=== PATIENT | female | born 1925 | race Caucasian/White ===

== ENCOUNTER 2016-07-12 15:55 | Inpatient (IN) | payer OTHER, BC ==
[2016-07-12 16:45] LABS: MCH 29.9 pg (25.7-33.7); MCHC 32.9 g/dl (32.0-36.0); MEAN CELL VOLUME 90.9 fl (80-96); PLATELET COUNT 134 K/MM3 (134-434); RDW 13.8 % (11.6-15.6); WHITE BLOOD COUNT 11.8 K/mm3 (4.0-10.0)
--- NOTE | 2016-07-12 16:52 | PN ---
Progress Note (short form) - Note Progress Note: Cardiology Patient was seen in consultation yesterday for first time. 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 Alex), chronic palpitations with ILR implanted (Dr. Parvez Garrett). Family reported several weeks of CRISOSTOMO and exertional fatigue. 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 She was referred for outpatient diagnostic testing today including LE venous dopplers (negative), bloodwork and CXR which showed large right pleural effusion with near opacification of right hemithorax. After discussing with her PMD Dr. Beltran and reviewing CXR with Dr. Villa, she was advised to come to ER for admission and further work up effusion with possible IR drainage. REC: 1. Continue Atenolol for her chronic palpitations 2. Supplimental O2. 3. Pulmonary consult 4. CT chest to evaluate parenchyma and if associated mass or infiltrate. 5. Would consult IR for CT or US guided drainage.
[2016-07-12] MEDS ORDERED: FUROSEMIDE 40 MG/4 ML INJECTABLE VIAL IVPB ONE (16:55)
[2016-07-12 16:56] LABS: INR 1.12 (0.82-1.09); PROTHROMBIN TIME (PATIENT) 12.3 SEC (9.98-11.88)
[2016-07-12 16:58] LABS: ACTIVATED PTT 28.2 SECONDS (26.9-34.4)
[2016-07-12 17:07] LABS: ALBUMIN 3.2 g/dl (3.4-5.0); ANION GAP 11 (8-16); CALCIUM 8.6 mg/dL (8.5-10.1); CO2 26 mmol/L (21-32); CREATININE 0.7 mg/dL (0.55-1.02); GLUCOSE,RANDOM 104 mg/dL (74-106); MAGNESIUM 2.2 mg/dL (1.8-2.4); SGOT/AST 30 U/L (15-37); SGPT/ALT 34 U/L (12-78)
[2016-07-12 17:12] LABS: ALK PHOS 95 U/L (45-117); BILIRUBIN,TOTAL 0.7 mg/dL (0.2-1.0); TROPONIN I < 0.02 ng/ml (0.00-0.05)
--- NOTE | 2016-07-12 17:30 | PDOC ---
History of Present Illness - General History Source: Patient, Family Exam Limitations: No Limitations <Hi Gonzalez - Last Filed: 07/12/16 18:05> - General History Source: Patient, Family, Old Records, Primary Care Provider (Dr. Price) Exam Limitations: No Limitations - History of Present Illness Initial Comments: 07/12/16 19:05 The patient is an 89 year old female, with a significant past medical history of CLL (last chemotherapy was 3 weeks ago), GERD and arrhythmia s/p implanted loop recorder, who presents to the emergency department sent in by Dr. Price with intermittent shortness of breath for the past week. The patient notes that her shortness of breath is not necessarily associated with any exertion or any pain. The patient additionally reports some bilateral lower extremity edema. The patient was seen by Dr. Price in office today. While there, she had bilateral lower extremity ultrasounds, which were negative for any DVT. However, she also had a chest x-ray, which showed a right sided pleural effusion. Dr. Price sent her to the ED for evaluation and likely admission. The patient denies any chest pain. The patient denies fever, chills, recent illnesses, nausea or vomiting. The patients family is at the bedside. Allergies: Azithromycin, Alendronate Sodium, Amoxicillin, Amoxicillin Trihydrate , Penicillins, Potassium Clavulanate Past Surgical History: Cholecystectomy, Bilateral Knee Arthroscopy. Social History: Former smoker. Denies alcohol or drug use. PCP: Dr. Beltran Video Game Repair Technician: Dr. Price Oncologist: Dr. Alex <Jackie Figueroa - Last Filed: 07/12/16 19:21> - General Chief Complaint: Shortness of Breath Stated Complaint: SOB, WHEEZING (PCP SENT) Time Seen by Provider: 07/12/16 16:14 Past History - Past Medical History Anemia: (CHRONIC LYMPHATIC LEUKEMIA) Asthma: No Cancer: Yes (RIGHT BREAST) Cardiac Disorders: Yes (ARRHYTHMIA with implanted loop recorder) CVA: No COPD: No CHF: No Dementia: No Diabetes: No GI Disorders: Yes (GERD) Disorders: No HTN: No Hypercholesterolemia: No Liver Disease: No Seizures: No Thyroid Disease: No - Surgical History Abdominal Surgery: No Appendectomy: No Cardiac Surgery: No Cholecystectomy: Yes Lung Surgery: No Neurologic Surgery: No Orthopedic Surgery: Yes (ARTHROSCOPY RIGHT AND LEFT KNEE) - Psycho/Social/Smoking Cessation Hx Anxiety: No Suicidal Ideation: No Smoking Status: No Smoking History: Never smoked Have you smoked in the past 12 months: No Number of Cigarettes Smoked Daily: 0 Information on smoking cessation initiated: No Hx Alcohol Use: No Drug/Substance Use Hx: No Substance Use Type: None Hx Substance Use Treatment: No <Hi Gonzalez - Last Filed: 07/12/16 18:05> <Jackie Figueroa - Last Filed: 07/12/16 19:21> - Past Medical History Allergies/Adverse Reactions: Allergies Allergy/AdvReac Type Severity Reaction Status Date / Time azithromycin Allergy Severe Rash Verified 04/14/13 10:23 alendronate sodium Allergy Intermediate ABDOMINAL Verified 04/14/13 10:23 [From Fosamax] PAIN amoxicillin [Amoxicillin] Allergy Intermediate Rash Verified 04/14/13 10:23 amoxicillin trihydrate Allergy Verified 01/17/14 10:56 [From Augmentin] Penicillins Allergy Rash Verified 04/14/13 10:23 potassium clavulanate Allergy Verified 01/17/14 10:56 [From Augmentin] Home Medications: Ambulatory Orders Aspirin [ASA -] 81 mg PO DAILY 12/28/11 Atenolol [Tenormin -] 50 mg PO DAILY 12/28/11 Atenolol [Tenormin -] 25 mg PO ASDIR 07/12/16 Atenolol [Tenormin] 25 mg PO DAILY PRN 07/12/16 Magnesium 400 mg PO DAILY 07/12/16 Review of Systems - Review of Systems Able to Perform ROS?: Yes Comments:: 07/12/16 18:50 GENERAL/CONSTITUTIONAL: No fever or chills. No weakness. HEAD, EYES, EARS, NOSE AND THROAT: No change in vision. No ear pain or discharge. No sore throat. CARDIOVASCULAR: +Shortness of breath. No chest pain. RESPIRATORY: No cough, wheezing, or hemoptysis. GASTROINTESTINAL: No nausea, vomiting, diarrhea or constipation. GENITOURINARY: No dysuria, frequency, or change in urination. MUSCULOSKELETAL: No joint or muscle swelling or pain. No neck or back pain. EXTREMITY: +Bilateral lower extremity edema. SKIN: No rash. NEUROLOGIC: No headache, vertigo, loss of consciousness, or change in strength/ sensation. ENDOCRINE: No increased thirst. No abnormal weight change. HEMATOLOGIC/LYMPHATIC: No anemia, easy bleeding, or history of blood clots. ALLERGIC/IMMUNOLOGIC: No hives or skin allergy. <Jackie Figueroa - Last Filed: 07/12/16 19:21> *Physical Exam - Vital Signs Last Vital Signs Temp Pulse Resp BP Pulse Ox 97.7 F 89 20 154/84 100 07/12/16 15:59 07/12/16 15:59 07/12/16 15:59 07/12/16 15:59 07/12/16 16:05 <Hi Gonzalez - Last Filed: 07/12/16 18:05> - Vital Signs Last Vital Signs Temp Pulse Resp BP Pulse Ox 97.7 F 89 20 154/84 100 07/12/16 15:59 07/12/16 15:59 07/12/16 15:59 07/12/16 15:59 07/12/16 16:05 - Physical Exam Comments: 07/12/16 18:46 GENERAL: Awake, alert, and fully oriented, in no acute distress. HEAD: No signs of trauma. EYES: PERRLA, EOMI, sclera anicteric, conjunctiva clear. ENT: Auricles normal inspection, hearing grossly normal, nares patent, oropharynx clear without exudates. Moist mucosa. NECK: Normal ROM, supple, no lymphadenopathy, JVD, or masses. LUNGS: Decreased breath sounds on the right side. No wheezes, and no crackles. HEART: Regular rate and rhythm, normal S1 and S2, no murmurs, rubs or gallops. ABDOMEN: Soft, nontender, normoactive bowel sounds. No guarding, no rebound. No masses. EXTREMITIES: 1+ pedal edema, bilaterally. Normal range of motion. No clubbing or cyanosis. No cords, erythema, or tenderness. NEUROLOGICAL: Cranial nerves II through XII grossly intact. Normal speech, gait is deferred. SKIN: Warm, dry, normal turgor, no rashes or lesions noted. <Jackie Figueroa - Last Filed: 07/12/16 19:21> Heart Score/ECG Review #1 ECG reviewed & interpreted by me at: 16:20 07/12/16 17:50 NSR 87, T wave flat III, no std/kathie, normal axis, normal intervals, QTC 421 msec <Hi Gonzalez - Last Filed: 07/12/16 18:05> ED Treatment Course - LABORATORY CBC & Chemistry Diagram: 07/12/16 16:35 07/12/16 16:35 - ADDITIONAL ORDERS Additional order review: Laboratory Results 07/12/16 16:35 INR 1.12 PTT (Actin FS) 28.2 07/12/16 16:35 RBC 4.11 MCV 90.9 MCHC 32.9 RDW 13.8 MPV 9.0 Neutrophils % Y Lymphocytes % Y - Medications Given in the ED: ED Medications Discontinued Medications Generic Name Dose Route Start Last Admin Trade Name Freq PRN Reason Stop Dose Admin Furosemide 20 mg 07/12/16 16:55 07/12/16 16:57 Lasix Injection - IVPB 07/12/16 16:56 20 mg ONCE ONE Administration <Hi Gonzalez - Last Filed: 07/12/16 18:05> - LABORATORY CBC & Chemistry Diagram: 07/12/16 16:35 07/12/16 16:35 - ADDITIONAL ORDERS Additional order review: Laboratory Results 07/12/16 07/12/16 16:35 16:35 INR 1.12 PTT (Actin FS) 28.2 Sodium 139 Potassium 3.7 Chloride 102 Carbon Dioxide 26 Anion Gap 11 BUN 28 H Creatinine 0.7 Creat Clearance w eGFR > 60 Random Glucose 104 Calcium 8.6 Magnesium 2.2 Total Bilirubin 0.7 D AST 30 D ALT 34 Alkaline Phosphatase 95 Creatine Kinase 39 Troponin I < 0.02 B-Natriuretic Peptide 1227.36 H Total Protein 6.0 L Albumin 3.2 L 07/12/16 16:35 RBC 4.11 MCV 90.9 MCHC 32.9 RDW 13.8 MPV 9.0 Neutrophils % Y Lymphocytes % Y - Medications Given in the ED: ED Medications Discontinued Medications Generic Name Dose Route Start Last Admin Trade Name Freq PRN Reason Stop Dose Admin Furosemide 20 mg 07/12/16 16:55 07/12/16 16:57 Lasix Injection - IVPB 07/12/16 16:56 20 mg ONCE ONE Administration <Jackie Figueroa - Last Filed: 07/12/16 19:21> Medical Decision Making - Medical Decision Making 07/12/16 17:29 A portion of this note was documented by scribe services under my direction. I have reviewed the details of the note, within reason, and agree with the documentation with the following case summary and management plan written by me. Patient treated in the ED. Nursing notes are reviewed and incorporated into the medical decision-making. Vital signs reviewed. Peripheral IV access obtained by the nurse, laboratory studies are drawn and sent, reviewed and interpreted by myself. Vital Signs Temp Pulse Resp BP Pulse Ox 97.7 F 89 20 154/84 100 07/12/16 15:59 07/12/16 15:59 07/12/16 15:59 07/12/16 15:59 07/12/16 16:05 89-year-old female with past medical history of CLL, last chemotherapy 3 weeks ago, presents with large right-sided pleural effusion. Patient was complaining of 1 week of dyspneic on exertion and occasionally shortness of breath at rest. Denies fevers, chills. She also complaining about some lotion edema bilaterally. She underwent lower extremity ultrasounds which demonstrated no DVTs and had a chest x-ray which demonstrate large right-sided pleural fusion. The patient was sent to the ER for admission and for further evaluation. Dr. Al aware of the case and had seen the patient. 07/12/16 18:05 CBC, BMP 07/12/16 16:35 07/12/16 16:35 CMP Sodium 139 mmol/L (136-145) 07/12/16 16:35 Potassium 3.7 mmol/L (3.5-5.1) 07/12/16 16:35 Chloride 102 mmol/L (98-107) 07/12/16 16:35 Carbon Dioxide 26 mmol/L (21-32) 07/12/16 16:35 Anion Gap 11 (8-16) 07/12/16 16:35 BUN 28 mg/dL (7-18) H 07/12/16 16:35 Creatinine 0.7 mg/dL (0.55-1.02) 07/12/16 16:35 Creat Clearance w eGFR > 60 (>60) 07/12/16 16:35 Random Glucose 104 mg/dL (74-106) 07/12/16 16:35 Calcium 8.6 mg/dL (8.5-10.1) 07/12/16 16:35 Magnesium 2.2 mg/dL (1.8-2.4) 07/12/16 16:35 Total Bilirubin 0.7 mg/dL (0.2-1.0) D 07/12/16 16:35 AST 30 U/L (15-37) D 07/12/16 16:35 ALT 34 U/L (12-78) 07/12/16 16:35 Alkaline Phosphatase 95 U/L (45-117) 07/12/16 16:35 Creatine Kinase 39 IU/L (26-192) 07/12/16 16:35 Troponin I < 0.02 ng/ml (0.00-0.05) 07/12/16 16:35 B-Natriuretic Peptide 1227.36 pg/ml (5-450) H 07/12/16 16:35 Total Protein 6.0 g/dl (6.4-8.2) L 07/12/16 16:35 Albumin 3.2 g/dl (3.4-5.0) L 07/12/16 16:[address] Price in detail. Case discussed with Dr. Al as well. Case discussed with [facility]. Admit under Dr. Carrillo. Case discussed in detail with admitting physician including history, physical exam and ancillary studies. Admitting physician has assumed care for the patient, will follow all pending diagnostics and will complete the evaluation and treatment. <Hi Gonzalez - Last Filed: 07/12/16 18:05> - Medical Decision Making 07/12/16 18:[address] Price at at 16:51, 17:23. Referred to answering service, awaiting callback. Dr. Price returned call at 17:30, case discussed. <Jackie iFgueroa - Last Filed: 07/12/16 19:21> *DC/Admit/Observation/Transfer - Discharge Dispostion Admit: Yes <Hi Gonzalez - Last Filed: 07/12/16 18:05> - Attestations Scribe Attestion: 07/12/16 18:08 Documentation prepared by Jackie Figueroa, acting as medical social consultant for Hi Gonzalez MD. <Jackie Figueroa - Last Filed: 07/12/16 19:21> Diagnosis at time of Disposition: Pleural effusion - Referrals Referrals: Geovany Beltran MD [Primary Care Provider] -
[2016-07-12 19:02] LABS: PLATELET ESTIMATE ADEQUATE (NORMAL)
--- NOTE | 2016-07-12 19:38 | PN ---
<Samuel Lozano - Last Filed: 07/12/16 19:38> Teaching Attending Note Name of Resident: Josue Garcia ATTENDING PHYSICIAN STATEMENT I saw and evaluated the patient. I reviewed the resident's note and discussed the case with the resident. I agree with the resident's findings and plan as documented. SUBJECTIVE: OBJECTIVE: ASSESSMENT AND PLAN: <Nupur Changyna - Last Filed: 07/13/16 03:32> Teaching Attending Note ATTENDING PHYSICIAN STATEMENT I saw and evaluated the patient. Imaging data and chart reviewed I reviewed the resident's note and discussed the case with the resident. I agree with the resident's findings and plan as documented. SUBJECTIVE: Patient is a 89 year old female with significant past medical history of CLL ( dx 5 years ago last chemotherapy was 3 weeks ago), GERD and arrhythmia with ILR implanted who was sent from the clinic by her cheese processor to the ED for right sided pleural effusion. 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 Patient has had SOB for several months. OBJECTIVE: VS: Last Vital Signs Temp Pulse Resp BP Pulse Ox 98.5 F 92 H 16 134/70 95 07/12/16 19:41 07/12/16 19:41 07/12/16 19:41 07/12/16 19:41 07/12/16 19:41 GENERAL: Awake, alert, and fully oriented, in no acute distress. HEENT: Atraumatic. Moist mucosa. Normocephalic. No sinus tenderness. No LAD. NECK: No JVD. No thyroid masses. Supple. LUNGS: +decreased breath sound on the right. Decreased percussion on the right side HEART: Regular rate and rhythm, normal S1 and S2, no murmurs, rubs or gallops, peripheral pulses normal and equal bilaterally. ABDOMEN: Soft, nontender, normoactive bowel sounds. No guarding, no rebound. No Masses. MUSCULOSKELETAL: No joint tenderness or erythema. No muscle tenderness. Normal muscle bulk and tone. EXTREMITIES: 1+ pitting edema bilaterally LE. Normal inspection. No clubbing or cyanosis. Moves all extremities. NEUROLOGICAL: Normal speech. no focal sensorimotor deficits. SKIN: Warm, dry, normal turgor, no rashes or lesions noted. LABS: CBCD WBC 11.8 K/mm3 (4.0-10.0) H D 07/12/16 16:35 RBC 4.11 M/mm3 (3.60-5.2) 07/12/16 16:35 Hgb 12.3 GM/dL (10.7-15.3) 07/12/16 16:35 Hct 37.4 % (32.4-45.2) 07/12/16 16:35 MCV 90.9 fl (80-96) 07/12/16 16:35 MCHC 32.9 g/dl (32.0-36.0) 07/12/16 16:35 RDW 13.8 % (11.6-15.6) 07/12/16 16:35 Plt Count 134 K/MM3 (134-434) 07/12/16 16:35 MPV 9.0 fl (7.5-11.1) 07/12/16 16:35 CMP Sodium 139 mmol/L (136-145) 07/12/16 16:35 Potassium 3.7 mmol/L (3.5-5.1) 07/12/16 16:35 Chloride 102 mmol/L (98-107) 07/12/16 16:35 Carbon Dioxide 26 mmol/L (21-32) 07/12/16 16:35 Anion Gap 11 (8-16) 07/12/16 16:35 BUN 28 mg/dL (7-18) H 07/12/16 16:35 Creatinine 0.7 mg/dL (0.55-1.02) 07/12/16 16:35 Creat Clearance w eGFR > 60 (>60) 07/12/16 16:35 Calcium 8.6 mg/dL (8.5-10.1) 07/12/16 16:35 Total Bilirubin 0.7 mg/dL (0.2-1.0) D 07/12/16 16:35 AST 30 U/L (15-37) D 07/12/16 16:35 ALT 34 U/L (12-78) 07/12/16 16:35 Alkaline Phosphatase 95 U/L (45-117) 07/12/16 16:35 Total Protein 6.0 g/dl (6.4-8.2) L 07/12/16 16:35 Albumin 3.2 g/dl (3.4-5.0) L 07/12/16 16:35 IMAGING: IMPRESSION: 1. Very large right pleural effusion with deviation of the mediastinum towards the left side and only a small amount of aeration within the right lung apex. 2. Extensive mediastinal and upper abdominal lymphadenopathy and splenomegaly consistent with the clinical history of CLL. EKG: sinus rhythm at 87 bpm ASSESSMENT AND PLAN: 89 year old female with significant past medical history of CLL (last chemotherapy was 3 weeks ago), GERD and Atrial fibrillation with ILR implanted who is admitted for right pleural effusion. 1. Right sided pleural effusion - Clinically stable - IR guided drainage in the AM - Pulmo consult - O2 2L NC - Lasix 40 mg daily - NPO past midnight for IR guided drainage 2. Paroxysmal Afib - Not on anti coagulation - Aspirin 81 mg daily - Cardio consult appreciate - Atenolol 50 mg bid 3. DVT ppx - Low risk - Heparin 5000 subQ Admit to Observation. Documentation prepared by RAISA Perez, acting as medical doctor md for Sameul Lozano MD.
--- NOTE | 2016-07-12 20:24 | HP ---
CHIEF COMPLAINT: PCP: Dr. Beltran HISTORY OF PRESENT ILLNESS: The patient is an 89 year old female, with a significant past medical history of CLL (last chemotherapy was 3 weeks ago), GERD and arrhythmia s/p implanted loop recorder, who presents to the emergency department sent in by Dr. Price with intermittent shortness of breath for last 4-5 months. Patient states that SOB is intermittent, can occur during rest and during walking. Patient also states that Befor 5 months she was able to walk couple of blocks but now she doesnt go out that much but she get sob in going from 1st floor to second floor. SOB is mostly associated with palpitations. She also reports that sometime she wakes up in middle of night with SOB and palpitations which get better after taking 1/2 tab of atenolol. Patient dosent use oxygen in home. The patient additionally reports some bilateral lower extremity edema from last 3 months. The patient was seen by Dr. Price in office today. While there, she had bilateral lower extremity ultrasounds, which were negative for any DVT. However, she also had a chest x- ray, which showed a right sided pleural effusion. patient states she never had pleural effusion before. Dr. Price sent her to the ED for evaluation and likely admission. The patient denies any chest pain. The patient denies fever, chills, recent illnesses, nausea or vomiting. diziness, lightheadidness, burning micturation. Patient stattes that she had lost 6 pounds in last [address] Road Machine Operator: Dr. Price Oncologist: Dr. Alex ER course was notable for: (1) lasix , atenolol (2) ct chest , cardiology consult (3) cbc, cmp Recent Travel: NO PAST MEDICAL HISTORY: GERD, arrthymia, CLL, Ca breast PAST SURGICAL HISTORY: Cholecystectomy, Bilateral Knee Arthroscopy. lumpectomy on right breast 10 years ago. Social History: Smoking: No Alcohol: one glass of wine 5 days a week Drugs: No Family History: Allergies azithromycin Allergy (Severe, Verified 04/14/13 10:23) Rash alendronate sodium [From Fosamax] Allergy (Intermediate, Verified 04/14/13 10:23 ) ABDOMINAL PAIN amoxicillin [Amoxicillin] Allergy (Intermediate, Verified 04/14/13 10:23) Rash amoxicillin trihydrate [From Augmentin] Allergy (Verified 01/17/14 10:56) Penicillins Allergy (Verified 04/14/13 10:23) Rash potassium clavulanate [From Augmentin] Allergy (Verified 01/17/14 10:56) HOME MEDICATIONS: Home Medications Medication Instructions Recorded Aspirin [ASA -] 81 mg PO DAILY 12/28/11 Atenolol [Tenormin -] 50 mg PO DAILY 12/28/11 Atenolol [Tenormin -] 25 mg PO ASDIR 07/12/16 Atenolol [Tenormin] 25 mg PO DAILY PRN 07/12/16 Magnesium 400 mg PO DAILY 07/12/16 REVIEW OF SYSTEMS CONSTITUTIONAL: Absent: fever, chills, diaphoresis, generalized weakness, malaise, loss of appetite, HEENT: Absent: rhinorrhea, nasal congestion, throat pain, throat swelling, difficulty swallowing, mouth swelling, ear pain, eye pain, visual changes CARDIOVASCULAR: Absent: chest pain, syncope, palpitations, irregular heart rate, lightheadedness , peripheral edema RESPIRATORY: Absent: cough, shortness of breath, dyspnea with exertion, orthopnea, wheezing, stridor, hemoptysis GASTROINTESTINAL: Absent: abdominal pain, abdominal distension, nausea, vomiting, diarrhea, constipation, melena, hematochezia GENITOURINARY: Absent: dysuria, frequency, urgency, hesitancy, hematuria, flank pain, genital pain MUSCULOSKELETAL: Absent: myalgia, arthralgia, joint swelling, back pain, neck pain SKIN: Absent: rash, itching, pallor HEMATOLOGIC/IMMUNOLOGIC: Absent: easy bleeding, easy bruising, lymphadenopathy, frequent infections ENDOCRINE: Absent: unexplained weight gain, unexplained weight loss, heat intolerance, cold intolerance NEUROLOGIC: Absent: headache, focal weakness or paresthesias, dizziness, unsteady gait, seizure, mental status changes, bladder or bowel incontinence PSYCHIATRIC: Absent: anxiety, depression, suicidal or homicidal ideation, hallucinations. PHYSICAL EXAMINATION Vital Signs - 24 hr 07/12/16 19:41 Temperature 98.5 F Pulse Rate [ 92 H Left] Respiratory 16 Rate Blood Pressure 134/70 [Left Arm] O2 Sat by Pulse 95 Oximetry (%) GENERAL: Awake, alert, and fully oriented, in no acute distress. HEAD: Normal with no signs of trauma. EYES: Pupils equal, round and reactive to light, extraocular movements intact, sclera anicteric, conjunctiva clear. No lid lag. EARS, NOSE, THROAT: Ears normal, nares patent, oropharynx clear without exudates. Moist mucous membranes. NECK: Normal range of motion, supple without lymphadenopathy, LUNGS: dull to percuss on right side, decrease breath sound on right side, wheezing present in right basal area. Left side air entry present, no wheez. HEART: s1s2 normal, regular ABDOMEN: Soft, nontender, not distended, normoactive bowel sounds, no guarding, no rebound, no masses. MUSCULOSKELETAL: Normal range of motion at all joints. No bony deformities or tenderness. UPPER EXTREMITIES: 2+ pulses, warm, well-perfused. No cyanosis. No clubbing. Cap refill <2 seconds. No peripheral edema. LOWER EXTREMITIES: 2+ pulses, warm, well-perfused. No calf tenderness. peripheral edema present NEUROLOGICAL: Cranial nerves II-XII intact. Normal speech. PSYCHIATRIC: Cooperative. Good eye contact. Appropriate mood and affect. SKIN: Warm, dry, normal turgor, no rashes or lesions noted. ASSESSMENT/PLAN: The patient is an 89 year old female, with a significant past medical history of CLL (last chemotherapy was 3 weeks ago), GERD and arrhythmia s/p implanted loop recorder, who presents to the emergency department sent in by Dr. Price with intermittent shortness of breath and right side plural effusion. Right side plural effusion with sob most likely exudative. could be malignent effusion, posted for IR guided thoracocentesis pulmonary consult Cardiology consult appreciated On oxygen 2L maintaining 97-99% Lasix 20mg IV push BID Afib on atenolol 50mg bid ekg: sinus rhythm anaya loop recorder cardiac monitoring H/o CLL received chemo 3 week ago oncology consult Dr Alex fluid: orally allowed electrolyte : follow in am nurtrition: NPO after mid night DVt pro: ambulatory GI pro: not required Dispo : place in obs Visit type - Emergency Visit Emergency Visit: Yes ED Registration Date: 07/12/16 Care time: The patient presented to the Emergency Department on the above date and was hospitalized for further evaluation of their emergent condition. - New Patient This patient is new to me today: Yes Date on this admission: 07/13/16 - Critical Care Critical Care patient: No
[2016-07-12] MEDS: ATENOLOL 50 MG TABLET (FP) PO SCH (21:44)
[2016-07-13 00:42] VITALS: BMI 20.4
[2016-07-13] MEDS: FUROSEMIDE 40 MG/4 ML INJECTABLE VIAL IVPUSH SCH ×2 (06:24→13:49)
[2016-07-13 08:17] LABS: MCH 30.5 pg (25.7-33.7); MCHC 33.7 g/dl (32.0-36.0); MEAN CELL VOLUME 90.5 fl (80-96); MEAN PLT VOLUME 8.8 fl (7.5-11.1); PLATELET COUNT 124 K/MM3 (134-434); RDW 13.7 % (11.6-15.6); WHITE BLOOD COUNT 9.6 K/mm3 (4.0-10.0)
[2016-07-13 08:30] LABS: INR 1.12 (0.82-1.09); PROTHROMBIN TIME (PATIENT) 12.3 SEC (9.98-11.88)
[2016-07-13 08:32] LABS: ACTIVATED PTT 26.6 SECONDS (26.9-34.4)
[2016-07-13 08:39] LABS: CALCIUM 8.4 mg/dL (8.5-10.1); MAGNESIUM 2.2 mg/dL (1.8-2.4)
[2016-07-13 08:42] LABS: CREATININE 0.6 mg/dL (0.55-1.02)
[2016-07-13 09:38] LABS: ANISOCYTOSIS 1+; HYPOCHROMIA 1+; PLATELET COMMENT2 NO CLOTTING DETECTED; PLATELET ESTIMATE SLT DECREASED (NORMAL); SMUDGE CELLS FEW
[2016-07-13] MEDS: ATENOLOL 50 MG TABLET (FP) PO SCH ×2 (09:39→22:09)
--- NOTE | 2016-07-13 09:57 | PN ---
Progress Note, Physician History of Present Illness: seen and examined today in [facility]. no overnight events. states she is feeling well. denies having any sob at rest, only dyspnea with exertion. denies chest pain. - Current Medication List Current Medications: Active Medications Atenolol (Tenormin -) 50 mg PO BID [facility]END[facility] TO [facility] Last Admin: 07/13/16 09:39 Dose: 50 mg Furosemide (Lasix Injection -) 20 mg IVPUSH BID@0600,1400 [facility] Last Admin: 07/13/16 06:24 Dose: 20 mg - Objective Vital Signs: Vital Signs Temperature 97.9 F 07/13/16 08:31 Pulse Rate 84 07/13/16 08:31 Respiratory Rate 20 07/13/16 08:34 Blood Pressure 134/72 07/13/16 08:31 O2 Sat by Pulse Oximetry (%) 95 07/13/16 08:34 Constitutional: Yes: Well Nourished, No Distress, Calm Eyes: Yes: WNL, Conjunctiva Clear, EOM Intact, PERRL HENT: Yes: WNL, Atraumatic, Normocephalic Neck: Yes: WNL, Supple, Trachea Midline Cardiovascular: Yes: WNL, Regular Rate and Rhythm, S1, S2. No: Bradycardia, Tachycardia, Pulse Irregular, Bruit, JVD, Gallop, Murmur, Rub, S3, S4, Varicosities, Other Respiratory: Yes: Regular, Diminished (absent breath sounds right lung, left lung clear), On Nasal O2. No: Rales, Rhonchi, SOB, Wheezes Gastrointestinal: Yes: WNL, Normal Bowel Sounds, Soft. No: Distention, Tenderness Musculoskeletal: Yes: WNL Extremities: Yes: WNL Edema: No Peripheral Pulses WNL: Yes Peripheral Pulses: Left Doralis Pedis: 2+, Right Dorsalis Pedis: 2+ Integumentary: Yes: WNL Neurological: Yes: WNL, Alert, Oriented, Cran Nerves II-XII Intact ...Motor Strength: WNL Psychiatric: Yes: WNL, Alert, Oriented Labs: CBC, BMP 07/13/16 05:45 07/13/16 05:45 INR, PTT INR 1.12 (0.82-1.09) 07/13/16 05:45 - ....Imaging Chest X-ray: Report Reviewed, Image Reviewed EKG: Report Reviewed, Image Reviewed Other: Report Reviewed, Image Reviewed (tele-nsr, no arrhythmias recorded) Problem List - Problems (1) Pleural effusion Code(s): J90 - PLEURAL EFFUSION, NOT ELSEWHERE CLASSIFIED (2) Palpitation Code(s): R00.2 - PALPITATIONS Assessment/Plan 89 year 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 Pleural effusion-very large right sided effusion -CT chest confirmed very large R sided pleural effusion with deviation of mediastinum to left and extensive lymphadenopathy -pulmonary to evaluate and to coordinate IR drainage for diagnostic and therapeutic purposes -Hold ASA 81mg for likely planned thoracentesis, pt states she took last dose yesterday 07/12 -pt currently receiving Lasix 20mg IV BID, can cont for now to assist with improvement in pleural effusion -monitor strict I/Os, daily weights, bun/creat, electrolytes -replete K and Mg -can dc tele Palpitations-chronic -cont home atenolol -ok to dc tele, no arrhythmia overnight -outpatient follow up
--- NOTE | 2016-07-13 12:14 | CON.PULM ---
Consult Consult Specialty:: PULMONARY Referred by:: SAIMA Reason for Consultation:: SOB - History of Present Illness Chief Complaint: SOB History of Present Illness: The patient is an 89 year old female, with a significant past medical history of CLL (last chemotherapy was 3 weeks ago), GERD and arrhythmia s/p implanted loop recorder, who presented to the emergency department sent in by Dr. Price with intermittent shortness of breath for the past week. The patient notes that her shortness of breath is not necessarily associated with any exertion or any pain. The patient additionally reports some bilateral lower extremity edema. The patient was seen by Dr. Price in office today. While there, she had bilateral lower extremity ultrasounds, which were negative for any DVT. However, she also had a chest x-ray, which showed a right sided pleural effusion. Dr. Price sent her to the ED for evaluation and likely admission. The patient denies any chest pain. The patient denies fever, chills, recent illnesses, nausea or vomiting. 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 No: Ascites Hepatobiliary: No: Cirrhosis Renal/: No: Renal Failure Reproductive: Yes: Postmenopausal ...: No Heme/Onc: Yes: Other (CLL) Infectious Disease: No: AIDS Psych: No: Addictions Endocrine: No: Diabetes Mellitus - Alcohol/Substance Use Hx Alcohol Use: No - Smoking History Smoking history: Never smoked Have you smoked in the past 12 months: No Aproximately how many cigarettes per day: 0 Home Medications - Allergies Allergies/Adverse Reactions: Allergies Allergy/AdvReac Type Severity Reaction Status Date / Time azithromycin Allergy Severe Rash Verified 04/14/13 10:23 alendronate sodium Allergy Intermediate ABDOMINAL Verified 04/14/13 10:23 [From Fosamax] PAIN amoxicillin [Amoxicillin] Allergy Intermediate Rash Verified 04/14/13 10:23 amoxicillin trihydrate Allergy Verified 01/17/14 10:56 [From Augmentin] Penicillins Allergy Rash Verified 04/14/13 10:23 potassium clavulanate Allergy Verified 01/17/14 10:56 [From Augmentin] - Home Medications Home Medications: Ambulatory Orders Aspirin [ASA -] 81 mg PO DAILY 12/28/11 Atenolol [Tenormin -] 50 mg PO DAILY 12/28/11 Atenolol [Tenormin -] 25 mg PO ASDIR 07/12/16 Atenolol [Tenormin] 25 mg PO DAILY PRN 07/12/16 Magnesium 400 mg PO DAILY 07/12/16 Review of Systems - Review of Systems Constitutional: denies: Fever Eyes: denies: Blurred Vision HENT: denies: Difficult Swallowing Neck: denies: Decreased ROM Cardiovascular: denies: Chest Pain Respiratory: reports: Exercise Intolerance, SOB on Exertion. denies: Cough, Hemoptysis, Wheezing Gastrointestinal: denies: Abdominal Pain Genitourinary: denies: Burning Breasts: reports: No Symptoms Reported Musculoskeletal: reports: No Symptoms Integumentary: reports: No Symptoms Physical Exam Vital Sings: Vital Signs Temperature 97.9 F 07/13/16 08:31 Pulse Rate 84 07/13/16 08:31 Respiratory Rate 20 07/13/16 08:34 Blood Pressure 134/72 07/13/16 08:31 O2 Sat by Pulse Oximetry (%) 95 07/13/16 08:34 Constitutional: Yes: Calm Eyes: Yes: EOM Intact HENT: Yes: Normocephalic Neck: Yes: Trachea Midline Cardiovascular: Yes: Regular Rate and Rhythm, S1, S2 Respiratory: Yes: Diminished, Dullness (RIGHT BASE EXTENDING UP 3/4) Gastrointestinal: Yes: Normal Bowel Sounds, Soft Renal/: Yes: WNL Breast(s): Yes: WNL Musculoskeletal: Yes: WNL Extremities: Yes: WNL Edema: No Integumentary: Yes: WNL Neurological: Yes: Alert Labs: CBC, BMP 07/13/16 05:45 07/13/16 05:45 REST REVIEWED Imaging - Results Chest X-ray: Image Reviewed Cat Scan: Image Reviewed EKG: Report Reviewed Problem List - Problems (1) Pleural effusion Code(s): J90 - PLEURAL EFFUSION, NOT ELSEWHERE CLASSIFIED (2) CLL (chronic lymphocytic leukemia) Code(s): C91.10 - CHRONIC LYMPHOCYTIC LEUK OF B-CELL TYPE NOT ACHIEVE REMIS (3) GERD (gastroesophageal reflux disease) Code(s): K21.9 - GASTRO-ESOPHAGEAL REFLUX DISEASE WITHOUT ESOPHAGITIS (4) Arrhythmia Code(s): I49.9 - CARDIAC ARRHYTHMIA, UNSPECIFIED Assessment/Plan HAVE SCHEDULED THORACENTESIS VIA IR LARGE VOLUME PLEURAL EFFUSION ETIOLOGY TO BE DETERMINED Teddy MISTRY MD
--- NOTE | 2016-07-13 13:40 | EKG ---
Test Reason : Blood Pressure : / mmHG Vent. Rate : 087 BPM Atrial Rate : 087 BPM P-R Int : 142 ms QRS Dur : 070 ms QT Int : 350 ms P-R-T Axes : 044 023 034 degrees QTc Int : 421 ms NORMAL SINUS RHYTHM NORMAL ECG NO PREVIOUS ECGS AVAILABLE Confirmed by BERTA SANTOS MD ([id number]) on 07/13/2016 1:39:47 PM Referred By: Confirmed By:BERTA SANTOS MD
--- NOTE | 2016-07-13 16:50 | PN ---
Physical Exam: SUBJECTIVE: Patient seen and examined Patient is lying in bed, comfortable, and sister in law at bedside. No acute distress on 2 liter oxygen. OBJECTIVE: Vital Signs Temperature 98 F 07/13/16 14:20 Pulse Rate 82 07/13/16 14:20 Respiratory Rate 20 07/13/16 14:20 Blood Pressure 128/60 07/13/16 14:20 O2 Sat by Pulse Oximetry (%) 95 07/13/16 08:34 GENERAL: The patient is awake, alert, and fully oriented, in no acute distress. HEAD: Normal with no signs of trauma. EYES: PERRL, extraocular movements intact, sclera anicteric, conjunctiva clear. ENT: Ears normal, oropharynx clear without exudates, moist mucous membranes, on NC. NECK: Trachea midline, full range of motion, supple. LUNGS: Decreased air entry R>L , otherwise CTA BL, no wheezes, no crackles, no accessory muscle use. HEART: Regular rate and rhythm, S1, S2 positive, no rub or gallop. ABDOMEN: Soft, Nt, ND, normoactive bowel sounds, no guarding, no rebound, positive for splenomegaly. EXTREMITIES: 2+ pulses, warm, well-perfused, no edema. NEUROLOGICAL: Cranial nerves II through XII grossly intact. Normal speech, gait not observed. PSYCH: Normal mood, normal affect. SKIN: Warm, dry, normal turgor, no rashes or lesions noted Laboratory Results - last 24 hr 07/13/16 07/13/16 07/13/16 05:45 05:45 05:45 WBC 9.6 RBC 3.76 Hgb 11.5 Hct 34.1 MCV 90.5 MCHC 33.7 RDW 13.7 Plt Count 124 L MPV 8.8 Neutrophils % 24.0 L D Lymphocytes % 65.0 H D Monocytes % 6.0 Reactive Lymphocytes 5 D Smudge Cells Few Platelet Estimate Slt decreased Platelet Comment No clotting detected Hypochromic-Microcytic 1+ Anisocytosis 1+ INR 1.12 PTT (Actin FS) 26.6 L Sodium Cancelled Potassium Cancelled Chloride Cancelled Carbon Dioxide Cancelled Anion Gap Cancelled BUN Cancelled Creatinine Cancelled Random Glucose Cancelled Calcium Cancelled Phosphorus Magnesium LD Total 07/13/16 05:45 WBC RBC Hgb Hct MCV MCHC RDW Plt Count MPV Neutrophils % Lymphocytes % Monocytes % Reactive Lymphocytes Smudge Cells Platelet Estimate Platelet Comment Hypochromic-Microcytic Anisocytosis INR PTT (Actin FS) Sodium 141 Potassium 3.3 L Chloride 105 Carbon Dioxide 26 Anion Gap 10 BUN 26 H Creatinine 0.6 Random Glucose 83 D Calcium 8.4 L Phosphorus 3.0 Magnesium 2.2 LD Total 176 Active Medications Generic Name Dose Route Start Last Admin Trade Name Freq PRN Reason Stop Dose Admin Atenolol 50 mg 07/12/16 22:00 07/13/16 09:39 Tenormin - PO 50 mg BID STEPHANIE Administration Furosemide 20 mg 07/13/16 06:00 07/13/16 13:49 Lasix Injection - IVPUSH 20 mg BID@0600,1400 STEPHANIE Administration CXR: Impression: Very large right pleural effusion. CT of The chest : IMPRESSION: 1. Very large right pleural effusion with deviation of the mediastinum towards the left side and only a small amount of aeration within the right lung apex. 2. Extensive mediastinal and upper abdominal lymphadenopathy and splenomegaly consistent with the clinical history of CLL. Please see above discussion. Reported By: Jean Aragon MD 07/12/162031 US of lower extremities :Impression: There is no evidence of deep venous thromboses in both lower extremities. Right groin slightly enlarged lymph nodes and borderline lymph node on the left. Correlate clinically for further evaluation. Reported By: Jo Johnson MD 07/12/16 1506 ASSESSMENT/PLAN: Patient is an 89 year old female, with a significant past medical history of CLL (last chemotherapy was 3 weeks ago), GERD and arrhythmia s/p implanted loop recorder, who was send to ED.by Dr. Price with intermittent shortness of breath and right side plural effusion. # Acute Large Right side plural effusion presented with sob most likely exudative, due to CLL ( malignant effusion) for IR guided thoracocentesis pulmonary consult . cardio consult appreciated , continue on oxygen 2L maintaining 97-99% Lasix 20mg IV push BID ordered. # Hx of Afib with rate controlled on atenolol 50mg bid continue #H/o CLL s/p chemo 3 weeks ago, oncologist Dr. Dr Alex for consult DVt px: ambulatory Visit type - Emergency Visit Emergency Visit: Yes ED Registration Date: 07/12/16 Care time: The patient presented to the Emergency Department on the above date and was hospitalized for further evaluation of their emergent condition. - New Patient This patient is new to me today: Yes Date on this admission: 07/13/16 - Critical Care Critical Care patient: No - Discharge Referral Physician Referral: Geovany Beltran MD ([facility])
[2016-07-14] MEDS: FUROSEMIDE 40 MG/4 ML INJECTABLE VIAL IVPUSH SCH (06:59)
[2016-07-14] MEDS: ATENOLOL 50 MG TABLET (FP) PO SCH ×2 (09:33→21:43)
--- NOTE | 2016-07-14 09:44 | PN ---
Physical Exam: SUBJECTIVE: Patient seen and examined. feels tired. had difficulty sleeping last night due to noisy neighbhor. Denies chest pain, palpitations, cough, sob, fever, chills. ambulating/eating/toileting without difficulty. OBJECTIVE: Vital Signs Period Temp Pulse Resp BP Sys/Ross Pulse Ox Last 24 Hr 97.0 F-99 F 82-88 18-20 120-130/57-65 96-98 GENERAL: thin elderly woman, is awake, alert, and fully oriented, in no acute distress. HEAD: Normal with no signs of trauma. EYES: EOMI, sclera anicteric, conjunctiva clear. No ptosis. ENT: Ears normal, nares patent, oropharynx clear without exudates, moist mucous membranes. NECK: Trachea midline, supple. no LAD, no thyromegaly LUNGS: Breath sounds diminished on right from apex to base, clear on left without wheezing/crackles. HEART: Regular rate and rhythm, S1, S2 without murmur, rub or gallop. ABDOMEN: Soft, nontender, nondistended, normoactive bowel sounds, no guarding, no rebound. EXTREMITIES: 2+ pulses, warm, well-perfused, 1+ edema in b/l ankles. calves b/l nontender/ no edema. NEUROLOGICAL: Normal speech, gait normal PSYCH: Normal mood, normal affect. SKIN: Warm, dry, normal turgor, no rashes or lesions noted Active Medications Generic Name Dose Route Start Last Admin Trade Name Freq PRN Reason Stop Dose Admin Atenolol 50 mg 07/12/16 22:00 07/14/16 09:33 Tenormin - PO 50 mg BID STEPHANIE Administration Furosemide 20 mg 07/13/16 06:00 07/14/16 06:59 Lasix Injection - IVPUSH 20 mg BID@0600,1400 STEPHANIE Administration ASSESSMENT/PLAN: 89 year old woman with history of CLL (last chemotherapy was 3 weeks ago), GERD and arrhythmia s/p implanted loop recorder, who was send to ED by Dr. Price with intermittent shortness of breath for past 4-5 mo and right side plural effusion seen on chest xray. #Right side large pleural effusion, etiology to be determined, - concern for malignancy vs cardiac as BNP is elevated vs infectious (given immunocompromised pt, however low suspicion for infectious since afebrile, without leucocytosis, no sx of URI or pna) - Echo pending - breathing comfortably on RA, 2lpm nasal cannula prn - IR for diagnostic and therapeutic tap on Friday (given holiday weekend) -- will make NPO Friday night - Lasix 20mg po --sodium 141 today, will monitor for overdiuresis - Dr. Al consulted #hypokalemia - replete 20meq po - repeat labs in the AM #PAF - no events on monitor, pt stable, can be monitored on med-surg floor - ASA 81 held in anticipation for IR - atenolol 50mg BID po for rate control - Dr. Garcia consulted #DVT: ambulating around halls, hep 5000 tid #Diet: low sodium Visit type - Emergency Visit Emergency Visit: No - New Patient This patient is new to me today: Yes Date on this admission: 07/14/16 - Critical Care Critical Care patient: No
--- NOTE | 2016-07-14 09:55 | PN ---
Progress Note, Physician History of Present Illness: seen and examined today in [facility]. did not sleep well overnight due to patient in other room yelling all night. feeling very tired. no new complaints. - Current Medication List Current Medications: Active Medications Atenolol (Tenormin -) 50 mg PO BID [facility] Last Admin: 07/14/16 09:33 Dose: 50 mg Furosemide (Lasix Injection -) 20 mg IVPUSH BID@0600,1400 [facility] Last Admin: 07/14/16 06:59 Dose: 20 mg - Objective Vital Signs: Vital Signs Temperature 97.0 F L 07/14/16 07:56 Pulse Rate 87 07/14/16 07:56 Respiratory Rate 20 07/14/16 08:00 Blood Pressure 124/62 07/14/16 07:56 O2 Sat by Pulse Oximetry (%) 98 07/14/16 08:00 Constitutional: Yes: Well Nourished, No Distress, Calm Eyes: Yes: WNL, Conjunctiva Clear, EOM Intact, PERRL HENT: Yes: WNL, Atraumatic, Normocephalic Neck: Yes: WNL, Supple, Trachea Midline Cardiovascular: Yes: Regular Rate and Rhythm, S1, S2. No: Bradycardia, Tachycardia, Pulse Irregular, Bruit, JVD, Gallop, Murmur, Rub, S3, S4, Varicosities Respiratory: Yes: Regular, Diminished (right lung absent bs, L lung clear). No : Rales, Rhonchi, Wheezes Gastrointestinal: Yes: WNL, Normal Bowel Sounds, Soft. No: Distention, Tenderness Musculoskeletal: Yes: WNL Extremities: Yes: WNL Edema: No Peripheral Pulses WNL: Yes Peripheral Pulses: Left Doralis Pedis: 2+, Right Dorsalis Pedis: 2+ Integumentary: Yes: WNL Neurological: Yes: WNL, Alert, Oriented, Cran Nerves II-XII Intact ...Motor Strength: WNL Psychiatric: Yes: WNL, Alert, Oriented Labs: CBC, BMP 07/13/16 05:45 07/13/16 05:45 INR, PTT INR 1.12 (0.82-1.09) 07/13/16 05:45 - ....Imaging Chest X-ray: Report Reviewed, Image Reviewed EKG: Report Reviewed, Image Reviewed Other: Report Reviewed, Image Reviewed (tele-nsr, no events recorded) Problem List - Problems (1) Pleural effusion Code(s): J90 - PLEURAL EFFUSION, NOT ELSEWHERE CLASSIFIED (2) Palpitation Code(s): R00.2 - PALPITATIONS Assessment/Plan 89 year 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 Pleural effusion-very large right sided effusion -CT chest confirmed very large R sided pleural effusion with deviation of mediastinum to left and extensive lymphadenopathy -planned for thoracentesis for diagnostic and therapeutic purposes -Holding ASA 81mg for planned thoracentesis, pt states she took last dose at home 07/12 -pt currently receiving Lasix 20mg IV BID, effusion less likely from CHF, will change to Lasix 20mg po daily to avoid intravascular depletion -monitor strict I/Os, daily weights, bun/creat, electrolytes -replete K and Mg -can dc tele Palpitations-chronic -cont home atenolol -ok to dc tele, no arrhythmia since admission -outpatient follow up
[2016-07-14] MEDS ORDERED: POTASSIUM CHLORIDE 40 MEQ/30 ML UNIT DOSE CUP PO ONE (11:30)
--- NOTE | 2016-07-14 12:21 | PN ---
Progress Note (short form) - Note Progress Note: PULMONARY APPEARS COMFORTABLE NO OVERALL CHANGE IN EXAM (1) Pleural effusion Code(s): J90 - PLEURAL EFFUSION, NOT ELSEWHERE CLASSIFIED (2) CLL (chronic lymphocytic leukemia) Code(s): C91.10 - CHRONIC LYMPHOCYTIC LEUK OF B-CELL TYPE NOT ACHIEVE REMIS (3) GERD (gastroesophageal reflux disease) Code(s): K21.9 - GASTRO-ESOPHAGEAL REFLUX DISEASE WITHOUT ESOPHAGITIS (4) Arrhythmia Code(s): I49.9 - CARDIAC ARRHYTHMIA, UNSPECIFIED Assessment/Plan HAVE SCHEDULED THORACENTESIS VIA IR LARGE VOLUME PLEURAL EFFUSION ETIOLOGY TO BE DETERMINED R FEDE GARCIA Problem List - Problems (1) Pleural effusion Code(s): J90 - PLEURAL EFFUSION, NOT ELSEWHERE CLASSIFIED (2) CLL (chronic lymphocytic leukemia) Code(s): C91.10 - CHRONIC LYMPHOCYTIC LEUK OF B-CELL TYPE NOT ACHIEVE REMIS (3) GERD (gastroesophageal reflux disease) Code(s): K21.9 - GASTRO-ESOPHAGEAL REFLUX DISEASE WITHOUT ESOPHAGITIS (4) Arrhythmia Code(s): I49.9 - CARDIAC ARRHYTHMIA, UNSPECIFIED
[2016-07-14] MEDS: HEPARIN NA (PORCINE) 5,000 UNITS/ML 1ML VIAL SQ SCH ×2 (13:54→21:43)
--- NOTE | 2016-07-14 17:46 | PN ---
Teaching Attending Note Name of Resident: Serena Ford ATTENDING PHYSICIAN STATEMENT I saw and evaluated the patient. I reviewed the resident's note and discussed the case with the resident. I agree with the resident's findings and plan as documented. SUBJECTIVE: Patient is comfortable with no acute distress, no shortness of breath. OBJECTIVE: Vital Signs Temperature 97.4 F L 07/14/16 14:05 Pulse Rate 82 07/14/16 14:05 Respiratory Rate 20 07/14/16 14:05 Blood Pressure 128/58 07/14/16 14:05 O2 Sat by Pulse Oximetry (%) 98 07/14/16 08:00 GENERAL: The patient is awake, alert, and fully oriented, in no acute distress. HEAD: Normal with no signs of trauma. EYES: PERRL, extraocular movements intact, sclera anicteric, conjunctiva clear. ENT: Ears normal, oropharynx clear without exudates, moist mucous membranes, on NC, NECK: Trachea midline, full range of motion, supple. positive for cervical lymphadenopathy b/l L>R LUNGS: Decreased air entry R>L , otherwise CTA BL, no wheezes, no crackles, no accessory muscle use. HEART: Regular rate and rhythm, S1, S2 positive, no rub or gallop. ABDOMEN: Soft, Nt, ND, normoactive bowel sounds, no guarding, no rebound, positive for splenomegaly. EXTREMITIES: 2+ pulses, warm, well-perfused, no edema. NEUROLOGICAL: Cranial nerves II through XII grossly intact. Normal speech, gait is stable. PSYCH: Normal mood, normal affect. SKIN: Warm, dry, normal turgor, no rashes or lesions noted CBCD WBC 9.6 K/mm3 (4.0-10.0) 07/13/16 05:45 RBC 3.76 M/mm3 (3.60-5.2) 07/13/16 05:45 Hgb 11.5 GM/dL (10.7-15.3) 07/13/16 05:45 Hct 34.1 % (32.4-45.2) 07/13/16 05:45 MCV 90.5 fl (80-96) 07/13/16 05:45 MCHC 33.7 g/dl (32.0-36.0) 07/13/16 05:45 RDW 13.7 % (11.6-15.6) 07/13/16 05:45 Plt Count 124 K/MM3 (134-434) L 07/13/16 05:45 MPV 8.8 fl (7.5-11.1) 07/13/16 05:45 CMP Sodium 141 mmol/L (136-145) 07/13/16 05:45 Potassium 3.3 mmol/L (3.5-5.1) L 07/13/16 05:45 Chloride 105 mmol/L (98-107) 07/13/16 05:45 Carbon Dioxide 26 mmol/L (21-32) 07/13/16 05:45 Anion Gap 10 (8-16) 07/13/16 05:45 BUN 26 mg/dL (7-18) H 07/13/16 05:45 Creatinine 0.6 mg/dL (0.55-1.02) 07/13/16 05:45 Creat Clearance w eGFR > 60 (>60) 07/12/16 16:35 Random Glucose 83 mg/dL (74-106) D 07/13/16 05:45 Calcium 8.4 mg/dL (8.5-10.1) L 07/13/16 05:45 Total Bilirubin 0.7 mg/dL (0.2-1.0) D 07/12/16 16:35 AST 30 U/L (15-37) D 07/12/16 16:35 ALT 34 U/L (12-78) 07/12/16 16:35 Alkaline Phosphatase 95 U/L (45-117) 07/12/16 16:35 Total Protein 6.0 g/dl (6.4-8.2) L 07/12/16 16:35 Albumin 3.2 g/dl (3.4-5.0) L 07/12/16 16:35 CARDIAC ENZYMES Creatine Kinase 39 IU/L (26-192) 07/12/16 16:35 Troponin I < 0.02 ng/ml (0.00-0.05) 07/12/16 16:35 Current Medications Generic Name Dose Route Start Last Admin Trade Name Freq PRN Reason Stop Dose Admin Atenolol 50 mg 07/12/16 22:00 07/14/16 09:33 Tenormin - PO 50 mg BID STEPHANIE Administration Furosemide 20 mg 07/15/16 10:00 Lasix - PO DAILY [facility] Heparin Sodium (Porcine) 5,000 unit 07/14/16 14:00 07/14/16 13:54 Heparin - SQ 5,000 unit TID [facility] Administration Home Medications Medication Instructions Recorded Aspirin [ASA -] 81 mg PO DAILY 12/28/11 Atenolol [Tenormin -] 50 mg PO DAILY 12/28/11 Atenolol [Tenormin -] 25 mg PO ASDIR 07/12/16 Atenolol [Tenormin] 25 mg PO DAILY PRN 07/12/16 Magnesium 400 mg PO DAILY 07/12/16 CXR: Impression: Very large right pleural effusion. CT of The chest : IMPRESSION: 1. Very large right pleural effusion with deviation of the mediastinum towards the left side and only a small amount of aeration within the right lung apex. 2. Extensive mediastinal and upper abdominal lymphadenopathy and splenomegaly consistent with the clinical history of CLL. Please see above discussion. Reported By: Jean Aragon MD 07/12/162031 US of lower extremities :Impression: There is no evidence of deep venous thromboses in both lower extremities. Right groin slightly enlarged lymph nodes and borderline lymph node on the left. Correlate clinically for further evaluation. Reported By: Jo Johnosn MD 07/12/16 7926 ASSESSMENT/PLAN: Patient is an 89 year old female, with a significant past medical history of CLL (last chemotherapy was 3 weeks ago), GERD and arrhythmia s/p implanted loop recorder, who was send to ED.by Dr. Price with intermittent shortness of breath and right side plural effusion. # Acute Large Right side plural effusion most likely exudative, due to CLL ( malignant effusion) for IR guided thoracocentesis continue on oxygen 2L maintaining 97-99%, Lasix 20mg IV push BID ordered. # Hx of Afib with rate controlled on atenolol 50mg bid continue #H/o CLL s/p chemo 3 weeks ago, oncologist Dr. Dr Alex for consult DVt px: ambulatory , heparin sq
[2016-07-14] MEDS ORDERED: ACETAMINOPHEN 325 MG TABLET (FP) ONE (21:36)
[2016-07-14] MEDS ORDERED: ACETAMINOPHEN 325 MG TABLET (FP) PO PRN (21:38)
[2016-07-15] MEDS: HEPARIN NA (PORCINE) 5,000 UNITS/ML 1ML VIAL SQ SCH (06:01)
[2016-07-15 08:35] LABS: BASOPHIL 0.3 % (0-2.0); EOSINOPHIL 1.3 % (0-4.5); MCH 30.3 pg (25.7-33.7); MCHC 33.5 g/dl (32.0-36.0); MEAN CELL VOLUME 90.3 fl (80-96); MEAN PLT VOLUME 8.7 fl (7.5-11.1); NEUTROPHILS 25.6 % (42.8-82.8); PLATELET COUNT 147 K/MM3 (134-434); RDW 13.5 % (11.6-15.6)
[2016-07-15] MEDS: FUROSEMIDE 20 MG TABLET (FP) PO SCH (09:54)
[2016-07-15] MEDS: ATENOLOL 50 MG TABLET (FP) PO SCH ×2 (09:54→21:19)
[2016-07-15 10:08] LABS: CALCIUM 8.3 mg/dL (8.5-10.1); CREATININE 0.7 mg/dL (0.55-1.02)
--- NOTE | 2016-07-15 11:37 | PN ---
Progress Note, Physician History of Present Illness: seen and examined today in [facility]. no overnight events. no new complaints. - Current Medication List Current Medications: Active Medications Acetaminophen (Tylenol -) 650 mg PO Q6H PRN PRN Reason: FEVER OR PAIN Atenolol (Tenormin -) 50 mg PO BID [facility] Last Admin: 07/15/16 09:54 Dose: 50 mg Furosemide (Lasix -) 20 mg PO DAILY [facility] Last Admin: 07/15/16 09:54 Dose: 20 mg - Objective Vital Signs: Vital Signs Temperature 98.2 F 07/15/16 06:00 Pulse Rate 88 07/15/16 09:55 Respiratory Rate 20 07/15/16 09:55 Blood Pressure 110/57 07/15/16 09:55 O2 Sat by Pulse Oximetry (%) 97 07/15/16 09:50 Constitutional: Yes: Well Nourished, No Distress, Calm Eyes: Yes: WNL, Conjunctiva Clear, EOM Intact, PERRL HENT: Yes: WNL, Atraumatic, Normocephalic Neck: Yes: WNL, Supple, Trachea Midline Cardiovascular: Yes: Regular Rate and Rhythm, S1, S2. No: Bradycardia, Tachycardia, Pulse Irregular, Bruit, JVD, Gallop, Murmur, Rub, S3, S4, Varicosities Respiratory: Yes: Regular, Diminished (absent breath sounds right lung, left lung cta). No: Rales, Rhonchi, SOB, Wheezes Gastrointestinal: Yes: WNL, Normal Bowel Sounds, Soft. No: Distention, Tenderness Musculoskeletal: Yes: WNL Extremities: Yes: WNL Edema: No Peripheral Pulses WNL: Yes Peripheral Pulses: Left Doralis Pedis: 2+, Right Dorsalis Pedis: 2+ Integumentary: Yes: WNL Neurological: Yes: WNL, Alert, Oriented, Cran Nerves II-XII Intact ...Motor Strength: WNL Psychiatric: Yes: WNL, Alert, Oriented Labs: CBC, BMP 07/15/16 06:05 07/15/16 06:05 INR, PTT INR 1.12 (0.82-1.09) 07/13/16 05:45 - ....Imaging Chest X-ray: Report Reviewed, Image Reviewed EKG: Report Reviewed, Image Reviewed Other: Report Reviewed, Image Reviewed (tele-no longer on tele) Problem List - Problems (1) Pleural effusion Code(s): J90 - PLEURAL EFFUSION, NOT ELSEWHERE CLASSIFIED (2) Palpitation Code(s): R00.2 - PALPITATIONS Assessment/Plan 89 year 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 Pleural effusion-very large right sided effusion -CT chest confirmed very large R sided pleural effusion with deviation of mediastinum to left and extensive lymphadenopathy -planned for thoracentesis for diagnostic and therapeutic purposes -Holding ASA 81mg for planned thoracentesis, pt took last dose at home 07/12 -cont Lasix 20mg po daily -monitor strict I/Os, daily weights, bun/creat, electrolytes -replete K and Mg Palpitations-chronic -no arrhythmias on tele during admission, now off tele -cont home atenolol -outpatient follow up to review ILR
--- NOTE | 2016-07-15 11:58 | PN ---
Progress Note, Physician History of Present Illness: PULMONARY ALERT,NAD,-CP-COUGH - Current Medication List Current Medications: Active Medications Acetaminophen (Tylenol -) 650 mg PO Q6H PRN PRN Reason: FEVER OR PAIN Atenolol (Tenormin -) 50 mg PO BID [facility] Last Admin: 07/15/16 09:54 Dose: 50 mg Furosemide (Lasix -) 20 mg PO DAILY [facility] Last Admin: 07/15/16 09:54 Dose: 20 mg - Objective Vital Signs: Vital Signs Temperature 98.2 F 07/15/16 06:00 Pulse Rate 88 07/15/16 09:55 Respiratory Rate 20 07/15/16 09:55 Blood Pressure 110/57 07/15/16 09:55 O2 Sat by Pulse Oximetry (%) 97 07/15/16 09:50 Constitutional: Yes: Well Nourished, Calm Eyes: Yes: WNL, Occular Prosthesis Neck: Yes: Rigid Cardiovascular: Yes: Regular Rate and Rhythm, S1, S2 Respiratory: Yes: Diminished (DIMINISHED BS ON R) Gastrointestinal: Yes: Normal Bowel Sounds, Soft Extremities: Yes: WNL Edema: No Labs: CBC, BMP 07/15/16 06:05 07/15/16 06:05 INR, PTT INR 1.12 (0.82-1.09) 07/13/16 05:45 Assessment/Plan Problem List - Problems (1) Pleural effusion Code(s): J90 - PLEURAL EFFUSION, NOT ELSEWHERE CLASSIFIED (2) CLL (chronic lymphocytic leukemia) Code(s): C91.10 - CHRONIC LYMPHOCYTIC LEUK OF B-CELL TYPE NOT ACHIEVE REMIS (3) GERD (gastroesophageal reflux disease) Code(s): K21.9 - GASTRO-ESOPHAGEAL REFLUX DISEASE WITHOUT ESOPHAGITIS (4) Arrhythmia Code(s): I49.9 - CARDIAC ARRHYTHMIA, UNSPECIFIED Assessment/Plan THORACENTESIS O2 TELEMETRY MONITORING DR MCGILL
--- NOTE | 2016-07-15 19:51 | PN ---
Progress Note (short form) - Note Progress Note: Comfortable with no acute distress, no new findings. Vital Signs Temperature 98.6 F 07/15/16 15:00 Pulse Rate 88 07/15/16 15:00 Respiratory Rate 18 07/15/16 15:00 Blood Pressure 129/58 07/15/16 15:00 O2 Sat by Pulse Oximetry (%) 97 07/15/16 09:50 GENERAL: The patient is awake, alert, and fully oriented, in no acute distress. HEAD: Normal with no signs of trauma. EYES: PERRL, extraocular movements intact, sclera anicteric, conjunctiva clear. ENT: Ears normal, oropharynx clear without exudates, moist mucous membranes, on NC. NECK: Trachea midline, full range of motion, supple. Positive for Lymphadenopathy Cervical L>R LUNGS: Decreased air entry R>L , otherwise CTA BL, no wheezes, no crackles, no accessory muscle use. HEART: Regular rate and rhythm, S1, S2 positive, no rub or gallop. ABDOMEN: Soft, Nt, ND, normoactive bowel sounds, no guarding, no rebound, positive for splenomegaly. EXTREMITIES: 2+ pulses, warm, well-perfused, no edema. NEUROLOGICAL: Cranial nerves II through XII grossly intact. Normal speech, gait not observed. PSYCH: Normal mood, normal affect. SKIN: Warm, dry, normal turgor, no rashes or lesions noted CBCD WBC 8.0 K/mm3 (4.0-10.0) 07/15/16 06:05 RBC 3.76 M/mm3 (3.60-5.2) 07/15/16 06:05 Hgb 11.4 GM/dL (10.7-15.3) 07/15/16 06:05 Hct 34.0 % (32.4-45.2) 07/15/16 06:05 MCV 90.3 fl (80-96) 07/15/16 06:05 MCHC 33.5 g/dl (32.0-36.0) 07/15/16 06:05 RDW 13.5 % (11.6-15.6) 07/15/16 06:05 Plt Count 147 K/MM3 (134-434) 07/15/16 06:05 MPV 8.7 fl (7.5-11.1) 07/15/16 06:05 CMP Sodium 142 mmol/L (136-145) 07/15/16 06:05 Potassium 3.6 mmol/L (3.5-5.1) 07/15/16 06:05 Chloride 104 mmol/L (98-107) 07/15/16 06:05 Carbon Dioxide 28 mmol/L (21-32) 07/15/16 06:05 Anion Gap 10 (8-16) 07/15/16 06:05 BUN 21 mg/dL (7-18) H 07/15/16 06:05 Creatinine 0.7 mg/dL (0.55-1.02) 07/15/16 06:05 Creat Clearance w eGFR > 60 (>60) 07/12/16 16:35 Random Glucose 91 mg/dL (74-106) 07/15/16 06:05 Calcium 8.3 mg/dL (8.5-10.1) L 07/15/16 06:05 Total Bilirubin 0.7 mg/dL (0.2-1.0) D 07/12/16 16:35 AST 30 U/L (15-37) D 07/12/16 16:35 ALT 34 U/L (12-78) 07/12/16 16:35 Alkaline Phosphatase 95 U/L (45-117) 07/12/16 16:35 Total Protein 6.0 g/dl (6.4-8.2) L 07/12/16 16:35 Albumin 3.2 g/dl (3.4-5.0) L 07/12/16 16:35 CARDIAC ENZYMES Creatine Kinase 39 IU/L (26-192) 07/12/16 16:35 Troponin I < 0.02 ng/ml (0.00-0.05) 07/12/16 16:35 Current Medications Generic Name Dose Route Start Last Admin Trade Name Freq PRN Reason Stop Dose Admin Acetaminophen 650 mg 07/14/16 21:38 Tylenol - PO Q6H PRN FEVER OR PAIN Atenolol 50 mg 07/12/16 22:00 07/15/16 09:54 Tenormin - PO 50 mg BID STEPHANIE Administration Furosemide 20 mg 07/15/16 10:00 07/15/16 09:54 Lasix - PO 20 mg DAILY STEPHANIE Administration CXR: Impression: Very large right pleural effusion. CT of The chest : IMPRESSION: 1. Very large right pleural effusion with deviation of the mediastinum towards the left side and only a small amount of aeration within the right lung apex. 2. Extensive mediastinal and upper abdominal lymphadenopathy and splenomegaly consistent with the clinical history of CLL. Please see above discussion. Reported By: Jean Aragon MD 07/12/162031 US of lower extremities :Impression: There is no evidence of deep venous thromboses in both lower extremities. Right groin slightly enlarged lymph nodes and borderline lymph node on the left. Correlate clinically for further evaluation. Reported By: Jo Johnson MD 07/12/16 1136 ASSESSMENT/PLAN: Patient is an 89 year old female, with a significant past medical history of CLL (last chemotherapy was 3 weeks ago), GERD and arrhythmia s/p implanted loop recorder, who was send to ED.by Dr. Price with intermittent shortness of breath and right side plural effusion. # Acute Large Right side plural effusion ,going to thoracocentesis by IR presented with sob , most likely exudative, due to CLL ( malignant effusion) pulmonary consult . cardio consult appreciated , continue oxygen ,Lasix 20mg IV push BID ordered. # Hx of Afib with rate controlled on atenolol 50mg bid continue #H/o CLL s/p chemo 3 weeks ago, oncologist Dr. Dr Alex for consult DVt px: ambulatory , hold heparin for IR Visit type - Emergency Visit Emergency Visit: Yes ED Registration Date: 07/12/16 Care time: The patient presented to the Emergency Department on the above date and was hospitalized for further evaluation of their emergent condition. - New Patient This patient is new to me today: No - Critical Care Critical Care patient: No
--- NOTE | 2016-07-16 09:19 | PN ---
Physical Exam: SUBJECTIVE: Patient seen and examined. no complaints. OBJECTIVE: Vital Signs Period Temp Pulse Resp BP Sys/Ross Pulse Ox Last 24 Hr 98.4 F-99.0 F 83-93 16-20 110-132/57-67 95-97 GENERAL: thin elderly woman, is awake, alert, and fully oriented, in no acute distress. HEAD: Normal with no signs of trauma. EYES: EOMI, sclera anicteric, conjunctiva clear. No ptosis. ENT: Ears normal, nares patent, oropharynx clear without exudates, moist mucous membranes. NECK: Trachea midline, supple. LAD R>L, large mobile firm (chronic) nontender. LUNGS: Breath sounds diminished on right from 3/4 to base, apex with breath sounds, clear on left without wheezing/crackles. HEART: Regular rate and rhythm, S1, S2 without murmur, rub or gallop. ABDOMEN: Soft, nontender, nondistended, normoactive bowel sounds, no guarding, no rebound. EXTREMITIES: 2+ pulses, warm, well-perfused, no edema. NEUROLOGICAL: Normal speech, gait normal PSYCH: Normal mood, normal affect. SKIN: Warm, dry, normal turgor, no rashes or lesions noted Laboratory Results - last 24 hr 07/15/16 06:05 Sodium 142 Potassium 3.6 Chloride 104 Carbon Dioxide 28 Anion Gap 10 BUN 21 H Creatinine 0.7 Random Glucose 91 Calcium 8.3 L Active Medications Generic Name Dose Route Start Last Admin Trade Name Freq PRN Reason Stop Dose Admin Acetaminophen 650 mg 07/14/16 21:38 Tylenol - PO Q6H PRN FEVER OR PAIN Atenolol 50 mg 07/12/16 22:00 07/15/16 21:19 Tenormin - PO 50 mg BID STEPHANIE Administration Furosemide 20 mg 07/15/16 10:00 07/15/16 09:54 Lasix - PO 20 mg DAILY STEPHANIE Administration ASSESSMENT/PLAN: 89 year old woman with history of CLL (last chemotherapy was 3 weeks ago), GERD and arrhythmia s/p implanted loop recorder, who was send to ED by Dr. Price with intermittent shortness of breath for past 4-5 mo and right side plural effusion seen on chest xray. #Right side large pleural effusion, etiology to be determined, - concern for malignancy vs cardiac as BNP is elevated vs infectious (given immunocompromised pt, however low suspicion for infectious since afebrile, without leucocytosis, no sx of URI or pna) - breathing comfortably on RA, 2lpm nasal cannula prn - IR for diagnostic and therapeutic tap today - Lasix 20mg po - Dr. Al consulted #hypokalemia - improved #PAF - stable - ASA 81 held in anticipation for IR - atenolol 50mg BID po for rate control - Dr. Garcia consulted #DVT: ambulating around halls, hep 5000 tid #Diet: low sodium Visit type - Emergency Visit Emergency Visit: No - New Patient This patient is new to me today: No - Critical Care Critical Care patient: No - Discharge Referral Referred to [facility] No
--- NOTE | 2016-07-16 10:01 | PN ---
Progress Note (short form) - Note Progress Note: PULMONARY Denies shortness of breath or chest pain. No fevers or chills. Last Vital Signs Temp Pulse Resp BP Pulse Ox 98.6 F 83 20 132/64 95 07/16/16 06:35 07/16/16 06:35 07/16/16 06:35 07/16/16 06:35 07/15/16 21:00 Gen: NAD at rest Heart: RRR Lung: decreased breath sounds 3/4 up right Abd: soft, nontender Ext: no edema CBC, BMP 07/15/16 06:05 07/15/16 06:05 INR, PTT INR 1.12 (0.82-1.09) 07/13/16 05:45 Active Medications Acetaminophen (Tylenol -) 650 mg PO Q6H PRN PRN Reason: FEVER OR PAIN Atenolol (Tenormin -) 50 mg PO BID [facility] Last Admin: 07/15/16 21:19 Dose: 50 mg Furosemide (Lasix -) 20 mg PO DAILY [facility] Last Admin: 07/15/16 09:54 Dose: 20 mg A/P Large Right Pleural Effusion Pulmonary HTN CLL GERD - for thoracentesis today - send fluid for total protein, LDH, cholesterol, glucose, cultures and cytology - continue lasix for now - further recommendations pending fluid analysis - DVT prophylaxis
[2016-07-16] MEDS: ATENOLOL 50 MG TABLET (FP) PO SCH ×2 (15:16→21:26)
[2016-07-16] MEDS: FUROSEMIDE 20 MG TABLET (FP) PO SCH (15:16)
[2016-07-16 15:56] LABS: GLUCOSE,PLEURAL FLUID 89.415; TOTAL PROTEIN,PLEURAL FLUID 3.946
[2016-07-16 16:56] LABS: PLEURAL FLUID APPEARANCE HAZY; PLEURAL FLUID COLOR YELLOW; PLEURAL FLUID SOURCE PLEURAL
[2016-07-16 19:01] LABS: PLEURAL FLUID LYMPHOCYTES 93 %; PLEURAL FLUID NEUTROPHIL 4 %
[2016-07-16 19:02] LABS: PLEURAL FLUID BASOPHIL 0 %
--- NOTE | 2016-07-16 20:57 | PN ---
Teaching Attending Note Name of Resident: Serena Ford ATTENDING PHYSICIAN STATEMENT I saw and evaluated the patient. I reviewed the resident's note and discussed the case with the resident. I agree with the resident's findings and plan as documented. SUBJECTIVE: Patient is going for thoracocentesis for am OBJECTIVE: Vital Signs Temperature 99 F 07/16/16 16:30 Pulse Rate 83 07/16/16 16:30 Respiratory Rate 20 07/16/16 16:30 Blood Pressure 125/64 07/16/16 16:30 O2 Sat by Pulse Oximetry (%) 95 07/15/16 21:00 GENERAL: The patient is awake, alert, and fully oriented, in no acute distress. HEAD: Normal with no signs of trauma. EYES: PERRL, extraocular movements intact, sclera anicteric, conjunctiva clear. ENT: Ears normal, oropharynx clear without exudates, moist mucous membranes, on NC. NECK: Trachea midline, full range of motion, supple. positive for Lymphadenopathy cervical L>R LUNGS: Decreased air entry R>L , otherwise CTA BL, no wheezes, no crackles, no accessory muscle use. HEART: Regular rate and rhythm, S1, S2 positive, no rub or gallop. ABDOMEN: Soft, Nt, ND, normoactive bowel sounds, no guarding, no rebound, positive for splenomegaly. EXTREMITIES: 2+ pulses, warm, well-perfused, no edema. NEUROLOGICAL: Cranial nerves II through XII grossly intact. Normal speech, gait not observed. PSYCH: Normal mood, normal affect. SKIN: Warm, dry, normal turgor, no rashes or lesions noted CBCD WBC 8.0 K/mm3 (4.0-10.0) 07/15/16 06:05 RBC 3.76 M/mm3 (3.60-5.2) 07/15/16 06:05 Hgb 11.4 GM/dL (10.7-15.3) 07/15/16 06:05 Hct 34.0 % (32.4-45.2) 07/15/16 06:05 MCV 90.3 fl (80-96) 07/15/16 06:05 MCHC 33.5 g/dl (32.0-36.0) 07/15/16 06:05 RDW 13.5 % (11.6-15.6) 07/15/16 06:05 Plt Count 147 K/MM3 (134-434) 07/15/16 06:05 MPV 8.7 fl (7.5-11.1) 07/15/16 06:05 CMP Sodium 142 mmol/L (136-145) 07/15/16 06:05 Potassium 3.6 mmol/L (3.5-5.1) 07/15/16 06:05 Chloride 104 mmol/L (98-107) 07/15/16 06:05 Carbon Dioxide 28 mmol/L (21-32) 07/15/16 06:05 Anion Gap 10 (8-16) 07/15/16 06:05 BUN 21 mg/dL (7-18) H 07/15/16 06:05 Creatinine 0.7 mg/dL (0.55-1.02) 07/15/16 06:05 Creat Clearance w eGFR > 60 (>60) 07/12/16 16:35 Random Glucose 91 mg/dL (74-106) 07/15/16 06:05 Calcium 8.3 mg/dL (8.5-10.1) L 07/15/16 06:05 Total Bilirubin 0.7 mg/dL (0.2-1.0) D 07/12/16 16:35 AST 30 U/L (15-37) D 07/12/16 16:35 ALT 34 U/L (12-78) 07/12/16 16:35 Alkaline Phosphatase 95 U/L (45-117) 07/12/16 16:35 Total Protein 6.0 g/dl (6.4-8.2) L 07/12/16 16:35 Albumin 3.2 g/dl (3.4-5.0) L 07/12/16 16:35 CARDIAC ENZYMES Creatine Kinase 39 IU/L (26-192) 07/12/16 16:35 Troponin I < 0.02 ng/ml (0.00-0.05) 07/12/16 16:35 Current Medications Generic Name Dose Route Start Last Admin Trade Name Freq PRN Reason Stop Dose Admin Acetaminophen 650 mg 07/14/16 21:38 Tylenol - PO Q6H PRN FEVER OR PAIN Atenolol 50 mg 07/12/16 22:00 07/16/16 15:16 Tenormin - PO 50 mg BID STEPHANIE Administration Furosemide 20 mg 07/15/16 10:00 07/16/16 15:16 Lasix - PO 20 mg DAILY STEPHANIE Administration ASSESSMENT AND PLAN: CXR: Impression: Very large right pleural effusion. CT of The chest : IMPRESSION: 1. Very large right pleural effusion with deviation of the mediastinum towards the left side and only a small amount of aeration within the right lung apex. 2. Extensive mediastinal and upper abdominal lymphadenopathy and splenomegaly consistent with the clinical history of CLL. Please see above discussion. Reported By: Jean Aragon MD 07/12/162031 US of lower extremities :Impression: There is no evidence of deep venous thromboses in both lower extremities. Right groin slightly enlarged lymph nodes and borderline lymph node on the left. Correlate clinically for further evaluation. Reported By: Jo Johnson MD 07/12/16 1963 ASSESSMENT/PLAN: Patient is an 89 year old female, with a significant past medical history of CLL (last chemotherapy was 3 weeks ago), GERD and arrhythmia s/p implanted loop recorder, who was send to ED.by Dr. Price with intermittent shortness of breath and right side plural effusion. # Acute Large Right side plural effusion presented with sob most likely exudative, due to CLL ( malignant effusion), going for IR guided thoracocentesis today, discussed with . pulmonary consult appreciated. cardio consult, Dr. Garcia appreciated , continue on oxygen 2L maintaining 97-99%, continue Lasix 20mg IV push BID . # Hx of Afib with rate controlled on atenolol 50mg bid continue #H/o CLL s/p chemo 3 weeks ago, oncologist Dr. Dr Alex for consult DVt px: ambulatory , Heparin is on hold for now, restart post procedure.
[2016-07-17 08:40] LABS: CALCIUM 8.1 mg/dL (8.5-10.1); CREATININE 0.6 mg/dL (0.55-1.02)
[2016-07-17] MEDS: ATENOLOL 50 MG TABLET (FP) PO SCH (10:10)
[2016-07-17] MEDS: FUROSEMIDE 20 MG TABLET (FP) PO SCH (10:10)
--- NOTE | 2016-07-17 11:33 | PN ---
Progress Note (short form) - Note Progress Note: PULMONARY APPEARS COMFORTABLE WANTS TO GO HOME VSS/AFEBRILE ANICTERIC DIMINISHED BREATH SOUNDS RIGHT BASE IMPROVED S1S2 BS+ LESS EDEMA LOWER EXT LYMPHOCYTIC PREDOMINANT EXUDATE CYTOL/SPECIAL STAINS PENDING LABS/MEDS/NOTES/IMAGING REVIEWED (1) Pleural effusion Code(s): J90 - PLEURAL EFFUSION, NOT ELSEWHERE CLASSIFIED (2) CLL (chronic lymphocytic leukemia) Code(s): C91.10 - CHRONIC LYMPHOCYTIC LEUK OF B-CELL TYPE NOT ACHIEVE REMIS (3) GERD (gastroesophageal reflux disease) Code(s): K21.9 - GASTRO-ESOPHAGEAL REFLUX DISEASE WITHOUT ESOPHAGITIS (4) Arrhythmia Code(s): I49.9 - CARDIAC ARRHYTHMIA, UNSPECIFIED DISCHARGE PLANNING FOLLOW UP RESULTS OF FLUID AN OUTPATIENT FOLLOW UP ONCOLOGY AN OUTPATIENT Teddy MISTRY MD Problem List - Problems (1) Pleural effusion Code(s): J90 - PLEURAL EFFUSION, NOT ELSEWHERE CLASSIFIED (2) CLL (chronic lymphocytic leukemia) Code(s): C91.10 - CHRONIC LYMPHOCYTIC LEUK OF B-CELL TYPE NOT ACHIEVE REMIS (3) GERD (gastroesophageal reflux disease) Code(s): K21.9 - GASTRO-ESOPHAGEAL REFLUX DISEASE WITHOUT ESOPHAGITIS (4) Arrhythmia Code(s): I49.9 - CARDIAC ARRHYTHMIA, UNSPECIFIED
--- NOTE | 2016-07-17 11:49 | DS ---
Physical Exam: SUBJECTIVE: Patient seen and examined OBJECTIVE: Vital Signs Period Temp Pulse Resp BP Sys/Ross Pulse Ox Last 24 Hr 98 F-99 F 77-83 18-22 118-143/59-64 95 PHYSICAL EXAM GENERAL: The patient is awake, alert, and fully oriented, in no acute distress. HEAD: Normal with no signs of trauma. EYES: PERRL, extraocular movements intact, sclera anicteric, conjunctiva clear. ENT: Ears normal, nares patent, oropharynx clear without exudates, moist mucous membranes. NECK: Trachea midline, full range of motion, supple. LUNGS: Breath sounds equal, clear to auscultation bilaterally, no wheezes, no crackles, no accessory muscle use. HEART: Regular rate and rhythm, S1, S2 without murmur, rub or gallop. ABDOMEN: Soft, nontender, nondistended, normoactive bowel sounds, no guarding, no rebound, no hepatosplenomegaly, no masses. EXTREMITIES: 2+ pulses, warm, well-perfused, no edema. NEUROLOGICAL: Cranial nerves II through XII grossly intact. Normal speech, gait not observed. PSYCH: Normal mood, normal affect. SKIN: Warm, dry, normal turgor, no rashes or lesions noted. LABS Laboratory Results - last 24 hr 07/16/16 07/16/16 07/17/16 14:30 14:30 06:20 Sodium 142 Potassium 3.8 Chloride 105 Carbon Dioxide 27 Anion Gap 10 BUN 17 Creatinine 0.6 Random Glucose 82 Calcium 8.1 L Alkaline Phosphatase Cancelled 77 Pleural Fluid Source Pleural Pleural Color Yellow Pleural Appearance Hazy Pleural WBC 2134 Pleural RBC 6951 Pleural Neutrophils 4 Pleural Lymphocytes 93 Pleural Monocytes 3 Pleural Eosinophils 0 Pleural Basophils 0 Pleural Total Protein 3.946 Pleural Albumin 3 Pleural LDH 162.56 Pleural Glucose 89.415 HOSPITAL COURSE: Date of Admission:07/12/16 Date of Discharge: 07/17/16 <Cori Leal - Last Filed: 07/17/16 16:00> Physical Exam: SUBJECTIVE: Patient seen and examined. feels well. no complaints, ready for discharge. OBJECTIVE: Vital Signs Period Temp Pulse Resp BP Sys/Ross Pulse Ox Last 24 Hr 98 F-99 F 77-83 18-20 118-125/59-64 95 PHYSICAL EXAM GENERAL: thin elderly woman, is awake, alert, and fully oriented, in no acute distress. HEAD: Normal with no signs of trauma. EYES: EOMI, sclera anicteric, conjunctiva clear. No ptosis. ENT: Ears normal, nares patent, oropharynx clear without exudates, moist mucous membranes. NECK: Trachea midline, supple. LAD R>L, large mobile firm (chronic) nontender. LUNGS: Breath sounds diminished on right from mid to base, apex with breath sounds, clear on left without wheezing/crackles. BACK: cdi incision site on right mid-back HEART: Regular rate and rhythm, S1, S2 without murmur, rub or gallop. ABDOMEN: Soft, nontender, nondistended, normoactive bowel sounds, no guarding, no rebound. EXTREMITIES: 2+ pulses, warm, well-perfused, no edema. NEUROLOGICAL: Normal speech, gait normal PSYCH: Normal mood, normal affect. SKIN: Warm, dry, normal turgor, no rashes or lesions noted LABS Laboratory Results - last 24 hr 07/16/16 07/17/16 14:30 06:20 Sodium 142 Potassium 3.8 Chloride 105 Carbon Dioxide 27 Anion Gap 10 BUN 17 Creatinine 0.6 Random Glucose 82 Calcium 8.1 L Alkaline Phosphatase 77 Pleural Fluid Source Pleural Pleural Color Yellow Pleural Appearance Hazy Pleural WBC 2134 Pleural RBC 6951 Pleural Neutrophils 4 Pleural Lymphocytes 93 Pleural Monocytes 3 Pleural Eosinophils 0 Pleural Basophils 0 Pleural Total Protein 3.946 Pleural Albumin 3 Pleural LDH 162.56 Pleural Glucose 89.415 Microbiology 07/16/16 14:30 Pleural Fluid AFB Smear Concentration - Preliminary 07/16/16 14:30 Pleural Fluid Mycobacterial Culture - Preliminary 07/16/16 14:30 Pleural Fluid Gram Stain - Final 07/16/16 14:30 Pleural Fluid Body Fluid Culture - Preliminary NO AEROBIC GROWTH, 24 HRS 07/16/16 14:30 Pleural Fluid CRISTOBAL Preparation - Preliminary 07/16/16 14:30 Pleural Fluid Fungal Culture - Preliminary Chest CT: 1. Very large right pleural effusion with deviation of the mediastinum towards the left side and only a small amount of aeration within the right lung apex. 2. Extensive mediastinal and upper abdominal lymphadenopathy and splenomegaly consistent with the clinical history of CLL. HOSPITAL COURSE: Date of Admission:07/12/16 - Date of Discharge: 07/17/16 89 year old woman with history of CLL (last chemotherapy was 3 weeks ago), GERD and arrhythmia s/p implanted loop recorder, with right side plural effusion seen on chest xray to be drained by IR. She was afebrile without leucocytosis, vitals stable during her stay. 1300cc of serosanguineous fluid was removed from the right pleural space under ultrasound guidance. Available fluid studies listed above, mainly lymphocytic predominant exudative in nature, likely as a component of CLL. Recommendations: - f/u with astronaut mission specialist for further evaluation and possible reoccurance of effusion - f/u with oncologist, Dr. Alex for further evaluation Minutes to complete discharge: 35 <Serena Ford - Last Filed: 07/18/16 22:32> Discharge Summary - Home Medications Comprehensive Discharge Medication List: Ambulatory Orders Aspirin [ASA -] 81 mg PO DAILY 12/28/11 Atenolol [Tenormin -] 50 mg PO DAILY 12/28/11 Magnesium 400 mg PO DAILY 07/12/16 Furosemide [Lasix -] 20 mg PO DAILY tablet 07/17/16 <Cori Leal - Last Filed: 07/17/16 16:00> Reason For Visit: PLEURAL EFFUSION Current Active Problems Arrhythmia (Acute) CLL (chronic lymphocytic leukemia) (Acute) GERD (gastroesophageal reflux disease) (Acute) Pleural effusion (Acute) - Home Medications Comprehensive Discharge Medication List: Ambulatory Orders Aspirin [ASA -] 81 mg PO DAILY 12/28/11 Atenolol [Tenormin -] 50 mg PO DAILY 12/28/11 Atenolol [Tenormin -] 25 mg PO ASDIR 07/12/16 Atenolol [Tenormin] 25 mg PO DAILY PRN 07/12/16 Magnesium 400 mg PO DAILY 07/12/16 <Serena Ford - Last Filed: 07/18/16 22:32> Condition: Stable - Instructions Diet, Activity, Other Instructions: Follow-up with your oncologist, Dr. Alex, and your primary care physician Dr. Beltran within the week to review your hospitalization. Follow-up with Dr. Correia in 2 weeks to review your hospitalization. Continue your home medications and you can resume your normals activities as you can tolerate them. Referrals: Knigs Correia MD [Staff Physician] - Antony Alex MD [Staff Physician] - Geovany Beltran MD [Primary Care Provider] - Disposition: VNS/HOME HEALTH CARE This patient is new to me today: No Emergency Visit: No Critical Care patient: No - Discharge Referral Referred to [facility] No Physician Referral: Geovany Beltran MD ([facility]) <Serena Ford - Last Filed: 07/18/16 22:32>
[2016-07-17 12:08] VITALS: BP 143/63; PULSE 79; TEMP 98.1
--- NOTE | 2016-07-17 16:03 | PN ---
Teaching Attending Note Name of Resident: Serena Ford ATTENDING PHYSICIAN STATEMENT I saw and evaluated the patient. I reviewed the resident's note and discussed the case with the resident. I agree with the resident's findings and plan as documented. SUBJECTIVE:no SOB, no chest pain OBJECTIVE: Vital Signs - 24 hr 07/16/16 07/16/16 07/16/16 16:30 21:00 22:00 Temperature 99 F Pulse Rate 83 81 Respiratory 20 18 18 Rate Blood Pressure 125/64 118/59 O2 Sat by Pulse 95 Oximetry (%) 07/17/16 07/17/16 07:53 08:20 Temperature 98 F 98.1 F Pulse Rate 77 79 Respiratory 20 22 Rate Blood Pressure 125/62 143/63 O2 Sat by Pulse Oximetry (%) Lungs : decreased air entry RLL CVS : S1S2 WNL No MRG EXT : no edema ASSESSMENT AND PLAN: Patient is an 89 year old female, with a significant past medical history of CLL (last chemotherapy was 3 weeks ago), GERD and arrhythmia s/p implanted loop recorder, who was send to ED.by Dr. Price with intermittent shortness of breath and large right side plural effusion. S/P IR guided thoracocentesis 07/16/16 removing 1300cc of exudate. Oxygenation is appropriate and no SOB. D/C home to follow up with pulmonary/hemonc for final culture results. Discussed in presence of patients daughter. D/C home
--- NOTE | 2016-07-18 14:29 | PATH ---
Cytology Non-Gynecological Report Patient Name: ADAN LUNA Med. Rec. #: [id number] /Age/Gender: 1925 (Age: 89) / F Account: [id number] Location: [facility] MED/SURG Taken: 07/16/2016 Received: 07/17/2016 Reported: 07/18/2016 Physicians: Lakshmi Mercado M.D. Specimen(s) Received A: RIGHT PLEURAL FLUID IN 50% ALCOHOL B: RIGHT PLEURAL FLUID FRESH Clinical History Pleural effusion Final Diagnosis A,B. PLEURAL FLUID, THORACENTESIS: SATISFACTORY FOR EVALUATION. REACTIVE MESOTHELIAL CELLS, HISTIOCYTES AND MIXED INFLAMMATORY CELLS INCLUDING NUMEROUS LYMPHOCYTES (SEE COMMENT). Comment: History of CLL is noted. Numerous small lymphocytes are present in the pleural fluid. Flow cytometry studies on a fresh specimen (in RPMI) are suggested if the fluid re-accumulates. Electronically Signed Maikel Bradford M.D. Gross Description A. Received is a 50 cc of peach color fluid in 50% alcohol. One cytofunnel slide and one cell block are made. B. Received is 2000 cc of peach color fluid fresh. One cytofunnel slide and one cell block are made.
== END 2016-07-17 14:01 | disposition home health service (06) | DRG 187 ==
LOC: JER 15:55 → JERBED 18:57 → J4W 20:26 → J4S 07-15 00:55 → JERBED 07-15 00:58 → J4W 07-15 00:59 → J4S 07-15 01:53 → J8W 07-15 21:51
PROVIDERS: ADMIT Internal Medicine; ATTEND Internal Medicine
PROC: 0W993ZX Drainage of Right Pleural Cavity, Percutaneous Approach, Diagnostic (ICD-10-PCS; principal; 2016-07-16)
DX: J90 Pleural effusion, not elsewhere classified (principal); C91.10 Chronic lymphocytic leukemia of B-cell type not having achieved remission; I27.2 Other secondary pulmonary hypertension; I07.1 Rheumatic tricuspid insufficiency; R00.2 Palpitations; K21.9 Gastro-esophageal reflux disease without esophagitis; Z85.3 Personal history of malignant neoplasm of breast; I48.0 Paroxysmal atrial fibrillation; R60.0 Localized edema; E87.6 Hypokalemia
CPT/HCPCS: 36415; 71010-TC; 71020-TC; 71250-TC; 76942; 80048; 80053; 80076; 82042; 82550; 82945; 83615; 83735; 83880; 84075; 84100; 84157; 84484; 85025; 85027; 85610; 85730; 87070; 87075; 87102; 87116; 87205; 87206; 87210; 88108; 88305-TC; 89051; 93005; 93010; 93306-TC; 93970-TC; 99284-25; J1644

== ENCOUNTER 2016-08-05 11:25 | Inpatient (IN) | payer OTHER, BC ==
[2016-08-05] MEDS ORDERED: SODIUM CHLORIDE 250 ML IV STA ×2 (12:01→20:43)
--- NOTE | 2016-08-05 12:01 | PDOC ---
[id number]: SOB & WEAKNESS Time Seen by Provider: 08/05/16 12:00 - History of Present Illness Initial Comments: 08/13/16 12:57 Chief complaint: Shortness of breath History of present illness: Shortness of breath increasing the last 2 weeks with mild pleuritic right chest pain. No fever/chills. No productive cough. The patient had similar symptoms approximately one month ago, was found to have a pleural effusion, which was drained, and symptoms resolved. At that time, the effusion was thought to be due to heart failure Review of systems: As noted above. In addition, there is been no substernal chest pain, no abdominal pain, no nausea vomiting diaphoresis diarrhea or constipation. No urinary tract symptoms. No vaginal bleeding or discharge. 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 Family/social history reviewed and noncontributory Physical exam: Dementia but awake and cooperative, no acute distress Afebrile, vital signs stable including adequate O2 saturation HEENT clear Neck supple without bruit mass or nodes There are decreased breath sounds and dullness to percussion at the right base posteriorly. No murmurs rubs or gallops Abdomen benign Neurological intact except for mild generalized weakness and mild confusion secondary to long-standing dementia Impression: Shortness of breath and pleuritic chest pain probably due to recurrent right pleural effusion. White blood count is elevated but this may be due to her underlying lymphoma. Plan: Admit for further evaluation of the pleural effusion, oxygen therapy, and to rule out infection. Past History - Past Medical History Allergies/Adverse Reactions: Allergies Allergy/AdvReac Type Severity Reaction Status Date / Time azithromycin Allergy Severe Rash Verified 08/05/16 13:15 alendronate sodium Allergy Intermediate ABDOMINAL Verified 08/05/16 13:15 [From Fosamax] PAIN amoxicillin [Amoxicillin] Allergy Intermediate Rash Verified 08/05/16 13:15 amoxicillin trihydrate Allergy Verified 08/05/16 13:15 [From Augmentin] Penicillins Allergy Rash Verified 08/05/16 13:15 potassium clavulanate Allergy Verified 08/05/16 13:15 [From Augmentin] Home Medications: Ambulatory Orders Aspirin [ASA -] 81 mg PO DAILY 12/28/11 Atenolol [Tenormin -] 50 mg PO DAILY 12/28/11 Magnesium 400 mg PO DAILY 07/12/16 Furosemide [Lasix -] 20 mg PO DAILY tablet 07/17/16 Potassium Chloride [K-Dur -] 20 meq PO DAILY 08/05/16 Prednisone [Deltasone] 40 mg PO DAILY 08/05/16 Anemia: (CHRONIC LYMPHATIC LEUKEMIA) Asthma: No Cancer: Yes (RIGHT BREAST) Cardiac Disorders: Yes (ARRHYTHMIA with implanted loop recorder) CVA: No COPD: No CHF: No Dementia: No Diabetes: No GI Disorders: Yes (GERD) Disorders: No HTN: No Hypercholesterolemia: No Liver Disease: No Seizures: No Thyroid Disease: No - Surgical History Abdominal Surgery: No Appendectomy: No Cardiac Surgery: No Cholecystectomy: Yes Lung Surgery: No Neurologic Surgery: No Orthopedic Surgery: Yes (ARTHROSCOPY RIGHT AND LEFT KNEE) - Psycho/Social/Smoking Cessation Hx Anxiety: No Suicidal Ideation: No Smoking Status: No Smoking History: Never smoked Have you smoked in the past 12 months: No Number of Cigarettes Smoked Daily: 0 Hx Alcohol Use: No Drug/Substance Use Hx: No Substance Use Type: None Hx Substance Use Treatment: No ED Treatment Course - LABORATORY CBC & Chemistry Diagram: 08/13/16 05:05 08/13/16 05:05 *DC/Admit/Observation/Transfer Diagnosis at time of Disposition: Pleural effusion, right - Discharge Dispostion Condition at time of disposition: Fair Admit: Yes
[2016-08-05 12:26] LABS: MCH 29.7 pg (25.7-33.7); MEAN CELL VOLUME 87.5 fl (80-96); MEAN PLT VOLUME 8.7 fl (7.5-11.1); PLATELET COUNT 276 K/MM3 (134-434); RDW 13.5 % (11.6-15.6); WHITE BLOOD COUNT 28.8 K/mm3 (4.0-10.0)
[2016-08-05 12:42] LABS: INR 1.21 (0.82-1.09); PROTHROMBIN TIME (PATIENT) 13.5 SEC (10.2-13.0)
[2016-08-05 12:47] VITALS: BMI 18.6
[2016-08-05 12:47] LABS: ALBUMIN 3.2 g/dl (3.5-5.0); BILIRUBIN,TOTAL 0.8 mg/dl (0.2-1.0); CALCIUM 8.3 mg/dl (8.4-10.2); TOT PROT 5.6 g/dl (6.4-8.3)
[2016-08-05 12:48] LABS: CPK(DFH) 12 IU/L (26-140)
[2016-08-05 13:12] LABS: TROPONIN I (DFP) < 0.03 ng/ml (0.03-0.50)
--- NOTE | 2016-08-05 18:12 | CONSULT ---
Consultation: REQUESTING PROVIDER: CONSULT REQUEST: We have been asked to medically evaluate this patient for ( specify). HISTORY OF PRESENT ILLNESS: The patient is an 89 year old female, with a significant past medical history of CLL (last chemotherapy was 3 weeks ago), GERD and arrhythmia s/p implanted loop recorder, who was sent in [facility] for shortness of breath, right side pleural effusion and pain in right side of chest which increases on breathing. Patient was previosly admitted in jun with same complaint and thoracocentesis was done. Patient was discharged on 07/17/16. Patient states that pain is present in right side of chest 8/10 in severity, non radiating, gets better in sitting and propup position and increases in supine position and on breathing. Patient also states she has couple of episodes of chills and diaphoresis since the day of discharge. Patient also reports lightheadidness in morning. Patient also reports burning micturation. The patient denies fever, chills, recent illnesses, vomiting. Broom Stitcher: Dr. Price Oncologist: Dr. Alex Recent Travel: NO PAST MEDICAL HISTORY: GERD, arrthymia, CLL, Ca breast PAST SURGICAL HISTORY: Cholecystectomy, Bilateral Knee Arthroscopy. lumpectomy on right breast 10 years ago. Social History: Smoking: No Alcohol: one glass of wine 5 days a week Drugs: No REVIEW OF SYSTEMS: CONSTITUTIONAL: Absent: fever, chills, diaphoresis, generalized weakness, malaise, loss of appetite, weight change HEENT: Absent: rhinorrhea, nasal congestion, throat pain, throat swelling, difficulty swallowing, mouth swelling, ear pain, eye pain, visual changes CARDIOVASCULAR: Present chest pain on right side Absent: , syncope, palpitations, irregular heart rate, lightheadedness, peripheral edema RESPIRATORY: present dry cough Absent: cough, dyspnea with exertion, orthopnea, wheezing, stridor, hemoptysis GASTROINTESTINAL: Absent: abdominal pain, abdominal distension, , vomiting, diarrhea, constipation , melena, hematochezia GENITOURINARY: present burning micturation. Absent: dysuria, frequency, urgency, hesitancy, hematuria, flank pain, genital pain MUSCULOSKELETAL: Absent: myalgia, arthralgia, SKIN: Absent: rash, itching, pallor HEMATOLOGIC/IMMUNOLOGIC: Absent: easy bleeding, easy bruising, ENDOCRINE: Absent: unexplained weight gain, unexplained weight loss lost 5 pounds on lasix. NEUROLOGIC: Absent: headache, focal weakness or paresthesias, dizziness, unsteady gait, seizure, mental status changes, PSYCHIATRIC: Absent: anxiety, depression, PHYSICAL EXAMINATION GENERAL: Awake, alert, and fully oriented, in no acute distress. HEAD: Normal with no signs of trauma. EYES: Pupils equal, round and reactive to light, extraocular movements intact, sclera anicteric, conjunctiva clear. No lid lag. EARS, NOSE, THROAT: Ears normal, nares patent, oropharynx clear without exudates. dry mucous membranes. NECK: Normal range of motion, supple without lymphadenopathy, LUNGS: dull to percuss on right side, decrease breath sound on right side, crepts present in right basal area. Left side air entry present, no wheez. HEART: s1s2 normal, regular ABDOMEN: Soft, nontender, not distended, normoactive bowel sounds, no guarding, no rebound, no masses. MUSCULOSKELETAL: Normal range of motion at all joints. No bony deformities or tenderness. UPPER EXTREMITIES: 2+ pulses, warm, well-perfused. No cyanosis. No clubbing. Cap refill <2 seconds. No peripheral edema. LOWER EXTREMITIES: 2+ pulses, warm, well-perfused. No calf tenderness. peripheral edema present NEUROLOGICAL: Cranial nerves II-XII intact. Normal speech. PSYCHIATRIC: Cooperative. Good eye contact. Appropriate mood and affect. SKIN: Warm, dry, normal turgor, no rashes or lesions noted. Active Medications Generic Name Dose Route Start Last Admin Trade Name Freq PRN Reason Stop Dose Admin Chlorhexidine Gluconate 1 applic 08/05/16 22:00 Hibiclens For Decolonization - TP HS STEPHANIE Sodium Chloride 1,000 mls @ 75 mls/hr 08/05/16 18:15 Normal Saline - IV ASDIR STEPHANIE Mupirocin 1 applic 08/05/16 22:00 Bactroban Ointment (For Decolonization) - NS 08/10/16 21:59 BID STEPHANIE CBCD WBC 28.8 K/mm3 (4.0-10.0) H D 08/05/16 12:00 RBC 4.24 M/mm3 (3.60-5.2) 08/05/16 12:00 Hgb 12.6 GM/dl (10.7-15.3) 08/05/16 12:00 Hct 37.1 % (32.4-45.2) 08/05/16 12:00 MCV 87.5 fl (80-96) 08/05/16 12:00 MCHC 34.0 g/dl (32.0-36.0) 08/05/16 12:00 RDW 13.5 % (11.6-15.6) 08/05/16 12:00 Plt Count 276 K/MM3 (134-434) D 08/05/16 12:00 MPV 8.7 fl (7.5-11.1) 08/05/16 12:00 CMP Sodium 134 mmol/L (136-145) L 08/05/16 12:00 Potassium 3.7 mmol/L (3.5-5.1) 08/05/16 12:00 Chloride 99 mmol/L (98-107) 08/05/16 12:00 Carbon Dioxide 27 mmol/L (22-28) 08/05/16 12:00 Anion Gap 8 (8-16) 08/05/16 12:00 BUN 40 mg/dl (7-18) H D 08/05/16 12:00 Creatinine 1.0 mg/dl (0.6-1.3) D 08/05/16 12:00 Creat Clearance w eGFR 52.20 (>60) 08/05/16 12:00 Random Glucose 149 mg/dl (74-106) H 08/05/16 12:00 Calcium 8.3 mg/dl (8.4-10.2) L 08/05/16 12:00 Total Bilirubin 0.8 mg/dl (0.2-1.0) D 08/05/16 12:00 AST 31 U/L (10-42) 08/05/16 12:00 ALT 36 U/L (10-40) D 08/05/16 12:00 Alkaline Phosphatase 83 U/L (32-92) 08/05/16 12:00 Total Protein 5.6 g/dl (6.4-8.3) L 08/05/16 12:00 Albumin 3.2 g/dl (3.5-5.0) L 08/05/16 12:00 CARDIAC ENZYMES Creatine Kinase 12 IU/L (26-140) L 08/05/16 12:00 Troponin I < 0.03 ng/ml (0.03-0.50) L 08/05/16 12:00 Laboratory Tests 07/16/16 14:30 Pleural Fluid Source Pleural Pleural Color Yellow Pleural Appearance Hazy Pleural WBC 2134 Pleural RBC 6951 Pleural Neutrophils 4 Pleural Lymphocytes 93 Pleural Monocytes 3 Pleural Eosinophils 0 Pleural Basophils 0 Pleural Total Protein 3.946 Pleural Albumin 3 Pleural LDH 162.[address] of The chest 07/12/16 : IMPRESSION: 1. Very large right pleural effusion with deviation of the mediastinum towards the left side and only a small amount of aeration within the right lung apex. 2. Extensive mediastinal and upper abdominal lymphadenopathy and splenomegaly consistent with the clinical history of CLL. ASSESSMENT/PLAN:The patient is an 89 year old female, with a significant past medical history of CLL (last chemotherapy was 3 weeks ago), GERD and arrhythmia s/p implanted loop recorder, who was sent in [facility] ED for right side plural effusion, chest pain and difficulty in breathing. Severer Sepsis from Right side plural effusion with sob with chest pain or uti ( lab pending ) wbc 28.8 ( on prednisone), BP 90/42, spo2 96 on nasal canula most likely exudative. could be from infection vs malignancy consider pulmonary and ID consult antibiotics as per ID IV fluid 75 ml/hr follow lactic acid follow blood, urine culture follow urine for legionella, strep pneumo monitor vitals monitor intake and output Afib rate control home med atenolol 50mg in morning and 25mg in night ekg: sinus rhythm cardiac monitoring cardiac monitoring H/o CLL received chemo 6 week ago oncology consult Dr Alex fluid: NS 75ml/hr electrolyte : repeat in am nurtrition: regular diet DVt pro: ambulatory GI pro: not required Dispo : place in obs Patient daughter states that she got flu shot in May. Dispo: We will continue to follow the patient. Thank you for this consultative opportunity. Visit type - Emergency Visit Emergency Visit: Yes ED Registration Date: 08/05/16 Care time: The patient presented to the Emergency Department on the above date and was hospitalized for further evaluation of their emergent condition. - New Patient This patient is new to me today: Yes Date on this admission: 08/06/16 - Critical Care Critical Care patient: Yes Total Critical Care Time (in minutes): 45 Critical Care Statement: The care of this patient involved high complexity decision making to prevent further life threatening deterioration of the patient 's condition and/or to evalute & treat vital organ system(s) failure or risk of failure.
[2016-08-05] MEDS ORDERED: LEVOFLOXACIN 500 MG IVPB 100 ML IVPB ONE (20:19)
[2016-08-05] MEDS ORDERED: VANCOMYCIN 1 GRAM (PRE-DOCKED) 250 ML IVPB STA (20:28)
--- NOTE | 2016-08-05 20:35 | CONSULT ---
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 She presented to [place] ER with CC of night sweats, subjective fever and SOB. Chest xray shows worsening rt pleural effusion (since 07/16). Malignancy? Pt transferred to the ICU for further management. Upon assessment pt is awake, alert, orientated to self and place only. 93/59. HR 80s (sinus on tele), sat 97% on NC, afebrile. Pt denies headache, endorses intermittent chest pain (worse w/ movement), intermittent SOB, nausea and dysuria. - History Source History Provided By: Patient, Medical Record Limitations to Obtaining History: Poor Historian - Past Medical History Cardio/Vascular: Yes: Other (ARRYTHMIA) Gastrointestinal: Yes: GERD. No: Ascites - Alcohol/Substance Use Hx Alcohol Use: No - Smoking History Smoking history: Never smoked Have you smoked in the past 12 months: No Aproximately how many cigarettes per day: 0 Home Medications - Allergies Allergies/Adverse Reactions: Allergies Allergy/AdvReac Type Severity Reaction Status Date / Time azithromycin Allergy Severe Rash Verified 08/05/16 13:15 alendronate sodium Allergy Intermediate ABDOMINAL Verified 08/05/16 13:15 [From Fosamax] PAIN amoxicillin [Amoxicillin] Allergy Intermediate Rash Verified 08/05/16 13:15 amoxicillin trihydrate Allergy Verified 08/05/16 13:15 [From Augmentin] Penicillins Allergy Rash Verified 08/05/16 13:15 potassium clavulanate Allergy Verified 08/05/16 13:15 [From Augmentin] - Home Medications Home Medications: Ambulatory Orders Aspirin [ASA -] 81 mg PO DAILY 12/28/11 Atenolol [Tenormin -] 50 mg PO DAILY 12/28/11 Magnesium 400 mg PO DAILY 07/12/16 Furosemide [Lasix -] 20 mg PO DAILY tablet 07/17/16 Potassium Chloride [K-Dur -] 20 meq PO DAILY 08/05/16 Prednisone [Deltasone] 40 mg PO DAILY 08/05/16 Review of Systems - Review of Systems Constitutional: reports: Chills, Fever, Night Sweats Cardiovascular: reports: Chest Pain, Shortness of Breath Respiratory: reports: Exercise Intolerance Gastrointestinal: reports: Abdominal Pain, Indigestion, Nausea. denies: Diarrhea, Vomiting Genitourinary: reports: Burning, Dysuria Neurological: denies: Headache Physical Exam Vital Signs: Vital Signs Period Temp Pulse Resp BP Sys/Ross Pulse Ox Last 24 Hr 97.5 F-98.4 F 81-88 21-29 76-92/36-59 93-99 Intake & Output 08/02/16 08/03/16 08/04/16 08/05/16 22:59 22:59 23:59 23:59 Intake Total 500 Balance 500 Weight 101 lb 9.6 oz Constitutional: Yes: No Distress, Calm, Thin Eyes: Yes: WNL, PERRL HENT: Yes: WNL Neck: Yes: WNL Cardiovascular: Yes: S1, S2, Other (sinus on tele, 80s) Respiratory: Yes: Diminished, On Nasal O2. No: Rhonchi, SOB, Stridor, Wheezes Gastrointestinal: Yes: Normal Bowel Sounds, Distention (suprapubic), Tenderness (hepatic) ...Rectal Exam: Yes: Deferred Renal/: Yes: Other (using bedpan, suprapubic distention) Breast(s): Yes: Other (left mastectomy) Musculoskeletal: Yes: WNL Extremities: Yes: WNL Edema: No Peripheral Pulses WNL: Yes (+2 bilateral pedal pulses) Integumentary: Yes: Other (appears dry) Neurological: Yes: Alert, Other (orientated to self and place only. no deficit appreciated). No: Aphasia, Facial Droop, Lethargy, Weakness ...Motor Strength: WNL Labs: Abnormal Lab Results 08/05/16 08/05/16 08/05/16 12:00 12:00 12:00 WBC 28.8 H D Sodium 134 L BUN 40 H D Random Glucose 149 H Lactic Acid Calcium 8.3 L Creatine Kinase 12 L Troponin I < 0.03 L Total Protein 5.6 L Albumin 3.2 L 08/05/16 12:05 WBC Sodium BUN Random Glucose Lactic Acid 2.736 H* Calcium Creatine Kinase Troponin I Total Protein Albumin Imaging - Results Chest X-ray: Report Reviewed, Image Reviewed Assessment/Plan Pt is an 89yr old woman with PMHx of breast CA (s/p rt lumpectomy) and CLL ( last chemo about two weeks ago), a-fib and hx of rt pleural effusion, pt discharged on 07/17 s/p thoracentesis after rt pleural effusion. Now in the ICU for management of rt pleural effusion (concern for malignancy) and urosepsis +/ - HCAP. Pulm: Rt pleural effusion -O2 support prn for sat <94% -Thoracic surgery consult for possible thoracentesis -Incentive spirometer q2 as able -Nebulizers prn ID: Urosepsis +/- HCAP (WBC up from 8 three weeks ago --> 28) -f/u cultures -Consult -Pt started on Vanc/Levaquin -f/u repeat lactic acid -f/u Vanc level Heme -Consult following Oncologist, Dr. Alex pt receiving chemo in his office -Effusion malignancy? Elevated LFTs as well with upper quadrant pain with palpation Renal: MADELINE -IVF as tolerated -Replete electrolytes prn -Strict I/Os Cardiac -Rate control with caution as pt borderline hypotensive -f/u enzymes (trop negative x1) -Repeat EKG in a.m Neuro: -Pain management -Consider head CT as pt slightly confused, baseline unknown GI: -PPI -Mylanta prn -f/u repeat LFTs Prophylactic -DVT
--- NOTE | 2016-08-05 20:39 | HP ---
CHIEF COMPLAINT: SOB PCP: Devin, Cardio Albert, Oncology Isai HISTORY OF PRESENT ILLNESS: This is an 89 year old female with a past medical history of CLL, R Br CA, GERD , arrhythmia, macular degeneration presented to [place] ED earlier today with shortness of breath. She reports that she slept poorly last night and was unable to get comfortable. Pt reports LBP and dysuria off and on for several days. She was transferred to the ICU here at [facility] from the ER for sepsis and pleural effusion. She reports no further back pain or SOB at present. Reports pain to chest with deep breathing. Denies palpitations, abdominal pain, N/V/D. ER course was notable for: (1) lactic acid 2.736, WBC 28.8 (2) SBP 77 on arrival, now up to 90s Recent Travel: pt denies PAST MEDICAL HISTORY: CLL s/p chemo 3 weeks ago R Br CA s/p lumpectomy 10 years ago GERD arrhythmia s/p loop recorder implantation macular degeneration s/p injections PAST SURGICAL HISTORY: cholecystectomy in her 40s bilat knee arthroscopies Social History: Smoking: pt denies Alcohol: one glass of wine Drugs: pt denies Family History: mother age 90s old age father age 80s, was bedridden, unable to remember history 5 brothers, 1 in his 90s, ?[place], 1 alive but s/p cardiac arrest Allergies azithromycin Allergy (Severe, Verified 08/05/16 13:15) Rash alendronate sodium [From Fosamax] Allergy (Intermediate, Verified 08/05/16 13:15 ) ABDOMINAL PAIN amoxicillin [Amoxicillin] Allergy (Intermediate, Verified 08/05/16 13:15) Rash amoxicillin trihydrate [From Augmentin] Allergy (Verified 08/05/16 13:15) Penicillins Allergy (Verified 08/05/16 13:15) Rash potassium clavulanate [From Augmentin] Allergy (Verified 08/05/16 13:15) HOME MEDICATIONS: 3 Medication Instructions Recorded Aspirin [ASA -] 81 mg PO DAILY 12/28/11 Atenolol [Tenormin -] 50 mg PO DAILY 12/28/11 Magnesium 400 mg PO DAILY 07/12/16 Furosemide [Lasix -] 20 mg PO DAILY tablet 07/17/16 Potassium Chloride [K-Dur -] 20 meq PO DAILY 08/05/16 Prednisone [Deltasone] 40 mg PO DAILY 08/05/16 REVIEW OF SYSTEMS CONSTITUTIONAL: Absent: fever, chills, diaphoresis, generalized weakness, malaise, loss of appetite, weight change HEENT: Absent: rhinorrhea, nasal congestion, throat pain, throat swelling, difficulty swallowing, mouth swelling, ear pain, eye pain, visual changes CARDIOVASCULAR: Absent: chest pain, syncope, palpitations, irregular heart rate, lightheadedness , peripheral edema RESPIRATORY: Present: shortness of breath Absent: cough, dyspnea with exertion, orthopnea, wheezing, stridor, hemoptysis GASTROINTESTINAL: Absent: abdominal pain, abdominal distension, nausea, vomiting, diarrhea, constipation, melena, hematochezia GENITOURINARY: Present: dysuria Absent: frequency, urgency, hesitancy, hematuria, flank pain, genital pain MUSCULOSKELETAL: Absent: myalgia, arthralgia, joint swelling, back pain, neck pain SKIN: Absent: rash, itching, pallor HEMATOLOGIC/IMMUNOLOGIC: Absent: easy bleeding, easy bruising, lymphadenopathy, frequent infections ENDOCRINE: Absent: unexplained weight gain, unexplained weight loss, heat intolerance, cold intolerance NEUROLOGIC: Absent: headache, focal weakness or paresthesias, dizziness, unsteady gait, seizure, mental status changes, bladder or bowel incontinence PSYCHIATRIC: Absent: anxiety, depression, suicidal or homicidal ideation, hallucinations. PHYSICAL EXAMINATION Vital Signs - 24 hr 3 08/05/16 08/05/16 08/05/16 11:25 11:35 11:43 Temperature 98.2 F Pulse Rate 88 Pulse Rate [ 88 86 Apical] Respiratory 26 H 28 H 27 H Rate Blood Pressure 77/46 Blood Pressure 82/44 76/40 [Left Arm] O2 Sat by Pulse 96 96 96 Oximetry (%) 3 08/05/16 08/05/16 08/05/16 12:00 13:02 13:15 Temperature Pulse Rate Pulse Rate [ 87 84 82 Apical] Respiratory 28 H 21 22 Rate Blood Pressure Blood Pressure 82/36 84/45 79/38 [Left Arm] O2 Sat by Pulse 97 97 99 Oximetry (%) 3 08/05/16 08/05/16 08/05/16 14:00 15:00 15:23 Temperature 98.4 F 98.4 F Pulse Rate 83 Pulse Rate [ 84 83 Apical] Respiratory 26 H 28 H 26 H Rate Blood Pressure 80/40 Blood Pressure 80/39 80/40 [Left Arm] O2 Sat by Pulse 96 98 Oximetry (%) 3 08/05/16 08/05/16 08/05/16 16:58 17:25 18:12 Temperature 98.4 F 97.5 F L Pulse Rate 83 86 81 Pulse Rate [ Apical] Respiratory 26 H 29 H 22 Rate Blood Pressure 80/40 87/50 90/42 Blood Pressure [Left Arm] O2 Sat by Pulse 98 Oximetry (%) GENERAL: Awake, alert, and fully oriented, in no acute distress. HEAD: Normal with no signs of trauma. EYES: Pupils equal, round and reactive to light, extraocular movements intact, sclera anicteric, conjunctiva clear. No lid lag. EARS, NOSE, THROAT: Ears normal, nares patent, oropharynx clear without exudates. Moist mucous membranes. NECK: Normal range of motion, supple without lymphadenopathy, JVD, or masses. LUNGS: Left lung field clear to auscultation bilaterally. No wheezes, and no crackles. No accessory muscle use. Right base absent breath sounds 1/2 way up, decreased upper lung field HEART: Regular rate and rhythm, normal S1 and S2 without murmur, rub or gallop. ABDOMEN: Soft, nontender, not distended, normoactive bowel sounds, no guarding, no rebound, no masses. No hepatomegaly or splenomegaly. MUSCULOSKELETAL: Normal range of motion at all joints. No bony deformities or tenderness. No CVA tenderness. UPPER EXTREMITIES: 2+ pulses, warm, well-perfused. No cyanosis. No clubbing. Cap refill <2 seconds. No peripheral edema. LOWER EXTREMITIES: 2+ pulses, warm, well-perfused. No calf tenderness. No peripheral edema. NEUROLOGICAL: Cranial nerves II-XII intact. Normal speech. Normal gait. PSYCHIATRIC: Cooperative. Good eye contact. Appropriate mood and affect. SKIN: Warm, dry, normal turgor, no rashes or lesions noted. Laboratory Results - last 24 hr 3 08/05/16 08/05/16 08/05/16 08/05/16 08/05/16 08/05/16 12:00 12:00 12:00 12:01 12:05 19:15 WBC 28.8 H D RBC 4.24 Hgb 12.6 Hct 37.1 MCV 87.5 MCHC 34.0 RDW 13.5 Plt Count 276 D MPV 8.7 Neutrophils % 70.0 D Lymphocytes % 17.0 D Monocytes % 5.0 Band Neutrophils 8.0 INR 1.21 Sodium 134 L Potassium 3.7 Chloride 99 Carbon Dioxide 27 Anion Gap 8 BUN 40 H D Creatinine 1.0 D Creat Clearance w eGFR 52.20 Random Glucose 149 H Lactic Acid 2.736 H* 1.523 Calcium 8.3 L Total Bilirubin 0.8 D AST 31 ALT 36 D Alkaline Phosphatase 83 Creatine Kinase 12 L Troponin I < 0.03 L < 0.02 Total Protein 5.6 L Albumin 3.2 L Single portable chest x-ray. Opacified right lower hemithorax attributed to the pleural effusion, right lower lobe atelectasis. No pneumothorax seen. The left lung is well aerated without airspace opacities. The degree of opacification of the right lower hemithorax slightly increased from July 16, 2016. Impression. Combination of the right pleural effusion, compressive atelectasis increased from July 20, 2016. ECG:NSR rate 89, QTC 416, no acute st/t changes ASSESSMENT/PLAN: 89yF with PMH CLL, R Br CA, GERD, arrhythmia, macular degeneration presented to the ED with SOB. She has been admitted to the ICU for sepsis and Pleural effusion. Sepsis, severe - as evidenced by WBC>12,000, RR>20, initial elevated lactic acid - source either respiratory or urinary, awaiting U/A - start vancomycin, levofloxacin (PCN allergy) - ID consult - NS 250mL bolus x 1, then 75cc/hr Pleural effusion - pulmonary consult, may need thoracentesis - judicious IV hydration for sepsis in setting of pleural effusion - will hold home lasix for now due to elevated BUN, will give IV as needed Dysuria - u/a pending. on vanco and levaquin, follow culture results. CLL - s/p recent chemo [address] Hernández who felt there is no acute oncologic issue at this time but will follow the pt GERD - on no home medications, but will start protonix for PPX arrhythmia - continuous cardiac monitoring DVT PPX - heparin 5000 unit BID SC FEN - NS @ 75cc/hr - repeat labs in am - regular diet as tolerated Dispo: Pt currently requires intensive monitoring in the ICU for management of her emergent condition. Visit type - Emergency Visit Emergency Visit: Yes ED Registration Date: 08/05/16 Care time: The patient presented to the Emergency Department on the above date and was hospitalized for further evaluation of their emergent condition. - New Patient This patient is new to me today: Yes Date on this admission: 08/06/16 - Critical Care Critical Care patient: Yes Total Critical Care Time (in minutes): 45 Critical Care Statement: The care of this patient involved high complexity decision making to prevent further life threatening deterioration of the patient 's condition and/or to evalute & treat vital organ system(s) failure or risk of failure.
[2016-08-05] MEDS: SODIUM CHLORIDE 1,000 ML IV SCH (21:44)
[2016-08-05] MEDS: MUPIROCIN 2% TOPICAL OINTMENT FOR DECOLONIZATION NS SCH (21:45)
[2016-08-05] MEDS: CHLORHEXIDINE GLUCONATE 4% CLEANSER FOR DECOLONIZATION TP SCH (21:45)
[2016-08-05] MEDS ORDERED: MUPIROCIN 2% TOPICAL OINTMENT FOR DECOLONIZATION NS SCH (22:00)
[2016-08-05] MEDS ORDERED: CHLORHEXIDINE GLUCONATE 4% CLEANSER FOR DECOLONIZATION TP SCH (22:00)
[2016-08-05 22:37] LABS: URINE APPEARANCE SLCLOUDY; URINE BILIRUBIN NEGATIVE (NEGATIVE); URINE BLOOD NEGATIVE (NEGATIVE); URINE COLOR YELLOW; URINE GLUCOSE (UA) NEGATIVE (NEGATIVE); URINE KETONE NEGATIVE (NEGATIVE); URINE NITRITE NEGATIVE (NEGATIVE); URINE UROBILINOGEN NEGATIVE E.U./dl (0.2-1.0)
[2016-08-05 22:43] LABS: URINE LEUK ESTERASE 3+ (NEGATIVE); URINE MUCUS RARE; URINE PROTEIN 1+ (NEGATIVE); URINE RBC 4 /hpf (0-3); URINE WBC 39 /hpf (3-5)
[2016-08-06 06:48] LABS: BASOPHIL 0.1 % (0-2.0); MCH 29.2 pg (25.7-33.7); MCHC 33.3 g/dl (32.0-36.0); MEAN CELL VOLUME 87.6 fl (80-96); MEAN PLT VOLUME 8.5 fl (7.5-11.1); NEUTROPHILS 78.1 % (42.8-82.8); PLATELET COUNT 190 K/MM3 (134-434); RDW 13.8 % (11.6-15.6); WHITE BLOOD COUNT 20.5 K/mm3 (4.0-10.0)
[2016-08-06 07:07] LABS: TROPONIN I < 0.02 ng/ml (0.00-0.05)
[2016-08-06 07:16] LABS: INR 1.7 (0.82-1.09); PROTHROMBIN TIME (PATIENT) 18.9 SEC (9.98-11.88)
[2016-08-06 07:19] LABS: ACTIVATED PTT 29.1 SECONDS (26.9-34.4)
[2016-08-06 07:44] LABS: ALBUMIN 2.6 g/dl (3.4-5.0); ALK PHOS 78 U/L (45-117); ANION GAP 8 (8-16); BILIRUBIN,TOTAL 0.9 mg/dL (0.2-1.0); CALCIUM 8.6 mg/dL (8.5-10.1); CO2 30 mmol/L (21-32); CREATININE 0.8 mg/dL (0.55-1.02); GLUCOSE,RANDOM 81 mg/dL (74-106); MAGNESIUM 2.1 mg/dL (1.8-2.4); PHOSPHOROUS 2.7 mg/dL (2.5-4.9); SGOT/AST 16 U/L (15-37); SGPT/ALT 32 U/L (12-78); TOT PROT 5.2 g/dl (6.4-8.2)
--- NOTE | 2016-08-06 09:08 | PN ---
Teaching Attending Note Name of Resident: Josue Garcia ATTENDING PHYSICIAN STATEMENT I saw and evaluated the patient. I reviewed the resident's note and discussed the case with the resident. I agree with the resident's findings and plan as documented. SUBJECTIVE: Patient seen and examined in the ICU. Awake and alert. Reports some dry cough and minimal pleuritic type symptoms. SOB is is slightly better. Marginal BP. AFib with RVR. CXR: rotated / RLL opacity/effusion. Intake & Output 08/03/16 08/04/16 08/05/16 08/06/16 22:59 23:59 23:59 23:59 Intake Total 1100 825 Output Total 100 1000 Balance 1000 -175 Weight 101 lb 9.6 oz 98 lb 15.801 oz Last Vital Signs Temp Pulse Resp BP Pulse Ox 97.8 F 88 20 94/50 96 08/06/16 06:00 08/06/16 06:00 08/06/16 06:00 08/06/16 06:00 08/05/16 20:28 Active Medications Aspirin (Asa -) 81 mg PO DAILY [facility] Atenolol (Tenormin -) 50 mg PO DAILY [facility] Last Admin: 08/06/16 07:59 Dose: 50 mg Chlorhexidine Gluconate (Hibiclens For Decolonization -) 1 applic TP HS [facility] Last Admin: 08/05/16 21:45 Dose: 1 applic Heparin Sodium (Porcine) (Heparin -) 5,000 unit SQ BID STEPHANIE Sodium Chloride (Normal Saline -) 1,000 mls @ 75 mls/hr IV ASDIR [facility] Last Admin: 08/05/16 21:44 Dose: 75 mls/hr Magnesium Oxide (Mag-Ox -) 400 mg PO DAILY [facility] Mupirocin (Bactroban Ointment (For Decolonization) -) 1 applic NS BID STEPHANIE Stop: 08/10/16 21:59 Last Admin: 08/05/16 21:45 Dose: 1 applic Pantoprazole Sodium (Protonix -) 20 mg PO DAILY [facility] Constitutional: Yes: Awake and alert, NAD Eyes: Yes: WNL, PERRL HENT: Yes: WNL Neck: Yes: WNL Cardiovascular: Yes: S1, S2, AFib Respiratory: Yes: Diminished/Rhonchi Right base, On Nasal O2. No: tridor, Wheezes Gastrointestinal: Yes: Normal Bowel Sounds,NT ...Rectal Exam: Yes: Deferred Renal/: Yes: Other Breast(s): Yes: Other (left mastectomy) Musculoskeletal: Yes: WNL Extremities: Yes: WNL Edema: No Peripheral Pulses WNL: Yes (+2 bilateral pedal pulses) Integumentary: Yes: Other (appears dry) Neurological: Yes: Alert, non-focal. No: Aphasia, Facial Droop, Lethargy, Weakness ...Motor Strength: WNL Labs: Laboratory Results - last 24 hr 08/05/16 08/05/16 08/05/16 12:00 12:00 12:00 WBC 28.8 H D RBC 4.24 Hgb 12.6 Hct 37.1 MCV 87.5 MCHC 34.0 RDW 13.5 Plt Count 276 D MPV 8.7 Neutrophils % 70.0 D Lymphocytes % 17.0 D Monocytes % 5.0 Eosinophils % Basophils % Band Neutrophils 8.0 INR PTT (Actin FS) Sodium 134 L Potassium 3.7 Chloride 99 Carbon Dioxide 27 Anion Gap 8 BUN 40 H D Creatinine 1.0 D Creat Clearance w eGFR 52.20 Random Glucose 149 H Lactic Acid Calcium 8.3 L Phosphorus Magnesium Total Bilirubin 0.8 D AST 31 ALT 36 D Alkaline Phosphatase 83 Creatine Kinase 12 L Troponin I < 0.03 L B-Natriuretic Peptide Total Protein 5.6 L Albumin 3.2 L Urine Color Urine Appearance Urine pH Ur Specific [place] Urine Protein Urine Glucose (UA) Urine Ketones Urine Blood Urine Nitrite Urine Bilirubin Urine Urobilinogen Ur Leukocyte Esterase Urine RBC Urine WBC Ur Epithelial Cells Urine Mucus Random Vancomycin 08/05/16 08/05/16 08/05/16 12:01 12:05 19:15 WBC RBC Hgb Hct MCV MCHC RDW Plt Count MPV Neutrophils % Lymphocytes % Monocytes % Eosinophils % Basophils % Band Neutrophils INR 1.21 PTT (Actin FS) Sodium Potassium Chloride Carbon Dioxide Anion Gap BUN Creatinine Creat Clearance w eGFR Random Glucose Lactic Acid 2.736 H* 1.523 Calcium Phosphorus Magnesium Total Bilirubin AST ALT Alkaline Phosphatase Creatine Kinase Troponin I B-Natriuretic Peptide Total Protein Albumin Urine Color Urine Appearance Urine pH Ur Specific [place] Urine Protein Urine Glucose (UA) Urine Ketones Urine Blood Urine Nitrite Urine Bilirubin Urine Urobilinogen Ur Leukocyte Esterase Urine RBC Urine WBC Ur Epithelial Cells Urine Mucus Random Vancomycin 08/05/16 08/05/16 08/05/16 19:15 19:15 22:00 WBC RBC Hgb Hct MCV MCHC RDW Plt Count MPV Neutrophils % Lymphocytes % Monocytes % Eosinophils % Basophils % Band Neutrophils INR PTT (Actin FS) Sodium Potassium Chloride Carbon Dioxide Anion Gap BUN Creatinine Creat Clearance w eGFR Random Glucose Lactic Acid Calcium Phosphorus Magnesium Total Bilirubin AST ALT Alkaline Phosphatase Creatine Kinase Troponin I < 0.02 B-Natriuretic Peptide 626.73 H Total Protein Albumin Urine Color Yellow Urine Appearance Slcloudy Urine pH 5.0 Ur Specific [place] 1.016 Urine Protein 1+ H Urine Glucose (UA) Negative Urine Ketones Negative Urine Blood Negative Urine Nitrite Negative Urine Bilirubin Negative Urine Urobilinogen Negative Ur Leukocyte Esterase 3+ H Urine RBC 4 Urine WBC 39 Ur Epithelial Cells Few Urine Mucus Rare Random Vancomycin 08/06/16 08/06/16 08/06/16 05:05 05:05 05:05 WBC 20.5 H D RBC 3.82 Hgb 11.1 Hct 33.5 MCV 87.6 MCHC 33.3 RDW 13.8 Plt Count 190 D MPV 8.5 Neutrophils % 78.1 D Lymphocytes % 17.4 D Monocytes % 4.4 Eosinophils % 0.0 D Basophils % 0.1 Band Neutrophils INR 1.70 H D PTT (Actin FS) 29.1 Sodium 141 Potassium 3.7 Chloride 103 Carbon Dioxide 30 Anion Gap 8 BUN 31 H D Creatinine 0.8 D Creat Clearance w eGFR > 60 Random Glucose 81 Lactic Acid Calcium 8.6 Phosphorus 2.7 Magnesium 2.1 Total Bilirubin 0.9 D AST 16 D ALT 32 Alkaline Phosphatase 78 Creatine Kinase Troponin I B-Natriuretic Peptide Total Protein 5.2 L Albumin 2.6 L Urine Color Urine Appearance Urine pH Ur Specific [place] Urine Protein Urine Glucose (UA) Urine Ketones Urine Blood Urine Nitrite Urine Bilirubin Urine Urobilinogen Ur Leukocyte Esterase Urine RBC Urine WBC Ur Epithelial Cells Urine Mucus Random Vancomycin 08/06/16 08/06/16 08/06/16 05:05 05:05 05:05 WBC RBC Hgb Hct MCV MCHC RDW Plt Count MPV Neutrophils % Lymphocytes % Monocytes % Eosinophils % Basophils % Band Neutrophils INR PTT (Actin FS) Sodium Potassium Chloride Carbon Dioxide Anion Gap BUN Creatinine Creat Clearance w eGFR Random Glucose Lactic Acid 1.213 Calcium Phosphorus Magnesium Total Bilirubin AST ALT Alkaline Phosphatase Creatine Kinase 12 L Troponin I < 0.02 B-Natriuretic Peptide Total Protein Albumin Urine Color Urine Appearance Urine pH Ur Specific [place] Urine Protein Urine Glucose (UA) Urine Ketones Urine Blood Urine Nitrite Urine Bilirubin Urine Urobilinogen Ur Leukocyte Esterase Urine RBC Urine WBC Ur Epithelial Cells Urine Mucus Random Vancomycin 12.442 Assessment/Plan Right Pleural effusion (?) PNA (?) early empyema Sepsis Breast CA (s/p rt lumpectomy) CLL AFib Previous non-diagnostic thoracentesis UTI PLAN: Thoracic surgery evaluation ABX per ID O2 as needed IVF Can restart Atenolol with close monitoring of BP Follow cultures Incentive Spirometry BD TX PRN VTE prophylaxis CT Chest Dr Henry CCTime 35"
[2016-08-06] MEDS ORDERED: HEPARIN NA (PORCINE) 5,000 UNITS/ML 1ML VIAL SQ SCH (10:00)
[2016-08-06] MEDS ORDERED: ATENOLOL 50 MG TABLET (FP) PO SCH ×3 (10:00)
[2016-08-06] MEDS: MAGNESIUM OXIDE 400 MG TABLET (FP) PO SCH (10:04)
[2016-08-06] MEDS: ASPIRIN 81 MG CHEWABLE TABLETS PO SCH (10:04)
[2016-08-06] MEDS: MUPIROCIN 2% TOPICAL OINTMENT FOR DECOLONIZATION NS SCH ×2 (10:05→21:03)
[2016-08-06] MEDS: PANTOPRAZOLE 20 MG TABLET (FP) PO SCH (10:06)
--- NOTE | 2016-08-06 10:44 | PN ---
Physical Exam: SUBJECTIVE: Patient seen and examined, patient lying comfortably in bed states states that her pain has decreased and breathing has improved. Maintaining a saturation of 96 on 2 L. OBJECTIVE: Vital Signs Period Temp Pulse Resp BP Sys/Ross Pulse Ox Last 24 Hr 97.8 F-99 F 80-114 20-25 90-118/40-59 96-96 GENERAL: Awake, alert, and fully oriented, in no acute distress. HEAD: Normal with no signs of trauma. EYES: Pupils equal, round and reactive to light, extraocular movements intact, sclera anicteric, conjunctiva clear. No lid lag. EARS, NOSE, THROAT: Ears normal, nares patent, oropharynx clear without exudates. dry mucous membranes. NECK: Normal range of motion, supple without lymphadenopathy, LUNGS: dull to percuss on right side, decrease breath sound on right side, crepts present in right basal area. Left side air entry present, no wheez. HEART: s1s2 normal, irregularly irregular ABDOMEN: Soft, nontender, not distended, normoactive bowel sounds, no guarding, no rebound, no masses. MUSCULOSKELETAL: Normal range of motion at all joints. No bony deformities or tenderness. UPPER EXTREMITIES: 2+ pulses, warm, well-perfused. No cyanosis. No clubbing. Cap refill <2 seconds. No peripheral edema. LOWER EXTREMITIES: 2+ pulses, warm, well-perfused. No calf tenderness. peripheral edema present NEUROLOGICAL: Cranial nerves II-XII intact. Normal speech. PSYCHIATRIC: Cooperative. Good eye contact. Appropriate mood and affect. SKIN: Warm, dry, normal turgor, no rashes or lesions noted. Laboratory Results - last 24 hr 08/05/16 08/05/16 08/05/16 19:15 19:15 19:15 WBC RBC Hgb Hct MCV MCHC RDW Plt Count MPV Neutrophils % Lymphocytes % Monocytes % Eosinophils % Basophils % INR PTT (Actin FS) Sodium Potassium Chloride Carbon Dioxide Anion Gap BUN Creatinine Creat Clearance w eGFR Random Glucose Lactic Acid 1.523 Calcium Phosphorus Magnesium Total Bilirubin AST ALT Alkaline Phosphatase Creatine Kinase Troponin I < 0.02 B-Natriuretic Peptide 626.73 H Total Protein Albumin Urine Color Urine Appearance Urine pH Ur Specific Boelus Urine Protein Urine Glucose (UA) Urine Ketones Urine Blood Urine Nitrite Urine Bilirubin Urine Urobilinogen Ur Leukocyte Esterase Urine RBC Urine WBC Ur Epithelial Cells Urine Mucus Random Vancomycin 08/05/16 08/06/16 08/06/16 22:00 05:05 05:05 WBC 20.5 H D RBC 3.82 Hgb 11.1 Hct 33.5 MCV 87.6 MCHC 33.3 RDW 13.8 Plt Count 190 D MPV 8.5 Neutrophils % 78.1 D Lymphocytes % 17.4 D Monocytes % 4.4 Eosinophils % 0.0 D Basophils % 0.1 INR 1.70 H D PTT (Actin FS) 29.1 Sodium Potassium Chloride Carbon Dioxide Anion Gap BUN Creatinine Creat Clearance w eGFR Random Glucose Lactic Acid Calcium Phosphorus Magnesium Total Bilirubin AST ALT Alkaline Phosphatase Creatine Kinase Troponin I B-Natriuretic Peptide Total Protein Albumin Urine Color Yellow Urine Appearance Slcloudy Urine pH 5.0 Ur Specific Boelus 1.016 Urine Protein 1+ H Urine Glucose (UA) Negative Urine Ketones Negative Urine Blood Negative Urine Nitrite Negative Urine Bilirubin Negative Urine Urobilinogen Negative Ur Leukocyte Esterase 3+ H Urine RBC 4 Urine WBC 39 Ur Epithelial Cells Few Urine Mucus Rare Random Vancomycin 08/06/16 08/06/16 08/06/16 05:05 05:05 05:05 WBC RBC Hgb Hct MCV MCHC RDW Plt Count MPV Neutrophils % Lymphocytes % Monocytes % Eosinophils % Basophils % INR PTT (Actin FS) Sodium 141 Potassium 3.7 Chloride 103 Carbon Dioxide 30 Anion Gap 8 BUN 31 H D Creatinine 0.8 D Creat Clearance w eGFR > 60 Random Glucose 81 Lactic Acid 1.213 Calcium 8.6 Phosphorus 2.7 Magnesium 2.1 Total Bilirubin 0.9 D AST 16 D ALT 32 Alkaline Phosphatase 78 Creatine Kinase 12 L Troponin I < 0.02 B-Natriuretic Peptide Total Protein 5.2 L Albumin 2.6 L Urine Color Urine Appearance Urine pH Ur Specific Boelus Urine Protein Urine Glucose (UA) Urine Ketones Urine Blood Urine Nitrite Urine Bilirubin Urine Urobilinogen Ur Leukocyte Esterase Urine RBC Urine WBC Ur Epithelial Cells Urine Mucus Random Vancomycin 08/06/16 05:05 WBC RBC Hgb Hct MCV MCHC RDW Plt Count MPV Neutrophils % Lymphocytes % Monocytes % Eosinophils % Basophils % INR PTT (Actin FS) Sodium Potassium Chloride Carbon Dioxide Anion Gap BUN Creatinine Creat Clearance w eGFR Random Glucose Lactic Acid Calcium Phosphorus Magnesium Total Bilirubin AST ALT Alkaline Phosphatase Creatine Kinase Troponin I B-Natriuretic Peptide Total Protein Albumin Urine Color Urine Appearance Urine pH Ur Specific Boelus Urine Protein Urine Glucose (UA) Urine Ketones Urine Blood Urine Nitrite Urine Bilirubin Urine Urobilinogen Ur Leukocyte Esterase Urine RBC Urine WBC Ur Epithelial Cells Urine Mucus Random Vancomycin 12.442 Active Medications Generic Name Dose Route Start Last Admin Trade Name Padma PRN Reason Stop Dose Admin Aspirin 81 mg 08/06/16 10:00 08/06/16 10:04 Asa - PO 81 mg DAILY STEPHANIE Administration Atenolol 25 mg 08/06/16 10:00 08/06/16 10:06 Tenormin - PO Not Given DAILY STEPHANIE Chlorhexidine Gluconate 1 applic 08/05/16 22:00 08/05/16 21:45 Hibiclens For Decolonization - TP 1 applic HS STEPHANIE Administration Heparin Sodium (Porcine) 5,000 unit 08/06/16 10:00 08/06/16 10:04 Heparin - SQ 5,000 unit BID STEPHANIE Administration Sodium Chloride 1,000 mls @ 75 mls/hr 08/05/16 18:15 08/05/16 21:44 Normal Saline - IV 75 mls/hr ASDIR STEPHANIE Administration Magnesium Oxide 400 mg 08/06/16 10:00 08/06/16 10:04 Mag-Ox - PO 400 mg DAILY STEPHANIE Administration Mupirocin 1 applic 08/05/16 22:00 08/06/16 10:05 Bactroban Ointment (For Decolonization) - NS 08/10/16 21:59 1 applic BID STEPHANIE Administration Pantoprazole Sodium 20 mg 08/06/16 10:00 08/06/16 10:06 Protonix - PO 20 mg DAILY STEPHANIE Administration Microbiology 08/05/16 22:00 Urine For Antigen Detection Legionella Antigen - Final 08/05/16 22:00 Urine For Antigen Detection Streptococcus pneumoniae Antigen (M - Final 08/05/16 22:30 Nasopharyngeal Swab Respiratory Virus Panel - Preliminary 08/05/16 22:30 Nasopharyngeal Swab Influenza Types A,B Antigen (PEPE) - Final 08/05/16 22:30 Nasopharyngeal Swab - Final ASSESSMENT/PLAN: 89yF with PMH CLL, R Br CA, GERD, arrhythmia, macular degeneration presented to the ED with SOB. She has been admitted to the ICU for sepsis and Pleural effusion. Severer Sepsis secondary to Right side plural effusion or uti wbc decreased 28.8---> 20.5 , BP improving 103 /58, spo2 96 on nasal canula 2 L most likely exudative. could be from infection vs malignancy on vanco and levaquin IV fluid 75 ml/hr lactic acid came to normal blood, urine culture urine for legionella, strep pneumo negative monitor vitals monitor intake and output ID, thorasic surgery , cardio, oncology consult UTI on levaquin and vanco follow urine culture ID consult Afib rate control, irregularly irregular home med atenolol 50mg in morning and 25mg in night will give him atenolol 25 mg once due to borderline blood pressure cardiac monitoring H/o CLL oncology consult Dr Alex fluid: NS 75ml/hr electrolyte : repeat in am nurtrition: regular diet DVt pro: on heparin 5000 unit bid GI pro: not required case discussed with Dr Ryder will repeat inr in morning Dispo : admit in icu Visit type - Emergency Visit Emergency Visit: Yes ED Registration Date: 08/05/16 Care time: The patient presented to the Emergency Department on the above date and was hospitalized for further evaluation of their emergent condition. - New Patient This patient is new to me today: Yes Date on this admission: 08/06/16 - Critical Care Critical Care patient: Yes Total Critical Care Time (in minutes): 45 Critical Care Statement: The care of this patient involved high complexity decision making to prevent further life threatening deterioration of the patient 's condition and/or to evalute & treat vital organ system(s) failure or risk of failure.
--- NOTE | 2016-08-06 12:34 | EKG ---
Test Reason : Blood Pressure : / mmHG Vent. Rate : 109 BPM Atrial Rate : 109 BPM P-R Int : 170 ms QRS Dur : 068 ms QT Int : 320 ms P-R-T Axes : 051 036 054 degrees QTc Int : 430 ms SINUS TACHYCARDIA WITH OCCASIONAL PREMATURE VENTRICULAR COMPLEXES OTHERWISE NORMAL ECG WHEN COMPARED WITH ECG OF 05-AUG-2016 12:10, PREMATURE VENTRICULAR COMPLEXES ARE NOW PRESENT Confirmed by BONITA GARCIA, TAMIKA ([id number]) on 08/06/2016 12:34:09 PM Referred By: RYAN PEARSON Confirmed By:TAMIKA MESA MD
--- NOTE | 2016-08-06 13:33 | PN ---
Progress Note (short form) - Note Progress Note: Reviewed chats, films, labs, vs, and i/o's. Briefly, an 89-year-old female, history of CLL, breast ca, a.fib and right pleural effusion, s/p right thoracentesis (06/2016), presented to [facility] with worsening SOB/CRISOSTOMO. Chest x-ray showed recurrent right pleural effusion. Etiology including infection, inflammation, malignancy or metastatic disease process. Admitted to ICU for IVF and abx. Appears to be stable clinically with no cardiopulmonary compromise at the present time. 1. cont excellent icu care 2. ct chest 3. ivf, abx 4. d/w icu team 5. official consult to follow
--- NOTE | 2016-08-06 17:13 | PN ---
Physical Exam: SUBJECTIVE: Patient seen and examined. She denies any pain or discomfort. OBJECTIVE: Vital Signs Period Temp Pulse Resp BP Sys/Ross Pulse Ox Last 24 Hr 97.8 F-99 F 80-122 20-25 90-118/38-59 96-96 GENERAL: The patient is awake, alert, and fully oriented, in no acute distress. HEAD: Normal with no signs of trauma. EYES: PERRL, extraocular movements intact, sclera anicteric, conjunctiva clear. No ptosis. ENT: Ears normal, nares patent, oropharynx clear without exudates, moist mucous membranes. NECK: Trachea midline, full range of motion, supple. LUNGS: Diminished breath sounds right lung more diminished than left ABDOMEN: Soft, nontender, nondistended, normoactive bowel sounds, no guarding EXTREMITIES: 2+ pulses, warm, well-perfused, no edema. NEUROLOGICAL: Normal speech, bedbound for now PSYCH: Anxious SKIN: Warm, dry, normal turgor, no rashes or lesions noted Laboratory Results - last 24 hr 08/05/16 08/05/16 08/05/16 19:15 19:15 19:15 WBC RBC Hgb Hct MCV MCHC RDW Plt Count MPV Neutrophils % Lymphocytes % Monocytes % Eosinophils % Basophils % INR PTT (Actin FS) Sodium Potassium Chloride Carbon Dioxide Anion Gap BUN Creatinine Creat Clearance w eGFR Random Glucose Lactic Acid 1.523 Calcium Phosphorus Magnesium Total Bilirubin AST ALT Alkaline Phosphatase Creatine Kinase Troponin I < 0.02 B-Natriuretic Peptide 626.73 H Total Protein Albumin Urine Color Urine Appearance Urine pH Ur Specific Campbell Urine Protein Urine Glucose (UA) Urine Ketones Urine Blood Urine Nitrite Urine Bilirubin Urine Urobilinogen Ur Leukocyte Esterase Urine RBC Urine WBC Ur Epithelial Cells Urine Mucus Random Vancomycin 08/05/16 08/06/16 08/06/16 22:00 05:05 05:05 WBC 20.5 H D RBC 3.82 Hgb 11.1 Hct 33.5 MCV 87.6 MCHC 33.3 RDW 13.8 Plt Count 190 D MPV 8.5 Neutrophils % 78.1 D Lymphocytes % 17.4 D Monocytes % 4.4 Eosinophils % 0.0 D Basophils % 0.1 INR 1.70 H D PTT (Actin FS) 29.1 Sodium Potassium Chloride Carbon Dioxide Anion Gap BUN Creatinine Creat Clearance w eGFR Random Glucose Lactic Acid Calcium Phosphorus Magnesium Total Bilirubin AST ALT Alkaline Phosphatase Creatine Kinase Troponin I B-Natriuretic Peptide Total Protein Albumin Urine Color Yellow Urine Appearance Slcloudy Urine pH 5.0 Ur Specific Campbell 1.016 Urine Protein 1+ H Urine Glucose (UA) Negative Urine Ketones Negative Urine Blood Negative Urine Nitrite Negative Urine Bilirubin Negative Urine Urobilinogen Negative Ur Leukocyte Esterase 3+ H Urine RBC 4 Urine WBC 39 Ur Epithelial Cells Few Urine Mucus Rare Random Vancomycin 08/06/16 08/06/16 08/06/16 05:05 05:05 05:05 WBC RBC Hgb Hct MCV MCHC RDW Plt Count MPV Neutrophils % Lymphocytes % Monocytes % Eosinophils % Basophils % INR PTT (Actin FS) Sodium 141 Potassium 3.7 Chloride 103 Carbon Dioxide 30 Anion Gap 8 BUN 31 H D Creatinine 0.8 D Creat Clearance w eGFR > 60 Random Glucose 81 Lactic Acid 1.213 Calcium 8.6 Phosphorus 2.7 Magnesium 2.1 Total Bilirubin 0.9 D AST 16 D ALT 32 Alkaline Phosphatase 78 Creatine Kinase 12 L Troponin I < 0.02 B-Natriuretic Peptide Total Protein 5.2 L Albumin 2.6 L Urine Color Urine Appearance Urine pH Ur Specific Campbell Urine Protein Urine Glucose (UA) Urine Ketones Urine Blood Urine Nitrite Urine Bilirubin Urine Urobilinogen Ur Leukocyte Esterase Urine RBC Urine WBC Ur Epithelial Cells Urine Mucus Random Vancomycin 08/06/16 05:05 WBC RBC Hgb Hct MCV MCHC RDW Plt Count MPV Neutrophils % Lymphocytes % Monocytes % Eosinophils % Basophils % INR PTT (Actin FS) Sodium Potassium Chloride Carbon Dioxide Anion Gap BUN Creatinine Creat Clearance w eGFR Random Glucose Lactic Acid Calcium Phosphorus Magnesium Total Bilirubin AST ALT Alkaline Phosphatase Creatine Kinase Troponin I B-Natriuretic Peptide Total Protein Albumin Urine Color Urine Appearance Urine pH Ur Specific Campbell Urine Protein Urine Glucose (UA) Urine Ketones Urine Blood Urine Nitrite Urine Bilirubin Urine Urobilinogen Ur Leukocyte Esterase Urine RBC Urine WBC Ur Epithelial Cells Urine Mucus Random Vancomycin 12.442 Active Medications Generic Name Dose Route Start Last Admin Trade Name Freq PRN Reason Stop Dose Admin Aspirin 81 mg 08/06/16 10:00 08/06/16 10:04 Asa - PO 81 mg DAILY SETPHANIE Administration Atenolol 25 mg 08/06/16 10:00 08/06/16 10:06 Tenormin - PO Not Given DAILY STEPHANIE Chlorhexidine Gluconate 1 applic 08/05/16 22:00 08/05/16 21:45 Hibiclens For Decolonization - TP 1 applic HS STEPHANIE Administration Heparin Sodium (Porcine) 5,000 unit 08/06/16 10:00 08/06/16 10:04 Heparin - SQ 5,000 unit BID STEPHANIE Administration Sodium Chloride 1,000 mls @ 75 mls/hr 08/05/16 18:15 08/05/16 21:44 Normal Saline - IV 75 mls/hr ASDIR STEPHANIE Administration Levofloxacin 50 mls @ 50 mls/hr 08/06/16 20:00 Levaquin 250 Mg Premixed Ivpb - IVPB [email or web address] STEPHANIE Vancomycin HCl 750 mg/ 250 mls @ 250 mls/hr 08/06/16 20:00 Dextrose IVPB DAILY@[email or web address] [facility] Protocol Magnesium Oxide 400 mg 08/06/16 10:00 08/06/16 10:04 Mag-Ox - PO 400 mg DAILY STEPHANIE Administration Mupirocin 1 applic 08/05/16 22:00 08/06/16 10:05 Bactroban Ointment (For Decolonization) - NS 08/10/16 21:59 1 applic BID STEPHANIE Administration Pantoprazole Sodium 20 mg 08/06/16 10:00 08/06/16 10:06 Protonix - PO 20 mg DAILY STEPHANIE Administration ASSESSMENT/PLAN: Patient is an 89 year old female with a significant past medical history of CLL , on active chemo treatments (last one 3 weeks ago), right breast cancer s/p lumpectomy a few years ago, macular degeneration, GERD and arrhythmia (has an implanted loop recorder). She presented to the ED on 08/05/2016 with worsening shortness of breath and was admitted for pleural effusion on the right lung, hypotension and CLL. She was most recently admitted on 07/12/2016 with intermittent shortness of breath and during that admission had an ultrasound guided thoracentesis for right sided pleural effusion (1300 cc of fluid removed). Fluid cultures were sent. Imaging: Chest CT 08/06/2016: A non specific moderate to large amount of right sided pleural fluid. Chest Xray 08/05/2016: Slight combination of right pleural effusion, compressive atelectasis increased from June ID: Sepsis - likely secondary to recurrent right sided pleural effusion and/or UTI - acute Met SIRS criteria on admission, tachycardia, leukocytosis, hypotension, +UTI Tachycardia is improving, Leukocytosis improving 28>20 BP remains low but stable, monitor closely Pleural Effusion - Right lung - chronic Had thoracentesis on 07/12/2016 with 1300 cc of fluid removed Recent CT shows moderate to large amount of right sided pleural effusion May be source of infection vs. malignancy Tolerating oxygen @ 2 liters, no shortness at breath at rest, but needs supplemental oxygen Urine culture 3+ Leuks, UC pending WBC improving, remains afebrile On Levaquin and Vanco, has allergy to pencillins ID consulted for further antibiotic therapy Cardiology: A fib - rate controlled with Atenolol - chronic Assessment/Plan: Remains hypotensive, On cardiac monitoring Also has implanted loop recorder Monitor BP Cardiology consult Oncology: Chronic Lymphocytic Leukemia Assessment/Plan: Unknown baseline WBC Last chemo treatment 3 weeks prior Oncology consulted F.E.N. Fluids: NS @ 75cc/hr Electrolytes: within normal limits Nutrition: tolerating PO Prophylaxis: DVT: Lovenox 40mg daily GI: Protonix 20mg daily Disposition: Requires inpatient hospitalization. Full Code. Visit type - Emergency Visit Emergency Visit: Yes ED Registration Date: 08/05/16 Care time: The patient presented to the Emergency Department on the above date and was hospitalized for further evaluation of their emergent condition. - New Patient This patient is new to me today: Yes Date on this admission: 08/06/16 - Critical Care Critical Care patient: Yes Total Critical Care Time (in minutes): 45 Critical Care Statement: The care of this patient involved high complexity decision making to prevent further life threatening deterioration of the patient 's condition and/or to evalute & treat vital organ system(s) failure or risk of failure. - Discharge Referral Referred to [facility] Med [facility].: No
[2016-08-06] MEDS ORDERED: VANCOMYCIN 1 GRAM (PRE-DOCKED) 1,000 MG/250 ML BAG IVPB SCH (20:00)
[2016-08-06] MEDS ORDERED: LORazepam 0.5 MG TABLET PO ONE (20:41)
[2016-08-06] MEDS: SODIUM CHLORIDE 1,000 ML IV SCH (21:02)
[2016-08-06] MEDS: LEVOFLOXACIN 250 MG IVPB 50 ML IVPB SCH (21:02)
[2016-08-06] MEDS: CHLORHEXIDINE GLUCONATE 4% CLEANSER FOR DECOLONIZATION TP SCH (21:03)
[2016-08-06] MEDS: ENOXAPARIN NA (PORCINE) 40 MG/0.4 ML DISP.SYRIN SQ SCH (21:11)
[2016-08-06] MEDS: VANCOMYCIN 750 MG in DEXTROSE 5%-WATER - 250 ML IVPB SCH (23:23)
[2016-08-07] MEDS ORDERED: ACETAMINOPHEN 325 MG TABLET (FP) ONE (00:52)
[2016-08-07 07:32] LABS: BASOPHIL 0.2 % (0-2.0); MCH 28.9 pg (25.7-33.7); MCHC 32.4 g/dl (32.0-36.0); MEAN PLT VOLUME 9.1 fl (7.5-11.1); NEUTROPHILS 74.5 % (42.8-82.8); PLATELET COUNT 109 K/MM3 (134-434); RDW 14.4 % (11.6-15.6); WHITE BLOOD COUNT 14.1 K/mm3 (4.0-10.0)
[2016-08-07 07:40] LABS: INR 1.55 (0.82-1.09); PROTHROMBIN TIME (PATIENT) 17.2 SEC (9.98-11.88)
[2016-08-07 07:54] LABS: CALCIUM 8.1 mg/dL (8.5-10.1); CREATININE 0.9 mg/dL (0.55-1.02)
--- NOTE | 2016-08-07 09:21 | PN ---
Progress Note, Physician Chief Complaint: Known to our svc from office and recent hospitalization: CLL on chemo, recent admission large r. pleural effusion (Lymphoma) s/p drainage. PSVT Now returns and readmitted with fever and increased SOB. Found to have recurrent moderate to large right effusion. She denies CP, but has been more SOB and has had fever and chills. No edema. No syncope. Cultures are pending. History of Present Illness: TELE: reviewed. NSR w/ frequent APCs - Current Medication List Current Medications: Active Medications Acetaminophen (Tylenol -) 650 mg PO Q6H PRN PRN Reason: FEVER OR PAIN Aspirin (Asa -) 81 mg PO DAILY [facility] Last Admin: 08/06/16 10:04 Dose: 81 mg Atenolol (Tenormin -) 25 mg PO DAILY [facility] Chlorhexidine Gluconate (Hibiclens For Decolonization -) 1 applic TP HS [facility] Last Admin: 08/06/16 21:03 Dose: Not Given Enoxaparin Sodium (Lovenox -) 40 mg SQ DAILY [facility] Last Admin: 08/06/16 21:11 Dose: 40 mg Sodium Chloride (Normal Saline -) 1,000 mls @ 75 mls/hr IV ASDIR [facility] Last Admin: 08/06/16 21:02 Dose: 75 mls/hr Levofloxacin (Levaquin 250 Mg Premixed Ivpb -) 50 mls @ 50 mls/hr IVPB DAILY@ 1999 [facility] Last Admin: 08/06/16 21:02 Dose: 50 mls/hr Vancomycin HCl 750 mg/ (Dextrose) 250 mls @ 250 mls/hr IVPB [email or web address]@[email or web address] [facility] PRN Reason: Protocol Last Admin: 08/06/16 23:23 Dose: 250 mls/hr Magnesium Oxide (Mag-Ox -) 400 mg PO DAILY [facility] Last Admin: 08/06/16 10:04 Dose: 400 mg Mupirocin (Bactroban Ointment (For Decolonization) -) 1 applic NS BID [facility] Stop: 08/10/16 21:59 Last Admin: 08/06/16 21:03 Dose: Not Given Pantoprazole Sodium (Protonix -) 20 mg PO DAILY [facility] Last Admin: 08/06/16 10:06 Dose: 20 mg - Objective Vital Signs: Vital Signs Temperature 98.0 F 08/07/16 06:00 Pulse Rate 90 08/07/16 06:00 Respiratory Rate 20 08/07/16 06:00 Blood Pressure 124/52 08/07/16 06:00 O2 Sat by Pulse Oximetry (%) 94 L 08/06/16 21:00 Constitutional: Yes: No Distress HENT: Yes: Other (nasal can Anicteric) Cardiovascular: Yes: Regular Rate and Rhythm Respiratory: Yes: Other (significant decreased breath sounds right) Gastrointestinal: Yes: Soft Edema: No Neurological: Yes: Alert, Oriented Labs: CBC, BMP 08/07/16 05:35 08/07/16 05:35 INR, PTT INR 1.55 (0.82-1.09) H 08/07/16 05:35 - ....Imaging EKG: Image Reviewed Assessment/Plan CLL on chemo Recurrent right pleural effusion, lymphomatous PSVT s/p ILR REC: In sinus, continue Atenolol. Further Rx recurrent right effusion as per Pulmonary and Onc.(Isai) Abx as per primary team.
--- NOTE | 2016-08-07 10:33 | CONSULT ---
Consult Consult Specialty:: Thoracic Surgery Referred by:: Dr. Henry Reason for Consultation:: Recurrent right pleural effusion - History of Present Illness Chief Complaint: Shortness of breath History of Present Illness: An 89-year-old female with history of CLL, on chemotherapy, breast cancer, and right pleural effusion who presented to [facility] with complaint of shortness of breath. She was recently discharged from hospital after right thoracentesis for pleural effusion. Her workup including chest x-ray and CT chest showed recurrent right pleural effusion. She reports episodes of fever, chills, diaphoresis, pleuritic chest pain and dysuria. She feels better currently with oxygen support and antibiotics. She denies cough, sputum production, hemoptysis , dizziness, and palpitation. - History Source History Provided By: Patient, Medical Record Limitations to Obtaining History: No Limitations - Past Medical History Cardio/Vascular: Yes: Other (ARRYTHMIA) Gastrointestinal: Yes: GERD. No: Ascites - Alcohol/Substance Use Hx Alcohol Use: No - Smoking History Smoking history: Never smoked Have you smoked in the past 12 months: No Aproximately how many cigarettes per day: 0 Home Medications - Allergies Allergies/Adverse Reactions: Allergies Allergy/AdvReac Type Severity Reaction Status Date / Time azithromycin Allergy Severe Rash Verified 08/05/16 13:15 alendronate sodium Allergy Intermediate ABDOMINAL Verified 08/05/16 13:15 [From Fosamax] PAIN amoxicillin [Amoxicillin] Allergy Intermediate Rash Verified 08/05/16 13:15 amoxicillin trihydrate Allergy Verified 08/05/16 13:15 [From Augmentin] Penicillins Allergy Rash Verified 08/05/16 13:15 potassium clavulanate Allergy Verified 08/05/16 13:15 [From Augmentin] - Home Medications Home Medications: Ambulatory Orders Aspirin [ASA -] 81 mg PO DAILY 12/28/11 Atenolol [Tenormin -] 50 mg PO DAILY 12/28/11 Magnesium 400 mg PO DAILY 07/12/16 Furosemide [Lasix -] 20 mg PO DAILY tablet 07/17/16 Potassium Chloride [K-Dur -] 20 meq PO DAILY 08/05/16 Prednisone [Deltasone] 40 mg PO DAILY 08/05/16 Review of Systems - Review of Systems Constitutional: reports: Chills, Fever Eyes: reports: No Symptoms HENT: reports: No Symptoms Neck: reports: No Symptoms Cardiovascular: reports: Chest Pain Respiratory: reports: SOB on Exertion Gastrointestinal: reports: No Symptoms Genitourinary: reports: Burning, Dysuria Breasts: reports: No Symptoms Reported Musculoskeletal: reports: No Symptoms Integumentary: reports: No Symptoms Neurological: reports: No Symptoms Endocrine: reports: No Symptoms Hematology/Lymphatic: reports: Other (h/o CLL) Psychiatric: reports: No Symptoms Physical Exam Vital Signs: Vital Signs Temperature 98.0 F 08/07/16 06:00 Pulse Rate 90 08/07/16 06:00 Respiratory Rate 20 08/07/16 06:00 Blood Pressure 124/52 08/07/16 06:00 O2 Sat by Pulse Oximetry (%) 94 L 08/06/16 21:00 Constitutional: Yes: Mild Distress Eyes: Yes: WNL HENT: Yes: WNL Neck: Yes: WNL Cardiovascular: Yes: WNL Respiratory: Yes: Diminished, Rhonchi (decreased breath sound in right lung field) Gastrointestinal: Yes: WNL ...Rectal Exam: Yes: Deferred Renal/: Yes: WNL Musculoskeletal: Yes: WNL Extremities: Yes: WNL Edema: LLE: 1+, RLE: 1+ Peripheral Pulses WNL: Yes Integumentary: Yes: WNL Neurological: Yes: WNL ...Motor Strength: WNL Psychiatric: Yes: WNL Labs: CBC, BMP 08/07/16 05:35 08/07/16 05:35 Imaging - Results Chest X-ray: Report Reviewed, Image Reviewed Cat Scan: Report Reviewed, Image Reviewed Problem List - Problems (1) Pleural effusion Code(s): J90 - PLEURAL EFFUSION, NOT ELSEWHERE CLASSIFIED Assessment/Plan An 89-year-old female with history of CLL, breast cancer, and right pleural effusion, s/p thoracentesis, who presented to [facility] with complaints of SOB/CRISOSTOMO. Her radiographic studies and laboratory results were reviewed and discussed with the patient in extensive detail. She has recurrent right pleural effusion secondary to potential infection, inflammation, pleuritis, malignancy and/or metastatic disease. She was given multiple options including conservative medical management, redothoracentesis and definitive surgical management (VATS, decortication, pleural biopsy, and possible PleurX drain). She wishes to discuss with her family prior to her decision. She is aware and understood her medical condition. All questions were answered in satisfactory manner. She remains stable clinically with no cardiopulmonary compromise at the present time. 1. Continue supportive care 2. Antibiotics 3. Medical and cardiac clearance 4. Follow up ID, pulmonary, and med oncology service 5. Thank you for the interesting consult. Will follow with you.
--- NOTE | 2016-08-07 10:35 | EKG ---
Test Reason : Blood Pressure : / mmHG Vent. Rate : 089 BPM Atrial Rate : 089 BPM P-R Int : 138 ms QRS Dur : 066 ms QT Int : 342 ms P-R-T Axes : 030 008 028 degrees QTc Int : 416 ms NORMAL SINUS RHYTHM POSSIBLE LEFT ATRIAL ENLARGEMENT BORDERLINE ECG WHEN COMPARED WITH ECG OF 12-JUL-2016 16:17, NO SIGNIFICANT CHANGE WAS FOUND Confirmed by PHYLLIS CARDENAS MD ([id number] on 08/07/2016 10:34:24 AM Referred By: ODETTE Confirmed By:PHYLLIS CARDENAS MD
[2016-08-07] MEDS: PANTOPRAZOLE 20 MG TABLET (FP) PO SCH (10:42)
[2016-08-07] MEDS: ENOXAPARIN NA (PORCINE) 40 MG/0.4 ML DISP.SYRIN SQ SCH (10:42)
[2016-08-07] MEDS: ASPIRIN 81 MG CHEWABLE TABLETS PO SCH (10:42)
[2016-08-07] MEDS: ATENOLOL 25 MG TABLET (FP) PO SCH ×2 (10:42→10:54)
[2016-08-07] MEDS: MAGNESIUM OXIDE 400 MG TABLET (FP) PO SCH (10:42)
[2016-08-07] MEDS: MUPIROCIN 2% TOPICAL OINTMENT FOR DECOLONIZATION NS SCH ×2 (10:43→21:43)
--- NOTE | 2016-08-07 10:56 | PN ---
Progress Note (short form) - Note Progress Note: ID consult dictated imp/reccd 89 year old female with CLL, recently hospitalized 07/12 to 07/17 with SOB and right pleural effusion- she had a thoracentesis (exudative, lymphocytic nondiagnostic cytology) now readmitted 08/05 with SOB and weakness, she notes night seats nonproductive, dry cough allergic to zithromax and penicilling, amox (rash, no SOB) cxray with increasing Right pleural effusion chest ct with effusion , adenopathy, right basilar opacity- ?infiltrate versus atelectasis recurrent pleural effusion (right)- awaiting patient decision about possible thoracic intervention ?infected pleural fluid, ?malignancy ?fever from atelectasis versus pneumonia CLL on chemotherapy would continue vancomycin and levaquin for now f/u cultures send quant gold can we remove wagoner catheter?
[2016-08-07] MEDS: SODIUM CHLORIDE 1,000 ML IV SCH ×2 (11:25→21:46)
--- NOTE | 2016-08-07 11:48 | PN ---
Progress Note (short form) - Note Progress Note: PULMONARY Denies shortness of breath or chest pain. Febrile overnight to 101.3 Last Vital Signs Temp Pulse Resp BP Pulse Ox 98.0 F 90 20 124/52 94 L 08/07/16 06:00 08/07/16 06:00 08/07/16 06:00 08/07/16 06:00 08/06/16 21:00 Intake & Output 08/04/16 08/05/16 08/06/16 08/07/16 23:59 23:59 23:59 23:59 Intake Total 1100 1325 900 Output Total 100 1400 300 Balance 1000 -75 600 Weight 101 lb 9.6 oz 98 lb 15.801 oz 94 lb 3 oz Gen: NAD in chair Heart: RRR Lung: decreased breath sound right base 1/2 up, +right base rales Abd: soft, nontender Ext: no edema CBC, BMP 08/07/16 05:35 08/07/16 05:35 Active Medications Acetaminophen (Tylenol -) 650 mg PO Q6H PRN PRN Reason: FEVER OR PAIN Aspirin (Asa -) 81 mg PO DAILY [facility] Last Admin: 08/07/16 10:42 Dose: 81 mg Atenolol (Tenormin -) 25 mg PO DAILY [facility] Last Admin: 08/07/16 10:54 Dose: Not Given Chlorhexidine Gluconate (Hibiclens For Decolonization -) 1 applic TP HS [facility] Last Admin: 08/06/16 21:03 Dose: Not Given Enoxaparin Sodium (Lovenox -) 40 mg SQ DAILY [facility] Last Admin: 08/07/16 10:42 Dose: 40 mg Sodium Chloride (Normal Saline -) 1,000 mls @ 75 mls/hr IV ASDIR [facility] Last Admin: 08/06/16 21:02 Dose: 75 mls/hr Levofloxacin (Levaquin 250 Mg Premixed Ivpb -) 50 mls @ 50 mls/hr IVPB DAILY@ 1999 [facility] Last Admin: 08/06/16 21:02 Dose: 50 mls/hr Vancomycin HCl 750 mg/ (Dextrose) 250 mls @ 250 mls/hr IVPB DAILY@1999 [facility] PRN Reason: Protocol Last Admin: 08/06/16 23:23 Dose: 250 mls/hr Magnesium Oxide (Mag-Ox -) 400 mg PO DAILY [facility] Last Admin: 08/07/16 10:42 Dose: 400 mg Mupirocin (Bactroban Ointment (For Decolonization) -) 1 applic NS BID [facility] Stop: 08/10/16 21:59 Last Admin: 08/07/16 10:43 Dose: Not Given Pantoprazole Sodium (Protonix -) 20 mg PO DAILY [facility] Last Admin: 08/07/16 10:42 Dose: 20 mg A/P UTI Pneumonia vs Empyema Pleural Effusion Severe Sepsis improving Lactic Acidosis resolved Atrial Fibrillation CLL - antibiotics per ID - f/u pending cultures - recommend at least diagnostic thoracentesis and if c/w empyema or malignant then would proceed with VATS/pleurodesis - send pleural fluid for flow cytometry in addition to the typical studies - IVF - monitor urine output, creatinine - O2 as needed - DVT prophylaxis
--- NOTE | 2016-08-07 15:26 | PN ---
Physical Exam: SUBJECTIVE: Patient seen and examined. Febrile overnight 101.3F. She is tolerating supplemental oxygen. Denies chest pain. Likely will need VATS - pulmonary following OBJECTIVE: Vital Signs Period Temp Pulse Resp BP Sys/Ross Pulse Ox Last 24 Hr 98.0 F-101.3 F 90-114 20-20 97-124/50-54 94 GENERAL: The patient is awake, alert, and fully oriented, in no acute distress. HEAD: Normal with no signs of trauma. EYES: PERRL, extraocular movements intact, sclera anicteric, conjunctiva clear. No ptosis. ENT: Ears normal, nares patent, oropharynx clear without exudates, moist mucous membranes. NECK: Trachea midline, full range of motion, supple. LUNGS: Crackles on right lung, left lung clear ABDOMEN: Soft, nontender, nondistended, normoactive bowel sounds, no guarding EXTREMITIES: 2+ pulses, warm, well-perfused, no edema. NEUROLOGICAL: Normal speech, bedbound for now PSYCH: Anxious SKIN: Warm, dry, normal turgor, no rashes or lesions noted Laboratory Results - last 24 hr 08/07/16 08/07/16 08/07/16 05:35 05:35 05:35 WBC 14.1 H D RBC 3.57 L Hgb 10.3 L Hct 31.8 L MCV 89.0 MCHC 32.4 RDW 14.4 Plt Count 109 L D MPV 9.1 Neutrophils % 74.5 Lymphocytes % 21.0 D Monocytes % 4.3 Eosinophils % 0.0 Basophils % 0.2 INR 1.55 H Sodium 138 Potassium 3.8 Chloride 103 Carbon Dioxide 25 Anion Gap 10 BUN 32 H Creatinine 0.9 Random Glucose 97 Calcium 8.1 L Active Medications Generic Name Dose Route Start Last Admin Trade Name Freq PRN Reason Stop Dose Admin Acetaminophen 650 mg 08/07/16 00:47 Tylenol - PO Q6H PRN FEVER OR PAIN Aspirin 81 mg 08/06/16 10:00 08/07/16 10:42 Asa - PO 81 mg DAILY [facility] Administration Atenolol 25 mg 08/07/16 10:00 08/07/16 10:54 Tenormin - PO Not Given DAILY [facility] Chlorhexidine Gluconate 1 applic 08/05/16 22:00 08/06/16 21:03 Hibiclens For Decolonization - TP Not Given HS [facility] Enoxaparin Sodium 40 mg 08/06/16 22:00 08/07/16 10:42 Lovenox - SQ 40 mg DAILY [facility] Administration Sodium Chloride 1,000 mls @ 75 mls/hr 08/05/16 18:15 08/06/16 21:02 Normal Saline - IV 75 mls/hr ASDIR [facility] Administration Levofloxacin 50 mls @ 50 mls/hr 08/06/16 20:00 08/06/16 21:02 Levaquin 250 Mg Premixed Ivpb - IVPB 50 mls/hr DAILY@1999 [facility] Administration Vancomycin HCl 750 mg/ 250 mls @ 250 mls/hr 08/06/16 20:00 08/06/16 23:23 Dextrose IVPB 250 mls/hr DAILY@1999 [facility] Administration Protocol Magnesium Oxide 400 mg 08/06/16 10:00 08/07/16 10:42 Mag-Ox - PO 400 mg DAILY [facility] Administration Mupirocin 1 applic 08/05/16 22:00 08/07/16 10:43 Bactroban Ointment (For Decolonization) - NS 08/10/16 21:59 Not Given BID [facility] Pantoprazole Sodium 20 mg 08/06/16 10:00 08/07/16 10:42 Protonix - PO 20 mg DAILY [facility] Administration ASSESSMENT/PLAN: Patient is an 89 year old female with a significant past medical history of CLL , on active chemo treatments (last one 3 weeks ago), right breast cancer s/p lumpectomy a few years ago, macular degeneration, GERD and arrhythmia (has an implanted loop recorder). She presented to the ED on 08/05/2016 with worsening shortness of breath and was admitted for pleural effusion on the right lung, hypotension and CLL. She was most recently admitted on 07/12/2016 with intermittent shortness of breath and during that admission had an ultrasound guided thoracentesis for right sided pleural effusion (1300 cc of fluid removed). Fluid cultures were sent. Imaging: Chest CT 08/06/2016: A non specific moderate to large amount of right sided pleural fluid. Chest Xray 08/05/2016: Slight combination of right pleural effusion, compressive atelectasis increased from June ID: Sepsis - likely secondary to recurrent right sided pleural effusion and/or UTI - acute Met SIRS criteria on admission, tachycardia, leukocytosis, hypotension, +UTI Tachycardia is improving, Leukocytosis improving 28>14.1 BP remains low, increased IVF to 125cc/hr Pleural Effusion - Right lung - chronic Had thoracentesis on 07/12/2016 with 1300 cc of fluid removed Recent CT shows moderate to large amount of right sided pleural effusion May be source of infection vs. 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 Fluids: NS @ 125cc/hr Electrolytes: within normal limits Nutrition: tolerating PO Prophylaxis: DVT: Lovenox 40mg daily GI: Protonix 20mg daily Disposition: Requires inpatient hospitalization. Full Code. Visit type - Emergency Visit Emergency Visit: Yes ED Registration Date: 08/05/16 Care time: The patient presented to the Emergency Department on the above date and was hospitalized for further evaluation of their emergent condition. - New Patient This patient is new to me today: No - Critical Care Critical Care patient: No - Discharge Referral Referred to [facility] Med P.C.: No
[2016-08-07] MEDS ORDERED: DIGOXIN 0.5 MG/2 ML AMPUL IVPUSH ONE (16:15)
[2016-08-07] MEDS: ACETAMINOPHEN 325 MG TABLET (FP) PO PRN (20:00)
[2016-08-07] MEDS: CHLORHEXIDINE GLUCONATE 4% CLEANSER FOR DECOLONIZATION TP SCH (21:43)
[2016-08-07] MEDS: LEVOFLOXACIN 250 MG IVPB 50 ML IVPB SCH (21:45)
[2016-08-07] MEDS: VANCOMYCIN 750 MG in DEXTROSE 5%-WATER - 250 ML IVPB SCH (22:51)
[2016-08-08] MEDS: ACETAMINOPHEN 325 MG TABLET (FP) PO PRN (04:51)
[2016-08-08 06:06] LABS: IGG IMMUNOGLOBULIN 584 mg/dL (700-1600); IGM IMMUNOGLOBULIN 18 mg/dL (26-217)
[2016-08-08 08:07] LABS: IMMUNOGLOBULIN E 7 IU/mL (0-100)
[2016-08-08 08:12] LABS: BASOPHIL 0.1 % (0-2.0); EOSINOPHIL 0.2 % (0-4.5); MCH 28.9 pg (25.7-33.7); MCHC 32.8 g/dl (32.0-36.0); MEAN CELL VOLUME 87.9 fl (80-96); MEAN PLT VOLUME 8.7 fl (7.5-11.1); NEUTROPHILS 78.5 % (42.8-82.8); PLATELET COUNT 114 K/MM3 (134-434); RDW 14.1 % (11.6-15.6); WHITE BLOOD COUNT 11.1 K/mm3 (4.0-10.0)
[2016-08-08 08:30] LABS: ANION GAP 7 (8-16); CALCIUM 7.8 mg/dL (8.5-10.1); CO2 25 mmol/L (21-32); GLUCOSE,RANDOM 106 mg/dL (74-106)
[2016-08-08 08:33] LABS: ALK PHOS 88 U/L (45-117); BILIRUBIN,TOTAL 0.8 mg/dL (0.2-1.0); CREATININE 0.7 mg/dL (0.55-1.02); SGOT/AST 15 U/L (15-37); SGPT/ALT 23 U/L (12-78); TOT PROT 4.4 g/dl (6.4-8.2)
--- NOTE | 2016-08-08 09:29 | PN ---
Progress Note, Physician Chief Complaint: comfortable today, off oxygen TELE: NSR, occasional sinus tach with APCs History of Present Illness: given one dose of digoxin yesterday for low BP and paroxysms of rapid AF-- could not give B-adrienne due to low BP - Current Medication List Current Medications: Active Medications Acetaminophen (Tylenol -) 650 mg PO Q6H PRN PRN Reason: FEVER OR PAIN Last Admin: 08/08/16 04:51 Dose: 650 mg Aspirin (Asa -) 81 mg PO DAILY [facility] Last Admin: 08/07/16 10:42 Dose: 81 mg Atenolol (Tenormin -) 25 mg PO DAILY [facility] Last Admin: 08/07/16 10:54 Dose: Not Given Chlorhexidine Gluconate (Hibiclens For Decolonization -) 1 applic TP HS [facility] Last Admin: 08/07/16 21:43 Dose: Not Given Enoxaparin Sodium (Lovenox -) 40 mg SQ DAILY [facility] Last Admin: 08/07/16 10:42 Dose: 40 mg Levofloxacin (Levaquin 250 Mg Premixed Ivpb -) 50 mls @ 50 mls/hr IVPB DAILY@ 1999 [facility] Last Admin: 08/07/16 21:45 Dose: 50 mls/hr Vancomycin HCl 750 mg/ (Dextrose) 250 mls @ 250 mls/hr IVPB DAILY@1999 [facility] PRN Reason: Protocol Last Admin: 08/07/16 22:51 Dose: 250 mls/hr Sodium Chloride (Normal Saline -) 1,000 mls @ 125 mls/hr IV ASDIR [facility] Last Admin: 08/07/16 21:46 Dose: 125 mls/hr Magnesium Oxide (Mag-Ox -) 400 mg PO DAILY [facility] Last Admin: 08/07/16 10:42 Dose: 400 mg Mupirocin (Bactroban Ointment (For Decolonization) -) 1 applic NS BID [facility] Stop: 08/10/16 21:59 Last Admin: 08/07/16 21:43 Dose: Not Given Pantoprazole Sodium (Protonix -) 20 mg PO DAILY [facility] Last Admin: 08/07/16 10:42 Dose: 20 mg - Objective Vital Signs: Vital Signs Temperature 98.9 F 08/08/16 06:00 Pulse Rate 106 H 08/08/16 06:00 Respiratory Rate 20 08/08/16 06:00 Blood Pressure 124/54 03/16/17 06:00 O2 Sat by Pulse Oximetry (%) 94 L 08/07/16 21:00 Constitutional: Yes: No Distress Cardiovascular: Yes: Regular Rate and Rhythm Respiratory: Yes: Other (decreased breath sounds on right.) Gastrointestinal: Yes: Soft Edema: No Neurological: Yes: Alert Labs: CBC, BMP 08/08/16 05:35 08/08/16 05:35 INR, PTT INR 1.55 (0.82-1.09) H 08/07/16 05:35 Microbiology 08/07/16 01:30 Blood - Peripheral Venous Blood Culture - Preliminary NO GROWTH OBTAINED AFTER 24 HOURS, INCUBATION TO CONTINUE FOR 4 DAYS. 08/07/16 01:30 Blood - Peripheral Venous Blood Culture - Preliminary NO GROWTH OBTAINED AFTER 24 HOURS, INCUBATION TO CONTINUE FOR 4 DAYS. 08/06/16 02:20 Urine - Urine - Catheterized Urine Culture - Preliminary Escherichia Coli Laboratory Tests 08/06/16 08/07/16 08/07/16 05:05 05:35 05:35 WBC 14.1 H D Hgb 10.3 L Hct RDW Plt Count 109 L D Sodium 138 Potassium 3.8 BUN 32 H Creatinine 0.9 Creatine Kinase 12 L Troponin I < 0.02 08/08/16 08/08/16 05:35 05:35 WBC 11.1 H Hgb 9.3 L Hct 28.2 L RDW 14.1 Plt Count Sodium 141 Potassium 3.3 L BUN Creatinine 0.7 D Creatine Kinase Troponin I Assessment/Plan Assessment/Plan 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 infection PSVT and PAF s/p ILR REC: In sinus, continue Atenolol if BP allows. If BP again drops, and paroxysms of rapid AF resurface, can complete dig load and start PO dig. Replete K+ Continue ASA. Patient has not been anticoagulated as outpatient and we have opted to hold here as she may be needing a pulmonary drainage procedure. Further Rx recurrent right effusion as per Pulmonary and Onc.(Isai) Abx as per primary team.
[2016-08-08] MEDS: ENOXAPARIN NA (PORCINE) 40 MG/0.4 ML DISP.SYRIN SQ SCH (10:12)
[2016-08-08] MEDS: MAGNESIUM OXIDE 400 MG TABLET (FP) PO SCH (10:13)
[2016-08-08] MEDS: ATENOLOL 25 MG TABLET (FP) PO SCH (10:13)
[2016-08-08] MEDS: ASPIRIN 81 MG CHEWABLE TABLETS PO SCH (10:13)
[2016-08-08] MEDS: PANTOPRAZOLE 20 MG TABLET (FP) PO SCH (10:13)
[2016-08-08] MEDS ORDERED: POTASSIUM CHLORIDE 40 MEQ/30 ML UNIT DOSE CUP PO ONE (10:30)
--- NOTE | 2016-08-08 12:05 | PN ---
Progress Note (short form) - Note Progress Note: Pt with complaints of SOB with ambulation/exertion. Otherwise comfortable. Yesterday she had an episode of rapid AF and was treated with IV digoxin because of her low BP. Vital Signs Period Temp Pulse Resp BP Sys/Ross Pulse Ox Last 24 Hr 98.0 F-100.8 F 85-112 20-20 97-139/47-79 94 PE: CV: regular rate Lungs: breath sound on the right CBC, BMP 08/08/16 05:35 08/08/16 05:35 INR, PTT INR 1.55 (0.82-1.09) H 08/07/16 05:35 cxr 08/07-large right pleural effusion Microbiology 08/06/16 02:20 Urine - Urine - Catheterized Urine Culture - Final Escherichia Coli 08/07/16 01:30 Blood - Peripheral Venous Blood Culture - Preliminary NO GROWTH OBTAINED AFTER 24 HOURS, INCUBATION TO CONTINUE FOR 4 DAYS. 08/07/16 01:30 Blood - Peripheral Venous Blood Culture - Preliminary NO GROWTH OBTAINED AFTER 24 HOURS, INCUBATION TO CONTINUE FOR 4 DAYS. A/P: 89 yo female with recurrent right pleural effusion s/p thoracentesis with 1300ml fluid removal Awaiting cardiac clearance and will proceed with Vats procedure for pleurex catheter versus decoration from infective process possibly Friday/Friday Overall her fevers and leukocytosis have improved, she is being treated for a UTI. Surgery to follow <Rosaline Lockhart - Last Filed: 08/08/16 12:17> - Note Progress Note: seen and examined. agreed with above. recurrent right pleural effusion. plan for right vats, pleural bx, decortication, poss pleurodesis and pleurx drain next week. medical and card clearance pending. <Orlando Ryder - Last Filed: 08/09/16 12:22> Problem List - Problems (1) Pleural effusion Code(s): J90 - PLEURAL EFFUSION, NOT ELSEWHERE CLASSIFIED <Orlando Ryder - Last Filed: 08/09/16 12:22>
--- NOTE | 2016-08-08 13:32 | PN ---
Progress Note (short form) - Note Progress Note: PULMONARY States breathing better today. Intermittent low grade temps. Last Vital Signs Temp Pulse Resp BP Pulse Ox 98.2 F 98 H 20 117/47 94 L 08/08/16 08:00 08/08/16 08:00 08/08/16 08:00 08/08/16 08:00 08/07/16 21:00 Gen: NAD in chair Heart: RRR Lung: decreased breath sound right base 1/2 up, +right base rales Abd: soft, nontender Ext: no edema CBC, BMP 08/08/16 05:35 08/08/16 05:35 Active Medications Acetaminophen (Tylenol -) 650 mg PO Q6H PRN PRN Reason: FEVER OR PAIN Last Admin: 08/08/16 04:51 Dose: 650 mg Aspirin (Asa -) 81 mg PO DAILY [facility] Last Admin: 08/08/16 10:13 Dose: 81 mg Atenolol (Tenormin -) 25 mg PO DAILY [facility] Last Admin: 08/08/16 10:13 Dose: 25 mg Chlorhexidine Gluconate (Hibiclens For Decolonization -) 1 applic TP HS [facility] Last Admin: 08/07/16 21:43 Dose: Not Given Enoxaparin Sodium (Lovenox -) 40 mg SQ DAILY [facility] Last Admin: 08/08/16 10:12 Dose: 40 mg Levofloxacin (Levaquin 250 Mg Premixed Ivpb -) 50 mls @ 50 mls/hr IVPB DAILY@ 1999 [facility] Last Admin: 08/07/16 21:45 Dose: 50 mls/hr Vancomycin HCl 750 mg/ (Dextrose) 250 mls @ 250 mls/hr IVPB DAILY@1999 [facility] PRN Reason: Protocol Last Admin: 08/07/16 22:51 Dose: 250 mls/hr Sodium Chloride (Normal Saline -) 1,000 mls @ 125 mls/hr IV ASDIR [facility] Last Admin: 08/07/16 21:46 Dose: 125 mls/hr Magnesium Oxide (Mag-Ox -) 400 mg PO DAILY [facility] Last Admin: 08/08/16 10:13 Dose: 400 mg Mupirocin (Bactroban Ointment (For Decolonization) -) 1 applic NS BID [facility] Stop: 08/10/16 21:59 Last Admin: 08/07/16 21:43 Dose: Not Given Pantoprazole Sodium (Protonix -) 20 mg PO DAILY [facility] Last Admin: 08/08/16 10:13 Dose: 20 mg A/P UTI Pneumonia vs Empyema Pleural Effusion Severe Sepsis improving Lactic Acidosis resolved Atrial Fibrillation CLL - antibiotics per ID - f/u pending cultures - for VATS/pleural biopsy - send pleural fluid for flow cytometry in addition to the usual studies - IVF - monitor urine output, creatinine - O2 as needed - DVT prophylaxis - no pulmonary contraindications for planned VATS
--- NOTE | 2016-08-08 15:34 | PN ---
Progress Note (short form) - Note Progress Note: feels well sob when she gets up comfortable in bed Vital Signs Period Temp Pulse Resp BP Sys/Ross Pulse Ox Last 24 Hr 98.0 F-100.8 F 64-112 20-20 117-141/47-79 94 cor-rrr lungs decreased bs on right abd soft,nt ext trace edema CBC, BMP 08/08/16 05:35 08/08/16 05:35 Microbiology 08/05/16 12:00 Blood - Peripheral Venous Blood Culture - Preliminary NO GROWTH OBTAINED AFTER 72 HOURS, INCUBATION TO CONTINUE FOR 2 DAYS. 08/05/16 12:00 Blood - Peripheral Venous Blood Culture - Preliminary NO GROWTH OBTAINED AFTER 72 HOURS, INCUBATION TO CONTINUE FOR 2 DAYS. 08/06/16 02:20 Urine - Urine - Catheterized Urine Culture - Final Escherichia Coli 08/07/16 01:30 Blood - Peripheral Venous Blood Culture - Preliminary NO GROWTH OBTAINED AFTER 24 HOURS, INCUBATION TO CONTINUE FOR 4 DAYS. 08/07/16 01:30 Blood - Peripheral Venous Blood Culture - Preliminary NO GROWTH OBTAINED AFTER 24 HOURS, INCUBATION TO CONTINUE FOR 4 DAYS. 08/05/16 21:56 Urine - Urine Clean Catch Urine Culture - Final Contaminated: Please Repeat 08/05/16 22:00 Urine For Antigen Detection Legionella Antigen - Final 08/05/16 22:00 Urine For Antigen Detection Streptococcus pneumoniae Antigen (M - Final 08/05/16 22:30 Nasopharyngeal Swab Respiratory Virus Panel - Preliminary 08/05/16 22:30 Nasopharyngeal Swab Influenza Types A,B Antigen (PEPE) - Final 08/05/16 22:30 Nasopharyngeal Swab - Final a/p ecoli uti recurrent effusion- ?CLL, less likely infected CLL pen allergy continue vanco/levaquin patient/family deciding about how to proceed
--- NOTE | 2016-08-08 17:21 | PN ---
Physical Exam: SUBJECTIVE: Patient seen and examined. Tolerating room air but encouraged her to use oxygen as needed. In no acute distress but appears forgetful at times. OBJECTIVE: Vital Signs Period Temp Pulse Resp BP Sys/Ross Pulse Ox Last 24 Hr 98.2 F-100.8 F 64-112 20-20 117-141/47-68 94 GENERAL: The patient is awake, alert, and fully oriented, in no acute distress. HEAD: Normal with no signs of trauma. EYES: PERRL, extraocular movements intact, sclera anicteric, conjunctiva clear. No ptosis. ENT: Ears normal, nares patent, oropharynx clear without exudates, moist mucous membranes. NECK: Trachea midline, full range of motion, supple. LUNGS: Crackles on right lung worsening compared to yesterday, left lung clear - will stop IVF ABDOMEN: Soft, nontender, nondistended, normoactive bowel sounds, no guarding EXTREMITIES: 2+ pulses, warm, well-perfused, no edema. NEUROLOGICAL: Normal speech, bedbound for now PSYCH: Anxious SKIN: Warm, dry, normal turgor, no rashes or lesions noted Laboratory Results - last 24 hr 08/06/16 08/08/16 08/08/16 05:05 05:35 05:35 WBC 11.1 H RBC 3.21 L Hgb 9.3 L Hct 28.2 L MCV 87.9 MCHC 32.8 RDW 14.1 Plt Count 114 L MPV 8.7 Neutrophils % 78.5 Lymphocytes % 17.3 Monocytes % 3.9 Eosinophils % 0.2 D Basophils % 0.1 Sodium 141 Potassium 3.3 L Chloride 109 H Carbon Dioxide 25 Anion Gap 7 L BUN 23 H D Creatinine 0.7 D Creat Clearance w eGFR > 60 Random Glucose 106 Calcium 7.8 L Total Bilirubin 0.8 AST 15 ALT 23 D Alkaline Phosphatase 88 Total Protein 4.4 L Albumin 2.0 L D IgG 584 L IgA 48 L IgM 18 L IgE 7 Active Medications Generic Name Dose Route Start Last Admin Trade Name Freq PRN Reason Stop Dose Admin Acetaminophen 650 mg 08/07/16 00:47 08/08/16 04:51 Tylenol - PO 650 mg Q6H PRN Administration FEVER OR PAIN Aspirin 81 mg 08/06/16 10:00 08/08/16 10:13 Asa - PO 81 mg DAILY STEPHANIE Administration Atenolol 25 mg 08/07/16 10:00 08/08/16 10:13 Tenormin - PO 25 mg DAILY STEPHANIE Administration Chlorhexidine Gluconate 1 applic 08/05/16 22:00 08/07/16 21:43 Hibiclens For Decolonization - TP Not Given HS STEPHANIE Enoxaparin Sodium 40 mg 08/06/16 22:00 08/08/16 10:12 Lovenox - SQ 40 mg DAILY STEPHANIE Administration Levofloxacin 50 mls @ 50 mls/hr 08/06/16 20:00 08/07/16 21:45 Levaquin 250 Mg Premixed Ivpb - IVPB 50 mls/hr [email or web address] STEPHANIE Administration Vancomycin HCl 750 mg/ 250 mls @ 250 mls/hr 08/06/16 20:00 08/07/16 22:51 Dextrose IVPB 250 mls/hr DAILY@[email or web address] STEPHANIE Administration Protocol Magnesium Oxide 400 mg 08/06/16 10:00 08/08/16 10:13 Mag-Ox - PO 400 mg DAILY STEPHANIE Administration Mupirocin 1 applic 08/05/16 22:00 08/07/16 21:43 Bactroban Ointment (For Decolonization) - NS 08/10/16 21:59 Not Given BID STEPHANIE Pantoprazole Sodium 20 mg 08/06/16 10:00 08/08/16 10:13 Protonix - PO 20 mg DAILY STEPHANIE Administration ASSESSMENT/PLAN: Patient is an 89 year old female with a significant past medical history of CLL , on active chemo treatments (last one 3 weeks ago), right breast cancer s/p lumpectomy a few years ago, macular degeneration, GERD and arrhythmia (has an implanted loop recorder). She presented to the ED on 08/05/2016 with worsening shortness of breath and was admitted for pleural effusion on the right lung, hypotension and CLL. She was most recently admitted on 07/12/2016 with intermittent shortness of breath and during that admission had an ultrasound guided thoracentesis for right sided pleural effusion (1300 cc of fluid removed). Fluid cultures were sent. Imaging: Chest CT 08/06/2016: A non specific moderate to large amount of right sided pleural fluid. Chest Xray 08/05/2016: Slight combination of right pleural effusion, compressive atelectasis increased from June ID: Sepsis - likely secondary to recurrent right sided pleural effusion and/or UTI - acute Met SIRS criteria on admission, tachycardia, leukocytosis, hypotension, +UTI Tachycardia is improving, Leukocytosis improving 28>11.1 BP improving, IVF stopped Pleural Effusion - Right lung - chronic Had thoracentesis on 07/12/2016 with 1300 cc of fluid removed Recent CT shows moderate to large amount of right sided pleural effusion May be source of infection vs. malignancy Tolerating oxygen @ 2 liters, no shortness at breath at rest, but needs supplemental oxygen For a VATS/pleural biopsy - cleared by pulmonary on procedure need cardiology clearance Urine culture + Ecoli WBC improving, Febrile this morning 100.8f On Levaquin and Vanco, has allergy to pencillins ID following Cardiology: A fib - rate controlled with Atenolol - chronic Assessment/Plan: BP improved, On cardiac monitoring Also has implanted loop recorder Monitor BP Cardiology following Oncology: Chronic Lymphocytic Leukemia Assessment/Plan: Unknown baseline WBC Last chemo treatment 3 weeks prior Oncology consulted F.E.N. Fluids: stopped IVF secondary to increased crackles on right lung Electrolytes: hypokalemia: repleted Nutrition: tolerating PO Prophylaxis: DVT: Lovenox 40mg daily GI: Protonix 20mg daily Disposition: Requires inpatient hospitalization. Full Code. Visit type - Emergency Visit Emergency Visit: Yes ED Registration Date: 08/05/16 Care time: The patient presented to the Emergency Department on the above date and was hospitalized for further evaluation of their emergent condition. - New Patient This patient is new to me today: No - Critical Care Critical Care patient: No - Discharge Referral Referred to [facility] Med P.C.: No
[2016-08-08] MEDS: MUPIROCIN 2% TOPICAL OINTMENT FOR DECOLONIZATION NS SCH (21:18)
[2016-08-08] MEDS: CHLORHEXIDINE GLUCONATE 4% CLEANSER FOR DECOLONIZATION TP SCH (21:19)
[2016-08-08] MEDS: LEVOFLOXACIN 250 MG IVPB 50 ML IVPB SCH (21:21)
[2016-08-08] MEDS: VANCOMYCIN 750 MG in DEXTROSE 5%-WATER - 250 ML IVPB SCH (21:23)
[2016-08-09] MEDS ORDERED: ATENOLOL 25 MG TABLET (FP) PO ONE (01:04)
--- NOTE | 2016-08-09 01:14 | HOSP ---
Subjective - Review of Symptoms Events since last encounter: nurse called to report HR 150s Subjective: Pt reports funny feeling in chest, palpitations, but denies chest pain. Physical Examination Vital Signs: Vital Signs Temperature 98.4 F 08/08/16 20:12 Pulse Rate 86 08/08/16 20:12 Respiratory Rate 18 08/08/16 20:12 Blood Pressure 110/54 08/08/16 20:12 O2 Sat by Pulse Oximetry (%) 97 08/08/16 20:12 Constitutional: Yes: Anxious Cardiovascular: Yes: Tachycardia, Pulse Irregular, S1, S2 Respiratory: Yes: Other (crackles left base, right 1/2 way up) Gastrointestinal: Yes: WNL Labs: CBC, BMP 08/08/16 05:35 08/08/16 05:35 Hospitalist Encounter Assessment: afib with RVR - will give extra dose tenormin as BP ok, if no response will dig load pleural effusion - dc IVF
[2016-08-09 08:28] LABS: BASOPHIL 0.3 % (0-2.0); EOSINOPHIL 0.7 % (0-4.5); MCH 29.4 pg (25.7-33.7); MCHC 33.5 g/dl (32.0-36.0); MEAN CELL VOLUME 87.7 fl (80-96); MEAN PLT VOLUME 8.8 fl (7.5-11.1); NEUTROPHILS 69.6 % (42.8-82.8); PLATELET COUNT 124 K/MM3 (134-434); RDW 14.3 % (11.6-15.6); WHITE BLOOD COUNT 10.3 K/mm3 (4.0-10.0)
--- NOTE | 2016-08-09 09:14 | PN ---
Progress Note, Physician Chief Complaint: No acute distress TELE: recurrent AF with RVR this AM - Current Medication List Current Medications: Active Medications Acetaminophen (Tylenol -) 650 mg PO Q6H PRN PRN Reason: FEVER OR PAIN Last Admin: 08/08/16 04:51 Dose: 650 mg Aspirin (Asa -) 81 mg PO DAILY [facility] Last Admin: 08/08/16 10:13 Dose: 81 mg Atenolol (Tenormin -) 25 mg PO DAILY [facility] Last Admin: 08/08/16 10:13 Dose: 25 mg Chlorhexidine Gluconate (Hibiclens For Decolonization -) 1 applic TP HS [facility] Last Admin: 08/08/16 21:19 Dose: Not Given Enoxaparin Sodium (Lovenox -) 40 mg SQ DAILY [facility] Last Admin: 08/08/16 10:12 Dose: 40 mg Levofloxacin (Levaquin 250 Mg Premixed Ivpb -) 50 mls @ 50 mls/hr IVPB DAILY@ 1999 [facility] Last Admin: 08/08/16 21:21 Dose: 50 mls/hr Vancomycin HCl 750 mg/ (Dextrose) 250 mls @ 250 mls/hr IVPB DAILY@1999 [facility] PRN Reason: Protocol Last Admin: 08/08/16 21:23 Dose: 250 mls/hr Magnesium Oxide (Mag-Ox -) 400 mg PO DAILY [facility] Last Admin: 08/08/16 10:13 Dose: 400 mg Mupirocin (Bactroban Ointment (For Decolonization) -) 1 applic NS BID [facility] Stop: 08/10/16 21:59 Last Admin: 08/08/16 21:18 Dose: Not Given Pantoprazole Sodium (Protonix -) 20 mg PO DAILY [facility] Last Admin: 08/08/16 10:13 Dose: 20 mg - Objective Vital Signs: Vital Signs Temperature 99.1 F 08/09/16 06:00 Pulse Rate 88 08/09/16 06:00 Respiratory Rate 20 08/09/16 06:00 Blood Pressure 122/59 08/09/16 06:00 O2 Sat by Pulse Oximetry (%) 97 08/08/16 21:00 Constitutional: Yes: No Distress Cardiovascular: Yes: Regular Rate and Rhythm Respiratory: Yes: Other (decreased breath sounds right) Gastrointestinal: Yes: Soft Edema: No Neurological: Yes: Alert, Oriented Labs: CBC, BMP 08/09/16 05:50 INR, PTT INR 1.55 (0.82-1.09) H 08/07/16 05:35 Laboratory Tests 08/08/16 08/09/16 08/09/16 05:35 05:50 05:50 WBC 10.3 H Hgb 9.7 L Plt Count 124 L Sodium Pending Potassium 3.3 L Pending BUN Pending Creatinine Pending - ....Imaging EKG: Image Reviewed Assessment/Plan Assessment/Plan 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 infection PSVT and PAF s/p ILR REC: Recurrent AF w/ RVR last night around 12am. BP limits up titration of Atenolol. Will start digoxin 0.125mg daily for adjunct rate control. Replete K+ Continue ASA. Patient has not been anticoagulated as outpatient and we have opted to hold here as she may be needing a pulmonary drainage procedure. Further Rx recurrent right effusion as per Pulmonary and Onc.(Isai) Abx as per primary team. Patient is not optimized for VATS at this time (PAF, recurrent with RVR). If a drainage procedure is needed, perhaps US guided thoracentesis would be easier to tolerate at this point: defer to pulmonary and thoracic surgery Case d/w hospitalist.
[2016-08-09 09:22] LABS: ALK PHOS 111 U/L (45-117); ANION GAP 9 (8-16); BILIRUBIN,TOTAL 0.7 mg/dL (0.2-1.0); CALCIUM 7.9 mg/dL (8.5-10.1); CO2 28 mmol/L (21-32); CREATININE 0.6 mg/dL (0.55-1.02); GLUCOSE,RANDOM 94 mg/dL (74-106); SGOT/AST 24 U/L (15-37); SGPT/ALT 31 U/L (12-78); TOT PROT 4.6 g/dl (6.4-8.2)
[2016-08-09] MEDS ORDERED: DIGOXIN 0.25 MG TABLET (FP) ONE (09:37)
[2016-08-09] MEDS: PANTOPRAZOLE 20 MG TABLET (FP) PO SCH (09:38)
[2016-08-09] MEDS: MAGNESIUM OXIDE 400 MG TABLET (FP) PO SCH (09:38)
[2016-08-09] MEDS: DIGOXIN 0.125 MG TABLET (FP) PO SCH (09:40)
[2016-08-09] MEDS: ASPIRIN 81 MG CHEWABLE TABLETS PO SCH (09:40)
[2016-08-09] MEDS: ENOXAPARIN NA (PORCINE) 40 MG/0.4 ML DISP.SYRIN SQ SCH (09:41)
[2016-08-09] MEDS: MUPIROCIN 2% TOPICAL OINTMENT FOR DECOLONIZATION NS SCH ×3 (09:41→22:30)
[2016-08-09] MEDS: ATENOLOL 25 MG TABLET (FP) PO SCH (09:41)
--- NOTE | 2016-08-09 11:24 | PN ---
Progress Note (short form) - Note Progress Note: episode rapid afib last PM now on heparin Vital Signs Period Temp Pulse Resp BP Sys/Ross Pulse Ox Last 24 Hr 98.4 F-100.3 F 64-107 18-20 110-141/54-65 97 cor-rrr llungs decresed bs on right abd soft,nt ext no edema CBC, BMP 08/09/16 05:50 08/09/16 05:50 Microbiology 08/07/16 01:30 Blood - Peripheral Venous Blood Culture - Preliminary NO GROWTH OBTAINED AFTER 48 HOURS, INCUBATION TO CONTINUE FOR 3 DAYS. 08/07/16 01:30 Blood - Peripheral Venous Blood Culture - Preliminary NO GROWTH OBTAINED AFTER 48 HOURS, INCUBATION TO CONTINUE FOR 3 DAYS. 08/05/16 12:00 Blood - Peripheral Venous Blood Culture - Preliminary NO GROWTH OBTAINED AFTER 72 HOURS, INCUBATION TO CONTINUE FOR 2 DAYS. 08/05/16 12:00 Blood - Peripheral Venous Blood Culture - Preliminary NO GROWTH OBTAINED AFTER 72 HOURS, INCUBATION TO CONTINUE FOR 2 DAYS. 08/06/16 02:20 Urine - Urine - Catheterized Urine Culture - Final Escherichia Coli Current Medications Acetaminophen (Tylenol -) 650 mg PO Q6H PRN PRN Reason: FEVER OR PAIN Last Admin: 08/08/16 04:51 Dose: 650 mg Atenolol (Tenormin -) 25 mg PO DAILY [facility] Last Admin: 08/09/16 09:41 Dose: 25 mg Chlorhexidine Gluconate (Hibiclens For Decolonization -) 1 applic TP HS [facility] Last Admin: 08/08/16 21:19 Dose: Not Given Digoxin (Lanoxin -) 0.125 mg PO DAILY [facility] Last Admin: 08/09/16 09:40 Dose: 0.125 mg Levofloxacin (Levaquin 250 Mg Premixed Ivpb -) 50 mls @ 50 mls/hr IVPB DAILY@ 1999 [facility] Last Admin: 08/08/16 21:21 Dose: 50 mls/hr Vancomycin HCl 750 mg/ (Dextrose) 250 mls @ 250 mls/hr IVPB DAILY@1999 [facility] PRN Reason: Protocol Last Admin: 08/08/16 21:23 Dose: 250 mls/hr Heparin Sodium (Porcine) 25, (000 unit/ Sodium Chloride) 500 mls @ 16 mls/hr IV TITR STEPHANIE; 800 UNIT/HR PRN Reason: Protocol Magnesium Oxide (Mag-Ox -) 400 mg PO DAILY [facility] Last Admin: 08/09/16 09:38 Dose: 400 mg Mupirocin (Bactroban Ointment (For Decolonization) -) 1 applic NS BID [facility] Stop: 08/10/16 21:59 Last Admin: 08/09/16 09:41 Dose: Not Given Pantoprazole Sodium (Protonix -) 20 mg PO DAILY [facility] Last Admin: 08/09/16 09:38 Dose: 20 mg a/p ecoli uti- on levaquin recurrent effusion- ?CLL, less likely infected on empiric levaquin and vancomycin for pneumonia/?infected effusion check vancomycin level CLL pen allergy continue vanco/levaquin
--- NOTE | 2016-08-09 12:19 | PN ---
Progress Note, Physician History of Present Illness: pulmonary events noted,back in afib started on iv heparin. pt w/o c/o cp,-resp distress - Current Medication List Current Medications: Active Medications Acetaminophen (Tylenol -) 650 mg PO Q6H PRN PRN Reason: FEVER OR PAIN Last Admin: 08/08/16 04:51 Dose: 650 mg Atenolol (Tenormin -) 25 mg PO DAILY [facility] Last Admin: 08/09/16 09:41 Dose: 25 mg Chlorhexidine Gluconate (Hibiclens For Decolonization -) 1 applic TP HS [facility] Last Admin: 08/08/16 21:19 Dose: Not Given Digoxin (Lanoxin -) 0.125 mg PO DAILY [facility] Last Admin: 08/09/16 09:40 Dose: 0.125 mg Levofloxacin (Levaquin 250 Mg Premixed Ivpb -) 50 mls @ 50 mls/hr IVPB DAILY@ 1999 [facility] Last Admin: 08/08/16 21:21 Dose: 50 mls/hr Vancomycin HCl 750 mg/ (Dextrose) 250 mls @ 250 mls/hr IVPB DAILY@1999 [facility] PRN Reason: Protocol Last Admin: 08/08/16 21:23 Dose: 250 mls/hr Heparin Sodium (Porcine) 25, (000 unit/ Sodium Chloride) 500 mls @ 16 mls/hr IV TITR STEPHANIE; 800 UNIT/HR PRN Reason: Protocol Magnesium Oxide (Mag-Ox -) 400 mg PO DAILY [facility] Last Admin: 08/09/16 09:38 Dose: 400 mg Mupirocin (Bactroban Ointment (For Decolonization) -) 1 applic NS BID [facility] Stop: 08/10/16 21:59 Last Admin: 08/09/16 09:41 Dose: Not Given Pantoprazole Sodium (Protonix -) 20 mg PO DAILY [facility] Last Admin: 08/09/16 09:38 Dose: 20 mg - Objective Vital Signs: Vital Signs Temperature 99.1 F 08/09/16 06:00 Pulse Rate 96 H 08/09/16 09:40 Respiratory Rate 20 08/09/16 06:00 Blood Pressure 122/59 08/09/16 06:00 O2 Sat by Pulse Oximetry (%) 97 08/08/16 21:00 Constitutional: Yes: Calm, Thin Eyes: Yes: WNL HENT: Yes: WNL Neck: Yes: WNL, Lymphadenopathy Cardiovascular: Yes: Pulse Irregular, S1, S2 Respiratory: Yes: Rales (crackles r base) Gastrointestinal: Yes: Normal Bowel Sounds, Soft Extremities: Yes: WNL Edema: No Labs: CBC, BMP 08/09/16 05:50 08/09/16 05:50 INR, PTT INR 1.55 (0.82-1.09) H 08/07/16 05:35 Problem List - Problems (1) Pleural effusion, right Code(s): J90 - PLEURAL EFFUSION, NOT ELSEWHERE CLASSIFIED (2) Pleural effusion Code(s): J90 - PLEURAL EFFUSION, NOT ELSEWHERE CLASSIFIED (3) Arrhythmia Code(s): I49.9 - CARDIAC ARRHYTHMIA, UNSPECIFIED (4) CLL (chronic lymphocytic leukemia) Code(s): C91.10 - CHRONIC LYMPHOCYTIC LEUK OF B-CELL TYPE NOT ACHIEVE REMIS (5) GERD (gastroesophageal reflux disease) Code(s): K21.9 - GASTRO-ESOPHAGEAL REFLUX DISEASE WITHOUT ESOPHAGITIS (6) Afib Code(s): I48.91 - UNSPECIFIED ATRIAL FIBRILLATION Assessment/Plan A/P UTI Pneumonia vs Empyema Pleural Effusion Severe Sepsis improving Lactic Acidosis resolved Atrial Fibrillation CLL - antibiotics per ID - IVF - monitor urine output, creatinine - O2 as needed - DVT prophylaxis - thoracentesis, pt not stable for vat at this time as per cardiology DR MCGILL
[2016-08-09] MEDS: HEPARIN - 25,000 UNIT in SODIUM CHLORIDE 495 ML IV SCH (12:33)
--- NOTE | 2016-08-09 12:59 | PN ---
Progress Note (short form) - Note Progress Note: 89 yof [address] Dr[address] Alex w h/o lymphoma and remote h/o breast cancer. Has been rec'ing rituxan, most recently w/i past month and she is deciding on addn of ibrutinib. Re-adm now w sepsis picture. tx'd for urosepsis and found to have re-accumulation of R pleural effn. This was noted last month and she underwent paracentesis. Fluid showed abundant lymphocytes, but flow cytometry not performed. She is being eval'd per pulm here and VATS is recommended. However, developed MARE and currently on IV heparin (ASA at home) and procedure on hold. PE NAD, frail elderly female; spouse at bedside Lungs - dec BS R 2/3 up, dec L base BS CVS- reg? S1S2 Abd- soft, NT ext-no edema LN - small b/l ax L>R Imp: Improved urosepsis; leuckocytosis has improved. Appreciate ID mgmt. Hypogammaglobulinemia w backgd CLL/SLL MARE - heparin gtt and mgt per Dr. Price;monitor plts Recurrent R pl effn. Anticip VATS if stabilizes; may have lymphomatous obstruction foll'ing w you
--- NOTE | 2016-08-09 13:21 | PN ---
Physical Exam: SUBJECTIVE: Patient seen and examined. States she does not feel well. Was febrile overnight. OBJECTIVE: Having some dyspnea at rest, right lung with scattered crackles anteriorly and posteriorly. Left lung base with crackles. Left upper lobe clear. Oxygen stable on 3 liters nasal cannula. Rapid afib overnight and given dose of Atenolol by night [employer], now on a heparin drip. Low grade temps overnight Vital Signs Period Temp Pulse Resp BP Sys/Ross Pulse Ox Last 24 Hr 98.4 F-100.3 F 64-107 18-20 110-141/54-65 96-97 GENERAL: The patient is awake, alert, and fully oriented, with dyspnea @ rest, oxygen stable on 3 liters of nasal cannula. HEAD: Normal with no signs of trauma. EYES: PERRL, extraocular movements intact, sclera anicteric, conjunctiva clear. No ptosis. ENT: Ears normal, nares patent, oropharynx clear without exudates, moist mucous membranes. NECK: Trachea midline, full range of motion, supple. LUNGS: Having dyspnea at rest, right lung with scattered crackles anteriorly and posteriorly. Left lung base with crackles. Upper left lobes clear. ABDOMEN: Soft, nontender, nondistended, normoactive bowel sounds, no guarding EXTREMITIES: 2+ pulses, warm, well-perfused, no edema. NEUROLOGICAL: Normal speech, bedbound for now PSYCH: Anxious @ times SKIN: Warm, dry, normal turgor, no rashes or lesions noted Laboratory Results - last 24 hr 08/09/16 08/09/16 05:50 05:50 WBC 10.3 H RBC 3.29 L Hgb 9.7 L Hct 28.9 L MCV 87.7 MCHC 33.5 RDW 14.3 Plt Count 124 L MPV 8.8 Neutrophils % 69.6 Lymphocytes % 24.2 D Monocytes % 5.2 Eosinophils % 0.7 D Basophils % 0.3 Sodium 144 Potassium 3.9 Chloride 107 Carbon Dioxide 28 Anion Gap 9 BUN 17 D Creatinine 0.6 Creat Clearance w eGFR > 60 Random Glucose 94 Calcium 7.9 L Total Bilirubin 0.7 AST 24 D ALT 31 D Alkaline Phosphatase 111 D Total Protein 4.6 L Albumin 2.0 L Active Medications Generic Name Dose Route Start Last Admin Trade Name Freq PRN Reason Stop Dose Admin Acetaminophen 650 mg 08/07/16 00:47 08/08/16 04:51 Tylenol - PO 650 mg Q6H PRN Administration FEVER OR PAIN Atenolol 25 mg 08/07/16 10:00 08/09/16 09:41 Tenormin - PO 25 mg DAILY STEPHANIE Administration Chlorhexidine Gluconate 1 applic 08/05/16 22:00 08/08/16 21:19 Hibiclens For Decolonization - TP Not Given HS STEPHANIE Digoxin 0.125 mg 08/09/16 10:00 08/09/16 09:40 Lanoxin - PO 0.125 mg DAILY STEPHANIE Administration Levofloxacin 50 mls @ 50 mls/hr 08/06/16 20:00 08/08/16 21:21 Levaquin 250 Mg Premixed Ivpb - IVPB 50 mls/hr DAILY@[email or web address] STEPHANIE Administration Vancomycin HCl 750 mg/ 250 mls @ 250 mls/hr 08/06/16 20:00 08/08/16 21:23 Dextrose IVPB 250 mls/hr DAILY@[email or web address] [facility] Administration Protocol Heparin Sodium (Porcine) 25, 500 mls @ 16 mls/hr 08/09/16 10:30 08/09/16 12:33 000 unit/ Sodium Chloride IV 16 mls/hr TITR STEPHANIE Administration Protocol 800 UNIT/HR Magnesium Oxide 400 mg 08/06/16 10:00 08/09/16 09:38 Mag-Ox - PO 400 mg DAILY STEPHANIE Administration Mupirocin 1 applic 08/05/16 22:00 08/09/16 09:41 Bactroban Ointment (For Decolonization) - NS 08/10/16 21:59 Not Given BID STEPHANIE Pantoprazole Sodium 20 mg 08/06/16 10:00 08/09/16 09:38 Protonix - PO 20 mg DAILY STEPHANIE Administration ASSESSMENT/PLAN: Patient is an 89 year old female with a significant past medical history of CLL , on active chemo treatments (last one 3 weeks ago), right breast cancer s/p lumpectomy a few years ago, macular degeneration, GERD and arrhythmia (has an implanted loop recorder). She presented to the ED on 08/05/2016 with worsening shortness of breath and was admitted for pleural effusion on the right lung, hypotension and CLL. She was most recently admitted on 07/12/2016 with intermittent shortness of breath and during that admission had an ultrasound guided thoracentesis for right sided pleural effusion (1300 cc of fluid removed). Fluid cultures were sent. Imaging: Chest CT 08/06/2016: A non specific moderate to large amount of right sided pleural fluid. Chest Xray 08/05/2016: Slight combination of right pleural effusion, compressive atelectasis increased from June Chest Xray 08/09/2016: slightly better aeration of right mid lung and internal atelectatic changes/inf. in the left lung base. ID: Sepsis - likely secondary to recurrent right sided pleural effusion and/or UTI - improving Met SIRS criteria on admission, tachycardia, leukocytosis, hypotension, +UTI afib w/RVR overnight, Leukocytosis improving 28>10.3 BP improving, on atenolol 25mg Pleural Effusion - Right lung - chronic Had thoracentesis on 07/12/2016 with 1300 cc of fluid removed Recent CT shows moderate to large amount of right sided pleural effusion May be source of infection vs. malignancy Tolerating oxygen @ 3 liters, having shortness at breath at rest For a VATS/pleural biopsy - but on hold until cleared by cardiology Thoracentesis possible, but had dose of Lovenox this morning Now on a heparin drip Urine culture + Ecoli WBC improving, low grade temps On Levaquin and Vanco, has allergy to pencillins ID following Cardiology: A fib - On a heparin drip Assessment/Plan: On cardiac monitoring Also has implanted loop recorder Monitor BP Cardiology following Oncology: Chronic Lymphocytic Leukemia and hx of Breast Cancer Assessment/Plan: Unknown baseline WBC Last chemo treatment 3 weeks prior right arm precautions Oncology following F.E.N. Fluids: tolerating PO Electrolytes: hypokalemia: resolved Nutrition: tolerating PO Prophylaxis: DVT: Heparin drip GI: Protonix 20mg daily Disposition: Requires inpatient hospitalization. Full Code. Visit type - Emergency Visit Emergency Visit: Yes ED Registration Date: 08/05/16 Care time: The patient presented to the Emergency Department on the above date and was hospitalized for further evaluation of their emergent condition. - New Patient This patient is new to me today: No - Critical Care Critical Care patient: No - Discharge Referral Referred to [facility] Med P.C.: No
--- NOTE | 2016-08-09 14:42 | PN ---
Progress Note (short form) - Note Progress Note: seen and examined. events noted. on hep gtt for paf. mild sob/garcia. no f/c, cough, hemoptysis, sputum production, cp. afeb. a.fib. decreased breath sound in right lung field. left cta. +bs, soft , nt, nd. +edema. no c/c. a&o x3. CBC, BMP 08/09/16 05:50 08/09/16 05:50 Vital Signs (72 hours) 08/06/16 08/06/16 08/06/16 18:00 20:00 21:00 Temperature 98.6 F 99.6 F Pulse Rate 114 H 106 H Respiratory 20 20 20 Rate Blood Pressure 106/53 102/50 O2 Sat by Pulse 94 L Oximetry (%) 08/07/16 08/07/16 08/07/16 01:59 06:00 14:00 Temperature 101.3 F H 98.0 F 98.2 F Pulse Rate 112 H 90 92 H Respiratory 20 20 20 Rate Blood Pressure 122/54 124/52 97/50 O2 Sat by Pulse Oximetry (%) 08/07/16 08/07/16 08/07/16 17:00 17:08 21:00 Temperature 98.0 F 100.5 F H Pulse Rate 85 110 H 112 H Respiratory 20 20 Rate Blood Pressure 139/79 124/68 O2 Sat by Pulse 94 L Oximetry (%) 08/08/16 08/08/16 08/08/16 02:30 04:53 06:00 Temperature 98.7 F 100.8 F H 98.9 F Pulse Rate 101 H 106 H Respiratory 20 20 Rate Blood Pressure 118/56 124/54 O2 Sat by Pulse Oximetry (%) 08/08/16 08/08/16 08/08/16 08:00 14:00 18:00 Temperature 98.2 F 98.7 F 100.3 F H Pulse Rate 98 H 64 99 H Respiratory 20 20 19 Rate Blood Pressure 117/47 141/62 121/59 O2 Sat by Pulse Oximetry (%) 08/08/16 08/08/16 08/09/16 20:12 21:00 02:00 Temperature 98.4 F 99.8 F H Pulse Rate 86 107 H Respiratory 18 18 20 Rate Blood Pressure 110/54 115/65 O2 Sat by Pulse 97 Oximetry (%) 08/09/16 08/09/16 08/09/16 06:00 09:00 09:40 Temperature 99.1 F Pulse Rate 88 96 H Respiratory 20 Rate Blood Pressure 122/59 O2 Sat by Pulse 96 Oximetry (%) 08/09/16 10:00 Temperature 98.6 F Pulse Rate 94 H Respiratory 18 Rate Blood Pressure 128/63 O2 Sat by Pulse Oximetry (%) a/p 89 yo, f, h/o cll, breast ca, and recurrent right pleural effusion. a.fib w / rvr controlled with digi and on hep gtt. 1. cont supp care and oxygen 2. abx 3. medical and card clearance pending 4. ivf, npo after mn (08/12/16), hold hep gtt at 2 am on 08/12 5. schedule for fb, right vats, pleu bx, decort, possible chem pleurodesis and pleurx drain Problem List - Problems (1) Pleural effusion Code(s): J90 - PLEURAL EFFUSION, NOT ELSEWHERE CLASSIFIED
[2016-08-09] MEDS: ACETAMINOPHEN 325 MG TABLET (FP) PO PRN (18:01)
[2016-08-09] MEDS: CHLORHEXIDINE GLUCONATE 4% CLEANSER FOR DECOLONIZATION TP SCH (21:48)
[2016-08-09] MEDS: LEVOFLOXACIN 250 MG IVPB 50 ML IVPB SCH (21:49)
[2016-08-09] MEDS ORDERED: PT OWN MED DRAWER 7, Y5N ONE (22:41)
[2016-08-09] MEDS: VANCOMYCIN 750 MG in DEXTROSE 5%-WATER - 250 ML IVPB SCH (22:53)
[2016-08-10] MEDS: HEPARIN - 25,000 UNIT in SODIUM CHLORIDE 495 ML IV SCH ×2 (03:00→09:54)
[2016-08-10] MEDS: ACETAMINOPHEN 325 MG TABLET (FP) PO PRN (05:19)
[2016-08-10 07:08] LABS: BASOPHIL 0.1 % (0-2.0); EOSINOPHIL 0.9 % (0-4.5); MCH 29.2 pg (25.7-33.7); MCHC 33.3 g/dl (32.0-36.0); MEAN CELL VOLUME 87.7 fl (80-96); NEUTROPHILS 64.3 % (42.8-82.8); PLATELET COUNT 123 K/MM3 (134-434); RDW 14.1 % (11.6-15.6); WHITE BLOOD COUNT 10.3 K/mm3 (4.0-10.0)
[2016-08-10 07:31] LABS: ALBUMIN 1.9 g/dl (3.4-5.0); ANION GAP 10 (8-16); CALCIUM 7.7 mg/dL (8.5-10.1); CO2 27 mmol/L (21-32); CREATININE 0.6 mg/dL (0.55-1.02); GLUCOSE,RANDOM 91 mg/dL (74-106); SGOT/AST 17 U/L (15-37); SGPT/ALT 25 U/L (12-78)
[2016-08-10 07:33] LABS: ALK PHOS 123 U/L (45-117); BILIRUBIN,TOTAL 0.8 mg/dL (0.2-1.0); TOT PROT 4.5 g/dl (6.4-8.2)
[2016-08-10] MEDS: ATENOLOL 25 MG TABLET (FP) PO SCH (09:53)
[2016-08-10] MEDS: PANTOPRAZOLE 20 MG TABLET (FP) PO SCH (09:53)
[2016-08-10] MEDS: DIGOXIN 0.125 MG TABLET (FP) PO SCH (09:53)
[2016-08-10] MEDS: MAGNESIUM OXIDE 400 MG TABLET (FP) PO SCH (09:54)
[2016-08-10] MEDS ORDERED: HEPARIN NA (PORCINE) 5,000 UNITS/ML 1ML VIAL IVPUSH PRN (09:58)
[2016-08-10] MEDS ORDERED: HEPARIN NA (PORCINE) 5,000 UNITS/ML 1ML VIAL ONE (10:00)
[2016-08-10] MEDS ORDERED: MUPIROCIN 2% TOPICAL OINTMENT FOR DECOLONIZATION NS SCH (10:00)
[2016-08-10] MEDS: HEPARIN NA (PORCINE) 5,000 UNITS/ML 1ML VIAL IVPUSH PRN ×2 (10:04→18:06)
--- NOTE | 2016-08-10 10:47 | PN ---
Progress Note, Physician History of Present Illness: seen and examined today in [facility]. no overnight events. no new complaints. - Current Medication List Current Medications: Active Medications Acetaminophen (Tylenol -) 650 mg PO Q6H PRN PRN Reason: FEVER OR PAIN Last Admin: 08/10/16 05:19 Dose: 650 mg Atenolol (Tenormin -) 25 mg PO DAILY [facility] Last Admin: 08/10/16 09:53 Dose: 25 mg Digoxin (Lanoxin -) 0.125 mg PO DAILY [facility] Last Admin: 08/10/16 09:53 Dose: 0.125 mg Heparin Sodium (Porcine) (Heparin -) 5,000 unit IVPUSH PRN PRN Last Admin: 08/10/16 10:04 Dose: 5,000 unit Heparin Sodium (Porcine) (Heparin -) 1,000 unit IVPUSH PRN PRN Heparin Sodium (Porcine) 25, (000 unit/ Sodium Chloride) 500 mls @ 16 mls/hr IV TITR STEPHANIE; 800 UNIT/HR PRN Reason: Protocol Last Titration: 08/10/16 10:04 Dose: 650 unit/hr Levofloxacin (Levaquin 250 Mg Premixed Ivpb -) 50 mls @ 50 mls/hr IVPB DAILY@ 2000 [facility] Vancomycin HCl 750 mg/ (Dextrose) 250 mls @ 250 mls/hr IVPB DAILY@2000 [facility] PRN Reason: Protocol Magnesium Oxide (Mag-Ox -) 400 mg PO DAILY [facility] Last Admin: 08/10/16 09:54 Dose: 400 mg Pantoprazole Sodium (Protonix -) 20 mg PO DAILY [facility] Last Admin: 08/10/16 09:53 Dose: 20 mg - Objective Vital Signs: Vital Signs Temperature 98.3 F 08/10/16 09:45 Pulse Rate 84 08/10/16 09:53 Respiratory Rate 20 08/10/16 09:45 Blood Pressure 128/63 08/10/16 09:45 O2 Sat by Pulse Oximetry (%) 95 08/09/16 19:55 Constitutional: Yes: Well Nourished, No Distress, Calm Eyes: Yes: WNL, Conjunctiva Clear, EOM Intact, PERRL HENT: Yes: WNL, Atraumatic, Normocephalic Neck: Yes: WNL, Supple, Trachea Midline Cardiovascular: Yes: Regular Rate and Rhythm, S1, S2. No: Bradycardia, Tachycardia, Pulse Irregular, Bruit, JVD, Gallop, Murmur, Rub, S3, S4, Varicosities Respiratory: Yes: Regular, Diminished, Rhonchi. No: Rales, Wheezes Gastrointestinal: Yes: WNL, Normal Bowel Sounds, Soft. No: Distention, Tenderness Musculoskeletal: Yes: WNL Extremities: Yes: WNL Edema: No Peripheral Pulses WNL: Yes Peripheral Pulses: Left Doralis Pedis: 2+, Right Dorsalis Pedis: 2+ Integumentary: Yes: WNL Neurological: Yes: WNL, Alert, Oriented, Cran Nerves II-XII Intact ...Motor Strength: WNL Psychiatric: Yes: WNL, Alert, Oriented Labs: CBC, BMP 08/10/16 05:20 08/10/16 05:20 INR, PTT INR 1.55 (0.82-1.09) H 08/07/16 05:35 - ....Imaging Chest X-ray: Report Reviewed, Image Reviewed EKG: Report Reviewed, Image Reviewed Other: Report Reviewed, Image Reviewed (tele-Paroxysmal afib with episodes of RVR, last recorded episode 08/09 at 1am) Assessment/Plan 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 infection PSVT and PAF s/p ILR REC: Paroxysmal afib with RVR -no episodes recorded since 08/09 at 1am -cont Digoxin 0.125mg daily and Atenolol 25mg daily -cont heparin gtt until after surgery at which time will plan to transition to po -Replete K+ as needed -ASA on hold for procedure -if pt remains in NSR or in AFib with adequate HR control she may proceed with her planned VATS
--- NOTE | 2016-08-10 11:53 | PN ---
Progress Note, Physician History of Present Illness: OOB in chair No complaints Denies chest pain/ dyspnea/ cough No c/o fever/ chills + low grade temps WBC improved - Current Medication List Current Medications: Active Medications Acetaminophen (Tylenol -) 650 mg PO Q6H PRN PRN Reason: FEVER OR PAIN Last Admin: 08/10/16 05:19 Dose: 650 mg Atenolol (Tenormin -) 25 mg PO DAILY [facility] Last Admin: 08/10/16 09:53 Dose: 25 mg Digoxin (Lanoxin -) 0.125 mg PO DAILY [facility] Last Admin: 08/10/16 09:53 Dose: 0.125 mg Heparin Sodium (Porcine) (Heparin -) 5,000 unit IVPUSH PRN PRN Last Admin: 08/10/16 10:04 Dose: 5,000 unit Heparin Sodium (Porcine) (Heparin -) 1,000 unit IVPUSH PRN PRN Heparin Sodium (Porcine) 25, (000 unit/ Sodium Chloride) 500 mls @ 16 mls/hr IV TITR STEPHANIE; 800 UNIT/HR PRN Reason: Protocol Last Titration: 08/10/16 10:04 Dose: 650 unit/hr Levofloxacin (Levaquin 250 Mg Premixed Ivpb -) 50 mls @ 50 mls/hr IVPB DAILY@ 2000 [facility] Vancomycin HCl 750 mg/ (Dextrose) 250 mls @ 250 mls/hr IVPB DAILY@2000 [facility] PRN Reason: Protocol Magnesium Oxide (Mag-Ox -) 400 mg PO DAILY [facility] Last Admin: 08/10/16 09:54 Dose: 400 mg Pantoprazole Sodium (Protonix -) 20 mg PO DAILY [facility] Last Admin: 08/10/16 09:53 Dose: 20 mg - Objective Vital Signs: Vital Signs Temperature 98.3 F 08/10/16 09:45 Pulse Rate 84 08/10/16 09:53 Respiratory Rate 20 08/10/16 09:45 Blood Pressure 128/63 08/10/16 09:45 O2 Sat by Pulse Oximetry (%) 95 08/09/16 19:55 Constitutional: Yes: No Distress Eyes: Yes: Conjunctiva Clear Cardiovascular: Yes: Regular Rate and Rhythm, S1, S2 Respiratory: Yes: Diminished Gastrointestinal: Yes: Normal Bowel Sounds, Soft. No: Tenderness Labs: CBC, BMP 08/10/16 05:20 08/10/16 05:20 INR, PTT INR 1.55 (0.82-1.09) H 08/07/16 05:35 Assessment/Plan UTI Pleural effusion Leukocytosis Hx CLL PCN allergy Continue levaquin/ vancomycin
--- NOTE | 2016-08-10 14:54 | PN ---
Progress Note (short form) - Note Progress Note: PULMONARY Denies shortness of breath or chest pain. No fevers or chills but still with intermittent fevers. Last Vital Signs Temp Pulse Resp BP Pulse Ox 98.3 F 84 20 128/63 95 08/10/16 09:45 08/10/16 09:53 08/10/16 09:45 08/10/16 09:45 08/09/16 19:55 Gen: NAD in chair Heart: RRR Lung: decreased breath sound right base 1/2 up, +right base rales Abd: soft, nontender Ext: no edema CBC, BMP 08/10/16 05:20 08/10/16 05:20 Active Medications Acetaminophen (Tylenol -) 650 mg PO Q6H PRN PRN Reason: FEVER OR PAIN Last Admin: 08/10/16 05:19 Dose: 650 mg Atenolol (Tenormin -) 25 mg PO DAILY [facility] Last Admin: 08/10/16 09:53 Dose: 25 mg Digoxin (Lanoxin -) 0.125 mg PO DAILY [facility] Last Admin: 08/10/16 09:53 Dose: 0.125 mg Heparin Sodium (Porcine) (Heparin -) 5,000 unit IVPUSH PRN PRN Last Admin: 08/10/16 10:04 Dose: 5,000 unit Heparin Sodium (Porcine) (Heparin -) 1,000 unit IVPUSH PRN PRN Heparin Sodium (Porcine) 25, (000 unit/ Sodium Chloride) 500 mls @ 16 mls/hr IV TITR STEPHANIE; 800 UNIT/HR PRN Reason: Protocol Last Titration: 08/10/16 10:04 Dose: 650 unit/hr Levofloxacin (Levaquin 250 Mg Premixed Ivpb -) 50 mls @ 50 mls/hr IVPB DAILY@ 2000 [facility] Vancomycin HCl 750 mg/ (Dextrose) 250 mls @ 250 mls/hr IVPB DAILY@2000 [facility] PRN Reason: Protocol Magnesium Oxide (Mag-Ox -) 400 mg PO DAILY [facility] Last Admin: 08/10/16 09:54 Dose: 400 mg Pantoprazole Sodium (Protonix -) 20 mg PO DAILY [facility] Last Admin: 08/10/16 09:53 Dose: 20 mg A/P UTI Pneumonia vs Empyema Pleural Effusion Severe Sepsis improving Lactic Acidosis resolved Atrial Fibrillation CLL - antibiotics per ID - f/u pending cultures - for VATS/pleural biopsy - send pleural fluid for flow cytometry in addition to the usual studies - IVF - monitor urine output, creatinine - O2 as needed - DVT prophylaxis - no pulmonary contraindications for planned VATS
--- NOTE | 2016-08-10 14:54 | PN ---
Physical Exam: SUBJECTIVE: Patient seen and examined. She denies any chest pain, endorses some shortnessof breath with minimal movement. OBJECTIVE: Febrile again overnight 100.8F On continuous oxygen 3 liters of nasal cannula NPO after midnight on 08/12 and heparin drip to be held at 0200 at 08/12 for VATS procedure Vital Signs Period Temp Pulse Resp BP Sys/Ross Pulse Ox Last 24 Hr 98.3 F-100.8 F 84-97 18-20 111-132/54-68 95 GENERAL: The patient is awake, alert, and fully oriented, with dyspnea @ rest, oxygen stable on 3 liters of nasal cannula. HEAD: Normal with no signs of trauma. EYES: PERRL, extraocular movements intact, sclera anicteric, conjunctiva clear. No ptosis. ENT: Ears normal, nares patent, oropharynx clear without exudates, moist mucous membranes. NECK: Trachea midline, full range of motion, supple. LUNGS: Having dyspnea at rest, right lung with scattered crackles anteriorly and posteriorly. Left lung base with crackles. Upper left lobes clear. ABDOMEN: Soft, nontender, nondistended, normoactive bowel sounds, no guarding EXTREMITIES: 2+ pulses, warm, well-perfused, no edema. NEUROLOGICAL: Normal speech, bedbound for now PSYCH: Anxious @ times SKIN: Warm, dry, normal turgor, no rashes or lesions noted Laboratory Results - last 24 hr 08/09/16 08/09/16 08/10/16 18:45 19:30 01:30 WBC RBC Hgb Hct MCV MCHC RDW Plt Count MPV Neutrophils % Lymphocytes % Monocytes % Eosinophils % Basophils % PTT (Actin FS) 32.3 155.7 H D Sodium Potassium Chloride Carbon Dioxide Anion Gap BUN Creatinine Creat Clearance w eGFR Random Glucose Calcium Total Bilirubin AST ALT Alkaline Phosphatase Total Protein Albumin Vancomycin Trough 2.832 L* 08/10/16 08/10/16 08/10/16 05:20 05:20 08:55 WBC 10.3 H RBC 3.27 L Hgb 9.6 L Hct 28.7 L MCV 87.7 MCHC 33.3 RDW 14.1 Plt Count 123 L MPV 9.0 Neutrophils % 64.3 Lymphocytes % 29.0 Monocytes % 5.7 Eosinophils % 0.9 Basophils % 0.1 PTT (Actin FS) 35.4 H D Sodium 141 Potassium 3.6 Chloride 104 Carbon Dioxide 27 Anion Gap 10 BUN 15 Creatinine 0.6 Creat Clearance w eGFR > 60 Random Glucose 91 Calcium 7.7 L Total Bilirubin 0.8 AST 17 D ALT 25 Alkaline Phosphatase 123 H Total Protein 4.5 L Albumin 1.9 L Vancomycin Trough Active Medications Generic Name Dose Route Start Last Admin Trade Name Freq PRN Reason Stop Dose Admin Acetaminophen 650 mg 08/07/16 00:47 08/10/16 05:19 Tylenol - PO 650 mg Q6H PRN Administration FEVER OR PAIN Atenolol 25 mg 08/07/16 10:00 08/10/16 09:53 Tenormin - PO 25 mg DAILY STEPHANIE Administration Digoxin 0.125 mg 08/09/16 10:00 08/10/16 09:53 Lanoxin - PO 0.125 mg DAILY STEPHANIE Administration Heparin Sodium (Porcine) 5,000 unit 08/10/16 09:58 08/10/16 10:04 Heparin - IVPUSH 5,000 unit PRN PRN Administration Heparin Sodium (Porcine) 1,000 unit 08/10/16 09:58 Heparin - IVPUSH PRN PRN Heparin Sodium (Porcine) 25, 500 mls @ 16 mls/hr 08/09/16 10:30 08/10/16 10:04 000 unit/ Sodium Chloride IV 650 unit/hr TITR [facility] Titration Protocol 800 UNIT/HR Levofloxacin 50 mls @ 50 mls/hr 08/10/16 20:00 Levaquin 250 Mg Premixed Ivpb - IVPB DAILY@2000 [facility] Vancomycin HCl 750 mg/ 250 mls @ 250 mls/hr 08/10/16 20:00 Dextrose IVPB DAILY@1999 [facility] Protocol Magnesium Oxide 400 mg 08/10/16 10:00 08/10/16 09:54 Mag-Ox - PO 400 mg DAILY [facility]IE Administration Pantoprazole Sodium 20 mg 08/10/16 10:00 08/10/16 09:53 Protonix - PO 20 mg DAILY [facility] Administration ASSESSMENT/PLAN: Patient is an 89 year old female with a significant past medical history of CLL , on active chemo treatments (last one 3 weeks ago), right breast cancer s/p lumpectomy a few years ago, macular degeneration, GERD and arrhythmia (has an implanted loop recorder). She presented to the ED on 08/05/2016 with worsening shortness of breath and was admitted for pleural effusion on the right lung, hypotension and CLL. She was most recently admitted on 07/12/2016 with intermittent shortness of breath and during that admission had an ultrasound guided thoracentesis for right sided pleural effusion (1300 cc of fluid removed). Fluid cultures were sent. Imaging: Chest CT 08/06/2016: A non specific moderate to large amount of right sided pleural fluid. Chest Xray 08/05/2016: Slight combination of right pleural effusion, compressive atelectasis increased from June Chest Xray 08/09/2016: slightly better aeration of right mid lung and internal atelectatic changes/inf. in the left lung base. ID: Sepsis - likely secondary to recurrent right sided pleural effusion and/or UTI Met SIRS criteria on admission, tachycardia, leukocytosis, hypotension, +UTI Leukocytosis improving 28>10.3 BP improving, on atenolol 25mg Pleural Effusion - Right lung - chronic Had thoracentesis on 07/12/2016 with 1300 cc of fluid removed Recent CT shows moderate to large amount of right sided pleural effusion May be source of infection vs. malignancy - febrile overnight Tolerating oxygen @ 3 liters, having shortness at breath at rest For a VATS/pleural biopsy - but on hold until cleared by cardiology On a heparin drip Urine culture + Ecoli WBC improving, low grade temps On Levaquin and Vanco, has allergy to pencillins ID following Cardiology: A fib - On a heparin drip Assessment/Plan: On cardiac monitoring Also has implanted loop recorder Monitor BP Cardiology following Oncology: Chronic Lymphocytic Leukemia and hx of Breast Cancer Assessment/Plan: Unknown baseline WBC Last chemo treatment 3 weeks prior right arm precautions Oncology following F.E.N. Fluids: tolerating PO Electrolytes: hypokalemia: resolved Nutrition: tolerating PO Prophylaxis: DVT: Heparin drip GI: Protonix 20mg daily Disposition: Requires inpatient hospitalization. Full Code. Visit type - Emergency Visit Emergency Visit: Yes ED Registration Date: 08/05/16 Care time: The patient presented to the Emergency Department on the above date and was hospitalized for further evaluation of their emergent condition. - New Patient This patient is new to me today: No - Critical Care Critical Care patient: No - Discharge Referral Referred to [facility] Med P.C.: No
[2016-08-10] MEDS ORDERED: PT OWN MED DRAWER 7, Y5N ONE ×2 (18:02→21:32)
[2016-08-10] MEDS ORDERED: ALBUTEROL SO4 2.5/IPRATROPIUM 0.5 INH SOL 3 ML VIAL.NEB. NEB ONE (18:45)
[2016-08-10] MEDS: VANCOMYCIN 750 MG in DEXTROSE 5%-WATER - 250 ML IVPB SCH (21:34)
[2016-08-10] MEDS: LEVOFLOXACIN 250 MG IVPB 50 ML IVPB SCH (21:53)
[2016-08-10] MEDS ORDERED: CHLORHEXIDINE GLUCONATE 4% CLEANSER FOR DECOLONIZATION TP SCH (22:00)
[2016-08-11] MEDS: HEPARIN - 25,000 UNIT in SODIUM CHLORIDE 495 ML IV SCH ×2 (02:59→08:50)
[2016-08-11] MEDS: HEPARIN NA (PORCINE) 5,000 UNITS/ML 1ML VIAL IVPUSH PRN (03:02)
[2016-08-11 08:13] LABS: MCH 28.9 pg (25.7-33.7); MCHC 33.1 g/dl (32.0-36.0); MEAN CELL VOLUME 87.3 fl (80-96); MEAN PLT VOLUME 9.2 fl (7.5-11.1); PLATELET COUNT 131 K/MM3 (134-434); RDW 14.1 % (11.6-15.6); WHITE BLOOD COUNT 9.5 K/mm3 (4.0-10.0)
[2016-08-11 08:37] LABS: ALBUMIN 1.9 g/dl (3.4-5.0); ALK PHOS 128 U/L (45-117); ANION GAP 9 (8-16); BILIRUBIN,TOTAL 0.6 mg/dL (0.2-1.0); CO2 28 mmol/L (21-32); CREATININE 0.6 mg/dL (0.55-1.02); GLUCOSE,RANDOM 92 mg/dL (74-106); SGOT/AST 17 U/L (15-37); SGPT/ALT 27 U/L (12-78); TOT PROT 4.5 g/dl (6.4-8.2)
--- NOTE | 2016-08-11 09:20 | PN ---
Progress Note, Physician History of Present Illness: seen and examined today in [facility]. no overnight events. no new complaints. - Current Medication List Current Medications: Active Medications Acetaminophen (Tylenol -) 650 mg PO Q6H PRN PRN Reason: FEVER OR PAIN Last Admin: 08/10/16 05:19 Dose: 650 mg Atenolol (Tenormin -) 25 mg PO DAILY [facility] Last Admin: 08/10/16 09:53 Dose: 25 mg Digoxin (Lanoxin -) 0.125 mg PO DAILY [facility] Last Admin: 08/10/16 09:53 Dose: 0.125 mg Heparin Sodium (Porcine) (Heparin -) 5,000 unit IVPUSH PRN PRN Last Admin: 08/11/16 03:02 Dose: 5,000 unit Heparin Sodium (Porcine) (Heparin -) 1,000 unit IVPUSH PRN PRN Heparin Sodium (Porcine) 25, (000 unit/ Sodium Chloride) 500 mls @ 16 mls/hr IV TITR STEPHANIE; 800 UNIT/HR PRN Reason: Protocol Last Admin: 08/11/16 08:50 Dose: 18 mls/hr Levofloxacin (Levaquin 250 Mg Premixed Ivpb -) 50 mls @ 50 mls/hr IVPB DAILY@ 1999 [facility] Last Admin: 08/10/16 21:53 Dose: 50 mls/hr Vancomycin HCl 750 mg/ (Dextrose) 250 mls @ 250 mls/hr IVPB DAILY@1999 [facility] PRN Reason: Protocol Last Admin: 08/10/16 21:34 Dose: 250 mls/hr Potassium Chloride (Potassium Chloride 10 Meq Premix Ivpb -) 100 mls @ 100 mls/ hr IVPB Q60M [facility] Stop: 08/11/16 11:14 Magnesium Oxide (Mag-Ox -) 400 mg PO DAILY [facility] Last Admin: 08/10/16 09:54 Dose: 400 mg Pantoprazole Sodium (Protonix -) 20 mg PO DAILY [facility] Last Admin: 08/10/16 09:53 Dose: 20 mg - Objective Vital Signs: Vital Signs Temperature 98 F 08/11/16 06:00 Pulse Rate 90 08/11/16 08:47 Respiratory Rate 20 08/11/16 08:47 Blood Pressure 113/45 08/11/16 08:47 O2 Sat by Pulse Oximetry (%) 95 08/10/16 21:00 Constitutional: Yes: Well Nourished, No Distress, Calm Eyes: Yes: WNL, Conjunctiva Clear, EOM Intact, PERRL HENT: Yes: WNL, Atraumatic, Normocephalic Neck: Yes: WNL, Supple, Trachea Midline Cardiovascular: Yes: Regular Rate and Rhythm, S1, S2. No: Bradycardia, Tachycardia, Pulse Irregular, Bruit, JVD, Gallop, Murmur, Rub, S3, S4, Varicosities, Other Respiratory: Yes: Regular, Diminished, Rhonchi. No: Rales, Wheezes Gastrointestinal: Yes: WNL, Normal Bowel Sounds, Soft. 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 infection PSVT and PAF s/p ILR REC: Paroxysmal afib with RVR -still no further episodes of Pafib with RVR recorded since 08/09 at 1am -cont Digoxin 0.125mg daily and Atenolol 25mg daily -cont heparin gtt until after surgery at which time will plan to transition to po AC -Replete K+ as needed -ASA on hold for procedure -At this point there is no cardiac contraindication to the planned VATS procedure as pt has remained without PAfib with RVR for >48 hours. If no further sustained Pafib with RVR she may proceed with surgery -Heparin to be held as per surgery reccs prior to procedure
--- NOTE | 2016-08-11 09:51 | SPA.PREOP ---
Addendum entered and electronically signed by Carlos Eduardo Chin PA 08/11/16 10:06: Type and screen ordered Original Note: - PRE-OP NOTE Dx: 1. Recurrent right pleural effusion: Lymphoma vs. infection 2. 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 PSVT and PAF s/p ILR Planned Procedure: VATs & Pleurex Catheter Surgeon: Orlando Ryder Consent: To be obtained by surgeon after all risks, benefits and alternatives explained to patient. Last Vital Signs Temp Pulse Resp BP Pulse Ox 98 F 90 20 113/45 95 08/11/16 06:00 08/11/16 08:47 08/11/16 08:47 08/11/16 08:47 08/10/16 21:00 Lab Results CBC, BMP 08/11/16 06:00 08/11/16 06:00 INR, PTT INR 1.55 (0.82-1.09) H 08/07/16 05:35 - IMAGING X-ray: Report Reviewed (Performed on 08/09/16: slightly better aeration of right midlung and interval atelectatic changes/infiltrates in the left lung base.) - ASSESSMENT/PLAN 1. NPO after midnight except po meds 2. GI/DVT PPX 3. Medical optimization / clearance 4. Cont Digoxin 0.125mg daily and Atenolol 25mg daily 5. Cont hep gtt until after surgery at which time will plan to transition to po AC 6. Replete K+ 7. ASA on hold 8. Cardio clearance note appreciated --> no cardiac contraindication to the planned VATS procedure. If no further sustained Pafib with RVR she may proceed with surgery 9. Heparin gtt to be stopped at Friday at 2AM (ordered) <Carlos Eduardo Chin - Last Filed: 08/11/16 09:56> - PRE-OP NOTE Dx: Planned Procedure: Surgeon: Consent: Obtained after surgeon explained all risks, benefits and alternatives. Opportunity for questions. Patient had none. Understood and signed without reservation. Last Vital Signs Temp Pulse Resp BP Pulse Ox 98.0 F 78 22 146/65 100 08/13/16 10:00 08/13/16 10:00 08/13/16 10:00 08/13/16 10:00 08/13/16 08:00 Lab Results WBC 11.5 K/mm3 (4.0-10.0) H 08/13/16 05:05 RBC 2.97 M/mm3 (3.60-5.2) L 08/13/16 05:05 Hgb 8.5 GM/dL (10.7-15.3) L 08/13/16 05:05 Hct 25.5 % (32.4-45.2) L 08/13/16 05:05 MCV 85.9 fl (80-96) 08/13/16 05:05 MCHC 33.3 g/dl (32.0-36.0) 08/13/16 05:05 RDW 14.6 % (11.6-15.6) 08/13/16 05:05 Plt Count 216 K/MM3 (134-434) D 08/13/16 05:05 Sodium 140 mmol/L (136-145) 08/13/16 05:05 Potassium 4.2 mmol/L (3.5-5.1) 08/13/16 05:05 Chloride 104 mmol/L (98-107) 08/13/16 05:05 Carbon Dioxide 28 mmol/L (21-32) 08/13/16 05:05 Anion Gap 8 (8-16) 08/13/16 05:05 BUN 21 mg/dL (7-18) H D 08/13/16 05:05 Creatinine 0.6 mg/dL (0.55-1.02) 08/13/16 05:05 Random Glucose 87 mg/dL (74-106) D 08/13/16 05:05 Calcium 7.7 mg/dL (8.5-10.1) L 08/13/16 05:05 Blood Type O POSITIVE 08/11/16 11:17 Antibody Screen Negative 08/11/16 10:30 INR 1.32 (0.82-1.09) H 08/12/16 14:30 - ASSESSMENT/PLAN 1. Make NPO after midnight except po meds 2. GI/DVT PPX 3. Medical optimization / clearance <Orlando Ryder - Last Filed: 08/13/16 12:42> Problem List - Problems (1) Pleural effusion Code(s): J90 - PLEURAL EFFUSION, NOT ELSEWHERE CLASSIFIED <Orlando Ryder - Last Filed: 08/13/16 12:42> Visit type - Case Type Case Type: ED Admission - Emergency Emergency Visit: Yes ED Registration Date: 08/05/16 Care time: The patient presented to the Emergency Department on the above date and was hospitalized for further evaluation of their emergent condition. - New patient This patient is new to me today: Yes Date on this admission: 08/11/16 <Carlos Eduardo Chin - Last Filed: 08/11/16 09:56>
[2016-08-11] MEDS: ATENOLOL 25 MG TABLET (FP) PO SCH (10:16)
[2016-08-11] MEDS: MAGNESIUM OXIDE 400 MG TABLET (FP) PO SCH (10:16)
[2016-08-11] MEDS: PANTOPRAZOLE 20 MG TABLET (FP) PO SCH (10:16)
[2016-08-11] MEDS: DIGOXIN 0.125 MG TABLET (FP) PO SCH (10:16)
[2016-08-11] MEDS: KCL 10 MEQ IVPB 100 ML IVPB SCH ×2 (10:17→14:04)
--- NOTE | 2016-08-11 12:57 | PN ---
Progress Note (short form) - Note Progress Note: PULMONARY Denies shortness of breath or chest pain. Still with intermittent fevers. Last Vital Signs Temp Pulse Resp BP Pulse Ox 98 F 87 20 113/45 95 08/11/16 06:00 08/11/16 10:16 08/11/16 08:47 08/11/16 08:47 08/10/16 21:00 Gen: NAD in chair Heart: RRR Lung: decreased breath sound right base 1/2 up, +right base rales Abd: soft, nontender Ext: no edema CBC, BMP 08/11/16 06:00 08/11/16 06:00 Active Medications Acetaminophen (Tylenol -) 650 mg PO Q6H PRN PRN Reason: FEVER OR PAIN Last Admin: 08/10/16 05:19 Dose: 650 mg Atenolol (Tenormin -) 25 mg PO DAILY [facility] Last Admin: 08/11/16 10:16 Dose: 25 mg Digoxin (Lanoxin -) 0.125 mg PO DAILY [facility] Last Admin: 08/11/16 10:16 Dose: 0.125 mg Heparin Sodium (Porcine) (Heparin -) 5,000 unit IVPUSH PRN PRN Last Admin: 08/11/16 03:02 Dose: 5,000 unit Heparin Sodium (Porcine) (Heparin -) 1,000 unit IVPUSH PRN PRN Heparin Sodium (Porcine) 25, (000 unit/ Sodium Chloride) 500 mls @ 16 mls/hr IV TITR STEPHANIE; 800 UNIT/HR PRN Reason: Protocol Last Admin: 08/11/16 08:50 Dose: 18 mls/hr Levofloxacin (Levaquin 250 Mg Premixed Ivpb -) 50 mls @ 50 mls/hr IVPB DAILY@ 1999 [facility] Last Admin: 08/10/16 21:53 Dose: 50 mls/hr Vancomycin HCl 750 mg/ (Dextrose) 250 mls @ 250 mls/hr IVPB DAILY@1999 [facility] PRN Reason: Protocol Last Admin: 08/10/16 21:34 Dose: 250 mls/hr Magnesium Oxide (Mag-Ox -) 400 mg PO DAILY [facility] Last Admin: 08/11/16 10:16 Dose: 400 mg Pantoprazole Sodium (Protonix -) 20 mg PO DAILY [facility] Last Admin: 08/11/16 10:16 Dose: 20 mg A/P UTI Pneumonia vs Empyema Pleural Effusion Severe Sepsis improving Lactic Acidosis resolved Atrial Fibrillation CLL - antibiotics per ID - f/u pending cultures - for VATS/pleural biopsy - send pleural fluid for flow cytometry in addition to the usual studies - IVF - monitor urine output, creatinine - O2 as needed - DVT prophylaxis - no pulmonary contraindications for planned VATS
[2016-08-11] MEDS ORDERED: KCL 10 MEQ IVPB 100 ML IVPB ONE (13:30)
[2016-08-11] MEDS: ACETAMINOPHEN 325 MG TABLET (FP) PO PRN (13:49)
[2016-08-11] MEDS ORDERED: PT OWN MED DRAWER 7, Y5N ONE ×2 (14:19→22:12)
--- NOTE | 2016-08-11 16:16 | PN ---
Physical Exam: SUBJECTIVE: Patient seen and examined. Had some respiratory distress this morning, increased nasal cannula to 4 liters with good effect. Was able to sit in the chair later in no acute distress. OBJECTIVE: Scheduled VATS procedure in the a.m - As per cardiology, may proceed with surgery if no further sustained Pafib with RVR Heparin gtt to be stopped at Friday at 2 a.m. (ordered by surgery) Vital Signs Period Temp Pulse Resp BP Sys/Ross Pulse Ox Last 24 Hr 97.7 F-100.5 F 86-110 20-20 113-133/45-89 95 GENERAL: The patient is awake, alert, and fully oriented, with dyspnea @ rest, oxygen stable on 3-4 liters of nasal cannula. HEAD: Normal with no signs of trauma. EYES: PERRL, extraocular movements intact, sclera anicteric, conjunctiva clear. No ptosis. ENT: Ears normal, nares patent, oropharynx clear without exudates, moist mucous membranes. NECK: Trachea midline, full range of motion, supple. LUNGS: Having dyspnea at rest, right lung with scattered crackles anteriorly and posteriorly. Left lung base with crackles. Upper left lobes clear. ABDOMEN: Soft, nontender, nondistended, normoactive bowel sounds, no guarding EXTREMITIES: 2+ pulses, warm, well-perfused, no edema. NEUROLOGICAL: Normal speech, bedbound for now PSYCH: Anxious @ times SKIN: Warm, dry, normal turgor, no rashes or lesions noted Laboratory Results - last 24 hr 08/10/16 08/11/16 08/11/16 16:10 00:30 06:00 WBC 9.5 RBC 3.00 L Hgb 8.7 L Hct 26.2 L MCV 87.3 MCHC 33.1 RDW 14.1 Plt Count 131 L MPV 9.2 PTT (Actin FS) 34.5 H 39.7 H Sodium Potassium Chloride Carbon Dioxide Anion Gap BUN Creatinine Creat Clearance w eGFR Random Glucose Calcium Total Bilirubin AST ALT Alkaline Phosphatase Total Protein Albumin Blood Type Antibody Screen 08/11/16 08/11/16 08/11/16 06:00 06:00 10:30 WBC RBC Hgb Hct MCV MCHC RDW Plt Count MPV PTT (Actin FS) 76.7 H D Sodium 142 Potassium 3.1 L Chloride 105 Carbon Dioxide 28 Anion Gap 9 BUN 14 Creatinine 0.6 Creat Clearance w eGFR > 60 Random Glucose 92 Calcium 8.0 L Total Bilirubin 0.6 D AST 17 ALT 27 Alkaline Phosphatase 128 H Total Protein 4.5 L Albumin 1.9 L Blood Type O POSITIVE Antibody Screen Negative 08/11/16 11:17 WBC RBC Hgb Hct MCV MCHC RDW Plt Count MPV PTT (Actin FS) Sodium Potassium Chloride Carbon Dioxide Anion Gap BUN Creatinine Creat Clearance w eGFR Random Glucose Calcium Total Bilirubin AST ALT Alkaline Phosphatase Total Protein Albumin Blood Type O POSITIVE Antibody Screen Active Medications Generic Name Dose Route Start Last Admin Trade Name Freq PRN Reason Stop Dose Admin Acetaminophen 650 mg 08/07/16 00:47 08/11/16 13:49 Tylenol - PO 650 mg Q6H PRN Administration FEVER OR PAIN Atenolol 25 mg 08/07/16 10:00 08/11/16 10:16 Tenormin - PO 25 mg DAILY STEPHANIE Administration Digoxin 0.125 mg 08/09/16 10:00 08/11/16 10:16 Lanoxin - PO 0.125 mg DAILY STEPHANIE Administration Heparin Sodium (Porcine) 5,000 unit 08/10/16 09:58 08/11/16 03:02 Heparin - IVPUSH 5,000 unit PRN PRN Administration Heparin Sodium (Porcine) 1,000 unit 08/10/16 09:58 Heparin - IVPUSH PRN PRN Heparin Sodium (Porcine) 25, 500 mls @ 16 mls/hr 08/09/16 10:30 08/11/16 08:50 000 unit/ Sodium Chloride IV 18 mls/hr TITR STEPHANIE Administration Protocol 800 UNIT/HR Levofloxacin 50 mls @ 50 mls/hr 08/10/16 20:00 08/10/16 21:53 Levaquin 250 Mg Premixed Ivpb - IVPB 50 mls/hr DAILY@[email or web address] STE[facility]ANIE Administration Vancomycin HCl 750 mg/ 250 mls @ 250 mls/hr 08/10/16 20:00 08/10/16 21:34 Dextrose IVPB 250 mls/hr DAILY@1999 STEPHANIE Administration Protocol Magnesium Oxide 400 mg 08/10/16 10:00 08/11/16 10:16 Mag-Ox - PO 400 mg DAILY STEPHANIE Administration Pantoprazole Sodium 20 mg 08/10/16 10:00 08/11/16 10:16 Protonix - PO 20 mg DAILY STEPHANIE Administration Potassium Chloride 20 meq 08/11/16 18:00 K-Dur - PO 08/11/16 18:01 ONCE ONE ASSESSMENT/PLAN: Patient is an 89 year old female with a significant past medical history of CLL , on active chemo treatments (last one 3 weeks ago), right breast cancer s/p lumpectomy a few years ago, macular degeneration, GERD and arrhythmia (has an implanted loop recorder). She presented to the ED on 08/05/2016 with worsening shortness of breath and was admitted for pleural effusion on the right lung, hypotension and CLL. She was most recently admitted on 07/12/2016 with intermittent shortness of breath and during that admission had an ultrasound guided thoracentesis for right sided pleural effusion (1300 cc of fluid removed). Fluid cultures were sent. Imaging: Chest CT 08/06/2016: A non specific moderate to large amount of right sided pleural fluid. Chest Xray 08/05/2016: Slight combination of right pleural effusion, compressive atelectasis increased from June Chest Xray 08/09/2016: slightly better aeration of right mid lung and internal atelectatic changes/inf. in the left lung base. ID: Sepsis - likely secondary to recurrent right sided pleural effusion and/or UTI Met SIRS criteria on admission, tachycardia, leukocytosis, hypotension, +UTI Leukocytosis improving 28>9.5 On Levaquin and Vanco - started 08/10/2016 BP improving, on atenolol 25mg Pleural Effusion - Right lung - chronic Had thoracentesis on 07/12/2016 with 1300 cc of fluid removed Recent CT shows moderate to large amount of right sided pleural effusion May be source of infection vs. malignancy - febrile overnight Tolerating oxygen @ 3 liters, having shortness at breath at rest, oxygen increased to 4 liters For a VATS/pleural biopsy tomorrow - cardiology to clear in a.m. On a heparin drip Urine culture + Ecoli WBC improving, low grade temps On Levaquin and Vanco, has allergy to pencillins ID following Cardiology: A fib - On a heparin drip Assessment/Plan: On cardiac monitoring Also has implanted loop recorder Monitor BP Cardiology following Oncology: Chronic Lymphocytic Leukemia and hx of Breast Cancer Assessment/Plan: Last chemo treatment 3 weeks prior to admission right arm precautions, Oncology following F.E.N. Fluids: NPO at midnight - cardiac meds to be given in a.m. 08/12/16 Electrolytes: hypokalemia: 3.1, 3 K riders and 20 meq x 1 tonight Nutrition: tolerating PO Prophylaxis: DVT: Heparin drip GI: Protonix 20mg daily Disposition: Requires inpatient hospitalization. Full Code. Visit type - Emergency Visit Emergency Visit: Yes ED Registration Date: 08/05/16 Care time: The patient presented to the Emergency Department on the above date and was hospitalized for further evaluation of their emergent condition. - New Patient This patient is new to me today: No - Critical Care Critical Care patient: No - Discharge Referral Referred to [facility] Med P.C.: No
[2016-08-11] MEDS ORDERED: POTASSIUM CHLORIDE TABS 20 MEQ TABLET.ER (FP) PO ONE ×2 (18:00→22:30)
[2016-08-11] MEDS: VANCOMYCIN 750 MG in DEXTROSE 5%-WATER - 250 ML IVPB SCH (23:11)
[2016-08-11] MEDS: LEVOFLOXACIN 250 MG IVPB 50 ML IVPB SCH (23:11)
[2016-08-12 07:42] LABS: BASOPHIL 0.3 % (0-2.0); EOSINOPHIL 0.8 % (0-4.5); MCH 28.8 pg (25.7-33.7); MCHC 33.2 g/dl (32.0-36.0); MEAN CELL VOLUME 86.7 fl (80-96); MEAN PLT VOLUME 8.2 fl (7.5-11.1); PLATELET COUNT 155 K/MM3 (134-434); RDW 14.2 % (11.6-15.6); WHITE BLOOD COUNT 7.4 K/mm3 (4.0-10.0)
[2016-08-12] MEDS ORDERED: LIDOCAINE HCL/PF 2% SDV 5ML VIAL ONE ×2 (07:43→10:02)
[2016-08-12] MEDS ORDERED: ROCURONIUM BROMIDE 50 MG/5 ML VIAL ONE (07:43)
[2016-08-12] MEDS ORDERED: PROPOFOL 20 ML ONE ×2 (07:43)
[2016-08-12 08:02] LABS: ALBUMIN 1.9 g/dl (3.4-5.0); ANION GAP 8 (8-16); CALCIUM 7.8 mg/dL (8.5-10.1); CO2 30 mmol/L (21-32); CREATININE 0.6 mg/dL (0.55-1.02); GLUCOSE,RANDOM 94 mg/dL (74-106); MAGNESIUM 2.1 mg/dL (1.8-2.4); SGOT/AST 19 U/L (15-37); SGPT/ALT 25 U/L (12-78)
[2016-08-12] MEDS ORDERED: LIDOCAINE HCL 1%, 10 MG/ML (20ML VIAL) ONE (08:02)
[2016-08-12] MEDS ORDERED: BUPIVACAINE HCL/PF 0.5% (5MG/ML) 10 ML VIAL ONE (08:02)
[2016-08-12 08:04] LABS: ALK PHOS 138 U/L (45-117); BILIRUBIN,TOTAL 0.6 mg/dL (0.2-1.0); TOT PROT 4.5 g/dl (6.4-8.2)
[2016-08-12] MEDS ORDERED: SUCCINYLCHOLINE CHLORIDE 200 MG/10 ML VIAL ONE (08:16)
[2016-08-12] MEDS ORDERED: VANCOMYCIN 500 MG/100 ML PRE-DOCKED IVPB ONE (08:19)
[2016-08-12] MEDS ORDERED: ePHEDrine SULFATE 50 MG/1 ML AMPULE ONE (08:20)
[2016-08-12] MEDS ORDERED: DESFLURANE GAS 240 ML BOTTLE IH ONE (09:31)
[2016-08-12] MEDS ORDERED: ONDANSETRON 4 MG/2 ML VIAL ONE (10:02)
[2016-08-12] MEDS ORDERED: GENTAMICIN SO4 80 MG/2 ML VIAL ONE (10:02)
[2016-08-12] MEDS ORDERED: PHENYLEPHRINE HCL 10 MG/1 ML SINGLE DOSE VIAL ONE (10:02)
[2016-08-12] MEDS ORDERED: VANCOMYCIN 1,000 MG VIAL (RESTRICTED TO ID ONLY) ONE ×2 (10:02→10:03)
[2016-08-12] MEDS ORDERED: BUPIVACAINE HCL/PF 0.5% (5MG/ML) 10 ML VIAL IJ ONE ×2 (10:19)
[2016-08-12] MEDS ORDERED: LIDOCAINE HCL 1%, 10 MG/ML (20ML VIAL) IJ ONE ×2 (10:19)
[2016-08-12] MEDS ORDERED: GLYCOPYRROLATE 0.2 MG/1 ML VIAL ONE (10:51)
[2016-08-12] MEDS ORDERED: NEOSTIGMINE METHYLSULFATE 0.5 MG/ML - 10 ML MDV ONE (10:51)
[2016-08-12] MEDS ORDERED: ACETAMINOPHEN 325 MG TABLET (FP) PO PRN (11:32)
[2016-08-12] MEDS ORDERED: HEPARIN NA (PORCINE) 5,000 UNITS/ML 1ML VIAL IVPUSH PRN ×4 (11:32)
[2016-08-12] MEDS ORDERED: ONDANSETRON 4 MG/2 ML VIAL IVPUSH PRN (11:39)
[2016-08-12] MEDS ORDERED: HEPARIN - 25,000 UNIT in SODIUM CHLORIDE 495 ML IV SCH (12:00)
--- NOTE | 2016-08-12 12:09 | SURG ---
Surgery Plastics Supervisor Note Date of Service: 08/12/16 Diagnosis: Recurrent pleural effusion. Procedure: Bronchocopy, right lung video assisted thorascopy. Decortication. Pneumolysis. I was present for the entirety of the operative procedure. For further detail, please refer to operative report. Visit type - Case Type Case Type: ED Admission - Emergency Emergency Visit: Yes ED Registration Date: 08/05/16 Care time: The patient presented to the Emergency Department on the above date and was hospitalized for further evaluation of their emergent condition.
--- NOTE | 2016-08-12 12:15 | OP ---
Operative Note - Note: Operative Date: 08/12/16 Pre-Operative Diagnosis: Recurrent pleural effusion (right lung) Operation: Bronchocopy. Right lung video assisted thorascopy. Decortication. Pneumolysis. Post-Operative Diagnosis: Same as Pre-op Surgeon: Orlando Ryder Drawing Instructor: Carlos Eduardo Chin Anesthesiologist/PARTS WASHER: Lala Reid MD Anesthesia: General Specimens Removed: Pleural bx x3. Pleural fluid for culture & cytology. Parietal pleura bx Estimated Blood Loss (mls): 400 Drains & Tubes with Location: chest tube x3 (anterior, middle fissure & posterior) Blood Volume Replaced (mls): 1 (PRBC) Fluid Volume Replaced (mls): 1,000 Operative Report Dictated: Yes
[2016-08-12 13:46] LABS: CALCIUM 7.3 mg/dL (8.5-10.1); CREATININE 0.6 mg/dL (0.55-1.02)
[2016-08-12] MEDS: morphine CARPU-JECT 2 MG/1 ML DISP.SYRIN IVPUSH PRN (14:54)
--- NOTE | 2016-08-12 15:23 | PN ---
Physical Exam: SUBJECTIVE: Patient seen and examined at bed side. patient reports pressure like chest pain s/p R VATS/pneumolysis/decortication. Patient reports dyspnea 2/2 pain as worsened by inspiration. denies fevers, chills, N/V/D, FIELDS, light headedness. OBJECTIVE: Vital Signs Period Temp Pulse Resp BP Sys/Ross Pulse Ox Last 24 Hr 98.4 F-99.7 F 78-101 16-32 98-150/47-90 96-100 GENERAL: The patient is awake, alert, and fully oriented, in no acute distress. HEAD: Normal with no signs of trauma. EYES: PERRL, extraocular movements intact, sclera anicteric, conjunctiva clear. ENT: Ears normal, nares patent, oropharynx clear without exudates, moist mucous membranes. NECK: Trachea midline, full range of motion, supple. 6dou1wt Left midline neck lemphadenopathy non tender, erythmatus, LUNGS: right lung with scattered crackles and fluid anteriorly and posteriorly . Left lung base with crackles. Upper left lobes clear.chest tube x3 ( anterior, middle fissure & posterior) HEART: Regular rate and rhythm, S1, S2 without murmur, rub or gallop. ABDOMEN: Soft, nontender, mild distended, hypoactive bowel sounds, no guarding , no rebound, no hepatosplenomegaly, no masses. EXTREMITIES: 2+ pulses, warm, well-perfused, + edema. NEUROLOGICAL: Cranial nerves II through XII grossly intact. Normal speech, gait not observed. PSYCH: Normal mood, normal affect. SKIN: Warm, dry, normal turgor, no rashes or lesions noted Laboratory Results - last 24 hr 08/11/16 08/11/16 08/12/16 11:17 16:30 05:35 WBC RBC Hgb Hct MCV MCHC RDW Plt Count MPV Neutrophils % Lymphocytes % Monocytes % Eosinophils % Basophils % PTT (Actin FS) 31.5 D Sodium Potassium 3.6 Chloride Carbon Dioxide Anion Gap BUN Creatinine Creat Clearance w eGFR Random Glucose Calcium Magnesium Total Bilirubin AST ALT Alkaline Phosphatase Total Protein Albumin Blood Type O POSITIVE Crossmatch IS Only See Detail 08/12/16 08/12/16 08/12/16 05:35 05:35 12:25 WBC 7.4 RBC 2.94 L Hgb 8.5 L Hct 25.5 L MCV 86.7 MCHC 33.2 RDW 14.2 Plt Count 155 MPV 8.2 D Neutrophils % 67.0 Lymphocytes % 27.0 Monocytes % 4.9 Eosinophils % 0.8 Basophils % 0.3 PTT (Actin FS) Sodium 140 139 Potassium 3.7 4.4 Chloride 102 106 Carbon Dioxide 30 25 Anion Gap 8 8 BUN 15 16 Creatinine 0.6 0.6 Creat Clearance w eGFR > 60 Random Glucose 94 128 H D Calcium 7.8 L 7.3 L Magnesium 2.1 Total Bilirubin 0.6 AST 19 ALT 25 Alkaline Phosphatase 138 H Total Protein 4.5 L Albumin 1.9 L Blood Type Crossmatch IS Only Active Medications Generic Name Dose Route Start Last Admin Trade Name Freq PRN Reason Stop Dose Admin Acetaminophen 650 mg 08/12/16 11:32 Tylenol - PO Q6H PRN FEVER OR PAIN Atenolol 25 mg 08/13/16 10:00 Tenormin - PO DAILY [facility] Digoxin 0.125 mg 08/13/16 10:00 Lanoxin - PO DAILY [facility] Fentanyl 50 mcg 08/12/16 11:39 08/12/16 11:30 Sublimaze Injection - IVPUSH 08/15/16 11:40 50 mcg [id number] PRN Administration PAIN Heparin Sodium (Porcine) 5,000 unit 08/12/16 11:32 Heparin - IVPUSH PRN PRN Heparin Sodium (Porcine) 1,000 unit 08/12/16 11:32 Heparin - IVPUSH PRN PRN Heparin Sodium (Porcine) 25, 500 mls @ 16 mls/hr 08/12/16 12:00 08/12/16 13:40 000 unit/ Sodium Chloride IV Not Given TITR [facility] Protocol 800 UNIT/HR Levofloxacin 50 mls @ 50 mls/hr 08/12/16 20:00 Levaquin 250 Mg Premixed Ivpb - IVPB DAILY@[facility] Vancomycin HCl 750 mg/ 250 mls @ 250 mls/hr 08/12/16 20:00 Dextrose IVPB DAILY@[facility] Protocol Magnesium Oxide 400 mg 08/13/16 10:00 Mag-Ox - PO DAILY [facility] Morphine Sulfate 2 mg 08/12/16 12:06 08/12/16 14:54 Morphine Injection - IVPUSH 2 mg Q4H PRN Administration PAIN Ondansetron HCl 4 mg 08/12/16 11:39 Zofran Injection IVPUSH 08/12/16 17:40 Q6H PRN NAUSEA AND/OR VOMITING Pantoprazole Sodium 20 mg 08/13/16 10:00 Protonix - PO DAILY STEPHANIE ASSESSMENT/PLAN: Patient is an 89 year old female with a significant past medical history of CLL , on active chemo treatments (last one 3 weeks ago), right breast cancer s/p lumpectomy a few years ago, macular degeneration, GERD and arrhythmia (has an implanted loop recorder). She presented to the ED on 08/05/2016 with worsening shortness of breath and was admitted for pleural effusion on the right lung, hypotension and CLL. She was most recently admitted on 07/12/2016 with intermittent shortness of breath and during that admission had an ultrasound guided thoracentesis for right sided pleural effusion (1300 cc of fluid removed). Fluid cultures were sent. ID: Severe Sepsis improving: Lactic Acidosis resolved, UTI + Pneumonia vs Empyema s/p vats for recurrent effusion- f/u pathology and operative cultures, inc Leukocytosis 12.5 wbc. Sepsis - likely secondary to recurrent right sided pleural effusion and/or UTI Send pleural fluid for flow cytometry in addition to the usual studies Pain control per anesthesia Incentive spirometry O2 as needed ecoli uti- on levaquin on empiric levaquin and vancomycin for pneumonia-Day 3 check vancomycin level- low will increase dose Recurrent Pleural Effusion- Right lung -May be source of infection vs. malignancy - Afebrile overnight: s/p VATS/pneumolysis/decortication. Had thoracentesis on 07/12/2016 with 1300 cc of fluid removed. F/u fluid cytology, cytometry, culture On Levaquin and Vanco, has allergy to pencillins ID following discussed case with anesthesia, will give state dose of Morphine IVpush, in between Q4h, than reassess pain level for further escalation if needed. Cardiology: Paroxysmal afib with RVR A fib - On a heparin held due to surgery, plan to transition to po AC -ASA on hold for procedure -Assessment/Plan: On cardiac monitoring -Also has implanted loop recorder -Monitor BP -Cont Digoxin 0.125mg daily and Atenolol 25mg daily -Replete K+ as needed -Cardiology following Oncology: Chronic Lymphocytic Leukemia and hx of Breast Cancer Assessment/Plan: Last chemo treatment 3 weeks prior to admission right arm precautions, Oncology following F.E.N. Fluids: NS IV 42cc/hr Electrolytes: replete as needed Nutrition: tolerating Clear liquids Prophylaxis: DVT: Heparin drip GI: Protonix 20mg daily Disposition: continue tele monitor in ICU Visit type - Emergency Visit Emergency Visit: Yes ED Registration Date: 08/05/16 Care time: The patient presented to the Emergency Department on the above date and was hospitalized for further evaluation of their emergent condition. - New Patient This patient is new to me today: Yes Date on this admission: 08/05/16 - Critical Care Critical Care patient: No Total Critical Care Time (in minutes): 44 Critical Care Statement: The care of this patient involved high complexity decision making to prevent further life threatening deterioration of the patient 's condition and/or to evalute & treat vital organ system(s) failure or risk of failure.
--- NOTE | 2016-08-12 15:23 | PN ---
Progress Note (short form) - Note Progress Note: PULMONARY/CCM Pt seen and examined in the ICU. s/p R VATS/pneumolysis/decortication. Pain controlled. Denies shortness of breath. Last Vital Signs Temp Pulse Resp BP Pulse Ox 99.2 F 80 20 130/65 100 08/12/16 13:15 08/12/16 13:45 08/12/16 13:45 08/12/16 13:45 08/12/16 13:30 Intake & Output 08/09/16 08/10/16 08/11/16 08/12/16 23:59 23:59 23:59 23:59 Intake Total 8404 159 9788 1676 Output Total 600 700 500 815 Balance 560 -550 548 861 Weight 110 lb 108 lb 6.4 oz 108 lb 12.8 oz 110 lb 12.8 oz Gen: somnolent but arousable Heart: RRR Lung: decreased breath sounds right base, +right base rales Abd: soft, nontender Ext: no edema Chest tube: serosanguinous drainage, no air leak CBC, BMP 08/12/16 12:25 Active Medications Acetaminophen (Tylenol -) 650 mg PO Q6H PRN PRN Reason: FEVER OR PAIN Atenolol (Tenormin -) 25 mg PO DAILY [facility] Digoxin (Lanoxin -) 0.125 mg PO DAILY [facility] Fentanyl (Sublimaze Injection -) 50 mcg IVPUSH [id number] PRN PRN Reason: PAIN Stop: 08/15/16 11:40 Last Admin: 08/12/16 11:30 Dose: 50 mcg Heparin Sodium (Porcine) (Heparin -) 5,000 unit IVPUSH PRN PRN Heparin Sodium (Porcine) (Heparin -) 1,000 unit IVPUSH PRN PRN Heparin Sodium (Porcine) 25, (000 unit/ Sodium Chloride) 500 mls @ 16 mls/hr IV TITR STEPHANIE; 800 UNIT/HR PRN Reason: Protocol Last Admin: 08/12/16 13:40 Dose: Not Given Levofloxacin (Levaquin 250 Mg Premixed Ivpb -) 50 mls @ 50 mls/hr IVPB DAILY@ 1999 STEPHANIE Vancomycin HCl 750 mg/ (Dextrose) 250 mls @ 250 mls/hr IVPB DAILY@1999 STE[facility]IE PRN Reason: Protocol Magnesium Oxide (Mag-Ox -) 400 mg PO DAILY STEPHANIE Morphine Sulfate (Morphine Injection -) 2 mg IVPUSH Q4H PRN PRN Reason: PAIN Last Admin: 08/12/16 14:54 Dose: 2 mg Ondansetron HCl (Zofran Injection) 4 mg IVPUSH Q6H PRN PRN Reason: NAUSEA AND/OR VOMITING Stop: 08/12/16 17:40 Pantoprazole Sodium (Protonix -) 20 mg PO DAILY STEPHANIE A/P UTI Pneumonia vs Empyema Pleural Effusion Severe Sepsis improving Lactic Acidosis resolved Atrial Fibrillation CLL - antibiotics per ID - f/u OR cultures - send pleural fluid for flow cytometry in addition to the usual studies - monitor urine output, creatinine - pain control - incentive spirometry - O2 as needed - DVT prophylaxis
--- NOTE | 2016-08-12 15:33 | PN ---
Physical Exam: SUBJECTIVE: Patient seen and examined. c/o postop pain earlier, given morphine with some relief. s/p VATS procedure R lung today. Multiloculated pleural effusion, 3 chest tubes placed. S/p decortication, pneumolysis, probable empyema as per Dr. Ryder. pleural biopsy x 3, fluid sent for culture and cytololgy, parietal pleura biopsy done. OBJECTIVE: Vital Signs 3 Period Temp Pulse Resp BP Sys/Ross Pulse Ox Last 24 Hr 98.4 F-99.7 F 78-101 16-32 98-150/47-90 96-100 GENERAL: The patient is awake, alert, and fully oriented, in no acute distress. HEAD: Normal with no signs of trauma. EYES: PERRL, extraocular movements intact, sclera anicteric, conjunctiva clear. No ptosis. ENT: Ears normal, nares patent, oropharynx clear without exudates, moist mucous membranes. NECK: Trachea midline, full range of motion, supple. LUNGS: breath sounds clear Left lung méndez, right with crackles entire lung field. HEART: Regular rate and rhythm, S1, S2 without murmur, rub or gallop. ABDOMEN: Soft, nontender, nondistended, normoactive bowel sounds, no guarding, no rebound, no hepatosplenomegaly, no masses. EXTREMITIES: 2+ pulses, warm, well-perfused, no edema. NEUROLOGICAL: Cranial nerves II through XII grossly intact. Normal speech, gait not observed. PSYCH: Normal mood, normal affect. SKIN: Warm, dry, normal turgor, no rashes or lesions noted Laboratory Results - last 24 hr 3 08/12/16 08/12/16 08/12/16 05:35 05:35 12:25 WBC 7.4 RBC 2.94 L Hgb 8.5 L Hct 25.5 L MCV 86.7 MCHC 33.2 RDW 14.2 Plt Count 155 MPV 8.2 D Neutrophils % 67.0 Lymphocytes % 27.0 Monocytes % 4.9 Eosinophils % 0.8 Basophils % 0.3 PTT (Actin FS) 31.5 D Sodium 140 139 Potassium 3.7 4.4 Chloride 102 106 Carbon Dioxide 30 25 Anion Gap 8 8 BUN 15 16 Creatinine 0.6 0.6 Creat Clearance w eGFR > 60 Random Glucose 94 128 H D Calcium 7.8 L 7.3 L Magnesium 2.1 Total Bilirubin 0.6 AST 19 ALT 25 Alkaline Phosphatase 138 H Total Protein 4.5 L Albumin 1.9 L Blood Type Crossmatch IS Only Active Medications 3 Generic Name Dose Route Start Last Admin Trade Name Freq PRN Reason Stop Dose Admin Acetaminophen 650 mg 08/12/16 11:32 Tylenol - PO Q6H PRN FEVER OR PAIN Atenolol 25 mg 08/13/16 10:00 Tenormin - PO DAILY [facility] Digoxin 0.125 mg 08/13/16 10:00 Lanoxin - PO DAILY [facility] Fentanyl 50 mcg 08/12/16 11:39 08/12/16 11:30 Sublimaze Injection - IVPUSH 08/15/16 11:40 50 mcg [id number] PRN Administration PAIN Heparin Sodium (Porcine) 5,000 unit 08/12/16 11:32 Heparin - IVPUSH PRN PRN Heparin Sodium (Porcine) 1,000 unit 08/12/16 11:32 Heparin - IVPUSH PRN PRN Heparin Sodium (Porcine) 25, 500 mls @ 16 mls/hr 08/12/16 12:00 08/12/16 13:40 000 unit/ Sodium Chloride IV Not Given TITR [facility] Protocol 800 UNIT/HR Levofloxacin 50 mls @ 50 mls/hr 08/12/16 20:00 Levaquin 250 Mg Premixed Ivpb - IVPB DAILY@1999 [facility] Vancomycin HCl 750 mg/ 250 mls @ 250 mls/hr 08/12/16 20:00 Dextrose IVPB DAILY@1999 [facility] Protocol Magnesium Oxide 400 mg 08/13/16 10:00 Mag-Ox - PO DAILY [facility] Morphine Sulfate 2 mg 08/12/16 12:06 08/12/16 14:54 Morphine Injection - IVPUSH 2 mg Q4H PRN Administration PAIN Ondansetron HCl 4 mg 08/12/16 11:39 Zofran Injection IVPUSH 08/12/16 17:40 Q6H PRN NAUSEA AND/OR VOMITING Pantoprazole Sodium 20 mg 08/13/16 10:00 Protonix - PO DAILY [facility] Imaging: Chest CT 08/06/2016: A non specific moderate to large amount of right sided pleural fluid. Chest Xray 08/05/2016: Slight combination of right pleural effusion, compressive atelectasis increased from June Chest Xray 08/09/2016: slightly better aeration of right mid lung and internal atelectatic changes/inf. in the left lung base. ASSESSMENT/PLAN: 89yF with PMH CLL, R Br CA, GERD, arrhythmia, macular degeneration, pleural effusion (recent thoracentesis on 07/16/16) presented to the ED with SOB. She has been admitted to the ICU for sepsis and Pleural effusion. Pleural effusion, recurrent ? Empyema as per conversation with Dr. Ryder - s/p VATS, 3 chest tubes to suction - follow cytology - cont levaquin and vanco, follow culture of fluid - thoracic surgery consult appreciated Sepsis, severe - as evidenced by WBC>12,000, RR>20, initial elevated lactic acid - improving - + UTI, likely source, but also could be ?empyema, pleural fluid - cont vancomycin, levofloxacin (PCN allergy) - ID consult appreciated CLL - s/p recent chemo 3 weeks ago. - appreciate oncology consult GERD - cont protonix afib with RVR - continuous cardiac monitoring, no recent episodes - cont dig and atenolol - heparin on hold due to recent procedure, blood in Chest tube drainage. DVT PPX - heparin on hold as above FEN - tolerating po - repeat labs in am - clear liquid diet for dinner as per surgery Dispo: Pt currently requires intensive monitoring in the ICU for management of her emergent condition. Visit type - Emergency Visit Emergency Visit: Yes ED Registration Date: 08/05/16 Care time: The patient presented to the Emergency Department on the above date and was hospitalized for further evaluation of their emergent condition. - New Patient This patient is new to me today: No - Critical Care Critical Care patient: No
[2016-08-12 15:35] LABS: MCH 28.9 pg (25.7-33.7); MCHC 33.5 g/dl (32.0-36.0); MEAN CELL VOLUME 86.2 fl (80-96); MEAN PLT VOLUME 8.4 fl (7.5-11.1); PLATELET COUNT 178 K/MM3 (134-434); RDW 14.4 % (11.6-15.6); WHITE BLOOD COUNT 12.5 K/mm3 (4.0-10.0)
--- NOTE | 2016-08-12 15:35 | PN ---
Progress Note (short form) - Note Progress Note: seen in ICU after surgery s/p VATS tired some pain Vital Signs Period Temp Pulse Resp BP Sys/Ross Pulse Ox Last 24 Hr 98.4 F-99.7 F 78-101 16-32 98-150/47-90 96-100 cor-rrr lungs decresed bs at bases +chest tubes on right abd soft,nt ext no edema CBC, BMP 08/12/16 12:25 Microbiology 08/05/16 22:30 Nasopharyngeal Swab Respiratory Virus Panel - Preliminary 08/08/16 05:35 Blood - Peripheral Venous TB Test (QFT) (PEPE) - Preliminary 08/07/16 01:30 Blood - Peripheral Venous Blood Culture - Final NO GROWTH AFTER 5 DAYS INCUBATION 08/07/16 01:30 Blood - Peripheral Venous Blood Culture - Final NO GROWTH AFTER 5 DAYS INCUBATION operative cultures pending c a/p s/p vats for recurrent effusion- f/u pathology and operative cultures ecoli uti- on levaquin recurrent effusion- ?CLL, less likely infected on empiric levaquin and vancomycin for pneumonia/?infected effusion check vancomycin level- low will increase dose CLL pen allergy continue vanco/levaquin d/w daughter at bedside
[2016-08-12 15:59] LABS: INR 1.32 (0.82-1.09); PROTHROMBIN TIME (PATIENT) 14.6 SEC (9.98-11.88)
[2016-08-12] MEDS ORDERED: morphine CARPU-JECT 2 MG/1 ML DISP.SYRIN IVPUSH ONE (18:06)
[2016-08-12] MEDS: SODIUM CHLORIDE 1,000 ML IV SCH (19:00)
[2016-08-12] MEDS ORDERED: VANCOMYCIN 750 MG in DEXTROSE 5%-WATER - 250 ML IVPB SCH (20:00)
[2016-08-12] MEDS: LEVOFLOXACIN 250 MG IVPB 50 ML IVPB SCH (20:24)
[2016-08-12] MEDS: VANCOMYCIN 1 GRAM (PRE-DOCKED) 1,000 MG/250 ML BAG IVPB SCH (21:53)
[2016-08-13] MEDS: morphine CARPU-JECT 2 MG/1 ML DISP.SYRIN IVPUSH PRN ×4 (00:15→19:55)
[2016-08-13 06:16] LABS: MCH 28.6 pg (25.7-33.7); MCHC 33.3 g/dl (32.0-36.0); MEAN CELL VOLUME 85.9 fl (80-96); MEAN PLT VOLUME 8.3 fl (7.5-11.1); PLATELET COUNT 216 K/MM3 (134-434); RDW 14.6 % (11.6-15.6); WHITE BLOOD COUNT 11.5 K/mm3 (4.0-10.0)
[2016-08-13 06:55] LABS: ALBUMIN 1.6 g/dl (3.4-5.0); ALK PHOS 118 U/L (45-117); ANION GAP 8 (8-16); BILIRUBIN,TOTAL 0.6 mg/dL (0.2-1.0); CALCIUM 7.7 mg/dL (8.5-10.1); CO2 28 mmol/L (21-32); CREATININE 0.6 mg/dL (0.55-1.02); GLUCOSE,RANDOM 87 mg/dL (74-106); MAGNESIUM 2.1 mg/dL (1.8-2.4); PHOSPHOROUS 2.9 mg/dL (2.5-4.9); SGOT/AST 21 U/L (15-37); SGPT/ALT 26 U/L (12-78)
--- NOTE | 2016-08-13 08:06 | PN ---
Progress Note (short form) - Note Progress Note: Anesthesia postop note 89 y/o F s/p GA for Right VATS, extensive decortication. POD#1, in ICU, vss, aaox3, pain fairly well controlled. No anesthesia complications.
--- NOTE | 2016-08-13 09:44 | PN ---
Physical Exam: SUBJECTIVE: patient seen and examined in ICu at bedside. patient reports minimal pain 4/10 but visibly in much more pain than she is reporting CP on inspiration. Overall she received 6mg of morphine overnight. CT output apical 170ml, posterior 100ml, medial 195ml- output is serosangrenous uop-180 ml until 11pm, dark yellow TELE: NSR, no further AF OBJECTIVE: Vital Signs Period Temp Pulse Resp BP Sys/Ross Pulse Ox Last 24 Hr 98.4 F-99.3 F 68-89 15-32 98-150/47-90 100-100 GENERAL: The patient is awake, alert, and fully oriented, in no acute distress. HEAD: Normal with no signs of trauma. EYES: PERRL, extraocular movements intact, sclera anicteric, conjunctiva clear. ENT: Ears normal, nares patent, oropharynx clear without exudates, moist mucous membranes. NECK: Trachea midline, full range of motion, supple. [id number] Left midline neck lemphadenopathy non tender, erythmatus, LUNGS: diffuse rhonci, Left lung base with crackles. Upper left lobes clear.chest tube x3 (anterior, middle fissure & posterior) : no obvious air leak but patient with poor respiratory effort. All three CT on suction. HEART: Regular rate and rhythm, S1, S2 without murmur, rub or gallop. ABDOMEN: Soft, nontender, mild distended, hypoactive bowel sounds, no guarding , no rebound, no hepatosplenomegaly, no masses. EXTREMITIES: 2+ pulses, warm, well-perfused, + edema. NEUROLOGICAL: Cranial nerves II through XII grossly intact. Normal speech, gait not observed. PSYCH: Normal mood, normal affect. SKIN: Warm, dry, normal turgor, no rashes or lesions noted Laboratory Results - last 24 hr 08/11/16 08/12/16 08/12/16 11:17 12:25 14:30 WBC 12.5 H D RBC 3.09 L Hgb 8.9 L Hct 26.7 L MCV 86.2 MCHC 33.5 RDW 14.4 Plt Count 178 MPV 8.4 INR PTT (Actin FS) Sodium 139 Potassium 4.4 Chloride 106 Carbon Dioxide 25 Anion Gap 8 BUN 16 Creatinine 0.6 Creat Clearance w eGFR Random Glucose 128 H D Calcium 7.3 L Phosphorus Magnesium Total Bilirubin AST ALT Alkaline Phosphatase Total Protein Albumin Vancomycin Trough Random Vancomycin Blood Type O POSITIVE Crossmatch IS Only See Detail 08/12/16 08/12/16 08/12/16 14:30 15:43 20:00 WBC RBC Hgb Hct MCV MCHC RDW Plt Count MPV INR 1.32 H PTT (Actin FS) 25.7 L Sodium Potassium Chloride Carbon Dioxide Anion Gap BUN Creatinine Creat Clearance w eGFR Random Glucose Calcium Phosphorus Magnesium Total Bilirubin AST ALT Alkaline Phosphatase Total Protein Albumin Vancomycin Trough 7.633 Random Vancomycin Blood Type Crossmatch IS Only 08/13/16 08/13/16 08/13/16 05:05 05:05 05:05 WBC 11.5 H RBC 2.97 L Hgb 8.5 L Hct 25.5 L MCV 85.9 MCHC 33.3 RDW 14.6 Plt Count 216 D MPV 8.3 INR PTT (Actin FS) 28.8 Sodium 140 Potassium 4.2 Chloride 104 Carbon Dioxide 28 Anion Gap 8 BUN 21 H D Creatinine 0.6 Creat Clearance w eGFR > 60 Random Glucose 87 D Calcium 7.7 L Phosphorus 2.9 Magnesium 2.1 Total Bilirubin 0.6 AST 21 ALT 26 Alkaline Phosphatase 118 H Total Protein 4.0 L Albumin 1.6 L Vancomycin Trough Random Vancomycin Blood Type Crossmatch IS Only 08/13/16 05:05 WBC RBC Hgb Hct MCV MCHC RDW Plt Count MPV INR PTT (Actin FS) Sodium Potassium Chloride Carbon Dioxide Anion Gap BUN Creatinine Creat Clearance w eGFR Random Glucose Calcium Phosphorus Magnesium Total Bilirubin AST ALT Alkaline Phosphatase Total Protein Albumin Vancomycin Trough Random Vancomycin 15.465 Blood Type Crossmatch IS Only Active Medications Generic Name Dose Route Start Last Admin Trade Name Freq PRN Reason Stop Dose Admin Acetaminophen 650 mg 08/12/16 11:32 Tylenol - PO Q6H PRN FEVER OR PAIN Atenolol 25 mg 08/13/16 10:00 Tenormin - PO DAILY [facility] Digoxin 0.125 mg 08/13/16 10:00 Lanoxin - PO DAILY [facility] Fentanyl 50 mcg 08/12/16 11:39 08/12/16 11:30 Sublimaze Injection - IVPUSH 08/15/16 11:40 50 mcg [id number] PRN Administration PAIN Heparin Sodium (Porcine) 5,000 unit 08/12/16 11:32 Heparin - IVPUSH PRN PRN Heparin Sodium (Porcine) 1,000 unit 08/12/16 11:32 Heparin - IVPUSH PRN PRN Heparin Sodium (Porcine) 25, 500 mls @ 16 mls/hr 08/12/16 12:00 08/12/16 13:40 000 unit/ Sodium Chloride IV Not Given TITR [facility] Protocol 800 UNIT/HR Levofloxacin 50 mls @ 50 mls/hr 08/12/16 20:00 08/12/16 20:24 Levaquin 250 Mg Premixed Ivpb - IVPB 50 mls/hr DAILY@1999 STE[facility]IE Administration Sodium Chloride 1,000 mls @ 42 mls/hr 08/12/16 18:30 08/12/16 19:00 Normal Saline - IV 42 mls/hr ASDIR [facility] Administration Magnesium Oxide 400 mg 08/13/16 10:00 Mag-Ox - PO DAILY [facility] Morphine Sulfate 2 mg 08/12/16 12:06 08/13/16 06:05 Morphine Injection - IVPUSH 2 mg Q4H PRN Administration PAIN Pantoprazole Sodium 20 mg 08/13/16 10:00 Protonix - PO DAILY [facility] Vancomycin HCl 1,000 mg 08/12/16 20:00 08/12/16 21:53 Vancomycin (Pre-Docked) IVPB 1,000 mg DAILY@1999 [facility] Administration Protocol ASSESSMENT/PLAN: Patient is an 89 year old female with a significant past medical history of CLL , on active chemo treatments (last one 3 weeks ago), right breast cancer s/p lumpectomy a few years ago, macular degeneration, GERD and arrhythmia (has an implanted loop recorder). She presented to the ED on 08/05/2016 with worsening shortness of breath and was admitted for pleural effusion on the right lung, hypotension and CLL. She was most recently admitted on 07/12/2016 with intermittent shortness of breath and during that admission had an ultrasound guided thoracentesis for right sided pleural effusion (1300 cc of fluid removed). Fluid cultures were sent. ID: Severe Sepsis improving: Lactic Acidosis resolved, UTI + Pneumonia vs Empyema s/p vats for recurrent effusion- f/u pathology and operative cultures. slight dec Leukocytosis 11.5 wbc. Sepsis - likely secondary to recurrent right sided pleural effusion and/or UTI f/u pleural fluid for flow cytometry in addition to the usual studies: pending Pain control increase frequency to morphine 2mg Q2H IVPUSH, will consider CLIENT ADVISOR if further pain control needed Continue CT to suction Incentive spirometry O2 as needed ecoli uti- on levaquin on empiric levaquin and vancomycin for pneumonia-Day 3 check vancomycin level- low will increase dose Recurrent Pleural Effusion- Right lung -May be source of infection vs. malignancy - Afebrile overnight: s/p VATS/pneumolysis/decortication. Had thoracentesis on 07/12/2016 with 1300 cc of fluid removed. F/u fluid cytology, cytometry, culture On Levaquin and Vanco, has allergy to pencillins ID following discussed case with anesthesia, will give state dose of Morphine IVpush, in between Q4h, than reassess pain level for further escalation if needed. Cardiology: Paroxysmal afib with RVR A fib - On a heparin, plan to transition to po AC -ASA on hold for procedure -On cardiac monitoring -Also has implanted loop recorder -Monitor BP -Cont Digoxin 0.125mg daily and Atenolol 25mg daily -Cardiology following Oncology: Chronic Lymphocytic Leukemia and hx of Breast Cancer Last chemo treatment 3 weeks prior to admission right arm precautions, Oncology following F.E.N. Fluids: NS IV 42cc/hr Electrolytes: replete as needed Nutrition: advance to full liquids diet oob to chair Prophylaxis: DVT: Heparin drip GI: Protonix 20mg daily Disposition: continue tele monitor in ICU Visit type - Emergency Visit Emergency Visit: Yes ED Registration Date: 08/05/16 Care time: The patient presented to the Emergency Department on the above date and was hospitalized for further evaluation of their emergent condition. - New Patient This patient is new to me today: No - Critical Care Critical Care patient: Yes Total Critical Care Time (in minutes): 44 Critical Care Statement: The care of this patient involved high complexity decision making to prevent further life threatening deterioration of the patient 's condition and/or to evalute & treat vital organ system(s) failure or risk of failure.
--- NOTE | 2016-08-13 09:44 | PN ---
Progress Note, Physician Chief Complaint: s/p RVATS and decortication TELE: NSR, no further AF - Current Medication List Current Medications: Active Medications Acetaminophen (Tylenol -) 650 mg PO Q6H PRN PRN Reason: FEVER OR PAIN Atenolol (Tenormin -) 25 mg PO DAILY [facility] Digoxin (Lanoxin -) 0.125 mg PO DAILY [facility] Fentanyl (Sublimaze Injection -) 50 mcg IVPUSH [id number] PRN PRN Reason: PAIN Stop: 08/15/16 11:40 Last Admin: 08/12/16 11:30 Dose: 50 mcg Heparin Sodium (Porcine) (Heparin -) 5,000 unit IVPUSH PRN PRN Heparin Sodium (Porcine) (Heparin -) 1,000 unit IVPUSH PRN PRN Heparin Sodium (Porcine) 25, (000 unit/ Sodium Chloride) 500 mls @ 16 mls/hr IV TITR STEPHANIE; 800 UNIT/HR PRN Reason: Protocol Last Admin: 08/12/16 13:40 Dose: Not Given Levofloxacin (Levaquin 250 Mg Premixed Ivpb -) 50 mls @ 50 mls/hr IVPB DAILY@ 1999 [facility] Last Admin: 08/12/16 20:24 Dose: 50 mls/hr Sodium Chloride (Normal Saline -) 1,000 mls @ 42 mls/hr IV ASDIR [facility] Last Admin: 08/12/16 19:00 Dose: 42 mls/hr Magnesium Oxide (Mag-Ox -) 400 mg PO DAILY [facility] Morphine Sulfate (Morphine Injection -) 2 mg IVPUSH Q4H PRN PRN Reason: PAIN Last Admin: 08/13/16 06:05 Dose: 2 mg Morphine Sulfate (Morphine Injection -) 2 mg IVPUSH ONCE ONE Stop: 08/13/16 09:35 Pantoprazole Sodium (Protonix -) 20 mg PO DAILY [facility] Vancomycin HCl (Vancomycin (Pre-Docked)) 1,000 mg IVPB DAILY@1999 [facility] PRN Reason: Protocol Last Admin: 08/12/16 21:53 Dose: 1,000 mg - Objective Vital Signs: Vital Signs Temperature 99 F 08/13/16 06:00 Pulse Rate 87 08/13/16 06:00 Respiratory Rate 24 08/13/16 06:00 Blood Pressure 101/80 08/13/16 06:00 O2 Sat by Pulse Oximetry (%) 100 08/12/16 19:55 Constitutional: Yes: Calm Cardiovascular: Yes: Regular Rate and Rhythm Respiratory: Yes: Other (several right chest tubes) Gastrointestinal: Yes: Soft Edema: No Neurological: Yes: Alert Labs: CBC, BMP 08/13/16 05:05 08/13/16 05:05 INR, PTT INR 1.32 (0.82-1.09) H 08/12/16 14:30 Laboratory Tests 08/13/16 08/13/16 08/13/16 05:05 05:05 05:05 WBC 11.5 H Hgb 8.5 L Plt Count 216 D PTT (Actin FS) 28.8 Sodium 140 Potassium 4.2 BUN 21 H D Creatinine 0.6 - ....Imaging EKG: Image Reviewed Assessment/Plan ssessment/Plan CLL on chemo Recurrent right pleural effusion s/p RVATs PSVT and PAF s/p ILR REC: Paroxysmal afib with RVR -cont Digoxin 0.125mg daily and Atenolol 25mg daily -resume heparin gtt at 900U/hr; goal PTT 50-70 -await results of pleural fluid and pleural bx
[2016-08-13] MEDS ORDERED: ACETAMINOPHEN 1000 MG/100 ML VIAL (NON FORMULARY) IVPB ONE (09:47)
[2016-08-13] MEDS: DIGOXIN 0.125 MG TABLET (FP) PO SCH (09:52)
[2016-08-13] MEDS: PANTOPRAZOLE 20 MG TABLET (FP) PO SCH (09:52)
[2016-08-13] MEDS: MAGNESIUM OXIDE 400 MG TABLET (FP) PO SCH (09:52)
[2016-08-13] MEDS: ATENOLOL 25 MG TABLET (FP) PO SCH (09:52)
[2016-08-13] MEDS ORDERED: morphine CARPU-JECT 2 MG/1 ML DISP.SYRIN IVPUSH ONE (10:00)
--- NOTE | 2016-08-13 10:17 | PN ---
Progress Note (short form) - Note Progress Note: s/p VATS tired some pain at chest tube sites Vital Signs Period Temp Pulse Resp BP Sys/Ross Pulse Ox Last 24 Hr 98.4 F-99.3 F 68-89 15-32 98-150/47-90 100-100 cor-rrr lungs decreased bs on right +chest tubes abd soft,nt ext no edema CBC, BMP 08/13/16 05:05 08/13/16 05:05 Microbiology 08/08/16 05:35 TB Test (QFT) (PEPE) - Final Blood - Peripheral Venous 08/05/16 22:30 Respiratory Virus Panel - Final Nasopharyngeal Swab operative cultures pending a/p s/p vats for recurrent effusion- f/u pathology and operative cultures ecoli uti- on levaquin recurrent effusion- ?CLL, less likely infected on empiric levaquin and vancomycin for pneumonia/?infected effusion CLL pen allergy continue vanco/levaquin f/u cytology and cultures from surgery
[2016-08-13] MEDS: HEPARIN INFUSION - 500 ML IVPB SCH (10:25)
--- NOTE | 2016-08-13 10:31 | PN ---
Progress Note (short form) - Note Progress Note: POD#1 Pt states that she has pain with deep inspiration. Overall she received 6mg of morphine overnight. Vital Signs Period Temp Pulse Resp BP Sys/Ross Pulse Ox Last 24 Hr 98.4 F-99.3 F 68-89 15-32 98-150/47-90 100-100 CT output apical 170ml, posterior 100ml, medial 195ml- output is serosangrenous uop-180 ml until 11pm, dark yellow PE: GEN:A&0 CV: RRR Lungs: diffuse rhonci, no obvious air leak but patient with poor respiratory effort. All three CT on suction. LE: SCD in place and working. CXR- 08/13- no pntx [address] CBC, BMP 08/13/16 05:05 08/13/16 05:05 A/P: 89 yo female s/p R VATS with decortication, pneumolysis and pleural bx spoke with Dr. Ryder and will begin IV hep/confirmed dose with cardiology to start at 900 without bolus CXR daily Continue CT to suction oob to chair Spoke with ICU and will adjust patients pain managment doses, if unable to control the pain she made need MURAL PAINTER IV tylenol/oral tylenol dose placed advance diet as tolerated today, increase IV fluid if oral intake is low <Rosaline Lockhart - Last Filed: 08/13/16 10:37> - Note Progress Note: seen and examined. agree with above. no major event overnight. afeb. ct x3, serosang, no air leak. pod 1, s/p left vats, extensive and complete decortication, pneumolysis, and pleural biopsy. clinically stable. 1. cont supp care and pain control 2. ct on sux 3. abx 4. f/u cx, cyto, path 5. oob amb w/ pt, aggressive pulm toilet, is x10/hr, chest pt 6. f/u id, pulm, cardio service 7. will follow with you <Orlando Ryder - Last Filed: 08/13/16 12:48> Problem List - Problems (1) Pleural effusion Code(s): J90 - PLEURAL EFFUSION, NOT ELSEWHERE CLASSIFIED <Orlando Ryder - Last Filed: 08/13/16 12:48>
--- NOTE | 2016-08-13 12:17 | PN ---
Teaching Attending Note Name of Resident: Hanna Ly ATTENDING PHYSICIAN STATEMENT I saw and evaluated the patient. I reviewed the resident's note and discussed the case with the resident. I agree with the resident's findings and plan as documented. SUBJECTIVE: Pt seen and examined in the ICU. Pain controlled when she receives morphine but does not last until next dose. Denies shortness of breath. No fevers, chills or sweats. OBJECTIVE: Last Vital Signs Temp Pulse Resp BP Pulse Ox 98.0 F 78 22 146/65 100 08/13/16 10:00 08/13/16 10:00 08/13/16 10:00 08/13/16 10:00 08/13/16 08:00 Intake & Output 08/10/16 08/11/16 08/12/16 08/13/16 23:59 23:59 23:59 23:59 Intake Total 150 1048 1828 654 Output Total 569 027 6908 240 Balance -550 548 628 414 Weight 108 lb 6.4 oz 108 lb 12.8 oz 110 lb 12.8 oz 117 lb 5 oz Gen: uncomfortable with movements Heart: RRR Lung: decreased breath sounds right base, few basilar rales Abd: soft, nontender Ext: no edema Chest tube: good respiratory variation, serosanguinous drainage, no air leak CBC, BMP 08/13/16 05:05 08/13/16 05:05 Active Medications Acetaminophen (Tylenol -) 650 mg PO Q6H [facility] Stop: 08/14/16 16:00 Atenolol (Tenormin -) 25 mg PO DAILY [facility] Last Admin: 08/13/16 09:52 Dose: 25 mg Digoxin (Lanoxin -) 0.125 mg PO DAILY [facility] Last Admin: 08/13/16 09:52 Dose: 0.125 mg Fentanyl (Sublimaze Injection -) 50 mcg IVPUSH [id number] PRN PRN Reason: PAIN Stop: 08/15/16 11:40 Last Admin: 08/12/16 11:30 Dose: 50 mcg Levofloxacin (Levaquin 250 Mg Premixed Ivpb -) 50 mls @ 50 mls/hr IVPB DAILY@ 2000 [facility] Last Admin: 08/12/16 20:24 Dose: 50 mls/hr Sodium Chloride (Normal Saline -) 1,000 mls @ 42 mls/hr IV ASDIR [facility] Last Admin: 08/12/16 19:00 Dose: 42 mls/hr Heparin Sodium/Dextrose (Heparin Infusion -) 500 mls @ 18 mls/hr IVPB TITR STEPHANIE ; 900 UNITS/HR PRN Reason: Protocol Last Admin: 08/13/16 10:25 Dose: 18 mls/hr Magnesium Oxide (Mag-Ox -) 400 mg PO DAILY [facility] Last Admin: 08/13/16 09:52 Dose: 400 mg Morphine Sulfate (Morphine Injection -) 2 mg IVPUSH Q2H PRN PRN Reason: PAIN Pantoprazole Sodium (Protonix -) 20 mg PO DAILY [facility] Last Admin: 08/13/16 09:52 Dose: 20 mg Vancomycin HCl (Vancomycin (Pre-Docked)) 1,000 mg IVPB DAILY@1999 [facility] PRN Reason: Protocol Last Admin: 08/12/16 21:53 Dose: 1,000 mg ASSESSMENT AND PLAN: UTI Pneumonia vs Empyema Pleural Effusion Severe Sepsis improving Lactic Acidosis resolved Atrial Fibrillation CLL - antibiotics per ID - f/u OR cultures - f/u pleural fluid flow cytometry - monitor urine output, creatinine - pain control, increase morphine to q2h PRN and adjust as needed - incentive spirometry - O2 as needed - DVT prophylaxis - continue ICU monitoring
--- NOTE | 2016-08-13 14:50 | OP ---
DATE OF OPERATION: 08/12/2016 MACHINE ADJUSTER LEADER CASE TRIM: NANCY Maxwell PREOPERATIVE DIAGNOSIS: Recurrent right pleural effusion. POSTOPERATIVE DIAGNOSIS: Right pleural effusion and empyema (stage II). PROCEDURE: Flexible bronchoscopy, right video-assisted thoracic surgery, complete decortication, extensive pneumolysis, and pleural biopsy (visceral and parietal). ANESTHESIA: General endotracheal anesthesia/double lumen and intercostal nerve block. ESTIMATED BLOOD LOSS: 300 mL. IV FLUIDS: 500 mL of normal saline and 1 unit of PRBC. URINE OUTPUT: 200 mL. SPECIMEN: Right pleural effusion, parietal pleura biopsy, visceral pleura biopsy, pleural content, and diaphragmatic tissue/rind and peel. COMPLICATIONS: None. INDICATION FOR SURGERY: The patient is an 89-year-old female with a history of CLL and right pleural effusion, who presented to [facility] with right chest pain, cough, and shortness of breath. Patient's workup including chest x- ray and CT chest showed recurrent right pleural effusion. The patient is undergoing aforementioned procedure for definitive surgical management. The risks, benefits, alternative plans and potential complications including but not limited to infection, bleeding, recurrence of disease, injury to other organs, pneumothorax, prolonged air leak, re-intervention, cardiopulmonary compromise requiring vasopressors, stroke/CVA, renal insufficiency/failure requiring hemodialysis, ventilator support, and were discussed with patient and her family in extensive detail and she agreed to proceed with surgical intervention. PROCEDURE: The patient was brought to the operating room and placed supine on the operating table. Intravenous line was obtained per Anesthesia. A single lung ventilation was achieved with the double-lumen endotracheal tube. A flexible bronchoscopy was performed. The patient was found to have a normal anatomy. The main yahir, right mainstem bronchus, right upper lobe, bronchus intermedius, right middle lobe, right lower lobe, segmental and subsegmental airway were patent with no endobronchial lesions or mucous plug. The left mainstem bronchus, left upper lobe, lingula, left lower lobe, segmental and subsegmental airway were patent with no endobronchial lesions or mucous plug. Next, the patient was placed in the left- sided decubitus position with an axillary roll. The patient's right chest was prepped and draped in the standard surgical fashion. Using number 15 blade, a 1 cm skin incision was made in the 7th intercostal space. Upon entering the right thoracic cavity , the patient was found to have extensive adhesions of lung to the chest wall, multiple loculated right pleural effusion with abscess and murky fluid. The patient was also found to have parietal and visceral peel and rind in the entire right lung. Using metal sucker and ring forceps, extremely time-consuming and complete decortications and pneumolysis were performed. We approached the decortication systematically from apex to the diaphragm and the anterior to the posterior mediastinum. Multiple parietal and visceral pleural biopsy, diaphragmatic tissues, pleural content and peel/ rind were sent for frozen section, flow cytometry, culture, and permanent sections. After thorough decortications and pneumolysis, the entire right thoracic cavity was irrigated with normal saline mixed with antibiotic solution. Hemostasis was satisfactory at the end of the case. The patient was given intercostal nerve block prior to skin closure. Three 24- Hungarian chest tubes (anterior, angled, and posterior) were placed for postoperative drainage. All incisions were closed in layers with 2-0 and 3-0 Vicryl and 4-0 Monocryl stitches. Sterile dressing was placed over the incision and chest tube site. The patient tolerated the procedure well with no complication. The patient was awakened, extubated, and transferred to recovery room in stable condition. I, Dr. Orlando Ryder, was present for the entire surgical procedure. Lakshmi PERAZA/[id number] MTDD
[2016-08-13] MEDS: SODIUM CHLORIDE 1,000 ML IV SCH ×2 (14:51→18:30)
[2016-08-13] MEDS ORDERED: DOCUSATE SODIUM 100 MG CAPSULE (FP) PO PRN (14:54)
--- NOTE | 2016-08-13 15:50 | PN ---
Physical Exam: SUBJECTIVE: Patient seen and examined in ICU. She says she would like to sit in a chair later this evening. She has R chest discomfort when she takes a deep breath. Tele: SR OBJECTIVE: Vital Signs Period Temp Pulse Resp BP Sys/Ross Pulse Ox Last 24 Hr 97.3 F-99.3 F 70-89 15-28 101-150/43-80 100-100 PE Neuro: alert, awake, cn 2-12intact Pulm: x3 CT posterior chest, mediastinal, R anterior chest serosanguinous drainage, scattered ronchi anteriorly CV: s1 s2 rrr no mrg Abd: s nt nd +bs Ext: warm, no le edema CBCD WBC 11.5 K/mm3 (4.0-10.0) H 08/13/16 05:05 RBC 2.97 M/mm3 (3.60-5.2) L 08/13/16 05:05 Hgb 8.5 GM/dL (10.7-15.3) L 08/13/16 05:05 Hct 25.5 % (32.4-45.2) L 08/13/16 05:05 MCV 85.9 fl (80-96) 08/13/16 05:05 MCHC 33.3 g/dl (32.0-36.0) 08/13/16 05:05 RDW 14.6 % (11.6-15.6) 08/13/16 05:05 Plt Count 216 K/MM3 (134-434) D 08/13/16 05:05 MPV 8.3 fl (7.5-11.1) 08/13/16 05:05 CMP Sodium 140 mmol/L (136-145) 08/13/16 05:05 Potassium 4.2 mmol/L (3.5-5.1) 08/13/16 05:05 Chloride 104 mmol/L (98-107) 08/13/16 05:05 Carbon Dioxide 28 mmol/L (21-32) 08/13/16 05:05 Anion Gap 8 (8-16) 08/13/16 05:05 BUN 21 mg/dL (7-18) H D 08/13/16 05:05 Creatinine 0.6 mg/dL (0.55-1.02) 08/13/16 05:05 Creat Clearance w eGFR > 60 (>60) 08/13/16 05:05 Calcium 7.7 mg/dL (8.5-10.1) L 08/13/16 05:05 Total Bilirubin 0.6 mg/dL (0.2-1.0) 08/13/16 05:05 AST 21 U/L (15-37) 08/13/16 05:05 ALT 26 U/L (12-78) 08/13/16 05:05 Alkaline Phosphatase 118 U/L (45-117) H 08/13/16 05:05 Total Protein 4.0 g/dl (6.4-8.2) L 08/13/16 05:05 Albumin 1.6 g/dl (3.4-5.0) L 08/13/16 05:05 08/06/16 08/12/16 08/13/16 05:05 20:00 05:05 Phosphorus 2.9 Magnesium 2.1 Vancomycin Trough 7.633 IgG 584 L IgA 48 L IgM 18 L IgE 7 Active Medications Generic Name Dose Route Start Last Admin Trade Name Freq PRN Reason Stop Dose Admin Acetaminophen 650 mg 08/13/16 16:00 Tylenol - PO 08/14/16 16:00 Q6H [facility] Atenolol 25 mg 08/13/16 10:00 08/13/16 09:52 Tenormin - PO 25 mg DAILY STEPHANIE Administration Digoxin 0.125 mg 08/13/16 10:00 08/13/16 09:52 Lanoxin - PO 0.125 mg DAILY STEPHANIE Administration Docusate Sodium 100 mg 08/13/16 22:00 Colace - PO BID [facility] Fentanyl 50 mcg 08/12/16 11:39 08/12/16 11:30 Sublimaze Injection - IVPUSH 08/15/16 11:40 50 mcg [id number] PRN Administration PAIN Levofloxacin 50 mls @ 50 mls/hr 08/12/16 20:00 08/12/16 20:24 Levaquin 250 Mg Premixed Ivpb - IVPB 50 mls/hr DAILY@2000 STEPHANIE Administration Sodium Chloride 1,000 mls @ 42 mls/hr 08/12/16 18:30 08/13/16 14:51 Normal Saline - IV 42 mls/hr ASDIR STEPHANIE Administration Heparin Sodium/Dextrose 500 mls @ 18 mls/hr 08/13/16 10:00 08/13/16 10:25 Heparin Infusion - IVPB 18 mls/hr TITR STEPHANIE Administration Protocol 900 UNITS/HR Magnesium Oxide 400 mg 08/13/16 10:00 08/13/16 09:52 Mag-Ox - PO 400 mg DAILY STEPHANIE Administration Morphine Sulfate 2 mg 08/13/16 11:45 08/13/16 14:48 Morphine Injection - IVPUSH 2 mg Q2H PRN Administration PAIN Pantoprazole Sodium 20 mg 08/13/16 10:00 08/13/16 09:52 Protonix - PO 20 mg DAILY STEPHANIE Administration Senna 1 tab 08/13/16 22:00 Senna - PO HS STEPHANIE Vancomycin HCl 1,000 mg 08/12/16 20:00 08/12/16 21:53 Vancomycin (Pre-Docked) IVPB 1,000 mg DAILY@1999 STEPHANIE Administration Protocol Assessment: 89 year old female with PMH CLL, R Br CA, GERD, arrhythmia, macular degeneration, pleural effusion (recent thoracentesis on 07/16/16) admitted with SOB sepsis and pleural effusion. Plan: 1. Pleural effusion - VATS done 08/12 - Awaiting cytology and cultures, r/o Empyema vs pna - CXR today negative for pneumothroax - Pain control, if uncontrolled consider TIE TAMPER - Continue emperic abx, zosyn/levaquin 2. Sepsis d/t E. Coli UTI +/- lung source - Resolving - Continue levaquin/vanco - ID following 3. A Fib, RVR - In sinus, controlled - Heparin gtt - Continue Dig 0.125mg - Continue Atenolol 25mg daily 4. CLL - s/p recent chemo 3 weeks ago. - appreciate oncology consult 5. GERD - Cont Protonix 6. DVT PPX - Heparin gtt - OOb to chair Visit type - Emergency Visit Emergency Visit: Yes ED Registration Date: 08/05/16 Care time: The patient presented to the Emergency Department on the above date and was hospitalized for further evaluation of their emergent condition. - New Patient This patient is new to me today: Yes Date on this admission: 08/13/16 - Critical Care Critical Care patient: No
[2016-08-13] MEDS: ACETAMINOPHEN 325 MG TABLET (FP) PO SCH ×2 (16:41→21:21)
[2016-08-13 19:38] LABS: GLUCOSE,PLEURAL FLUID 1.822; TOTAL PROTEIN,PLEURAL FLUID 3.544
[2016-08-13] MEDS: LEVOFLOXACIN 250 MG IVPB 50 ML IVPB SCH (20:04)
[2016-08-13] MEDS: VANCOMYCIN 1 GRAM (PRE-DOCKED) 1,000 MG/250 ML BAG IVPB SCH (21:11)
[2016-08-13] MEDS: DOCUSATE SODIUM 100 MG CAPSULE (FP) PO SCH (21:21)
[2016-08-13] MEDS: SENNOSIDES 8.6MG TABLET (FP) PO SCH (21:21)
[2016-08-14] MEDS: morphine CARPU-JECT 2 MG/1 ML DISP.SYRIN IVPUSH PRN ×8 (00:21→23:40)
[2016-08-14] MEDS: ACETAMINOPHEN 325 MG TABLET (FP) PO SCH ×3 (04:48→16:51)
[2016-08-14 05:53] LABS: BASOPHIL 0.3 % (0-2.0); EOSINOPHIL 1.7 % (0-4.5); MCH 28.9 pg (25.7-33.7); MCHC 33.3 g/dl (32.0-36.0); MEAN CELL VOLUME 86.7 fl (80-96); MEAN PLT VOLUME 7.9 fl (7.5-11.1); NEUTROPHILS 60.4 % (42.8-82.8); PLATELET COUNT 246 K/MM3 (134-434); RDW 14.4 % (11.6-15.6); WHITE BLOOD COUNT 7.4 K/mm3 (4.0-10.0)
[2016-08-14 06:38] LABS: CALCIUM 7.5 mg/dL (8.5-10.1); CREATININE 0.6 mg/dL (0.55-1.02)
[2016-08-14] MEDS: HEPARIN INFUSION - 500 ML IVPB SCH ×2 (07:11→10:00)
--- NOTE | 2016-08-14 07:29 | PN ---
[id number]. Using her incentive spirometer as directed. Pain management controlled well with PRN meds. CXR 08/14: CxT x3. b/l bi-basilar pleural effusion w/ atelectatic changes R>L. No ptx. Last Vital Signs Temp Pulse Resp BP Pulse Ox 98.1 F 88 19 136/57 100 08/14/16 06:00 08/14/16 06:00 08/14/16 06:00 08/14/16 06:00 08/13/16 21:58 CBC, BMP 08/14/16 05:05 08/14/16 05:05 INR, PTT INR 1.32 (0.82-1.09) H 08/12/16 14:30 I/O TREND 08/13/16 08/13/16 08/13/16 08/14/16 08/14/16 08/14/16 06:35 17:19 18:10 03:33 06:00 06:39 Middle CxT 100 120 40 30 Posterior CxT 70 30 8 Anterior CxT 70 30 25 Wagoner 550 500 PE GEN:A&0. nad. CV: RRR Lungs: scattered rhonci. CxT x3 on LWS...no air leak but patient with poor respiratory effort. LE: BP cuff on LLE. No swelling/tenderness b/l <Carlos Eduardo Chin - Last Filed: 08/14/16 07:48> - Note Progress Note: reviewed chart, films, labs, cx, vs, i/o's. agreed with above. no major issues over night. ct x3, no air leak. serosang. clinically stale. 1. cont supp care and abx 2. dc anterior ct 3. dc wagoner 4. wean oxygen as vilma 5. oob to chair/amb w pt, pulm toilet, is x10/hr, chest pt 6. f/u cx, cyto, path 7. will follow with you <Orlando Ryder - Last Filed: 08/14/16 10:27> Problem List - Problems (1) Pleural effusion, right Assessment/Plan: POD #2 s/p 89yo F, s/p Bronchocopy. Right VATs w/ decortication, pneumolysis & pleural bx IV heparin gtt Incentive spirometer Aggressive pulmonary toileting CXR CxT x2 to cont LWS OOB to chair IV tylenol/oral tylenol PRN Advance diet as tolerated today DC wagoner and begin trial of void Anterior CxT dc'd on rounds --> f/u CXR Above plan discussed with Dr. Ryder and agrees Code(s): J90 - PLEURAL EFFUSION, NOT ELSEWHERE CLASSIFIED <Carlos Eduardo Chin - Last Filed: 08/14/16 07:48> - Problems (1) Pleural effusion Code(s): J90 - PLEURAL EFFUSION, NOT ELSEWHERE CLASSIFIED <Orlando Ryder - Last Filed: 08/14/16 10:27>
--- NOTE | 2016-08-14 08:12 | PN ---
Physical Exam: SUBJECTIVE: patient seen and examined in ICU at bedside. patient reports pain same as yesterday on inspiration. patient looks and breathing more confortable than yesterday. asking and receiving pain control every 2-3 hours. + BM Yesterday. CT output posterior chest 8ml, posterior 25ml, medial 175ml- output is serosangrenous anterior chest tube removed. Good incentive spectrometry effort. OBJECTIVE: Vital Signs Period Temp Pulse Resp BP Sys/Ross Pulse Ox Last 24 Hr 97.3 F-98.3 F 71-89 18-25 107-154/42-87 100 GENERAL: The patient is awake, alert, and fully oriented, in no acute distress. HEAD: Normal with no signs of trauma. EYES: PERRL, extraocular movements intact, sclera anicteric, conjunctiva clear. ENT: Ears normal, nares patent, oropharynx clear without exudates, moist mucous membranes. NECK: Trachea midline, full range of motion, supple. [id number] Left midline neck lemphadenopathy non tender, erythmatus, LUNGS: diffuse rhonci, Left lung base with crackles. Upper left lobes clear.chest tube x3 (anterior, middle fissure & posterior): no obvious air leak but patient with poor respiratory effort. All three CT on suction. HEART: Regular rate and rhythm, S1, S2 without murmur, rub or gallop. ABDOMEN: Soft, nontender, mild distended, hypoactive bowel sounds, no guarding , no rebound, no hepatosplenomegaly, no masses. EXTREMITIES: 2+ pulses, warm, well-perfused, + edema. NEUROLOGICAL: no gross focal neurological deficit appreciated, Normal speech, gait not observed. PSYCH: Normal mood, normal affect. SKIN: Warm, dry, normal turgor, no rashes or lesions noted Laboratory Results - last 24 hr 08/13/16 08/13/16 08/13/16 15:30 18:59 20:40 WBC RBC Hgb Hct MCV MCHC RDW Plt Count MPV Neutrophils % Lymphocytes % Monocytes % Eosinophils % Basophils % PTT (Actin FS) 27.5 57.0 H D Sodium Potassium Chloride Carbon Dioxide Anion Gap BUN Creatinine Random Glucose Calcium Pleural Chloride Y Pleural Total Protein 3.544 Pleural LDH > 4000 Pleural Glucose 1.822 Pleural Amylase 24.066 Pleural Cholesterol 58 08/14/16 08/14/16 08/14/16 05:05 05:05 05:05 WBC 7.4 D RBC 2.89 L Hgb 8.4 L Hct 25.1 L MCV 86.7 MCHC 33.3 RDW 14.4 Plt Count 246 MPV 7.9 Neutrophils % 60.4 Lymphocytes % 32.3 Monocytes % 5.3 Eosinophils % 1.7 D Basophils % 0.3 PTT (Actin FS) 55.4 H Sodium 141 Potassium 3.7 Chloride 103 Carbon Dioxide 31 Anion Gap 7 L BUN 17 Creatinine 0.6 Random Glucose 90 Calcium 7.5 L Pleural Chloride Pleural Total Protein Pleural LDH Pleural Glucose Pleural Amylase Pleural Cholesterol Active Medications Generic Name Dose Route Start Last Admin Trade Name Freq PRN Reason Stop Dose Admin Acetaminophen 650 mg 08/13/16 16:00 08/14/16 04:48 Tylenol - PO 08/14/16 16:00 Not Given Q6H [facility] Atenolol 25 mg 08/13/16 10:00 08/13/16 09:52 Tenormin - PO 25 mg DAILY STEPHANIE Administration Digoxin 0.125 mg 08/13/16 10:00 08/13/16 09:52 Lanoxin - PO 0.125 mg DAILY STEPHANIE Administration Docusate Sodium 100 mg 08/13/16 22:00 08/13/16 21:21 Colace - PO 100 mg BID [facility] Administration Fentanyl 50 mcg 08/12/16 11:39 08/12/16 11:30 Sublimaze Injection - IVPUSH 08/15/16 11:40 50 mcg [id number] PRN Administration PAIN Levofloxacin 50 mls @ 50 mls/hr 08/12/16 20:00 08/13/16 20:04 Levaquin 250 Mg Premixed Ivpb - IVPB 50 mls/hr DAILY@2000 [facility] Administration Sodium Chloride 1,000 mls @ 42 mls/hr 08/12/16 18:30 08/13/16 18:30 Normal Saline - IV Not Given ASDIR STEPHANIE Heparin Sodium/Dextrose 500 mls @ 18 mls/hr 08/13/16 10:00 08/14/16 07:11 Heparin Infusion - IVPB 21 mls/hr TITR STEPHANIE Administration Protocol 900 UNITS/HR Magnesium Oxide 400 mg 08/13/16 10:00 08/13/16 09:52 Mag-Ox - PO 400 mg DAILY STEPHANIE Administration Morphine Sulfate 2 mg 08/13/16 11:45 08/14/16 03:30 Morphine Injection - IVPUSH 2 mg Q2H PRN Administration PAIN Pantoprazole Sodium 20 mg 08/13/16 10:00 08/13/16 09:52 Protonix - PO 20 mg DAILY STEPHANIE Administration Senna 1 tab 08/13/16 22:00 08/13/16 21:21 Senna - PO 1 tab HS STEPHANIE Administration Vancomycin HCl 1,000 mg 08/12/16 20:00 08/13/16 21:11 Vancomycin (Pre-Docked) IVPB 1,000 mg DAILY@1999 STEPHANIE Administration Protocol ASSESSMENT/PLAN: Patient is an 89 year old female with a significant past medical history of CLL , on active chemo treatments (last one 3 weeks ago), right breast cancer s/p lumpectomy a few years ago, macular degeneration, GERD and arrhythmia (has an implanted loop recorder). She presented to the ED on 08/05/2016 with worsening shortness of breath and was admitted for pleural effusion on the right lung, hypotension and CLL. ID: Severe Sepsis improving: Lactic Acidosis resolved, UTI + Pneumonia vs Empyema s/p vats for recurrent effusion- f/u pathology and operative cultures. leukocytosis resolved Sepsis - likely secondary to recurrent right sided pleural effusion and/or UTI pleural fluid shows exudative process, flow cytometry: pending Pain control morphine 2mg Q2H IVPUSH, will consider VIDEO PRODUCER if further pain control needed Continue CT to suction Incentive spirometry O2 as needed ecoli uti- on levaquin on empiric levaquin and vancomycin for pneumonia-Day 4 Recurrent Pleural Effusion-POD #2 Right lung -May be source of infection vs. malignancy - Afebrile overnight: s/p VATS/pneumolysis/decortication. Had thoracentesis on 07/12/2016 with 1300 cc of fluid removed. F/u fluid cytology, cytometry, culture pleural fluid shows exudative process, On Levaquin and Vanco, has allergy to pencillins ID following discussed case with anesthesia, will give state dose of Morphine IVpush, in between Q4h, than reassess pain level for further escalation if needed. Cardiology: Paroxysmal afib with RVR A fib - On a heparin, plan to transition to po AC -ASA on hold for procedure -On cardiac monitoring -Also has implanted loop recorder -Monitor BP -Cont Digoxin 0.125mg daily and Atenolol 25mg daily -Cardiology following Oncology: Chronic Lymphocytic Leukemia and hx of Breast Cancer Last chemo treatment 3 weeks prior to admission right arm precautions, Oncology following pleural fluid cytology pending F.E.N. Fluids: Dc IV fluids, oral hydration Electrolytes: replete as needed Nutrition: advance to full liquids diet oob to chair Prophylaxis: DVT: Heparin drip GI: Protonix Disposition: continue tele monitor in ICU Visit type - Emergency Visit Emergency Visit: Yes ED Registration Date: 08/05/16 Care time: The patient presented to the Emergency Department on the above date and was hospitalized for further evaluation of their emergent condition. - New Patient This patient is new to me today: No - Critical Care Critical Care patient: Yes Total Critical Care Time (in minutes): 44 Critical Care Statement: The care of this patient involved high complexity decision making to prevent further life threatening deterioration of the patient 's condition and/or to evalute & treat vital organ system(s) failure or risk of failure.
--- NOTE | 2016-08-14 08:24 | PN ---
Progress Note, Physician Chief Complaint: ID Vancomycin Levofloxacin per Dr Pendleton Day 2 post op In good spirits considering recent surgery - Current Medication List Current Medications: Active Medications Acetaminophen (Tylenol -) 650 mg PO Q6H [facility] Stop: 08/14/16 16:00 Last Admin: 08/14/16 04:48 Dose: Not Given Atenolol (Tenormin -) 25 mg PO DAILY [facility] Last Admin: 08/13/16 09:52 Dose: 25 mg Digoxin (Lanoxin -) 0.125 mg PO DAILY [facility] Last Admin: 08/13/16 09:52 Dose: 0.125 mg Docusate Sodium (Colace -) 100 mg PO BID [facility] Last Admin: 08/13/16 21:21 Dose: 100 mg Fentanyl (Sublimaze Injection -) 50 mcg IVPUSH [id number] PRN PRN Reason: PAIN Stop: 08/15/16 11:40 Last Admin: 08/12/16 11:30 Dose: 50 mcg Levofloxacin (Levaquin 250 Mg Premixed Ivpb -) 50 mls @ 50 mls/hr IVPB DAILY@ 1999 [facility] Last Admin: 08/13/16 20:04 Dose: 50 mls/hr Sodium Chloride (Normal Saline -) 1,000 mls @ 42 mls/hr IV ASDIR [facility] Last Admin: 08/13/16 18:30 Dose: Not Given Heparin Sodium/Dextrose (Heparin Infusion -) 500 mls @ 18 mls/hr IVPB TITR STEPHANIE ; 900 UNITS/HR PRN Reason: Protocol Last Admin: 08/14/16 07:11 Dose: 21 mls/hr Magnesium Oxide (Mag-Ox -) 400 mg PO DAILY [facility] Last Admin: 08/13/16 09:52 Dose: 400 mg Morphine Sulfate (Morphine Injection -) 2 mg IVPUSH Q2H PRN PRN Reason: PAIN Last Admin: 08/14/16 07:45 Dose: 2 mg Pantoprazole Sodium (Protonix -) 20 mg PO DAILY [facility] Last Admin: 08/13/16 09:52 Dose: 20 mg Senna (Senna -) 1 tab PO HS [facility] Last Admin: 08/13/16 21:21 Dose: 1 tab Vancomycin HCl (Vancomycin (Pre-Docked)) 1,000 mg IVPB DAILY@1999 [facility] PRN Reason: Protocol Last Admin: 08/13/16 21:11 Dose: 1,000 mg - Objective Vital Signs: Vital Signs Temperature 98.3 F 08/14/16 08:00 Pulse Rate 86 08/14/16 08:00 Respiratory Rate 19 08/14/16 08:00 Blood Pressure 137/39 08/14/16 08:00 O2 Sat by Pulse Oximetry (%) 100 08/13/16 21:58 Constitutional: Yes: Well Nourished, No Distress Neck: Yes: WNL, Supple Cardiovascular: Yes: Regular Rate and Rhythm, S1, S2. No: Murmur Respiratory: Yes: WNL, Regular, CTA Bilaterally, Diminished, Other (2 chest tubes) Gastrointestinal: Yes: WNL, Normal Bowel Sounds, Soft. No: Tenderness Labs: CBC, BMP 08/14/16 05:05 08/14/16 05:05 INR, PTT INR 1.32 (0.82-1.09) H 08/12/16 14:30 Assessment/Plan Laboratory Tests 08/13/16 05:05 Random Vancomycin 15.465 Microbiology 08/12/16 11:55 Tissue-Other Gram Stain - Final 08/12/16 11:55 Pleural Fluid Gram Stain - Final 08/12/16 09:00 Pleural Fluid Gram Stain - Final 08/08/16 05:35 Blood - Peripheral Venous TB Test (QFT) (PEPE) - Final 08/06/16 02:20 Urine - Urine - Catheterized Urine Culture - Final Escherichia Coli 08/12/16 11:55 Tissue-Other Tissue Culture - Preliminary NO AEROBIC GROWTH, 24 HRS 08/12/16 11:55 Pleural Fluid Body Fluid Culture - Preliminary NO AEROBIC GROWTH, 24 HRS 08/12/16 09:00 Pleural Fluid Body Fluid Culture - Preliminary NO AEROBIC GROWTH, 24 HRS Assessment S/P VAT day 2 According to pathology prelim looks like acute inflammation mostly neutrophils "Purulent" Nothing grew but on antibiotics They do not see malignancy / leukemia Plan Continue current antibiotics as ordered post op for a few more days CRP ESR Coral GARCIA
--- NOTE | 2016-08-14 08:50 | PN ---
Progress Note, Physician Chief Complaint: one chest tube removed No distress TELE: NSR - Current Medication List Current Medications: Active Medications Acetaminophen (Tylenol -) 650 mg PO Q6H [facility] Stop: 08/14/16 16:00 Last Admin: 08/14/16 04:48 Dose: Not Given Atenolol (Tenormin -) 25 mg PO DAILY [facility] Last Admin: 08/13/16 09:52 Dose: 25 mg Digoxin (Lanoxin -) 0.125 mg PO DAILY [facility] Last Admin: 08/13/16 09:52 Dose: 0.125 mg Docusate Sodium (Colace -) 100 mg PO BID [facility] Last Admin: 08/13/16 21:21 Dose: 100 mg Fentanyl (Sublimaze Injection -) 50 mcg IVPUSH [id number] PRN PRN Reason: PAIN Stop: 08/15/16 11:40 Last Admin: 08/12/16 11:30 Dose: 50 mcg Levofloxacin (Levaquin 250 Mg Premixed Ivpb -) 50 mls @ 50 mls/hr IVPB DAILY@ 1999 [facility] Last Admin: 08/13/16 20:04 Dose: 50 mls/hr Sodium Chloride (Normal Saline -) 1,000 mls @ 42 mls/hr IV ASDIR [facility] Last Admin: 08/13/16 18:30 Dose: Not Given Heparin Sodium/Dextrose (Heparin Infusion -) 500 mls @ 18 mls/hr IVPB TITR STEPHANIE ; 900 UNITS/HR PRN Reason: Protocol Last Admin: 08/14/16 07:11 Dose: 21 mls/hr Magnesium Oxide (Mag-Ox -) 400 mg PO DAILY [facility] Last Admin: 08/13/16 09:52 Dose: 400 mg Morphine Sulfate (Morphine Injection -) 2 mg IVPUSH Q2H PRN PRN Reason: PAIN Last Admin: 08/14/16 07:45 Dose: 2 mg Pantoprazole Sodium (Protonix -) 20 mg PO DAILY [facility] Last Admin: 08/13/16 09:52 Dose: 20 mg Senna (Senna -) 1 tab PO HS [facility] Last Admin: 08/13/16 21:21 Dose: 1 tab Vancomycin HCl (Vancomycin (Pre-Docked)) 1,000 mg IVPB DAILY@1999 [facility] PRN Reason: Protocol Last Admin: 08/13/16 21:11 Dose: 1,000 mg - Objective Vital Signs: Vital Signs Temperature 98.3 F 08/14/16 08:00 Pulse Rate 86 08/14/16 08:00 Respiratory Rate 19 08/14/16 08:00 Blood Pressure 137/39 08/14/16 08:00 O2 Sat by Pulse Oximetry (%) 100 08/13/16 21:58 Constitutional: Yes: No Distress Cardiovascular: Yes: Regular Rate and Rhythm Respiratory: Yes: Other (decreased breath sounds on right. chest tubes) Gastrointestinal: Yes: Soft Edema: No Neurological: Yes: Alert Labs: CBC, BMP 08/14/16 05:05 08/14/16 05:05 INR, PTT INR 1.32 (0.82-1.09) H 08/12/16 14:30 Laboratory Tests 08/14/16 08/14/16 08/14/16 05:05 05:05 05:05 WBC 7.4 D Hgb 8.4 L Plt Count 246 PTT (Actin FS) 55.4 H Sodium 141 Potassium 3.7 Creatinine 0.6 - ....Imaging EKG: Image Reviewed Assessment/Plan Assessment/Plan CLL on chemo Recurrent right pleural effusion s/p RVATs PSVT and PAF s/p ILR REC: Paroxysmal afib with RVR -cont Digoxin 0.125mg daily and Atenolol 25mg daily. Has been in NSR. - heparin gtt at 900U/hr; goal PTT 50-70. To start oral AC when chest tubes removed. -await final results of pleural fluid and pleural bx
--- NOTE | 2016-08-14 08:52 | PATH ---
Cytology Non-Gynecological Report Patient Name: ADAN LUNA Med. Rec. #: [id number] /Age/Gender: 1925 (Age: 89) / F Account: [id number] Location: ICU [facility] Taken: 08/12/2016 Received: 08/12/2016 Reported: 08/14/2016 Physicians: MD Nathan Platt M.D. Specimen(s) Received PLEURAL FLUID Clinical History Pleural effusion, right lung Final Diagnosis PLEURAL FLUID, RIGHT: SATISFACTORY FOR EVALUATION. ABUNDANT ACUTE INFLAMMATION. NO METASTATIC CARCINOMA OR LYMPHOCYTE PREDOMINANCE SEEN. SEE COMMENT. Comment: Refer to [id number] for the biopsy and flow cytometry results. Electronically Signed Maikel Bradford M.D. Gross Description Received is 20 cc of yellow fluid fresh. One cytofunnel slide and one cell block are made.
--- NOTE | 2016-08-14 09:04 | PATH ---
Surgical Pathology Report Patient Name: ADAN LUNA Med. Rec. #: [id number] /Age/Gender: 1925 (Age: 89) / F Account: [id number] Location: ICU [employer] Taken: 08/12/2016 Received: 08/12/2016 Reported: 08/14/2016 Physicians: MD Nathan Platt M.D. Specimen(s) Received A: PLEURAL CONTENT RIGHT LUNG B: RIGHT PLEURAL BIOPSY #1 C: RIGHT DIAPHRAGMATIC TISSUE D: VISCERAL PLEURA BIOPSY/TISSUE E: RIGHT PLELURAL BIOPSY #2 F: RIGHT PLEURAL CONTENT G: RIGTH PLEURAL BIOPSY #3 Clinical History Pleural effusion, right lung Intraoperative Consult Diagnosis Pleural content right lung: Mixed inflammatory exudate; cannot exclude involvement by patient's previously diagnosed CLL. Tissue will be submitted for flow cytometry (1frozen section). Dr. Roberts, 08/12/16. Final Diagnosis A. PLEURAL CONTENT, RIGHT LUNG: MIXED INFLAMMATORY EXUDATE, NECROINFLAMMATORY AND FIBRINOHEMORRHAGIC DEBRIS WITH NEUTROPHIL PREDOMINANCE. NO METASTATIC CARCINOMA IDENTIFIED. NO LYMPHOCYTE PREDOMINANCE SEEN. SEE COMMENT. B. RIGHT PLEURAL BIOPSY #1: FIBROFATTY TISSUE SKELETAL MUSCLE WITH ACTIVE AND CHRONIC INFLAMMATION. NO METASTATIC CARCINOMA IDENTIFIED. NO LYMPHOCYTE PREDOMINANCE SEEN. SEE COMMENT. C. RIGHT DIAPHRAGMATIC TISSUE: NECROINFLAMMATORY AND FIBRINOHEMORRHAGIC DEBRIS; INFLAMED GRANULATION TISSUE. NO METASTATIC CARCINOMA IDENTIFIED. NO LYMPHOCYTE PREDOMINANCE SEEN. SEE COMMENT. D. VISCERAL PLEURAL BIOPSY/TISSUE: NECROINFLAMMATORY AND FIBRINOHEMORRHAGIC MATERIAL. NO METASTATIC CARCINOMA IDENTIFIED. NO LYMPHOCYTE PREDOMINANCE SEEN. SEE COMMENT. E. RIGHT PLEURAL BIOPSY #2: SKELETAL MUSCLE AND FATTY TISSUE WITH ACTIVE AND CHRONIC INFLAMMATION. NO METASTATIC CARCINOMA IDENTIFIED. NO LYMPHOCYTE PREDOMINANCE SEEN. SEE COMMENT. F. RIGHT PLEURAL CONTENT: NECROINFLAMMATORY AND FIBRINOHEMORRHAGIC DEBRIS. NO METASTATIC CARCINOMA IDENTIFIED. NO LYMPHOCYTE PREDOMINANCE SEEN. SEE COMMENT. G. RIGHT PLEURAL BIOPSY #3: SKELETAL MUSCLE AND FIBROFATTY TISSUE WITH ACTIVE AND CHRONIC INFLAMMATION. NO METASTATIC CARCINOMA IDENTIFIED. NO LYMPHOCYTE PREDOMINANCE SEEN. SEE COMMENT. Comment: Prior history of CLL and breast cancer noted. No lymphocyte predominance or metastatic carcinoma is morphologically identified in the examined material. Flow Cytometry performed and interpreted on the concurrent specimen [place], [place] ([id number]) could not demonstrate a clonal B-cell population; the B-cells were 10% of total. Also refer to [id number] for the pleural fluid cytology results. Electronically Signed Maikel Bradford M.D. Gross Description A. Received fresh for frozen section labeled "pleural content right lung" is a 3.0 x 1.1 x 0.3 cm portion of [place] soft tissue. A ocean import representative portion is submitted for frozen section. An additional ocean import representative portion is placed in RPMI solution and sent for flow cytometry. The specimen is entirely submitted in 2 cassettes was follows: 1-frozen section residue; 2-remainder of specimen. B. Received fresh for frozen section labeled "right pleural biopsy" is a 1.3 x 0.6 x 0.3 cm pink-madera, irregular portion of soft tissue. After discussing the case with the surgeon, no frozen section is performed. A portion of the specimen is placed in RPMI solution and sent for flow cytometry. The remainder of the specimen is entirely submitted in one cassette. C. Received fresh labeled "diaphragmatic tissue" is a 2.5 x 2.3 x 0.3 cm aggregate of [place] pink soft tissue fragments. A ocean import representative portion is placed in RPMI solution and sent for flow cytometry. The remainder of the specimen is entirely submitted in one cassette. D. Received in formalin labeled "visceral pleural tissue" is a 4.5 x 3.0 x 0.6 cm portion of pink [place] soft tissue. The specimen is serially sectioned and entirely submitted in 4 cassettes. E. Received in formalin labeled "right pleural biopsy #2" is a 1.0 x 0.8 x 0.2 cm pink-madera, irregular portion of soft tissue. The specimen is trisected and entirely submitted in one cassette. F. Received in formalin labeled "right pleural content" is a 1.3 x 0.8 x 0.3 cm pink-madera, irregular portion of soft tissue. The specimen is trisected and entirely submitted in one cassette. G. Received in formalin labeled "right pleural biopsy #3" is a 0.5 x 0.4 x 0.2 cm [place], irregular portion of soft tissue. The specimen is bisected and entirely submitted in one cassette. 08/12/2016 saudi08/12/2016
[2016-08-14] MEDS ORDERED: PT OWN MED DRAWER 7, Y5N ONE (09:57)
[2016-08-14] MEDS: DOCUSATE SODIUM 100 MG CAPSULE (FP) PO SCH ×2 (10:03→21:39)
[2016-08-14] MEDS: PANTOPRAZOLE 20 MG TABLET (FP) PO SCH (10:03)
[2016-08-14] MEDS: MAGNESIUM OXIDE 400 MG TABLET (FP) PO SCH (10:03)
[2016-08-14] MEDS: ATENOLOL 25 MG TABLET (FP) PO SCH (10:03)
[2016-08-14] MEDS: DIGOXIN 0.125 MG TABLET (FP) PO SCH (10:03)
[2016-08-14 11:42] LABS: C-REACTIVE PROTEIN 13.8 MG/DL (0.00-0.3)
--- NOTE | 2016-08-14 12:05 | PN ---
Teaching Attending Note Name of Resident: Hanna Ly ATTENDING PHYSICIAN STATEMENT I saw and evaluated the patient. I reviewed the resident's note and discussed the case with the resident. I agree with the resident's findings and plan as documented. SUBJECTIVE: Pt seen and examined in the ICU. Pain better controlled. Denies shortness of breath. No fevers or chills. OBJECTIVE: Last Vital Signs Temp Pulse Resp BP Pulse Ox 98.1 F 92 H 20 156/81 100 08/14/16 10:00 08/14/16 10:03 08/14/16 10:00 08/14/16 10:00 08/14/16 08:00 Intake & Output 08/11/16 08/12/16 08/13/16 08/14/16 23:59 23:59 23:59 23:59 Intake Total 1048 1828 2065.5 756 Output Total 500 1200 970 603 Balance 683 383 2381.5 153 Weight 108 lb 12.8 oz 110 lb 12.8 oz 117 lb 5 oz 109 lb 5.588 oz Gen: weak appearing Heart: RRR Lung: right base coarse rales Abd: soft, nontender Ext: no edema Chest tube: serosanguinous drainage, no air leak CBC, BMP 08/14/16 05:05 08/14/16 05:05 Active Medications Acetaminophen (Tylenol -) 650 mg PO Q6H [facility] Stop: 08/14/16 16:00 Last Admin: 08/14/16 10:22 Dose: 650 mg Atenolol (Tenormin -) 25 mg PO DAILY [facility] Last Admin: 08/14/16 10:03 Dose: 25 mg Digoxin (Lanoxin -) 0.125 mg PO DAILY [facility] Last Admin: 08/14/16 10:03 Dose: 0.125 mg Docusate Sodium (Colace -) 100 mg PO BID [facility] Last Admin: 08/14/16 10:03 Dose: 100 mg Fentanyl (Sublimaze Injection -) 50 mcg IVPUSH [id number] PRN PRN Reason: PAIN Stop: 08/15/16 11:40 Last Admin: 08/12/16 11:30 Dose: 50 mcg Levofloxacin (Levaquin 250 Mg Premixed Ivpb -) 50 mls @ 50 mls/hr IVPB DAILY@ 1999 [facility] Last Admin: 08/13/16 20:04 Dose: 50 mls/hr Heparin Sodium/Dextrose (Heparin Infusion -) 500 mls @ 18 mls/hr IVPB TITR [facility]IE ; 900 UNITS/HR PRN Reason: Protocol Last Admin: 08/14/16 10:00 Dose: Not Given Magnesium Oxide (Mag-Ox -) 400 mg PO DAILY [facility] Last Admin: 08/14/16 10:03 Dose: 400 mg Morphine Sulfate (Morphine Injection -) 2 mg IVPUSH Q2H PRN PRN Reason: PAIN Last Admin: 08/14/16 10:30 Dose: 2 mg Pantoprazole Sodium (Protonix -) 20 mg PO DAILY [facility] Last Admin: 08/14/16 10:03 Dose: 20 mg Senna (Senna -) 1 tab PO HS [facility] Last Admin: 08/13/16 21:21 Dose: 1 tab Vancomycin HCl (Vancomycin (Pre-Docked)) 1,000 mg IVPB DAILY@2000 [facility] PRN Reason: Protocol Last Admin: 08/13/16 21:11 Dose: 1,000 mg ASSESSMENT AND PLAN: UTI Pneumonia vs Empyema vs Malignant Effusion Severe Sepsis improving Lactic Acidosis resolved Atrial Fibrillation CLL - antibiotics per ID - f/u OR cultures, pathology - f/u pleural fluid flow cytometry - monitor urine output, creatinine - pain control - incentive spirometry - O2 as needed - DVT prophylaxis - continue ICU monitoring
--- NOTE | 2016-08-14 12:50 | PN ---
Physical Exam: SUBJECTIVE: Patient seen and examined in icu. She is using her incentive spirometer. She is Events: - DC anterior CT this aM - DC wagoner this AM ~9am OBJECTIVE: Vital Signs Period Temp Pulse Resp BP Sys/Ross Pulse Ox Last 24 Hr 97.6 F-98.3 F 71-92 18-25 107-156/39-87 100-100 PE Gen: conversational Neuro: alert, awake, cn 2-12intact Pulm: x2 CT R posterior chest, mediastinal, serosanguinous drainage, R lung with rales, L with ronchi, good inspiratory effor CV: s1 s2 rrr no mrg Abd: s nt nd +bs Ext: warm, no le edema CBCD WBC 7.4 K/mm3 (4.0-10.0) D 08/14/16 05:05 RBC 2.89 M/mm3 (3.60-5.2) L 08/14/16 05:05 Hgb 8.4 GM/dL (10.7-15.3) L 08/14/16 05:05 Hct 25.1 % (32.4-45.2) L 08/14/16 05:05 MCV 86.7 fl (80-96) 08/14/16 05:05 MCHC 33.3 g/dl (32.0-36.0) 08/14/16 05:05 RDW 14.4 % (11.6-15.6) 08/14/16 05:05 Plt Count 246 K/MM3 (134-434) 08/14/16 05:05 MPV 7.9 fl (7.5-11.1) 08/14/16 05:05 CMP Sodium 141 mmol/L (136-145) 08/14/16 05:05 Potassium 3.7 mmol/L (3.5-5.1) 08/14/16 05:05 Chloride 103 mmol/L (98-107) 08/14/16 05:05 Carbon Dioxide 31 mmol/L (21-32) 08/14/16 05:05 Anion Gap 7 (8-16) L 08/14/16 05:05 BUN 17 mg/dL (7-18) 08/14/16 05:05 Creatinine 0.6 mg/dL (0.55-1.02) 08/14/16 05:05 Creat Clearance w eGFR > 60 (>60) 08/13/16 05:05 Calcium 7.5 mg/dL (8.5-10.1) L 08/14/16 05:05 Total Bilirubin 0.6 mg/dL (0.2-1.0) 08/13/16 05:05 AST 21 U/L (15-37) 08/13/16 05:05 ALT 26 U/L (12-78) 08/13/16 05:05 Alkaline Phosphatase 118 U/L (45-117) H 08/13/16 05:05 Total Protein 4.0 g/dl (6.4-8.2) L 08/13/16 05:05 Albumin 1.6 g/dl (3.4-5.0) L 08/13/16 05:05 Active Medications Generic Name Dose Route Start Last Admin Trade Name Freq PRN Reason Stop Dose Admin Acetaminophen 650 mg 08/13/16 16:00 08/14/16 10:22 Tylenol - PO 08/14/16 16:00 650 mg Q6H [facility]IE Administration Atenolol 25 mg 08/13/16 10:00 08/14/16 10:03 Tenormin - PO 25 mg DAILY [facility] Administration Digoxin 0.125 mg 08/13/16 10:00 08/14/16 10:03 Lanoxin - PO 0.125 mg DAILY [facility] Administration Docusate Sodium 100 mg 08/13/16 22:00 08/14/16 10:03 Colace - PO 100 mg BID [facility] Administration Fentanyl 50 mcg 08/12/16 11:39 08/12/16 11:30 Sublimaze Injection - IVPUSH 08/15/16 11:40 50 mcg [id number] PRN Administration PAIN Levofloxacin 50 mls @ 50 mls/hr 08/12/16 20:00 08/13/16 20:04 Levaquin 250 Mg Premixed Ivpb - IVPB 50 mls/hr DAILY@2000 [facility] Administration Heparin Sodium/Dextrose 500 mls @ 18 mls/hr 08/13/16 10:00 08/14/16 10:00 Heparin Infusion - IVPB Not Given TITR [facility] Protocol 900 UNITS/HR Magnesium Oxide 400 mg 08/13/16 10:00 08/14/16 10:03 Mag-Ox - PO 400 mg DAILY [facility] Administration Morphine Sulfate 2 mg 08/13/16 11:45 08/14/16 10:30 Morphine Injection - IVPUSH 2 mg Q2H PRN Administration PAIN Pantoprazole Sodium 20 mg 08/13/16 10:00 08/14/16 10:03 Protonix - PO 20 mg DAILY [facility] Administration Senna 1 tab 08/13/16 22:00 08/13/16 21:21 Senna - PO 1 tab HS [facility] Administration Vancomycin HCl 1,000 mg 08/12/16 20:00 08/13/16 21:11 Vancomycin (Pre-Docked) IVPB 1,000 mg DAILY@1999 [facility] Administration Protocol Assessment: 89 year old female with PMH CLL, R Br CA, GERD, arrhythmia, macular degeneration, pleural effusion (recent thoracentesis on 07/16/16) admitted with SOB sepsis and pleural effusion. Plan: 1. Pleural effusion - s/p VATS 08/12 - D/w ID; prelim path results show acute inflammation w neutrophils, no malignant/leukemia signs - Awaiting final cytology and cultures, r/o empyema vs pna - Continue empiric abx, zosyn/levaquin - Send CRP, ESR 2. Sepsis d/t E. Coli UTI +/- lung source - Resolving - Levaquin/vanco 3. A Fib, RVR - In sinus, controlled - Heparin gtt - Continue Dig 0.125mg - Continue Atenolol 25mg daily - Start AC once CT removed 4. CLL - s/p recent chemo 3 weeks ago - appreciate oncology consult 5. GERD - Cont Protonix 6. DVT PPX - Heparin gtt - OOB to chair Visit type - Emergency Visit Emergency Visit: Yes ED Registration Date: 08/05/16 Care time: The patient presented to the Emergency Department on the above date and was hospitalized for further evaluation of their emergent condition. - New Patient This patient is new to me today: No - Critical Care Critical Care patient: No
[2016-08-14] MEDS: LEVOFLOXACIN 250 MG IVPB 50 ML IVPB SCH (19:26)
[2016-08-14] MEDS: VANCOMYCIN 1 GRAM (PRE-DOCKED) 1,000 MG/250 ML BAG IVPB SCH (19:26)
[2016-08-14] MEDS: SENNOSIDES 8.6MG TABLET (FP) PO SCH (21:38)
[2016-08-15] MEDS: morphine CARPU-JECT 2 MG/1 ML DISP.SYRIN IVPUSH PRN ×5 (05:30→19:30)
[2016-08-15] MEDS: HEPARIN INFUSION - 500 ML IVPB SCH ×2 (05:30→12:18)
[2016-08-15 06:04] LABS: MCH 29.3 pg (25.7-33.7); MCHC 34.1 g/dl (32.0-36.0); MEAN PLT VOLUME 8.1 fl (7.5-11.1); PLATELET COUNT 281 K/MM3 (134-434); RDW 14.3 % (11.6-15.6); WHITE BLOOD COUNT 6.5 K/mm3 (4.0-10.0)
[2016-08-15 06:31] LABS: ALBUMIN 1.7 g/dl (3.4-5.0); ALK PHOS 174 U/L (45-117); ANION GAP 7 (8-16); BILIRUBIN,TOTAL 0.4 mg/dL (0.2-1.0); CALCIUM 7.9 mg/dL (8.5-10.1); CO2 30 mmol/L (21-32); CREATININE 0.6 mg/dL (0.55-1.02); GLUCOSE,RANDOM 96 mg/dL (74-106); MAGNESIUM 2.2 mg/dL (1.8-2.4); SGOT/AST 20 U/L (15-37); SGPT/ALT 27 U/L (12-78); TOT PROT 4.3 g/dl (6.4-8.2)
--- NOTE | 2016-08-15 08:15 | PN ---
Physical Exam: SUBJECTIVE: Patient seen and examined at bed side in ICU. patient breathing better, with less pain. denies any fevers, chills, N/V/D, patient tolerating diet, had one regular BM yesterday and voiding. POD#3 CT output is serosangrenous: Mediastinal 48cc/24hr, Posterior 8cc/24hr, possible DC of posterior CT tomorrow per surgery Pleural effusion post VAT ( cultures negative) OBJECTIVE: Vital Signs Period Temp Pulse Resp BP Sys/Ross Pulse Ox Last 24 Hr 97.4 F-98.1 F 67-92 18-22 114-163/41-81 100 GENERAL: The patient is awake, alert, and fully oriented, in no acute distress. HEAD: Normal with no signs of trauma. EYES: PERRL, extraocular movements intact, sclera anicteric, conjunctiva clear. ENT: Ears normal, nares patent, oropharynx clear without exudates, moist mucous membranes. NECK: Trachea midline, full range of motion, supple. [id number] Left midline neck lemphadenopathy non tender, erythmatus, LUNGS: Course breath sounds right middle and base lung, Left lung base with crackles. right side tender right rn invasive wall 2cm x 2 cm soft mass. Upper left lobes clear.chest tube x 2 (middle fissure & posterior), dressing over chest tube site clean/dry/intact, no obvious air leak but patient with poor respiratory effort. All three CT on suction. HEART: Regular rate and rhythm, S1, S2 without murmur, rub or gallop. ABDOMEN: Soft, nontender, mild distended, hypoactive bowel sounds, no guarding , no rebound, no hepatosplenomegaly, no masses. EXTREMITIES: 2+ pulses, warm, well-perfused, + edema. NEUROLOGICAL: no gross focal neurological deficit appreciated, Normal speech, gait not observed. PSYCH: Normal mood, normal affect. SKIN: Warm, dry, normal turgor, no rashes or lesions noted Laboratory Results - last 24 hr 08/14/16 08/14/16 03 05:05 05:05 05:05 WBC 6.5 RBC 2.95 L Hgb 8.6 L Hct 25.4 L MCV 86.0 MCHC 34.1 RDW 14.3 Plt Count 281 MPV 8.1 ESR PTT (Actin FS) Sodium Potassium Chloride Carbon Dioxide Anion Gap BUN Creatinine Creat Clearance w eGFR Random Glucose Calcium Phosphorus Magnesium Total Bilirubin AST ALT Alkaline Phosphatase C-Reactive Protein 13.8 H Cancelled Total Protein Albumin 08/15/16 08/15/16 08/15/16 05:05 05:05 05:05 WBC RBC Hgb Hct MCV MCHC RDW Plt Count MPV ESR 75 H PTT (Actin FS) 50.6 H Sodium 140 Potassium 3.9 Chloride 103 Carbon Dioxide 30 Anion Gap 7 L BUN 16 Creatinine 0.6 Creat Clearance w eGFR > 60 Random Glucose 96 Calcium 7.9 L Phosphorus Magnesium 2.2 Total Bilirubin 0.4 D AST 20 ALT 27 Alkaline Phosphatase 174 H D C-Reactive Protein Total Protein 4.3 L Albumin 1.7 L 08/15/16 05:05 WBC RBC Hgb Hct MCV MCHC RDW Plt Count MPV ESR PTT (Actin FS) Sodium Potassium Chloride Carbon Dioxide Anion Gap BUN Creatinine Creat Clearance w eGFR Random Glucose Calcium Phosphorus 3.4 Magnesium Total Bilirubin AST ALT Alkaline Phosphatase C-Reactive Protein Total Protein Albumin Active Medications Generic Name Dose Route Start Last Admin Trade Name Freq PRN Reason Stop Dose Admin Acetaminophen 650 mg 08/14/16 23:33 Tylenol - PO Q6H PRN FEVER OR PAIN Atenolol 25 mg 08/13/16 10:00 08/14/16 10:03 Tenormin - PO 25 mg DAILY [facility] Administration Digoxin 0.125 mg 08/13/16 10:00 08/14/16 10:03 Lanoxin - PO 0.125 mg DAILY [facility] Administration Docusate Sodium 100 mg 08/13/16 22:00 08/14/16 21:39 Colace - PO 100 mg BID [facility] Administration Fentanyl 50 mcg 08/12/16 11:39 08/12/16 11:30 Sublimaze Injection - IVPUSH 08/15/16 11:40 50 mcg [id number] PRN Administration PAIN Levofloxacin 50 mls @ 50 mls/hr 08/12/16 20:00 08/14/16 19:26 Levaquin 250 Mg Premixed Ivpb - IVPB 50 mls/hr DAILY@2000 [facility] Administration Heparin Sodium/Dextrose 500 mls @ 18 mls/hr 08/13/16 10:00 08/15/16 05:30 Heparin Infusion - IVPB 21 mls/hr TITR [facility] Administration Protocol 900 UNITS/HR Magnesium Oxide 400 mg 08/13/16 10:00 08/14/16 10:03 Mag-Ox - PO 400 mg DAILY [facility] Administration Morphine Sulfate 2 mg 08/13/16 11:45 08/15/16 05:30 Morphine Injection - IVPUSH 2 mg Q2H PRN Administration PAIN Pantoprazole Sodium 20 mg 08/13/16 10:00 08/14/16 10:03 Protonix - PO 20 mg DAILY [facility] Administration Senna 1 tab 08/13/16 22:00 08/14/16 21:38 Senna - PO 1 tab HS [facility] Administration Vancomycin HCl 1,000 mg 08/12/16 20:00 08/14/16 19:26 Vancomycin (Pre-Docked) IVPB 1,000 mg DAILY@1999 [facility] Administration Protocol ASSESSMENT/PLAN: Patient is an 89 year old female with a significant past medical history of CLL , on active chemo treatments (last one 3 weeks ago), right breast cancer s/p lumpectomy a few years ago, macular degeneration, GERD and arrhythmia (has an implanted loop recorder). She presented to the ED on 08/05/2016 with worsening shortness of breath and was admitted for pleural effusion on the right lung, hypotension and CLL. ID: Severe Sepsis improving: Lactic Acidosis resolved, UTI + Pneumonia vs Empyema s/p vats for recurrent effusion- f/u pathology and operative cultures. leukocytosis resolved Sepsis - likely secondary to recurrent right sided pleural effusion and/or UTI pleural fluid shows exudative process, flow cytometry: pending Pleural effusion post VAT ( cultures negative) Pain control morphine 2mg Q2H IVPUSH, will consider ADZING AND BORING MACHINE FEEDER if further pain control needed Incentive spirometry ecoli uti- on levaquin on empiric levaquin and vancomycin for pneumonia-Day 5 Recurrent Pleural Effusion-POD #3 Right lung -May be source of infection vs. malignancy - Afebrile overnight: s/p VATS/pneumolysis/decortication. F/u fluid cytology, cytometry, culture pleural fluid shows exudative process, On Levaquin and Vanco, has allergy to pencillins Continue CT to suction possible DC of posterior CT tomorrow per surgery cont supp care and wean oxygen as vilma aggressive pulm toilet, ID following Cardiology: Paroxysmal afib with RVR - heparin gtt at 900U/hr; goal PTT 50-70. To start oral AC when chest tubes removed. -ASA on hold for procedure -On cardiac monitoring -Also has implanted loop recorder -Monitor BP -Cont Digoxin 0.125mg daily and Atenolol 25mg daily, Remains in NSR. -Cardiology following Oncology: Chronic Lymphocytic Leukemia and hx of Breast Cancer Last chemo treatment 3 weeks prior to admission right arm precautions, Oncology following pleural fluid cytology pending F.E.N. Fluids: Oral hydration Electrolytes: replete as needed Nutrition: advance to full liquids diet oob to chair Prophylaxis: DVT: Heparin drip GI: Protonix Disposition: continue tele monitor in ICU Visit type - Emergency Visit Emergency Visit: Yes ED Registration Date: 08/05/16 Care time: The patient presented to the Emergency Department on the above date and was hospitalized for further evaluation of their emergent condition. - New Patient This patient is new to me today: No - Critical Care Critical Care patient: Yes Total Critical Care Time (in minutes): 43 Critical Care Statement: The care of this patient involved high complexity decision making to prevent further life threatening deterioration of the patient 's condition and/or to evalute & treat vital organ system(s) failure or risk of failure.
--- NOTE | 2016-08-15 09:01 | PN ---
[id number] with nursing and ICU resident. Patient states she is having some pain with breathing, but just received pain medication, and overall is doing better. She has been tolerating her diet, but states she does not have a large appetite. She is voiding without issue. She is using her incentive spirometry. She denies fever, chills, SOB, nausea, vomiting. Last Vital Signs Temp Pulse Resp BP Pulse Ox 98.6 F 90 22 121/39 100 08/15/16 08:00 08/15/16 08:00 08/15/16 06:00 08/15/16 08:00 08/15/16 08:27 CBC, BMP 08/15/16 05:05 08/15/16 05:05 Chest tube output: Posterior: 8ml overnight Med: 48 ml CXR this morning pending Exam: Gen: NAD Cardio: RRR Resp: Course breath sounds right base, left CTA, dressings over chest tube sites c/d/i, CT output serosanguineous, no air leak, but patient with poor effort <Fabiola Wilder - Last Filed: 08/15/16 09:19> - Note Progress Note: seen and examined. agreed with above. no major event over night. no f/c, cough, sputum production, sob, hemoptysis. ct x2, serosang, no air leak. 1. cont supp care and wean oxygen as vilma 2. abx 3. f/u cx, cyto, and path 4. oob amb w pt, aggressive pulm toilet, is x10/hr, chest pt 5. will follow with you <Orlando Ryder - Last Filed: 08/15/16 09:33> Problem List - Problems (1) Pleural effusion Assessment/Plan: POD#3 s/p bronchocopy, right VATs w/ decortication, pneumolysis & pleural bx Continue chest tubes to suction, possible DC of posterior CT tomorrow Incentive spirometer, aggressive pulmonary toileting, chest PT OOB/amb w/ assistance Follow-up CXR Pain control abx per ID, F/up path Patient discussed with Dr. Ryder Code(s): J90 - PLEURAL EFFUSION, NOT ELSEWHERE CLASSIFIED <Fabiola Wilder - Last Filed: 08/15/16 09:19> - Problems (1) Pleural effusion Code(s): J90 - PLEURAL EFFUSION, NOT ELSEWHERE CLASSIFIED <Orlando Ryder - Last Filed: 08/15/16 09:33>
[2016-08-15] MEDS ORDERED: NAPH,MB-DB/K PH,MBDB POWDER PACKET PO SCH (09:30)
[2016-08-15] MEDS: PANTOPRAZOLE 20 MG TABLET (FP) PO SCH (09:34)
[2016-08-15] MEDS: DIGOXIN 0.125 MG TABLET (FP) PO SCH (09:34)
[2016-08-15] MEDS: DOCUSATE SODIUM 100 MG CAPSULE (FP) PO SCH ×2 (09:34→21:31)
[2016-08-15] MEDS: MAGNESIUM OXIDE 400 MG TABLET (FP) PO SCH (09:35)
[2016-08-15] MEDS ORDERED: PT OWN MED DRAWER 7, Y5N ONE (09:36)
[2016-08-15] MEDS: ATENOLOL 25 MG TABLET (FP) PO SCH (09:37)
--- NOTE | 2016-08-15 09:55 | PN ---
Progress Note, Physician Chief Complaint: TELE: NSR 2 chest tubes remain in place - Current Medication List Current Medications: Active Medications Acetaminophen (Tylenol -) 650 mg PO Q6H PRN PRN Reason: FEVER OR PAIN Atenolol (Tenormin -) 25 mg PO DAILY [facility] Last Admin: 08/15/16 09:37 Dose: 25 mg Digoxin (Lanoxin -) 0.125 mg PO DAILY [facility] Last Admin: 08/15/16 09:34 Dose: 0.125 mg Docusate Sodium (Colace -) 100 mg PO BID [facility] Last Admin: 08/15/16 09:34 Dose: 100 mg Fentanyl (Sublimaze Injection -) 50 mcg IVPUSH [id number] PRN PRN Reason: PAIN Stop: 08/15/16 11:40 Last Admin: 08/12/16 11:30 Dose: 50 mcg Levofloxacin (Levaquin 250 Mg Premixed Ivpb -) 50 mls @ 50 mls/hr IVPB DAILY@ 1999 [facility] Last Admin: 08/14/16 19:26 Dose: 50 mls/hr Heparin Sodium/Dextrose (Heparin Infusion -) 500 mls @ 18 mls/hr IVPB TITR STEPHANIE ; 900 UNITS/HR PRN Reason: Protocol Last Admin: 08/15/16 05:30 Dose: 21 mls/hr Magnesium Oxide (Mag-Ox -) 400 mg PO DAILY [facility] Last Admin: 08/15/16 09:35 Dose: 400 mg Morphine Sulfate (Morphine Injection -) 2 mg IVPUSH Q2H PRN PRN Reason: PAIN Last Admin: 08/15/16 08:21 Dose: 2 mg Pantoprazole Sodium (Protonix -) 20 mg PO DAILY [facility] Last Admin: 08/15/16 09:34 Dose: 20 mg Potassium Phos/Sodium Phos (Phos-Nak Packet -) 1 packet PO Q4H [facility] Stop: 08/15/16 13:31 Last Admin: 08/15/16 09:37 Dose: 1 packet Senna (Senna -) 1 tab PO HS [facility] Last Admin: 08/14/16 21:38 Dose: 1 tab Vancomycin HCl (Vancomycin (Pre-Docked)) 1,000 mg IVPB DAILY@1999 [facility] PRN Reason: Protocol Last Admin: 08/14/16 19:26 Dose: 1,000 mg - Objective Vital Signs: Vital Signs Temperature 98.6 F 08/15/16 08:00 Pulse Rate 86 08/15/16 09:34 Respiratory Rate 22 08/15/16 06:00 Blood Pressure 121/39 08/15/16 08:00 O2 Sat by Pulse Oximetry (%) 100 08/15/16 08:27 Constitutional: Yes: No Distress Eyes: Yes: Conjunctiva Clear Cardiovascular: Yes: Regular Rate and Rhythm Respiratory: Yes: Other (2 chest tubes on right) Gastrointestinal: Yes: Soft Edema: Yes Edema: LLE: 1+, RLE: 1+ Neurological: Yes: Alert Labs: CBC, BMP 08/15/16 05:05 08/15/16 05:05 INR, PTT INR 1.32 (0.82-1.09) H 08/12/16 14:30 - ....Imaging EKG: Image Reviewed Assessment/Plan Assessment/Plan CLL on chemo Recurrent right pleural effusion s/p RVATs PSVT and PAF s/p ILR REC: Paroxysmal afib with RVR -cont Digoxin 0.125mg daily and Atenolol 25mg daily. Remains in NSR. - heparin gtt at 900U/hr; goal PTT 50-70. To start oral AC when chest tubes removed.
--- NOTE | 2016-08-15 11:31 | PN ---
Progress Note (short form) - Note Progress Note: ID Empiric Staph and GNB coverage vancomycin aztreonam ( PCN allergy years ago rash ) Lung tissue looks more acute but not empyema Better today Selected Entries 08/15/16 08/15/16 08:00 09:55 Temperature 98.6 F Pulse Rate 86 Blood Pressure 121/39 O2 Sat by Pulse 99 Oximetry (%) Chest tubes x 2 right side VAT Microbiology 08/12/16 11:55 Pleural Fluid Gram Stain - Final 08/12/16 11:55 Pleural Fluid Anaerobic Culture - Final NO GROWTH OF AEROBIC ORGANISMS AFTER 48 HOURS INCUBATION NO ANAEROBES WERE ISOLATED Laboratory Tests 08/15/16 05:05 BUN 16 Creatinine 0.6 Creat Clearance w eGFR > 60 Alkaline Phosphatase 174 H D Assessment Leukemia by history Pleural effusion post VAT ( cultures negative) Atrial fibrillation Plan STOP IV antibiotics Levoflox po for 3 days Coral GARCIA
[2016-08-15] MEDS: LEVOFLOXACIN 250 MG TABLET (FP) PO SCH (12:18)
--- NOTE | 2016-08-15 12:36 | PN ---
Teaching Attending Note Name of Resident: Hanna Ly ATTENDING PHYSICIAN STATEMENT I saw and evaluated the patient. I reviewed the resident's note and discussed the case with the resident. I agree with the resident's findings and plan as documented. SUBJECTIVE: Pt seen and examined in the ICU. Pain adequately controlled. No fevers or chills. Denies shortness of breath. OBJECTIVE: Last Vital Signs Temp Pulse Resp BP Pulse Ox 98.6 F 86 22 121/39 99 08/15/16 08:00 08/15/16 09:55 08/15/16 06:00 08/15/16 08:00 08/15/16 09:55 Intake & Output 08/12/16 08/13/16 08/14/16 08/15/16 23:59 23:59 23:59 23:59 Intake Total 1828 2065.5 1947 252 Output Total 3475 481 8419 556 Balance 628 1095.5 481 -304 Weight 110 lb 12.8 oz 117 lb 5 oz 109 lb 5.588 oz 112 lb 6.972 oz Gen: weak appearing Heart: RRR Lung: right base rales Abd: soft, nontender Ext: +distal edema Chest tube: no air leak, serosanguinous drainage CBC, BMP 08/15/16 05:05 08/15/16 05:05 Active Medications Acetaminophen (Tylenol -) 650 mg PO Q6H PRN PRN Reason: FEVER OR PAIN Atenolol (Tenormin -) 25 mg PO DAILY [facility] Last Admin: 08/15/16 09:37 Dose: 25 mg Digoxin (Lanoxin -) 0.125 mg PO DAILY [facility] Last Admin: 08/15/16 09:34 Dose: 0.125 mg Docusate Sodium (Colace -) 100 mg PO BID [facility] Last Admin: 08/15/16 09:34 Dose: 100 mg Heparin Sodium/Dextrose (Heparin Infusion -) 500 mls @ 18 mls/hr IVPB TITR STEPHANIE ; 900 UNITS/HR PRN Reason: Protocol Last Admin: 08/15/16 12:18 Dose: 21 mls/hr Levofloxacin (Levaquin -) 250 mg PO DAILY@0600 [facility] Last Admin: 08/15/16 12:18 Dose: 250 mg Magnesium Oxide (Mag-Ox -) 400 mg PO DAILY [facility] Last Admin: 08/15/16 09:35 Dose: 400 mg Morphine Sulfate (Morphine Injection -) 2 mg IVPUSH Q2H PRN PRN Reason: PAIN Last Admin: 08/15/16 12:18 Dose: 2 mg Pantoprazole Sodium (Protonix -) 20 mg PO DAILY STEPHANIE Last Admin: 08/15/16 09:34 Dose: 20 mg Senna (Senna -) 1 tab PO HS STEPHANIE Last Admin: 08/14/16 21:38 Dose: 1 tab ASSESSMENT AND PLAN: UTI Pneumonia vs Empyema vs Malignant Effusion Severe Sepsis improving Lactic Acidosis resolved Atrial Fibrillation CLL - antibiotics per ID - f/u OR cultures, pathology - f/u pleural fluid flow cytometry - monitor urine output, creatinine - pain control - incentive spirometry - O2 as needed - DVT prophylaxis - continue ICU monitoring
--- NOTE | 2016-08-15 18:04 | PN ---
Physical Exam: SUBJECTIVE: Patient seen and examined in ICU. OOB to chair, she is currently in pain, pain medication makes it tolerable. No fevers overnight, chills. Events: - Positive void following wagoner removal - IVF stopped OBJECTIVE: Vital Signs Period Temp Pulse Resp BP Sys/Ross Pulse Ox Last 24 Hr 97.4 F-99 F 67-95 18-22 99-158/39-77 95-100 PE Neuro: alert, awake, cn 2-12intact Pulm: x2 CT R posterior chest, mediastinal, serosanguinous drainage, R lung course bs, rales, L diminished, clear CV: s1 s2 rrr no mrg Abd: s nt nd +bs Ext: warm, pedal edema, upper ext edema CBCD WBC 6.5 K/mm3 (4.0-10.0) 08/15/16 05:05 RBC 2.95 M/mm3 (3.60-5.2) L 08/15/16 05:05 Hgb 8.6 GM/dL (10.7-15.3) L 08/15/16 05:05 Hct 25.4 % (32.4-45.2) L 08/15/16 05:05 MCV 86.0 fl (80-96) 08/15/16 05:05 MCHC 34.1 g/dl (32.0-36.0) 08/15/16 05:05 RDW 14.3 % (11.6-15.6) 08/15/16 05:05 Plt Count 281 K/MM3 (134-434) 08/15/16 05:05 MPV 8.1 fl (7.5-11.1) 08/15/16 05:05 CMP Sodium 140 mmol/L (136-145) 08/15/16 05:05 Potassium 3.9 mmol/L (3.5-5.1) 08/15/16 05:05 Chloride 103 mmol/L (98-107) 08/15/16 05:05 Carbon Dioxide 30 mmol/L (21-32) 08/15/16 05:05 Anion Gap 7 (8-16) L 08/15/16 05:05 BUN 16 mg/dL (7-18) 08/15/16 05:05 Creatinine 0.6 mg/dL (0.55-1.02) 08/15/16 05:05 Creat Clearance w eGFR > 60 (>60) 08/15/16 05:05 Calcium 7.9 mg/dL (8.5-10.1) L 08/15/16 05:05 Total Bilirubin 0.4 mg/dL (0.2-1.0) D 08/15/16 05:05 AST 20 U/L (15-37) 08/15/16 05:05 ALT 27 U/L (12-78) 08/15/16 05:05 Alkaline Phosphatase 174 U/L (45-117) H D 08/15/16 05:05 Total Protein 4.3 g/dl (6.4-8.2) L 08/15/16 05:05 Albumin 1.7 g/dl (3.4-5.0) L 08/15/16 05:05 08/14/16 08/15/16 08/15/16 05:05 05:05 05:05 ESR 75 H Phosphorus Magnesium 2.2 C-Reactive Protein 13.8 H 08/15/16 05:05 ESR Phosphorus 3.4 Magnesium C-Reactive Protein Active Medications Generic Name Dose Route Start Last Admin Trade Name Freq PRN Reason Stop Dose Admin Acetaminophen 650 mg 08/14/16 23:33 Tylenol - PO Q6H PRN FEVER OR PAIN Atenolol 25 mg 08/13/16 10:00 08/15/16 09:37 Tenormin - PO 25 mg DAILY STEPHANIE Administration Digoxin 0.125 mg 08/13/16 10:00 08/15/16 09:34 Lanoxin - PO 0.125 mg DAILY STEPHANIE Administration Docusate Sodium 100 mg 08/13/16 22:00 08/15/16 09:34 Colace - PO 100 mg BID STEPHANIE Administration Heparin Sodium/Dextrose 500 mls @ 18 mls/hr 08/13/16 10:00 08/15/16 12:18 Heparin Infusion - IVPB 21 mls/hr TITR STEPHANIE Administration Protocol 900 UNITS/HR Levofloxacin 250 mg 08/15/16 12:15 08/15/16 12:18 Levaquin - PO 250 mg DAILY@0600 STEPHANIE Administration Magnesium Oxide 400 mg 08/13/16 10:00 08/15/16 09:35 Mag-Ox - PO 400 mg DAILY STEPHANIE Administration Morphine Sulfate 2 mg 08/13/16 11:45 08/15/16 17:39 Morphine Injection - IVPUSH 2 mg Q2H PRN Administration PAIN Pantoprazole Sodium 20 mg 08/13/16 10:00 08/15/16 09:34 Protonix - PO 20 mg DAILY STEPHANIE Administration Senna 1 tab 08/13/16 22:00 08/14/16 21:38 Senna - PO 1 tab HS STEPHANIE Administration Assessment: 89 year old female with PMH CLL, Right Breast CA, GERD, arrhythmia, macular degeneration, pleural effusion (recent thoracentesis on 07/16/16) admitted with SOB sepsis and pleural effusion. Plan: 1. Pleural effusion - s/p VATS 08/12 - Exudative effusion resulted - Awaiting final cytology and cultures, r/o empyema vs pna - Discontinue Vanco - Continue levaquin 250mg x3 days - Pre judd frozen section shows inflammatory changes, no malignancy 2. Sepsis d/t E. Coli UTI +/- lung source - See above 3. A Fib, RVR - In sinus, controlled - Heparin gtt - Continue Dig 0.125mg - Continue Atenolol 25mg daily - Start AC once CT removed 4. CLL - s/p recent chemo 3 weeks ago - Appreciate oncology consult 5. GERD - Cont Protonix 6. DVT PPX - Heparin gtt - OOB to chair Visit type - Emergency Visit Emergency Visit: Yes ED Registration Date: 08/05/16 Care time: The patient presented to the Emergency Department on the above date and was hospitalized for further evaluation of their emergent condition. - New Patient This patient is new to me today: No - Critical Care Critical Care patient: No
[2016-08-15] MEDS: SENNOSIDES 8.6MG TABLET (FP) PO SCH (21:31)
[2016-08-16 06:13] LABS: BASOPHIL 0.4 % (0-2.0); EOSINOPHIL 1.8 % (0-4.5); MCHC 33.8 g/dl (32.0-36.0); MEAN CELL VOLUME 85.8 fl (80-96); MEAN PLT VOLUME 8.3 fl (7.5-11.1); NEUTROPHILS 45.4 % (42.8-82.8); PLATELET COUNT 285 K/MM3 (134-434); RDW 14.4 % (11.6-15.6); WHITE BLOOD COUNT 5.4 K/mm3 (4.0-10.0)
[2016-08-16] MEDS: LEVOFLOXACIN 250 MG TABLET (FP) PO SCH (06:16)
[2016-08-16] MEDS: HEPARIN INFUSION - 500 ML IVPB SCH ×2 (06:18→10:00)
[2016-08-16 06:28] LABS: ALBUMIN 1.6 g/dl (3.4-5.0); ANION GAP 7 (8-16); CALCIUM 7.8 mg/dL (8.5-10.1); CO2 33 mmol/L (21-32); CREATININE 0.5 mg/dL (0.55-1.02); GLUCOSE,RANDOM 102 mg/dL (74-106); SGOT/AST 16 U/L (15-37); SGPT/ALT 21 U/L (12-78)
[2016-08-16 06:30] LABS: ALK PHOS 143 U/L (45-117); BILIRUBIN,TOTAL 0.4 mg/dL (0.2-1.0); TOT PROT 4.1 g/dl (6.4-8.2)
[2016-08-16] MEDS: morphine CARPU-JECT 2 MG/1 ML DISP.SYRIN IVPUSH PRN ×4 (08:27→22:20)
[2016-08-16] MEDS ORDERED: PT OWN MED DRAWER 7, Y5N ONE (08:50)
[2016-08-16] MEDS: DOCUSATE SODIUM 100 MG CAPSULE (FP) PO SCH ×2 (09:20→21:18)
[2016-08-16] MEDS: PANTOPRAZOLE 20 MG TABLET (FP) PO SCH (09:21)
[2016-08-16] MEDS: MAGNESIUM OXIDE 400 MG TABLET (FP) PO SCH (09:21)
[2016-08-16] MEDS: ATENOLOL 25 MG TABLET (FP) PO SCH (09:21)
[2016-08-16] MEDS: DIGOXIN 0.125 MG TABLET (FP) PO SCH (09:21)
--- NOTE | 2016-08-16 09:21 | PN ---
Progress Note, Physician Chief Complaint: no new complaints eating breakfast TELE: NSR - Current Medication List Current Medications: Active Medications Acetaminophen (Tylenol -) 650 mg PO Q6H PRN PRN Reason: FEVER OR PAIN Atenolol (Tenormin -) 25 mg PO DAILY [facility] Last Admin: 08/16/16 09:21 Dose: 25 mg Digoxin (Lanoxin -) 0.125 mg PO DAILY [facility] Last Admin: 08/16/16 09:21 Dose: 0.125 mg Docusate Sodium (Colace -) 100 mg PO BID [facility] Last Admin: 08/16/16 09:20 Dose: 100 mg Heparin Sodium/Dextrose (Heparin Infusion -) 500 mls @ 18 mls/hr IVPB TITR STEPHANIE ; 900 UNITS/HR PRN Reason: Protocol Last Admin: 08/16/16 06:18 Dose: 19 mls/hr Levofloxacin (Levaquin -) 250 mg PO DAILY@0600 [facility] Last Admin: 08/16/16 06:16 Dose: 250 mg Magnesium Oxide (Mag-Ox -) 400 mg PO DAILY [facility] Last Admin: 08/16/16 09:21 Dose: 400 mg Morphine Sulfate (Morphine Injection -) 2 mg IVPUSH Q2H PRN PRN Reason: PAIN Last Admin: 08/16/16 08:27 Dose: 2 mg Pantoprazole Sodium (Protonix -) 20 mg PO DAILY [facility] Last Admin: 08/16/16 09:21 Dose: 20 mg Senna (Senna -) 1 tab PO HS [facility] Last Admin: 08/15/16 21:31 Dose: 1 tab - Objective Vital Signs: Vital Signs Temperature 98.6 F 08/16/16 08:00 Pulse Rate 90 08/16/16 09:21 Respiratory Rate 22 08/16/16 08:00 Blood Pressure 127/46 08/16/16 08:00 O2 Sat by Pulse Oximetry (%) 100 08/16/16 08:00 Constitutional: Yes: Calm Cardiovascular: Yes: Regular Rate and Rhythm Respiratory: Yes: Other (2 right sided chest tubes) Gastrointestinal: Yes: Soft Edema: No Neurological: Yes: Alert, Oriented Labs: CBC, BMP 08/16/16 05:00 08/16/16 05:00 INR, PTT INR 1.32 (0.82-1.09) H 08/12/16 14:30 - ....Imaging EKG: Image Reviewed Assessment/Plan CLL on chemo Recurrent right pleural effusion s/p RVATs PSVT and PAF s/p ILR REC: Paroxysmal afib with RVR -cont Digoxin 0.125mg daily and Atenolol 25mg daily. Remains in NSR. - heparin gtt with goal PTT 50-70. To start oral AC when chest tubes removed.
--- NOTE | 2016-08-16 11:37 | PN ---
Progress Note (short form) - Note Progress Note: seen and examined. no major c/o this am. no f/c, n/v, cough, hemoptysis. afeb. rrr. min decr breath sound in right base. ct x2, serosang (sang), no air leak, +bs, soft, nt, nd. +edema. no c/c. a&o x3. CBC, BMP 08/16/16 05:00 08/16/16 05:00 Vital Signs (72 hours) 08/13/16 08/13/16 08/13/16 12:00 14:00 16:00 Temperature 97.3 F L 97.6 F 98.3 F Pulse Rate 72 71 81 Respiratory 22 18 21 Rate Blood Pressure 111/43 112/47 115/87 O2 Sat by Pulse Oximetry (%) 08/13/16 08/13/16 08/13/16 18:00 20:00 21:58 Temperature 98.1 F Pulse Rate 77 77 Respiratory 21 19 Rate Blood Pressure 122/77 107/42 O2 Sat by Pulse 100 Oximetry (%) 08/13/16 08/14/16 08/14/16 22:00 00:00 02:00 Temperature 98.2 F 98 F Pulse Rate 81 72 75 Respiratory 21 20 20 Rate Blood Pressure 154/50 129/54 119/47 O2 Sat by Pulse Oximetry (%) 08/14/16 08/14/16 08/14/16 04:00 06:00 08:00 Temperature 98.1 F 98.3 F Pulse Rate 88 88 86 Respiratory 25 H 19 19 Rate Blood Pressure 121/51 136/57 137/39 O2 Sat by Pulse 100 Oximetry (%) 08/14/16 08/14/16 08/14/16 10:00 10:03 12:00 Temperature 98.1 F 97.8 F Pulse Rate 90 92 H 75 Respiratory 20 21 Rate Blood Pressure 156/81 134/76 O2 Sat by Pulse Oximetry (%) 08/14/16 08/14/16 08/14/16 14:00 16:00 18:00 Temperature 97.6 F 97.8 F Pulse Rate 74 72 74 Respiratory 20 20 20 Rate Blood Pressure 145/73 163/73 146/73 O2 Sat by Pulse Oximetry (%) 08/14/16 08/14/16 08/14/16 19:32 20:04 21:30 Temperature 97.4 F L Pulse Rate 77 83 Respiratory 19 22 Rate Blood Pressure 139/44 148/47 O2 Sat by Pulse 100 Oximetry (%) 08/14/16 08/15/16 08/15/16 23:00 01:00 02:00 Temperature 97.6 F Pulse Rate 71 67 70 Respiratory 20 20 20 Rate Blood Pressure 158/52 135/77 114/41 O2 Sat by Pulse Oximetry (%) 08/15/16 08/15/16 08/15/16 04:00 06:00 08:00 Temperature 98.0 F 98.6 F Pulse Rate 75 83 90 Respiratory 18 22 Rate Blood Pressure 137/51 156/48 121/39 O2 Sat by Pulse Oximetry (%) 08/15/16 08/15/16 08/15/16 08:27 09:34 09:55 Temperature Pulse Rate 86 86 Respiratory Rate Blood Pressure O2 Sat by Pulse 100 99 Oximetry (%) 08/15/16 08/15/16 08/15/16 10:00 12:00 12:30 Temperature 98.7 F 99 F Pulse Rate 84 76 Respiratory 20 18 Rate Blood Pressure 108/41 99/45 O2 Sat by Pulse 95 Oximetry (%) 08/15/16 08/15/16 08/15/16 14:00 16:00 17:46 Temperature 98.8 F 98.9 F Pulse Rate 92 H 95 H Respiratory 22 22 Rate Blood Pressure 112/43 111/41 O2 Sat by Pulse 97 Oximetry (%) 08/15/16 08/15/16 08/15/16 18:00 18:54 19:18 Temperature 100.5 F H Pulse Rate 92 H Respiratory 24 Rate Blood Pressure 104/47 O2 Sat by Pulse 99 Oximetry (%) 08/15/16 08/15/16 08/15/16 20:00 20:24 23:00 Temperature 99 F Pulse Rate 87 78 Respiratory 20 15 Rate Blood Pressure 110/39 107/42 O2 Sat by Pulse 99 Oximetry (%) 08/16/16 08/16/16 08/16/16 00:02 02:00 04:00 Temperature 98.4 F Pulse Rate 79 79 73 Respiratory 18 18 17 Rate Blood Pressure 115/41 105/43 109/42 O2 Sat by Pulse Oximetry (%) 08/16/16 08/16/16 08/16/16 06:00 08:00 09:21 Temperature 98.6 F 98.6 F Pulse Rate 69 90 90 Respiratory 16 22 Rate Blood Pressure 112/51 127/46 O2 Sat by Pulse 100 Oximetry (%) 08/16/16 10:00 Temperature 98.0 F Pulse Rate 97 H Respiratory 16 Rate Blood Pressure 104/40 O2 Sat by Pulse Oximetry (%) Intake & Output 08/13/16 08/14/16 08/15/16 08/16/16 23:59 23:59 23:59 23:59 Intake Total 2065.5 1947 1054 502 Output Total 970 1466 1144 380 Balance 1095.5 481 -90 122 Weight 53.212 kg 49.6 kg 51 kg 50.122 kg a/p 89 yo, f, recurrent right pleu eff and empyema (stage II), s/p rt vats, extensive pneumolysis, complete decortication, and pleural biopsy. neg culture as sterilized pleu fluid/content secondary to abx. neg malignancy on final path. remains stable clinically. 1. cont supp care and abx 2. will dc posterior chest tube today and angled chest tube possibly tomorrow 3. need better chest tube care (strip/milk chest tube q4-6 hrs)) 4. oob chair/amb w/ pt, aggressive pulm toilet, is x10/hr, chest pt 5. may lower hep therapeutic level as decreased h&h and sanguineous chest tube output 6. f/u cardio, id, onc, and pulm 7. will follow with you Problem List - Problems (1) Pleural effusion Code(s): J90 - PLEURAL EFFUSION, NOT ELSEWHERE CLASSIFIED
[2016-08-16 13:08] LABS: MCH 28.8 pg (25.7-33.7); MCHC 32.9 g/dl (32.0-36.0); MEAN CELL VOLUME 87.5 fl (80-96); MEAN PLT VOLUME 7.5 fl (7.5-11.1); PLATELET COUNT 326 K/MM3 (134-434); RDW 14.7 % (11.6-15.6); WHITE BLOOD COUNT 10.3 K/mm3 (4.0-10.0)
--- NOTE | 2016-08-16 14:05 | PN ---
Physical Exam: SUBJECTIVE: Patient seen and examined at [facility] in ICU. patient no current complaints. breathing same as yesterday. reports mild dizziness. denies, fever, chills, n/v/C/D, hemoptysis. no BM today. Sanguineous chest tube output 2/2 to kink in line, line milked to clear. surgery will assess possibility of removal o fa chest tube latter on today. OBJECTIVE: Vital Signs Period Temp Pulse Resp BP Sys/Ross Pulse Ox Last 24 Hr 98.0 F-100.5 F 69-97 15-24 104-127/39-51 97-100 GENERAL: The patient is awake, alert, and fully oriented, in no acute distress. sitting in chair. HEAD: Normal with no signs of trauma. EYES: extraocular movements intact, sclera anicteric, conjunctiva clear. ENT: Ears normal, nares patent, oropharynx clear without exudates, moist mucous membranes. NECK: Trachea midline, full range of motion, supple. [id number] Left midline neck lemphadenopathy non tender, erythmatus, LUNGS: decrease breath sounds more than yesterday bilaterally, Course breath sounds right middle and base lung, Left lung base with crackles. right side tender right set off press operator wall 2cm x 2 cm soft mass. Upper left lobes clear.chest tube x 2 (middle fissure & posterior), dressing over chest tube site clean/dry/ intact, no obvious air leak but patient with poor respiratory effort. All three CT on suction. HEART: Regular rate and rhythm, S1, S2 without murmur, rub or gallop. ABDOMEN: Soft, nontender, mild distended, hypoactive bowel sounds, no guarding , no rebound, no hepatosplenomegaly, no masses. EXTREMITIES: 2+ pulses, warm, well-perfused, + edema. NEUROLOGICAL: no gross focal neurological deficit appreciated, Normal speech, gait not observed. PSYCH: Normal mood, normal affect. SKIN: Warm, dry, normal turgor, no rashes or lesions noted Laboratory Results - last 24 hr 08/16/16 08/16/16 08/16/16 05:00 05:00 05:00 WBC 5.4 RBC 2.67 L Hgb 7.7 L D Hct 22.9 L MCV 85.8 MCHC 33.8 RDW 14.4 Plt Count 285 MPV 8.3 Neutrophils % 45.4 D Lymphocytes % 45.9 H D Monocytes % 6.5 Eosinophils % 1.8 Basophils % 0.4 PTT (Actin FS) 89.1 H D Sodium 141 Potassium 3.8 Chloride 101 Carbon Dioxide 33 H Anion Gap 7 L BUN 16 Creatinine 0.5 L Creat Clearance w eGFR > 60 Random Glucose 102 Calcium 7.8 L Total Bilirubin 0.4 AST 16 ALT 21 D Alkaline Phosphatase 143 H Total Protein 4.1 L Albumin 1.6 L Blood Type Antibody Screen 08/16/16 08/16/16 08:10 12:09 WBC 10.3 H D RBC 3.42 L D Hgb 9.8 L D Hct 29.9 L D MCV 87.5 MCHC 32.9 RDW 14.7 Plt Count 326 MPV 7.5 Neutrophils % Lymphocytes % Monocytes % Eosinophils % Basophils % PTT (Actin FS) Sodium Potassium Chloride Carbon Dioxide Anion Gap BUN Creatinine Creat Clearance w eGFR Random Glucose Calcium Total Bilirubin AST ALT Alkaline Phosphatase Total Protein Albumin Blood Type O POSITIVE Antibody Screen Negative Active Medications Generic Name Dose Route Start Last Admin Trade Name Freq PRN Reason Stop Dose Admin Acetaminophen 650 mg 08/14/16 23:33 Tylenol - PO Q6H PRN FEVER OR PAIN Atenolol 25 mg 08/13/16 10:00 08/16/16 09:21 Tenormin - PO 25 mg DAILY STEPHANIE Administration Digoxin 0.125 mg 08/13/16 10:00 08/16/16 09:21 Lanoxin - PO 0.125 mg DAILY STEPHANIE Administration Docusate Sodium 100 mg 08/13/16 22:00 08/16/16 09:20 Colace - PO 100 mg BID STEPHANIE Administration Levofloxacin 250 mg 08/15/16 12:15 08/16/16 06:16 Levaquin - PO 250 mg DAILY@0600 STEPHANIE Administration Magnesium Oxide 400 mg 08/13/16 10:00 08/16/16 09:21 Mag-Ox - PO 400 mg DAILY STEPHANIE Administration Morphine Sulfate 2 mg 08/13/16 11:45 08/16/16 12:50 Morphine Injection - IVPUSH 2 mg Q2H PRN Administration PAIN Pantoprazole Sodium 20 mg 08/13/16 10:00 08/16/16 09:21 Protonix - PO 20 mg DAILY STEPHANIE Administration Senna 1 tab 08/13/16 22:00 08/15/16 21:31 Senna - PO 1 tab HS STEPHANIE Administration ASSESSMENT/PLAN: Patient is an 89 year old female with a significant past medical history of CLL , on active chemo treatments (last one 3 weeks ago), right breast cancer s/p lumpectomy a few years ago, macular degeneration, GERD and arrhythmia (has an implanted loop recorder). She presented to the ED on 08/05/2016 with worsening shortness of breath and was admitted for pleural effusion on the right lung, hypotension and CLL. ID: Severe Sepsis improving: Lactic Acidosis resolved, UTI + Pneumonia vs Empyema s/p vats for recurrent effusion- f/u pathology and operative cultures. -leukocytosis resolved -Sepsis - likely secondary to recurrent right sided pleural effusion and/or UTI -pleural fluid shows exudative process, -flow cytometry: pending -Pleural effusion post VAT ( cultures negative) -Pain control morphine 2mg Q2H IVPUSH, will consider SLUBBER HAND if further pain control needed -Incentive spirometry -ecoli uti- on levaquin -on empiric levaquin and vancomycin for pneumonia-Day 5 Recurrent Pleural Effusion-POD #4 Right lung -May be source of infection vs. malignancy - Afebrile overnight: s/p VATS/pneumolysis/decortication. -sanguineous chest tube output today, decrease H/h, d/c heprin GGT and repeat labs, (strip/milk chest tube q4-6 hrs) -F/u fluid cytology, cytometry, culture -pleural fluid shows exudative process, -On Levaquin and Vanco, has allergy to pencillins -Continue CT to suction possible DC of posterior CT today per surgery -cont supp care and wean oxygen as vilma -aggressive pulm toilet, -ID following Anemia: Sanguineous chest tube output. -follow H/H -d/c heprin gtt -repeat CXR in am Cardiology: Paroxysmal afib with RVR - heparin gtt at 900U/hr; goal PTT 50-70. To start oral AC when chest tubes removed. -On cardiac monitoring -Also has implanted loop recorder -Monitor BP -Cont Digoxin 0.125mg daily and Atenolol 25mg daily, Remains in NSR. -Cardiology following -d/c heprin per cardiology attending in light decrease h/h -will consider ASA alone or full AC for her PAF Oncology: -Chronic Lymphocytic Leukemia and hx of Breast Cancer -Last chemo treatment 3 weeks prior to admission -right arm precautions, Oncology following -pleural fluid cytology pending F.E.N. -Fluids: Oral hydration -Electrolytes: replete as needed -Nutrition: soft diet -oob to chair and walk patient as tolerated Prophylaxis: -DVT: SCD's -GI: Protonix -Disposition: continue tele monitor in ICU Visit type - Emergency Visit Emergency Visit: Yes ED Registration Date: 08/05/16 Care time: The patient presented to the Emergency Department on the above date and was hospitalized for further evaluation of their emergent condition. - New Patient This patient is new to me today: No - Critical Care Critical Care patient: Yes Total Critical Care Time (in minutes): 42 Critical Care Statement: The care of this patient involved high complexity decision making to prevent further life threatening deterioration of the patient 's condition and/or to evalute & treat vital organ system(s) failure or risk of failure.
--- NOTE | 2016-08-16 15:59 | PN ---
Teaching Attending Note Name of Resident: Hanna Ly ATTENDING PHYSICIAN STATEMENT I saw and evaluated the patient. I reviewed the resident's note and discussed the case with the resident. I agree with the resident's findings and plan as documented. SUBJECTIVE: Patient seen and examined in the ICU. Pain adequately controlled. No fevers or chills. CT x 2 intact w/o air leak. Intake & Output 08/13/16 08/14/16 08/15/16 08/16/16 23:59 23:59 23:59 23:59 Intake Total 2065.5 1947 1054 1109 Output Total 970 1466 1144 1030 Balance 1095.5 481 -90 79 Weight 117 lb 5 oz 109 lb 5.588 oz 112 lb 6.972 oz 110 lb 8 oz Last Vital Signs Temp Pulse Resp BP Pulse Ox 98.0 F 90 20 111/45 100 08/16/16 14:00 08/16/16 14:00 08/16/16 14:00 08/16/16 14:00 08/16/16 08:00 Active Medications Acetaminophen (Tylenol -) 650 mg PO Q6H PRN PRN Reason: FEVER OR PAIN Atenolol (Tenormin -) 25 mg PO DAILY [facility] Last Admin: 08/16/16 09:21 Dose: 25 mg Digoxin (Lanoxin -) 0.125 mg PO DAILY [facility] Last Admin: 08/16/16 09:21 Dose: 0.125 mg Docusate Sodium (Colace -) 100 mg PO BID [facility] Last Admin: 08/16/16 09:20 Dose: 100 mg Levofloxacin (Levaquin -) 250 mg PO DAILY@0600 [facility] Last Admin: 08/16/16 06:16 Dose: 250 mg Magnesium Oxide (Mag-Ox -) 400 mg PO DAILY [facility] Last Admin: 08/16/16 09:21 Dose: 400 mg Morphine Sulfate (Morphine Injection -) 2 mg IVPUSH Q2H PRN PRN Reason: PAIN Last Admin: 08/16/16 15:45 Dose: 2 mg Pantoprazole Sodium (Protonix -) 20 mg PO DAILY [facility] Last Admin: 08/16/16 09:21 Dose: 20 mg Senna (Senna -) 1 tab PO HS [facility] Last Admin: 08/15/16 21:31 Dose: 1 tab Gen: Awake and alert, weak appearing Heart: RRR Lung: right base rhonchi Abd: soft, nontender Ext: +distal edema Chest tube x 2: no air leak, sanguinous drainage Laboratory Results - last 24 hr 08/16/16 08/16/16 08/16/16 05:00 05:00 05:00 WBC 5.4 RBC 2.67 L Hgb 7.7 L D Hct 22.9 L MCV 85.8 MCHC 33.8 RDW 14.4 Plt Count 285 MPV 8.3 Neutrophils % 45.4 D Lymphocytes % 45.9 H D Monocytes % 6.5 Eosinophils % 1.8 Basophils % 0.4 PTT (Actin FS) 89.1 H D Sodium 141 Potassium 3.8 Chloride 101 Carbon Dioxide 33 H Anion Gap 7 L BUN 16 Creatinine 0.5 L Creat Clearance w eGFR > 60 Random Glucose 102 Calcium 7.8 L Total Bilirubin 0.4 AST 16 ALT 21 D Alkaline Phosphatase 143 H Total Protein 4.1 L Albumin 1.6 L Blood Type Antibody Screen 08/16/16 08/16/16 08:10 12:09 WBC 10.3 H D RBC 3.42 L D Hgb 9.8 L D Hct 29.9 L D MCV 87.5 MCHC 32.9 RDW 14.7 Plt Count 326 MPV 7.5 Neutrophils % Lymphocytes % Monocytes % Eosinophils % Basophils % PTT (Actin FS) Sodium Potassium Chloride Carbon Dioxide Anion Gap BUN Creatinine Creat Clearance w eGFR Random Glucose Calcium Total Bilirubin AST ALT Alkaline Phosphatase Total Protein Albumin Blood Type O POSITIVE Antibody Screen Negative ASSESSMENT AND PLAN: UTI Pneumonia vs Empyema vs Malignant Effusion Severe Sepsis improving Lactic Acidosis resolved Atrial Fibrillation CLL - antibiotics per ID - f/u OR cultures, pathology - monitor urine output, creatinine - pain control - incentive spirometry - O2 as needed - DVT prophylaxis - Follow daily CXR - continue ICU monitoring Dr Henry CCTime 35"
[2016-08-16 16:33] LABS: MCH 28.5 pg (25.7-33.7); MCHC 33.1 g/dl (32.0-36.0); MEAN CELL VOLUME 86.2 fl (80-96); MEAN PLT VOLUME 7.6 fl (7.5-11.1); PLATELET COUNT 320 K/MM3 (134-434); RDW 14.4 % (11.6-15.6)
--- NOTE | 2016-08-16 17:42 | PN ---
Physical Exam: SUBJECTIVE: Patient seen and examined. Out of bed to chair. Feeling fatigued. No SOB. OBJECTIVE: Posterior chest tube removed today. 1.8g drop in hgb noted. Remaining CT with 260mL serosanguinous output today. Vital Signs Period Temp Pulse Resp BP Sys/Ross Pulse Ox Last 24 Hr 98.0 F-100.5 F 69-97 15-24 104-127/39-51 97-100 GENERAL: The patient is awake, alert, and fully oriented, in no acute distress. HEAD: Normal with no signs of trauma. EYES: PERRL, extraocular movements intact, sclera anicteric, conjunctiva clear. No ptosis. ENT: Ears normal, nares patent, oropharynx clear without exudates, moist mucous membranes. NECK: Trachea midline, full range of motion, supple. LUNGS: Coarse breath sounds bilaterally, diminished at right base. Chest tube dressing site clean and dry. No air leak in remaining tube. HEART: Regular rate and rhythm, S1, S2 without murmur, rub or gallop. ABDOMEN: Soft, nontender, nondistended, normoactive bowel sounds, no guarding, no rebound, no hepatosplenomegaly, no masses. EXTREMITIES: 2+ pulses, warm, well-perfused, no edema. NEUROLOGICAL: Cranial nerves II through XII grossly intact. Normal speech, gait not observed. PSYCH: Normal mood, normal affect. SKIN: Warm, dry, normal turgor, no rashes or lesions noted Laboratory Results - last 24 hr 08/16/16 08/16/16 08/16/16 05:00 05:00 05:00 WBC 5.4 RBC 2.67 L Hgb 7.7 L D Hct 22.9 L MCV 85.8 MCHC 33.8 RDW 14.4 Plt Count 285 MPV 8.3 Neutrophils % 45.4 D Lymphocytes % 45.9 H D Monocytes % 6.5 Eosinophils % 1.8 Basophils % 0.4 PTT (Actin FS) 89.1 H D Sodium 141 Potassium 3.8 Chloride 101 Carbon Dioxide 33 H Anion Gap 7 L BUN 16 Creatinine 0.5 L Creat Clearance w eGFR > 60 Random Glucose 102 Calcium 7.8 L Total Bilirubin 0.4 AST 16 ALT 21 D Alkaline Phosphatase 143 H Total Protein 4.1 L Albumin 1.6 L Blood Type Antibody Screen 08/16/16 08/16/1617 08:10 12:09 16:00 WBC 10.3 H D 8.0 RBC 3.42 L D 2.81 L Hgb 9.8 L D 8.0 L D Hct 29.9 L D 24.2 L D MCV 87.5 86.2 MCHC 32.9 33.1 RDW 14.7 14.4 Plt Count 326 320 MPV 7.5 7.6 Neutrophils % Lymphocytes % Monocytes % Eosinophils % Basophils % PTT (Actin FS) Sodium Potassium Chloride Carbon Dioxide Anion Gap BUN Creatinine Creat Clearance w eGFR Random Glucose Calcium Total Bilirubin AST ALT Alkaline Phosphatase Total Protein Albumin Blood Type O POSITIVE Antibody Screen Negative Active Medications Generic Name Dose Route Start Last Admin Trade Name Freq PRN Reason Stop Dose Admin Acetaminophen 650 mg 08/14/16 23:33 Tylenol - PO Q6H PRN FEVER OR PAIN Atenolol 25 mg 08/13/16 10:00 08/16/16 09:21 Tenormin - PO 25 mg DAILY STEPHANIE Administration Digoxin 0.125 mg 08/13/16 10:00 08/16/16 09:21 Lanoxin - PO 0.125 mg DAILY STEPHANIE Administration Docusate Sodium 100 mg 08/13/16 22:00 08/16/16 09:20 Colace - PO 100 mg BID STEPHANIE Administration Levofloxacin 250 mg 08/15/16 12:15 08/16/16 06:16 Levaquin - PO 250 mg DAILY@0600 STEPHANIE Administration Magnesium Oxide 400 mg 08/13/16 10:00 08/16/16 09:21 Mag-Ox - PO 400 mg DAILY STEPHANIE Administration Morphine Sulfate 2 mg 08/13/16 11:45 08/16/16 15:45 Morphine Injection - IVPUSH 2 mg Q2H PRN Administration PAIN Pantoprazole Sodium 20 mg 08/13/16 10:00 08/16/16 09:21 Protonix - PO 20 mg DAILY STEPHANIE Administration Senna 1 tab 08/13/16 22:00 08/15/16 21:31 Senna - PO 1 tab HS STEPHANIE Administration ASSESSMENT/PLAN: 89 year old female with a history of CLL, right breast CA s/p chemo, GERD, arrhythmia, macular degeneration, pleural effusion (recent thoracentesis on 07/16/16) admitted with SOB, sepsis, and pleural effusion. Plan: 1. Pleural effusion - s/p VATS 08/12 - Exudative effusion resulted - Final cytology negative for malignancy; culture sterile likely secondary to abx - Discontinue Vanco - Continue levaquin 250mg x3 days (08/15- ) - Pre ujdd frozen section shows inflammatory changes, no malignancy 2. Sepsis d/t E. Coli UTI +/- lung source - See above 3. pAF, RVR - In sinus currently - Currently off heparin for chest tube removal - Continue Dig 0.125mg - Continue Atenolol 25mg daily - Await cardiology recommendations: ASA vs. AC after second chest tube is removed 4. CLL - s/p recent chemo 3 weeks ago - Appreciate oncology consult 5. GERD - Cont Protonix 6. Ppx - OOB to chair - Incentive spirometer DISPO: Continue ICU care pending stabilization in H/H. Visit type - Emergency Visit Emergency Visit: Yes ED Registration Date: 08/05/16 Care time: The patient presented to the Emergency Department on the above date and was hospitalized for further evaluation of their emergent condition. - New Patient This patient is new to me today: Yes Date on this admission: 08/16/16 - Critical Care Critical Care patient: No
[2016-08-16] MEDS: SENNOSIDES 8.6MG TABLET (FP) PO SCH (21:18)
[2016-08-16] MEDS ORDERED: LORazepam 0.5 MG TABLET PO ONE (23:13)
[2016-08-17] MEDS: morphine CARPU-JECT 2 MG/1 ML DISP.SYRIN IVPUSH PRN ×4 (02:47→18:41)
[2016-08-17] MEDS: LEVOFLOXACIN 250 MG TABLET (FP) PO SCH (06:01)
[2016-08-17 06:20] LABS: CALCIUM 7.7 mg/dL (8.5-10.1); CREATININE 0.5 mg/dL (0.55-1.02)
[2016-08-17 06:49] LABS: BASOPHIL 0.5 % (0-2.0); EOSINOPHIL 0.8 % (0-4.5); MCH 28.6 pg (25.7-33.7); MCHC 33.7 g/dl (32.0-36.0); MEAN CELL VOLUME 84.9 fl (80-96); NEUTROPHILS 52.4 % (42.8-82.8); PLATELET COUNT 301 K/MM3 (134-434); RDW 14.5 % (11.6-15.6); WHITE BLOOD COUNT 6.8 K/mm3 (4.0-10.0)
--- NOTE | 2016-08-17 08:30 | PN ---
Progress Note (short form) - Note Progress Note: Surgery- Dr. Ryder Patient seen and examined, discussed with nursing. Patient is complaining of dizziness and some SOB. Last Vital Signs Temp Pulse Resp BP Pulse Ox 98.5 F 81 18 121/46 100 08/17/16 08:00 08/17/16 08:00 08/17/16 08:00 08/17/16 08:00 08/16/16 19:57 CBC, BMP 08/17/16 05:10 08/17/16 05:10 Exam: Gen: NAD Cardio: RRR Resp: Course breath sounds right base, med CT in place, stripped on rounds, output serosanguineous/sanguineous, no air leak Chest tube output: 100ml yesterday, 35ml overnight/this morning <Fabiola Wilder - Last Filed: 08/17/16 08:49> - Note Progress Note: Reviewed charts, films, labs, vs, and i/o's. Agreed with above. ct x1, serosang/sang, no air leak. cxr stable. low h&h. 1. cont supp care and wean O2 as vilma 2. prbc per icu 3. keep ct on sux. will dc when low output and nonsanguineous. 4. cxr qd. no need for ct chest 5. chest pt/ptt, guaiac 6. oob chair/amb w pt, pulm toilet, is, chest pt 7. will follow <Orlando Ryder - Last Filed: 08/17/16 17:15> Problem List - Problems (1) Pleural effusion Assessment/Plan: POD#5 s/p right VATS, pneumolysis, decortication, and pleural biopsy Discussed with ICU staff, ordered one unit PRBC, will order stool guaiac Discussed with Dr. Ryder Continue remaining chest tube, strip tube q4-6h OOB, pulm toilet, chest PT, incentive spirometry 10x/hr Code(s): J90 - PLEURAL EFFUSION, NOT ELSEWHERE CLASSIFIED <Fabiola Wilder - Last Filed: 08/17/16 08:49> - Problems (1) Pleural effusion Code(s): J90 - PLEURAL EFFUSION, NOT ELSEWHERE CLASSIFIED <Orlando Ryder - Last Filed: 08/17/16 17:15>
[2016-08-17] MEDS: DOCUSATE SODIUM 100 MG CAPSULE (FP) PO SCH ×2 (09:47→21:51)
[2016-08-17] MEDS: PANTOPRAZOLE 20 MG TABLET (FP) PO SCH (09:48)
[2016-08-17] MEDS: DIGOXIN 0.125 MG TABLET (FP) PO SCH (09:48)
[2016-08-17] MEDS: MAGNESIUM OXIDE 400 MG TABLET (FP) PO SCH (09:48)
[2016-08-17] MEDS: ATENOLOL 25 MG TABLET (FP) PO SCH (09:49)
--- NOTE | 2016-08-17 15:03 | PN ---
Progress Note (short form) - Note Progress Note: PULM/CCM SUBJECTIVE: Patient seen and examined in the ICU. Pain adequately controlled. No fevers or chills. CT x 2 intact w/o air leak, thoracic following output hbg down to 6.6, getting 1 PRBC Vital Signs Temp 98.0 F 08/17/16 14:00 Pulse 78 08/17/16 14:00 Resp 16 08/17/16 14:00 BP 112/47 08/17/16 14:00 Pulse Ox 96 08/17/16 08:34 Intake & Output 08/16/16 08/17/16 08/17/16 23:59 11:59 23:59 Intake Total 1007 200 350 Output Total 1100 230 Balance -93 -30 350 Weight 50.122 kg Intake: IV 57 Heparin Infusion - 500 ml 57 @ 900 UNITS/HR 18 mls/hr IVPB TITR [facility] Rx#: [id number] IVPB 250 Oral 700 200 Packed Cells 350 Output: Chest Tube Drainage 100 30 Mediastinal 100 30 Urine 1000 200 Void 700 200 Jennings 300 Other: Voiding Method Bedpan Bedpan Bowel Movement No Weight Measurement Method [facility] Active Medications Acetaminophen (Tylenol -) 650 mg PO Q6H PRN PRN Reason: FEVER OR PAIN Atenolol (Tenormin -) 25 mg PO DAILY [facility] Last Admin: 08/16/16 09:21 Dose: 25 mg Digoxin (Lanoxin -) 0.125 mg PO DAILY [facility] Last Admin: 08/16/16 09:21 Dose: 0.125 mg Docusate Sodium (Colace -) 100 mg PO BID [facility] Last Admin: 08/16/16 09:20 Dose: 100 mg Levofloxacin (Levaquin -) 250 mg PO DAILY@0600 [facility] Last Admin: 08/16/16 06:16 Dose: 250 mg Magnesium Oxide (Mag-Ox -) 400 mg PO DAILY [facility] Last Admin: 08/16/16 09:21 Dose: 400 mg Morphine Sulfate (Morphine Injection -) 2 mg IVPUSH Q2H PRN PRN Reason: PAIN Last Admin: 08/16/16 15:45 Dose: 2 mg Pantoprazole Sodium (Protonix -) 20 mg PO DAILY [facility] Last Admin: 08/16/16 09:21 Dose: 20 mg Senna (Senna -) 1 tab PO HS [facility] Last Admin: 08/15/16 21:31 Dose: 1 tab Gen: Awake and alert, weak appearing but without distress Heart: RRR Lung: right base rhonchi Abd: soft, nontender Ext: +distal edema Neuro:intact, non focal Chest tube x 2: no air leak, small amt sanguinous drainage CBC, BMP 08/17/16 05:10 08/17/16 05:10 ASSESSMENT AND PLAN: UTI Pneumonia vs Empyema vs Malignant Effusion Severe Sepsis improving Lactic Acidosis resolved Atrial Fibrillation CLL - F/u repeat CBC in afternoon, if cont drop or no response consider CT - antibiotics per ID - f/u OR cultures, pathology - monitor urine output, creatinine - pain control - incentive spirometry - O2 as needed - DVT prophylaxis - Follow daily CXR , Ct to be pulled by Thoracic - continue ICU monitoring Vargas Gloria ACNP [id number] [id number] CCT
--- NOTE | 2016-08-17 15:44 | PN ---
Physical Exam: SUBJECTIVE: Patient seen and examined in ICU. She says she feels about the same. Pain tolerable, forgetful she sat in chair yesterday. Events: - Medial CT tube pulled this AM by surgery - hgb 6.6, x1unit ordered OBJECTIVE: Vital Signs Period Temp Pulse Resp BP Sys/Ross Pulse Ox Last 24 Hr 97.9 F-98.5 F 78-103 12-29 97-130/41-50 96-100 PE Neuro: alert, awake, cn 2-12intact Pulm: x2 CT R posterior chest serosanguinous drainage, R lung course bs, rhonchi , L diminished CV: s1 s2 rrr no mrg Abd: s nt nd +bs Ext: warm, pedal edema, upper ext edema Laboratory Results - last 24 hr 08/16/16 08/16/16 08/17/16 08:10 16:00 05:10 WBC 8.0 RBC 2.81 L Hgb 8.0 L D Hct 24.2 L D MCV 86.2 MCHC 33.1 RDW 14.4 Plt Count 320 MPV 7.6 Neutrophils % Lymphocytes % Monocytes % Eosinophils % Basophils % PTT (Actin FS) 30.1 D Sodium Potassium Chloride Carbon Dioxide Anion Gap BUN Creatinine Random Glucose Calcium Blood Type O POSITIVE Antibody Screen Negative Crossmatch See Detail 08/17/16 08/17/16 05:10 05:10 WBC 6.8 RBC 2.32 L Hgb 6.6 L* D Hct 19.7 L D MCV 84.9 MCHC 33.7 RDW 14.5 Plt Count 301 MPV 8.0 Neutrophils % 52.4 Lymphocytes % 38.9 Monocytes % 7.4 Eosinophils % 0.8 Basophils % 0.5 PTT (Actin FS) Sodium 141 Potassium 3.8 Chloride 100 Carbon Dioxide 34 H Anion Gap 7 L BUN 17 Creatinine 0.5 L Random Glucose 102 Calcium 7.7 L Blood Type Antibody Screen Crossmatch Active Medications Generic Name Dose Route Start Last Admin Trade Name Freq PRN Reason Stop Dose Admin Acetaminophen 650 mg 08/14/16 23:33 Tylenol - PO Q6H PRN FEVER OR PAIN Atenolol 25 mg 08/13/16 10:00 08/17/16 09:49 Tenormin - PO 25 mg DAILY STEPHANIE Administration Digoxin 0.125 mg 08/13/16 10:00 08/17/16 09:48 Lanoxin - PO 0.125 mg DAILY STEPHANIE Administration Docusate Sodium 100 mg 08/13/16 22:00 08/17/16 09:47 Colace - PO 100 mg BID STEPHANIE Administration Levofloxacin 250 mg 08/15/16 12:15 08/17/16 06:01 Levaquin - PO 250 mg DAILY@0600 STEPHANIE Administration Magnesium Oxide 400 mg 08/13/16 10:00 08/17/16 09:48 Mag-Ox - PO 400 mg DAILY STEPHANIE Administration Morphine Sulfate 2 mg 08/13/16 11:45 08/17/16 14:00 Morphine Injection - IVPUSH 2 mg Q2H PRN Administration PAIN Pantoprazole Sodium 20 mg 08/13/16 10:00 08/17/16 09:48 Protonix - PO 20 mg DAILY STEPHANIE Administration Senna 1 tab 08/13/16 22:00 08/16/16 21:18 Senna - PO 1 tab HS STEPHANIE Administration Assessment: 89 year old female with a history of CLL, right breast CA s/p chemo , GERD, arrhythmia, macular degeneration, pleural effusion (recent thoracentesis on 07/16/16) admitted with SOB, sepsis, and pleural effusion. Plan: 1. Acute blood loss anemia - Transfuse 1uprbc today - Check cbc now - If no response consider CT 2. Pleural effusion - s/p VATS 08/12 - Exudative effusion resulted - Final cytology negative for malignancy; culture sterile likely secondary to abx - Final dose levaquin today; completed 3 days - Pathology report results show abundant inflammation 3. Sepsis d/t E. Coli UTI +/- lung source - See above 4. pAF, RVR - In sinus - Continue Dig 0.125mg - Continue Atenolol 25mg daily - Await cardiology recommendations: ASA vs. AC after final chest tube is removed 5. CLL - s/p recent chemo 3 weeks ago - Appreciate oncology consult 6. GERD - Cont Protonix 7. Ppx - OOB to chair - Incentive spirometer Visit type - Emergency Visit Emergency Visit: Yes ED Registration Date: 08/05/16 Care time: The patient presented to the Emergency Department on the above date and was hospitalized for further evaluation of their emergent condition. - New Patient This patient is new to me today: No - Critical Care Critical Care patient: No
[2016-08-17 17:08] LABS: MCH 28.7 pg (25.7-33.7); MEAN CELL VOLUME 84.4 fl (80-96); MEAN PLT VOLUME 7.5 fl (7.5-11.1); PLATELET COUNT 302 K/MM3 (134-434); RDW 14.4 % (11.6-15.6)
--- NOTE | 2016-08-17 17:19 | PN ---
Progress Note, Physician History of Present Illness: : Shortness of breath increasing the last 2 weeks with mild pleuritic right chest pain. No fever/chills. No productive cough. The patient had similar symptoms approximately one month ago, was found to have a pleural effusion, which was drained, and symptoms resolved. At that time, the effusion was thought to be due to heart failure Review of systems: As noted above. In addition, there is been no substernal chest pain, no abdominal pain, no nausea vomiting diaphoresis diarrhea or constipation. No urinary tract symptoms. No vaginal bleeding or discharge. 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 Family/social history reviewed and noncontributory - Current Medication List Current Medications: Active Medications Acetaminophen (Tylenol -) 650 mg PO Q6H PRN PRN Reason: FEVER OR PAIN Atenolol (Tenormin -) 25 mg PO DAILY [facility] Last Admin: 08/17/16 09:49 Dose: 25 mg Digoxin (Lanoxin -) 0.125 mg PO DAILY [facility] Last Admin: 08/17/16 09:48 Dose: 0.125 mg Docusate Sodium (Colace -) 100 mg PO BID [facility] Last Admin: 08/17/16 09:47 Dose: 100 mg Magnesium Oxide (Mag-Ox -) 400 mg PO DAILY [facility] Last Admin: 08/17/16 09:48 Dose: 400 mg Morphine Sulfate (Morphine Injection -) 2 mg IVPUSH Q2H PRN PRN Reason: PAIN Last Admin: 08/17/16 14:00 Dose: 2 mg Pantoprazole Sodium (Protonix -) 20 mg PO DAILY [facility] Last Admin: 08/17/16 09:48 Dose: 20 mg Senna (Senna -) 1 tab PO HS [facility] Last Admin: 08/16/16 21:18 Dose: 1 tab - Objective Vital Signs: Vital Signs Temperature 98.2 F 08/17/16 16:00 Pulse Rate 78 08/17/16 16:00 Respiratory Rate 16 08/17/16 16:00 Blood Pressure 109/41 08/17/16 16:00 O2 Sat by Pulse Oximetry (%) 96 08/17/16 08:34 Labs: CBC, BMP 08/17/16 16:55 08/17/16 05:10 INR, PTT INR 1.32 (0.82-1.09) H 08/12/16 14:30 Problem List - Problems (1) Afib Assessment/Plan: On atenolol (may give bid if trouble controlling HR; however, presently in sinus rhythm). F/u digoxin level; keep 0.5-1.0. pt received PRBCs today; f/u Hb. Consider restarting IV heparin when stable. Code(s): I48.91 - UNSPECIFIED ATRIAL FIBRILLATION (2) Pleural effusion, right Assessment/Plan: s/p VATS; chest tube. Code(s): J90 - PLEURAL EFFUSION, NOT ELSEWHERE CLASSIFIED (3) Arrhythmia Code(s): I49.9 - CARDIAC ARRHYTHMIA, UNSPECIFIED Qualifiers: Arrhythmia type: atrial fibrillation (4) CLL (chronic lymphocytic leukemia) Code(s): C91.10 - CHRONIC LYMPHOCYTIC LEUK OF B-CELL TYPE NOT ACHIEVE REMIS (5) GERD (gastroesophageal reflux disease) Code(s): K21.9 - GASTRO-ESOPHAGEAL REFLUX DISEASE WITHOUT ESOPHAGITIS
[2016-08-17 18:21] LABS: DIGOXIN LEVEL 0.733 ng/ml (0.8-2.0); THYROID STIMULATING HORMONE 2.59 uIU/ml (0.358-3.74)
[2016-08-17 18:32] LABS: CHOLESTEROL 87 mg/dL (50-200); LDL CHOLESTEROL (ONLY SJRH) 58 mg/dL (5-100)
[2016-08-17] MEDS: SENNOSIDES 8.6MG TABLET (FP) PO SCH (21:51)
[2016-08-18 06:12] LABS: MCHC 34.2 g/dl (32.0-36.0); MEAN CELL VOLUME 84.9 fl (80-96); MEAN PLT VOLUME 7.7 fl (7.5-11.1); PLATELET COUNT 313 K/MM3 (134-434); WHITE BLOOD COUNT 6.5 K/mm3 (4.0-10.0)
[2016-08-18] MEDS: DOCUSATE SODIUM 100 MG CAPSULE (FP) PO SCH ×2 (09:26→21:24)
[2016-08-18] MEDS: ACETAMINOPHEN 325 MG TABLET (FP) PO PRN ×2 (09:26→15:02)
[2016-08-18] MEDS: DIGOXIN 0.125 MG TABLET (FP) PO SCH (09:27)
[2016-08-18] MEDS: MAGNESIUM OXIDE 400 MG TABLET (FP) PO SCH (09:27)
[2016-08-18] MEDS ORDERED: PT OWN MED DRAWER 7, Y5N ONE (09:28)
[2016-08-18] MEDS: ATENOLOL 25 MG TABLET (FP) PO SCH (09:29)
--- NOTE | 2016-08-18 09:51 | PN ---
Progress Note (short form) - Note Progress Note: Surgery- Dr. Ryder Patient seen and examined, discussed with nursing. Patient states she is feeling better today. She is no longer dizzy, weakness has improved, breathing and pain has improved. She is tolerating breakfast. Last Vital Signs Temp Pulse Resp BP Pulse Ox 98.4 F 80 15 128/58 99 08/18/16 06:00 08/18/16 09:27 08/18/16 08:00 08/18/16 08:00 08/17/16 19:59 CBC, BMP 08/18/16 05:20 08/17/16 05:10 Exam: Gen: NAD, sitting up in bed eating breakfast Cardio: RRR Resp: course breath sounds right base, otherwise cta, dressing over chest tube insertion site with minimal drainage, chest tube stripped on rounds, no air leak , serosanguineous/sanguineous drainage, output 15ml overnight Problem List - Problems (1) Pleural effusion Assessment/Plan: POD#6 s/p right VATS, pneumolysis, decortication, and pleural biopsy Patient clinically improved, H&H improved after unit PRBC Discussed with Dr. Ryder Continue remaining chest tube to water seal today, strip tube q4-6h Discussed with nursing to get pt OOB today pulm toilet, chest PT, incentive spirometry 10x/hr follow-up CXR tomorrow Code(s): J90 - PLEURAL EFFUSION, NOT ELSEWHERE CLASSIFIED
--- NOTE | 2016-08-18 10:00 | PN ---
Progress Note (short form) - Note Progress Note: Seen and examined in the ICU Patient OOB to chair Denies: CP/SOB/FIELDS/N CT remains to suction received PRBC yesterday with good bump in Hgb Current Medications Acetaminophen (Tylenol -) 650 mg PO Q6H PRN PRN Reason: FEVER OR PAIN Last Admin: 08/18/16 09:26 Dose: 650 mg Atenolol (Tenormin -) 25 mg PO DAILY [facility] Last Admin: 08/18/16 09:29 Dose: 25 mg Digoxin (Lanoxin -) 0.125 mg PO DAILY [facility] Last Admin: 08/18/16 09:27 Dose: 0.125 mg Docusate Sodium (Colace -) 100 mg PO BID [facility] Last Admin: 08/18/16 09:26 Dose: 100 mg Magnesium Oxide (Mag-Ox -) 400 mg PO DAILY [facility] Last Admin: 08/18/16 09:27 Dose: 400 mg Morphine Sulfate (Morphine Injection -) 2 mg IVPUSH Q2H PRN PRN Reason: PAIN Last Admin: 08/17/16 18:41 Dose: 2 mg Pantoprazole Sodium (Protonix -) 20 mg PO DAILY [facility] Last Admin: 08/17/16 09:48 Dose: 20 mg Senna (Senna -) 1 tab PO HS [facility] Last Admin: 08/17/16 21:51 Dose: 1 tab Vital Signs Period Temp Pulse Resp BP Sys/Ross Pulse Ox Last 24 Hr 98.0 F-98.9 F 78-89 11-24 97-129/41-58 99-99 Intake & Output 08/15/16 08/16/16 08/17/16 08/18/16 23:59 23:59 23:59 23:59 Intake Total 1054 1509 1300 300 Output Total 1144 1480 890 300 Balance -90 29 410 0 Weight 51 kg 50.122 kg 50.122 kg 49.612 kg Exam: General: elderly woman in chair, awake, alert and cooperative w/o distress HEENT: no JVD, PERRL CV: NSR, no m/r/g Pulm: Insp crackles R>L, CT serosang no air leak Abd: SNTND, +BS Ext: WWP, no edema Neuro: grossly intact CBCD WBC 6.5 K/mm3 (4.0-10.0) 08/18/16 05:20 RBC 3.13 M/mm3 (3.60-5.2) L 08/18/16 05:20 Hgb 9.1 GM/dL (10.7-15.3) L 08/18/16 05:20 Hct 26.5 % (32.4-45.2) L 08/18/16 05:20 MCV 84.9 fl (80-96) 08/18/16 05:20 MCHC 34.2 g/dl (32.0-36.0) 08/18/16 05:20 RDW 15.0 % (11.6-15.6) 08/18/16 05:20 Plt Count 313 K/MM3 (134-434) 08/18/16 05:20 MPV 7.7 fl (7.5-11.1) 08/18/16 05:20 CMP Sodium 141 mmol/L (136-145) 08/17/16 05:10 Potassium 3.8 mmol/L (3.5-5.1) 08/17/16 05:10 Chloride 100 mmol/L (98-107) 08/17/16 05:10 Carbon Dioxide 34 mmol/L (21-32) H 08/17/16 05:10 Anion Gap 7 (8-16) L 08/17/16 05:10 BUN 17 mg/dL (7-18) 08/17/16 05:10 Creatinine 0.5 mg/dL (0.55-1.02) L 08/17/16 05:10 Creat Clearance w eGFR > 60 (>60) 08/16/16 05:00 Random Glucose 102 mg/dL (74-106) 08/17/16 05:10 Calcium 7.7 mg/dL (8.5-10.1) L 08/17/16 05:10 Total Bilirubin 0.4 mg/dL (0.2-1.0) 08/16/16 05:00 AST 16 U/L (15-37) 08/16/16 05:00 ALT 21 U/L (12-78) D 08/16/16 05:00 Alkaline Phosphatase 143 U/L (45-117) H 08/16/16 05:00 Total Protein 4.1 g/dl (6.4-8.2) L 08/16/16 05:00 Albumin 1.6 g/dl (3.4-5.0) L 08/16/16 05:00 CARDIAC ENZYMES Creatine Kinase 12 IU/L (26-192) L 08/06/16 05:05 Troponin I < 0.02 ng/ml (0.00-0.05) 08/06/16 05:05 SSESSMENT AND PLAN: UTI Pneumonia vs Empyema vs Malignant Effusion Severe Sepsis improving Lactic Acidosis resolved Atrial Fibrillation CLL - antibiotics per ID - f/u OR cultures, pathology - monitor urine output, creatinine - pain control - incentive spirometry - O2 for Sat >92% - DVT prophylaxis - Follow daily CXR , CT to be management by Thoracic - bowel regimen Ying ACNP Pulm/CCM CCT: 35m
[2016-08-18] MEDS: PANTOPRAZOLE 20 MG TABLET (FP) PO SCH (11:20)
[2016-08-18] MEDS ORDERED: POLYETHYLENE GLYCOL 3350 119 GM BTL PO SCH (11:30)
--- NOTE | 2016-08-18 12:47 | PN ---
Progress Note, Physician Chief Complaint: Pt OOB in chair, eating lunch. C/o constipation. Denies chest pain or dyspnea. History of Present Illness: : Shortness of breath increasing the last 2 weeks with mild pleuritic right chest pain. No fever/chills. No productive cough. The patient had similar symptoms approximately one month ago, was found to have a pleural effusion, which was drained, and symptoms resolved. At that time, the effusion was thought to be due to heart failure Review of systems: As noted above. In addition, there is been no substernal chest pain, no abdominal pain, no nausea vomiting diaphoresis diarrhea or constipation. No urinary tract symptoms. No vaginal bleeding or discharge. 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 Family/social history reviewed and noncontributory - Current Medication List Current Medications: Active Medications Acetaminophen (Tylenol -) 650 mg PO Q6H PRN PRN Reason: FEVER OR PAIN Last Admin: 08/18/16 09:26 Dose: 650 mg Atenolol (Tenormin -) [address] [facility] Last Admin: 08/18/16 09:29 Dose: 25 mg Digoxin (Lanoxin -) 0.[address] [facility] Last Admin: 08/18/16 09:27 Dose: 0.125 mg Docusate Sodium (Colace -) [address] [facility] Last Admin: 08/18/16 09:26 Dose: 100 mg Magnesium Oxide (Mag-Ox -) [address] [facility] Last Admin: 08/18/16 09:27 Dose: 400 mg Morphine Sulfate (Morphine Injection -) 2 mg IVPUSH Q2H PRN PRN Reason: PAIN Last Admin: 08/17/16 18:41 Dose: 2 mg Pantoprazole Sodium (Protonix -) [address] [facility] Last Admin: 08/18/16 11:20 Dose: 20 mg Polyethylene Glycol (Miralax (For Daily Use) -) [address] [facility] Last Admin: 08/18/16 11:20 Dose: 17 gm Senna (Senna -) [address] [facility] Last Admin: 08/17/16 21:51 Dose: 1 tab - Objective Vital Signs: Vital Signs Temperature 98.4 F 08/18/16 10:00 Pulse Rate 69 08/18/16 12:00 Respiratory Rate 19 08/18/16 12:00 Blood Pressure 129/50 08/18/16 12:00 O2 Sat by Pulse Oximetry (%) 100 08/18/16 10:00 Constitutional: Yes: Calm Eyes: Yes: WNL HENT: Yes: WNL Neck: Yes: WNL Cardiovascular: Yes: Regular Rate and Rhythm Respiratory: Yes: Diminished, Other (right chest tube) Gastrointestinal: Yes: Soft ...Rectal Exam: Yes: Deferred Genitourinary: No: Anuria Musculoskeletal: Yes: Muscle Weakness Extremities: Yes: Cool Edema: No Peripheral Pulses WNL: Yes Integumentary: Yes: Incision Wound/Incision: Yes: Other (chest tube site without gross bleed or exudate) Neurological: Yes: Alert, Oriented, Weakness Psychiatric: Yes: Alert, Oriented Labs: CBC, BMP 08/18/16 05:20 08/17/16 05:10 INR, PTT INR 1.32 (0.82-1.09) H 08/12/16 14:30 - ....Imaging Chest X-ray: Image Reviewed (worsening bilateral infiltrates) Problem List - Problems (1) Afib Assessment/Plan: On atenolol (may give bid if trouble controlling HR; however, presently in sinus rhythm). Digoxin level 0.7. pt received PRBCs today; Hb 6.6-->8.7. Consider restarting IV heparin when stable. Code(s): I48.91 - UNSPECIFIED ATRIAL FIBRILLATION (2) Pleural effusion, right Assessment/Plan: s/p VATS; chest tube. Worsening bilateral infiltrates and effusions. Give diuretics; f/u BUN/Cr, Is and Os, daily weight, electrolytes. Code(s): J90 - PLEURAL EFFUSION, NOT ELSEWHERE CLASSIFIED (3) Arrhythmia Code(s): I49.9 - CARDIAC ARRHYTHMIA, UNSPECIFIED Qualifiers: Arrhythmia type: atrial fibrillation (4) CLL (chronic lymphocytic leukemia) Code(s): C91.10 - CHRONIC LYMPHOCYTIC LEUK OF B-CELL TYPE NOT ACHIEVE REMIS (5) GERD (gastroesophageal reflux disease) Code(s): K21.9 - GASTRO-ESOPHAGEAL REFLUX DISEASE WITHOUT ESOPHAGITIS
[2016-08-18] MEDS ORDERED: BISACODYL 10 MG SUPP.RECT RC ONE (14:17)
[2016-08-18] MEDS ORDERED: BISACODYL 10 MG SUPP.RECT PR ONE (15:20)
--- NOTE | 2016-08-18 16:44 | PN ---
Physical Exam: SUBJECTIVE: Patient seen and examined. She feels great after BM, no further abd pain. Events: - Large BM following dulcolax NC. - Noted to have stool occult + following. Denies dizziness FIELDS, hemorrhoids. OBJECTIVE: Vital Signs Period Temp Pulse Resp BP Sys/Ross Pulse Ox Last 24 Hr 98 F-98.9 F 69-94 11-24 117-129/44-58 99-100 PE Neuro: alert, awake, cn 2-12intact Pulm: Remaining CT R posterior serosanguinous drainage, R lung crackles, L clear CV: s1 s2 rrr no mrg Abd: s nt nd +bs Ext: warm, pedal edema, upper ext edema Laboratory Results - last 24 hr 08/17/16 08/17/16 08/17/16 16:55 17:30 17:53 WBC 7.0 RBC 3.03 L D Hgb 8.7 L D Hct 25.6 L D MCV 84.4 MCHC 34.0 RDW 14.4 Plt Count 302 MPV 7.5 PTT (Actin FS) Triglycerides 116 Cholesterol 87 Total LDL Cholesterol 58 HDL Cholesterol 25 L TSH 2.59 Stool Occult Blood Digoxin 0.7330 L 08/18/16 08/18/16 08/18/16 05:20 05:20 15:30 WBC 6.5 RBC 3.13 L Hgb 9.1 L Hct 26.5 L MCV 84.9 MCHC 34.2 RDW 15.0 Plt Count 313 MPV 7.7 PTT (Actin FS) 31.6 Triglycerides Cholesterol Total LDL Cholesterol HDL Cholesterol TSH Stool Occult Blood Positive Digoxin Active Medications Generic Name Dose Route Start Last Admin Trade Name Padma PRN Reason Stop Dose Admin Acetaminophen 650 mg 08/14/16 23:33 08/18/16 15:02 Tylenol - PO 650 mg Q6H PRN Administration FEVER OR PAIN Atenolol 25 mg 08/13/16 10:00 08/18/16 09:29 Tenormin - PO 25 mg DAILY STEPHANIE Administration Digoxin 0.125 mg 08/13/16 10:00 08/18/16 09:27 Lanoxin - PO 0.125 mg DAILY STEPHANIE Administration Docusate Sodium 100 mg 08/13/16 22:00 08/18/16 09:26 Colace - PO 100 mg BID STEPHANIE Administration Magnesium Oxide 400 mg 08/13/16 10:00 08/18/16 09:27 Mag-Ox - PO 400 mg DAILY STEPHANIE Administration Morphine Sulfate 2 mg 08/13/16 11:45 08/17/16 18:41 Morphine Injection - IVPUSH 2 mg Q2H PRN Administration PAIN Pantoprazole Sodium 20 mg 08/13/16 10:00 08/18/16 11:20 Protonix - PO 20 mg DAILY STEPHANIE Administration Polyethylene Glycol 17 gm 08/18/16 11:30 08/18/16 11:20 Miralax (For Daily Use) - PO 17 gm BID STEPHANIE Administration Senna 1 tab 08/13/16 22:00 08/17/16 21:51 Senna - PO 1 tab HS STEPHANIE Administration Assessment: 89 year old female with a history of CLL, right breast CA s/p chemo , GERD, arrhythmia, macular degeneration, pleural effusion (recent thoracentesis on 07/16/16) admitted with SOB, sepsis, and pleural effusion. Plan: 1. Acute blood loss anemia - 1uprbc 08/17, with successful rise - Recheck stool occult in AM - Monitor CBC - Hold Heparin gtt 2. Pleural effusion - s/p VATS 08/12 - CT to water seal - Exudative effusion resulted - Final cytology negative for malignancy - Pathology report results show abundant inflammation 3. Sepsis d/t E. Coli UTI +/- lung source - See above 4. pAF, RVR - In sinus - Continue Dig 0.125mg - Continue Atenolol 25mg daily - Await cardiology recommendations: ASA vs. AC after final chest tube is removed 5. CLL - s/p recent chemo 3 weeks ago - Appreciate oncology consult 6. GERD - Cont Protonix 7. Ppx - OOB to chair - Incentive spirometer Visit type - Emergency Visit Emergency Visit: Yes ED Registration Date: 08/05/16 Care time: The patient presented to the Emergency Department on the above date and was hospitalized for further evaluation of their emergent condition. - New Patient This patient is new to me today: No - Critical Care Critical Care patient: No
[2016-08-18] MEDS ORDERED: morphine CARPU-JECT 2 MG/1 ML DISP.SYRIN IVPUSH PRN (19:12)
[2016-08-18] MEDS ORDERED: ACETAMINOPHEN 325 MG TABLET (FP) PO PRN (19:12)
[2016-08-18] MEDS: POLYETHYLENE GLYCOL 3350 119 GM BTL PO SCH (21:24)
[2016-08-18] MEDS ORDERED: LORazepam 0.5 MG TABLET PO ONE (21:32)
[2016-08-18] MEDS ORDERED: LORazepam 0.5 MG TABLET ONE (21:44)
[2016-08-18] MEDS ORDERED: SENNOSIDES 8.6MG TABLET (FP) PO SCH (22:00)
[2016-08-19 06:02] LABS: BASOPHIL 0.5 % (0-2.0); EOSINOPHIL 1.7 % (0-4.5); MCH 28.9 pg (25.7-33.7); MCHC 34.4 g/dl (32.0-36.0); MEAN CELL VOLUME 84.2 fl (80-96); MEAN PLT VOLUME 7.8 fl (7.5-11.1); PLATELET COUNT 329 K/MM3 (134-434); RDW 14.7 % (11.6-15.6)
[2016-08-19 06:29] LABS: CALCIUM 7.7 mg/dL (8.5-10.1); CREATININE 0.4 mg/dL (0.55-1.02)
--- NOTE | 2016-08-19 08:19 | PN ---
Physical Exam: SUBJECTIVE: Patient seen and examined at bed side in ICU. patient sitting comfortably in chair. complains of anxiety from all the wires. Denies fevers, chills, N/V/D. CT produced 15 cc serosanguineous fluid. Denies fevers, chills, sob, fevers, chills, N/V/D. OBJECTIVE: Vital Signs Period Temp Pulse Resp BP Sys/Ross Pulse Ox Last 24 Hr 97.8 F-98.5 F 63-94 13-20 107-142/44-59 100-100 GENERAL: The patient is awake, alert, and fully oriented, in no acute distress. sitting in chair. HEAD: Normal with no signs of trauma. EYES: extraocular movements intact, sclera anicteric, conjunctiva clear. ENT: Ears normal, nares patent, oropharynx clear without exudates, moist mucous membranes. NECK: Trachea midline, full range of motion, supple. [id number] Left midline neck lemphadenopathy non tender, erythmatus, LUNGS: decrease breath sounds more than yesterday bilaterally, Course breath sounds right middle and base lung, Left lung base with crackles. right side tender right poultry vaccinator wall 2cm x 2 cm soft mass. Upper left lobes clear.chest tube x 1 dressing over chest tube site clean/dry/intact, no obvious air leak. patient with better respiratory effort. All three CT on water seal. HEART: Regular rate and rhythm, S1, S2 without murmur, rub or gallop. ABDOMEN: Soft, nontender, mild distended, hypoactive bowel sounds, no guarding , no rebound, no hepatosplenomegaly, no masses. EXTREMITIES: 2+ pulses, warm, well-perfused, + edema. NEUROLOGICAL: no gross focal neurological deficit appreciated, Normal speech, gait not observed. PSYCH: Normal mood, normal affect. SKIN: Warm, dry, normal turgor, no rashes or lesions noted Laboratory Results - last 24 hr 08/18/16 08/19/16 08/19/16 15:30 05:05 05:05 WBC 6.0 RBC 2.99 L Hgb 8.7 L Hct 25.2 L MCV 84.2 MCHC 34.4 RDW 14.7 Plt Count 329 MPV 7.8 Neutrophils % 54.0 Lymphocytes % 36.4 Monocytes % 7.4 Eosinophils % 1.7 D Basophils % 0.5 PTT (Actin FS) 29.5 Sodium Potassium Chloride Carbon Dioxide Anion Gap BUN Creatinine Random Glucose Calcium Stool Occult Blood Positive 08/19/16 05:05 WBC RBC Hgb Hct MCV MCHC RDW Plt Count MPV Neutrophils % Lymphocytes % Monocytes % Eosinophils % Basophils % PTT (Actin FS) Sodium 143 Potassium 3.8 Chloride 102 Carbon Dioxide 33 H Anion Gap 8 BUN 15 Creatinine 0.4 L Random Glucose 93 Calcium 7.7 L Stool Occult Blood Active Medications Generic Name Dose Route Start Last Admin Trade Name Freq PRN Reason Stop Dose Admin Acetaminophen 650 mg 08/18/16 19:12 Tylenol - PO Q6H PRN FEVER OR PAIN Atenolol 25 mg 08/19/16 10:00 Tenormin - PO DAILY [facility] Digoxin 0.125 mg 08/19/16 10:00 Lanoxin - PO DAILY [facility] Docusate Sodium 100 mg 08/18/16 22:00 08/18/16 21:24 Colace - PO Not Given BID [facility] Magnesium Oxide 400 mg 08/19/16 10:00 Mag-Ox - PO DAILY [facility] Morphine Sulfate 2 mg 08/18/16 19:12 Morphine Injection - IVPUSH Q2H PRN PAIN Pantoprazole Sodium 20 mg 08/19/16 10:00 Protonix - PO DAILY [facility] Polyethylene Glycol 17 gm 08/18/16 22:00 08/18/16 21:24 Miralax (For Daily Use) - PO Not Given BID [facility] Senna 1 tab 08/18/16 22:00 08/18/16 21:24 Senna - PO Not Given [facility] ASSESSMENT/PLAN: Patient is an 89 year old female with a significant past medical history of CLL , on active chemo treatments (last one 3 weeks ago), right breast cancer s/p lumpectomy a few years ago, macular degeneration, GERD and arrhythmia (has an implanted loop recorder). She presented to the ED on 08/05/2016 with worsening shortness of breath and was admitted for pleural effusion on the right lung, hypotension and CLL. ID: Severe Sepsis: Resolved UTI + Pneumonia vs Empyema s/p vats for recurrent effusion- f/u pathology and operative cultures. -leukocytosis resolved -Lactic Acidosis resolved, -pleural fluid shows exudative process, -flow cytometry: negative for malignant cells -Pleural effusion post VAT ( cultures negative) -Pain control -Incentive spirometry Recurrent Pleural Effusion-POD #7 Afebrile overnight: s/p VATS/pneumolysis/ decortication. -final path report no malignant cells, culture negative -pleural fluid shows exudative process, -possible DC of CT today per surgery -cont supp care and wean oxygen as vilma -aggressive pulm toilet, -ID following Anemia: 2/2 serosanguineous chest tube output and OB+, s/p one unit PRBC with good response day 2. afebrile, asymptomatic, H/H stable. -follow H/H -heparin held for anemia, plan to resume when possible -Decision on full AC vs antiplatelets once anemia worked up and treated and after chest tube removed. -repeat CXR in am Cardiology: Paroxysmal afib with RVR -On cardiac monitoring -Also has implanted loop recorder -Monitor BP -Cont Digoxin 0.125mg daily and Atenolol 25mg daily, Remains in NSR. -Cardiology following -will consider ASA alone or full AC for her PAF -heprin held for anemia, plan to resume when possible -Decision on full AC vs antiplatelets once anemia worked up and treated and after chest tube removed. Oncology: -Chronic Lymphocytic Leukemia and hx of Breast Cancer -Last chemo treatment 3 weeks prior to admission -right arm precautions, Oncology following -pleural fluid cytology pending F.E.N. -Fluids: Oral hydration -Electrolytes: replete as needed -Nutrition: soft diet -oob to chair and walk patient as tolerated Prophylaxis: -DVT: SCD's -GI: Protonix -Disposition: will consider transfer to [facility] after CT removed today. Visit type - Emergency Visit Emergency Visit: Yes ED Registration Date: 08/05/16 Care time: The patient presented to the Emergency Department on the above date and was hospitalized for further evaluation of their emergent condition. - New Patient This patient is new to me today: No - Critical Care Critical Care patient: Yes Total Critical Care Time (in minutes): 42 Critical Care Statement: The care of this patient involved high complexity decision making to prevent further life threatening deterioration of the patient 's condition and/or to evalute & treat vital organ system(s) failure or risk of failure.
[2016-08-19] MEDS ORDERED: PANTOPRAZOLE 20 MG TABLET (FP) PO SCH (10:00)
[2016-08-19] MEDS ORDERED: ATENOLOL 25 MG TABLET (FP) PO SCH (10:00)
[2016-08-19] MEDS ORDERED: DIGOXIN 0.125 MG TABLET (FP) PO SCH (10:00)
[2016-08-19] MEDS ORDERED: MAGNESIUM OXIDE 400 MG TABLET (FP) PO SCH (10:00)
[2016-08-19] MEDS: DOCUSATE SODIUM 100 MG CAPSULE (FP) PO SCH ×2 (10:14→21:08)
[2016-08-19] MEDS: POLYETHYLENE GLYCOL 3350 119 GM BTL PO SCH ×2 (10:17→21:08)
--- NOTE | 2016-08-19 11:55 | PN ---
Addendum entered and electronically signed by Rosaline Lockhart PA 08/19/16 17:43: CXR after CT removed, no pntx. will obtain repeat cxr in the am Original Note: Progress Note (short form) - Note Progress Note: Pt oob to chair this am. Complaints of occasional pain under right breast. Vital Signs Period Temp Pulse Resp BP Sys/Ross Pulse Ox Last 24 Hr 97.8 F-98.5 F 63-94 13-20 107-142/44-59 100-100 CT-uop- 80 ml/24 hours, serosangrenous PE: GEN: appears comfortable Lungs: mild crackles b/l to bases, anterior clear. inc posterior-c/d/i with steri-strips Right CT removed today, xeroform/4x4 gauze and silk tape applied over all three surgical sites. CBC, BMP 08/19/16 05:05 08/19/16 05:05 CXR- 08/19-CT in place and without pntx A/P: 89 yo female s/p R VATS, pneumolysis, decortication and pleural bx, POD#[address] to water seal, plan for possible removal of CT today. Pain management as needed Incentive spirometer Spoke with Dr. Ryder earlier today, 15 ml outpt thruout the day, pt oob and ambulated in the ICU with PT Chest tube removed f/u CXR at 1700 today. Continue dressing to right chest. <Rosaline Lockhart - Last Filed: 08/19/16 15:24> - Note Progress Note: reviewed charts, films, labs, vs, and i/o's. no major event o/n. min ct output , serosang, no air leak. clinically improving. cxr stable which may take weeks to normalize radiologically. 1. cont supp care and wean oxygen as vilma 2. dc chest tube 3. oob amb w pt, chest pt, is x10/hr, pulm toilet 4. po abx as outpt 5. f/u id, pulm, cardio <Orlando Ryder - Last Filed: 08/19/16 16:43> Problem List - Problems (1) Pleural effusion Code(s): J90 - PLEURAL EFFUSION, NOT ELSEWHERE CLASSIFIED <Orlando Ryder - Last Filed: 08/19/16 16:43>
--- NOTE | 2016-08-19 12:18 | PN ---
Progress Note, Physician History of Present Illness: seen and examined today in [facility]. no overnight events. no new complaints. feeling better. - Current Medication List Current Medications: Active Medications Acetaminophen (Tylenol -) 650 mg PO Q6H PRN PRN Reason: FEVER OR PAIN Atenolol (Tenormin -) 25 mg PO DAILY [facility] Last Admin: 08/19/16 10:16 Dose: 25 mg Digoxin (Lanoxin -) 0.125 mg PO DAILY [facility] Last Admin: 08/19/16 10:15 Dose: 0.125 mg Docusate Sodium (Colace -) 100 mg PO BID [facility] Last Admin: 08/19/16 10:14 Dose: 100 mg Magnesium Oxide (Mag-Ox -) 400 mg PO DAILY [facility] Last Admin: 08/19/16 10:15 Dose: 400 mg Morphine Sulfate (Morphine Injection -) 2 mg IVPUSH Q2H PRN PRN Reason: PAIN Pantoprazole Sodium (Protonix -) 20 mg PO DAILY [facility] Last Admin: 08/19/16 10:16 Dose: 20 mg Polyethylene Glycol (Miralax (For Daily Use) -) 17 gm PO BID [facility] Last Admin: 08/19/16 10:17 Dose: 17 grams Senna (Senna -) 1 tab PO HS [facility] Last Admin: 08/18/16 21:24 Dose: Not Given - Objective Vital Signs: Vital Signs Temperature 98.2 F 08/19/16 10:20 Pulse Rate 68 08/19/16 10:20 Respiratory Rate 18 08/19/16 10:20 Blood Pressure 124/44 08/19/16 10:20 O2 Sat by Pulse Oximetry (%) 100 08/19/16 11:05 Constitutional: Yes: Well Nourished, No Distress, Calm Eyes: Yes: WNL, Conjunctiva Clear, EOM Intact, PERRL HENT: Yes: WNL, Atraumatic, Normocephalic Neck: Yes: WNL, Supple, Trachea Midline Cardiovascular: Yes: Regular Rate and Rhythm, S1, S2. No: Bradycardia, Tachycardia, Pulse Irregular, Bruit, JVD, Gallop, Murmur, Rub, S3, S4, Varicosities Respiratory: Yes: Regular, Diminished, Other (chest tube in place). No: Rales, Rhonchi, Wheezes Gastrointestinal: Yes: Normal Bowel Sounds, Soft. No: Distention, Tenderness Musculoskeletal: Yes: WNL Extremities: Yes: WNL Edema: Yes Edema: RLE: 1+ Peripheral Pulses WNL: Yes Peripheral Pulses: Left Doralis Pedis: 2+, Right Dorsalis Pedis: 2+ Integumentary: Yes: WNL Neurological: Yes: Alert, Oriented, Cran Nerves II-XII Intact Psychiatric: Yes: Alert, Oriented Labs: CBC, BMP 08/19/16 05:05 08/19/16 05:05 INR, PTT INR 1.32 (0.82-1.09) H 08/12/16 14:30 - ....Imaging Chest X-ray: Report Reviewed, Image Reviewed EKG: Report Reviewed, Image Reviewed Other: Report Reviewed, Image Reviewed (tele-nsr, no arrhythmias recorded) Assessment/Plan CLL on chemo Recurrent right pleural effusion s/p RVATs PSVT and PAF s/p ILR REC: Paroxysmal afib with RVR -cont Digoxin 0.125mg daily and Atenolol 25mg daily -heparin held for anemia requiring PRBCs, plan to resume when possible -Decision on full AC vs antiplatelets once anemia worked up and treated and after chest tube removed.
--- NOTE | 2016-08-19 12:44 | PN ---
Teaching Attending Note Name of Resident: Hanna Ly ATTENDING PHYSICIAN STATEMENT I saw and evaluated the patient. I reviewed the resident's note and discussed the case with the resident. I agree with the resident's findings and plan as documented. SUBJECTIVE: Patient seen and examined in the ICU. Pain adequately controlled. No fevers or chills. CT intact w/o air leak. CXR: No gross air leak Intake & Output 08/16/16 08/17/16 08/18/16 08/19/16 23:59 23:59 23:59 23:59 Intake Total 1509 1300 1520 200 Output Total 1480 890 535 315 Balance 29 410 985 -115 Weight 110 lb 8 oz 110 lb 8 oz 109 lb 6 oz 108 lb 2 oz Last Vital Signs Temp Pulse Resp BP Pulse Ox 98.2 F 68 18 124/44 100 08/19/16 10:20 08/19/16 10:20 08/19/16 10:20 08/19/16 10:20 08/19/16 11:05 Active Medications Acetaminophen (Tylenol -) 650 mg PO Q6H PRN PRN Reason: FEVER OR PAIN Atenolol (Tenormin -) 25 mg PO DAILY [facility] Last Admin: 08/19/16 10:16 Dose: 25 mg Digoxin (Lanoxin -) 0.125 mg PO DAILY [facility] Last Admin: 08/19/16 10:15 Dose: 0.125 mg Docusate Sodium (Colace -) 100 mg PO BID [facility] Last Admin: 08/19/16 10:14 Dose: 100 mg Magnesium Oxide (Mag-Ox -) 400 mg PO DAILY [facility] Last Admin: 08/19/16 10:15 Dose: 400 mg Morphine Sulfate (Morphine Injection -) 2 mg IVPUSH Q2H PRN PRN Reason: PAIN Pantoprazole Sodium (Protonix -) 20 mg PO DAILY [facility] Last Admin: 08/19/16 10:16 Dose: 20 mg Polyethylene Glycol (Miralax (For Daily Use) -) 17 gm PO BID [facility] Last Admin: 08/19/16 10:17 Dose: 17 grams Senna (Senna -) 1 tab PO HS [facility] Last Admin: 08/18/16 21:24 Dose: Not Given Gen: Awake and alert, NAD Heart: RRR Lung: right base rhonchi Abd: soft, nontender Ext: +distal edema Chest tube intact: no air leak, serosanguinous drainage Laboratory Results - last 24 hr 08/18/16 08/19/16 08/19/16 15:30 05:05 05:05 WBC 6.0 RBC 2.99 L Hgb 8.7 L Hct 25.2 L MCV 84.2 MCHC 34.4 RDW 14.7 Plt Count 329 MPV 7.8 Neutrophils % 54.0 Lymphocytes % 36.4 Monocytes % 7.4 Eosinophils % 1.7 D Basophils % 0.5 PTT (Actin FS) 29.5 Sodium Potassium Chloride Carbon Dioxide Anion Gap BUN Creatinine Random Glucose Calcium Stool Occult Blood Positive 08/19/16 05:05 WBC RBC Hgb Hct MCV MCHC RDW Plt Count MPV Neutrophils % Lymphocytes % Monocytes % Eosinophils % Basophils % PTT (Actin FS) Sodium 143 Potassium 3.8 Chloride 102 Carbon Dioxide 33 H Anion Gap 8 BUN 15 Creatinine 0.4 L Random Glucose 93 Calcium 7.7 L Stool Occult Blood ASSESSMENT AND PLAN: UTI Pneumonia vs Empyema vs Malignant Effusion Severe Sepsis improving Lactic Acidosis resolved Atrial Fibrillation CLL - S/P ABX - pain control - incentive spirometry - O2 as needed - DVT prophylaxis - Follow daily CXR - continue ICU monitoring Dr Henry CCTime 35"
--- NOTE | 2016-08-19 16:39 | PN ---
Physical Exam: SUBJECTIVE: Patient seen and examined. She feels about the same, she is out to chair eating lunch OBJECTIVE: Vital Signs Period Temp Pulse Resp BP Sys/Ross Pulse Ox Last 24 Hr 97.8 F-98.5 F 68-92 13-18 107-142/44-59 100-100 PE Neuro: alert, awake, cn 2-12intact Pulm: Remaining CT R posterior serosanguinous drainage, R lung diminished, L clear CV: s1 s2 rrr no mrg Abd: s nt nd +bs Ext: warm, pedal edema, upper ext edema Laboratory Results - last 24 hr 08/19/16 08/19/16 08/19/16 05:05 05:05 05:05 WBC 6.0 RBC 2.99 L Hgb 8.7 L Hct 25.2 L MCV 84.2 MCHC 34.4 RDW 14.7 Plt Count 329 MPV 7.8 Neutrophils % 54.0 Lymphocytes % 36.4 Monocytes % 7.4 Eosinophils % 1.7 D Basophils % 0.5 PTT (Actin FS) 29.5 Sodium 143 Potassium 3.8 Chloride 102 Carbon Dioxide 33 H Anion Gap 8 BUN 15 Creatinine 0.4 L Random Glucose 93 Calcium 7.7 L Active Medications Generic Name Dose Route Start Last Admin Trade Name Freq PRN Reason Stop Dose Admin Acetaminophen 650 mg 08/18/16 19:12 08/19/16 15:20 Tylenol - PO 650 mg Q6H PRN Administration FEVER OR PAIN Atenolol 25 mg 08/19/16 10:00 08/19/16 10:16 Tenormin - PO 25 mg DAILY STEPHANIE Administration Digoxin 0.125 mg 08/19/16 10:00 08/19/16 10:15 Lanoxin - PO 0.125 mg DAILY STEPHANIE Administration Docusate Sodium 100 mg 08/18/16 22:00 08/19/16 10:14 Colace - PO 100 mg BID STEPHANIE Administration Magnesium Oxide 400 mg 08/19/16 10:00 08/19/16 10:15 Mag-Ox - PO 400 mg DAILY STEPHANIE Administration Morphine Sulfate 2 mg 08/18/16 19:12 Morphine Injection - IVPUSH Q2H PRN PAIN Pantoprazole Sodium 20 mg 08/19/16 10:00 08/19/16 10:16 Protonix - PO 20 mg DAILY STEPHANIE Administration Polyethylene Glycol 17 gm 08/18/16 22:00 08/19/16 10:17 Miralax (For Daily Use) - PO 17 grams BID STEPHANIE Administration Senna 1 tab 08/18/16 22:00 08/18/16 21:24 Senna - PO Not Given HS STEPHANIE Assessment: 89 year old female with a history of CLL, right breast CA s/p chemo , GERD, arrhythmia, macular degeneration, pleural effusion (recent thoracentesis on 07/16/16) admitted with SOB, sepsis, and pleural effusion. Plan: 1. Acute blood loss anemia - 1uprbc 08/17 - hgb stable - Hold Heparin gtt 2. Pleural effusion - s/p VATS 08/12 - CT to water seal, plan to pull today at 1700 - Exudative effusion resulted - Final cytology negative for malignancy - Pathology report results show abundant inflammation 3. Sepsis d/t E. Coli UTI +/- lung source - See above 4. pAF, RVR - In sinus - Continue Dig 0.125mg - Continue Atenolol 25mg daily - Await cardiology recommendations: ASA vs. AC after final chest tube is removed 5. CLL - s/p recent chemo 3 weeks ago - Appreciate oncology consult 6. GERD - Cont Protonix 7. Ppx - OOB to chair - Incentive spirometer Visit type - Emergency Visit Emergency Visit: Yes ED Registration Date: 08/05/16 Care time: The patient presented to the Emergency Department on the above date and was hospitalized for further evaluation of their emergent condition. - New Patient This patient is new to me today: No - Critical Care Critical Care patient: No
[2016-08-19] MEDS ORDERED: morphine CARPU-JECT 2 MG/1 ML DISP.SYRIN IVPUSH PRN (20:03)
[2016-08-19] MEDS ORDERED: ACETAMINOPHEN 325 MG TABLET (FP) PO PRN (20:03)
[2016-08-19] MEDS: SENNOSIDES 8.6MG TABLET (FP) PO SCH (21:08)
[2016-08-20 06:21] LABS: BASOPHIL 0.6 % (0-2.0); EOSINOPHIL 1.2 % (0-4.5); MCH 28.5 pg (25.7-33.7); MCHC 33.8 g/dl (32.0-36.0); MEAN CELL VOLUME 84.4 fl (80-96); NEUTROPHILS 51.9 % (42.8-82.8); PLATELET COUNT 338 K/MM3 (134-434); RDW 14.9 % (11.6-15.6); WHITE BLOOD COUNT 6.2 K/mm3 (4.0-10.0)
[2016-08-20 06:51] LABS: ALBUMIN 1.9 g/dl (3.4-5.0); ANION GAP 9 (8-16); CALCIUM 7.9 mg/dL (8.5-10.1); CO2 32 mmol/L (21-32); GLUCOSE,RANDOM 86 mg/dL (74-106); SGOT/AST 33 U/L (15-37); SGPT/ALT 36 U/L (12-78)
[2016-08-20 06:54] LABS: ALK PHOS 131 U/L (45-117); BILIRUBIN,TOTAL 0.6 mg/dL (0.2-1.0); CREATININE 0.4 mg/dL (0.55-1.02); TOT PROT 4.2 g/dl (6.4-8.2)
[2016-08-20] MEDS ORDERED: PT OWN MED DRAWER 7, Y5N ONE (08:43)
[2016-08-20] MEDS: DOCUSATE SODIUM 100 MG CAPSULE (FP) PO SCH ×2 (09:27→23:07)
[2016-08-20] MEDS: DIGOXIN 0.125 MG TABLET (FP) PO SCH (09:28)
[2016-08-20] MEDS: MAGNESIUM OXIDE 400 MG TABLET (FP) PO SCH (09:29)
[2016-08-20] MEDS: POLYETHYLENE GLYCOL 3350 119 GM BTL PO SCH ×2 (09:29→23:07)
[2016-08-20] MEDS: PANTOPRAZOLE 20 MG TABLET (FP) PO SCH (09:30)
[2016-08-20] MEDS: ATENOLOL 25 MG TABLET (FP) PO SCH (09:36)
--- NOTE | 2016-08-20 09:58 | PN ---
Progress Note, Physician Chief Complaint: chest tubes removed Being transferred out of ICU to tele History of Present Illness: TELE: NSR, mild sinus tach at times. - Current Medication List Current Medications: Active Medications Acetaminophen (Tylenol -) 650 mg PO Q6H PRN PRN Reason: FEVER OR PAIN Atenolol (Tenormin -) 25 mg PO DAILY [facility] Last Admin: 08/20/16 09:36 Dose: 25 mg Digoxin (Lanoxin -) 0.125 mg PO DAILY [facility] Last Admin: 08/20/16 09:28 Dose: 0.125 mg Docusate Sodium (Colace -) 100 mg PO BID [facility] Last Admin: 08/20/16 09:27 Dose: 100 mg Magnesium Oxide (Mag-Ox -) 400 mg PO DAILY [facility] Last Admin: 08/20/16 09:29 Dose: 400 mg Morphine Sulfate (Morphine Injection -) 2 mg IVPUSH Q2H PRN PRN Reason: PAIN Pantoprazole Sodium (Protonix -) 20 mg PO DAILY [facility] Last Admin: 08/20/16 09:30 Dose: 20 mg Polyethylene Glycol (Miralax (For Daily Use) -) 17 gm PO BID [facility] Last Admin: 08/20/16 09:29 Dose: Not Given Senna (Senna -) 1 tab PO HS [facility] Last Admin: 08/19/16 21:08 Dose: 1 tab - Objective Vital Signs: Vital Signs Temperature 98.6 F 08/20/16 05:57 Pulse Rate 107 H 08/20/16 09:28 Respiratory Rate 19 08/20/16 09:00 Blood Pressure 135/73 08/20/16 08:00 O2 Sat by Pulse Oximetry (%) 95 08/20/16 09:00 Constitutional: Yes: Calm Cardiovascular: Yes: Regular Rate and Rhythm Respiratory: Yes: Other (slight decreased breath sounds right.) Gastrointestinal: Yes: Soft Edema: No Neurological: Yes: Alert, Oriented ...Motor Strength: WNL Labs: CBC, BMP 08/20/16 05:15 08/20/16 05:15 INR, PTT INR 1.32 (0.82-1.09) H 08/12/16 14:30 Laboratory Tests 08/19/16 08/20/16 08/20/16 05:05 05:15 05:15 WBC 6.2 Hgb 9.0 L Plt Count 338 PTT (Actin FS) 29.5 Potassium 3.8 Creatinine 0.4 L - ....Imaging EKG: Image Reviewed Assessment/Plan Assessment/Plan CLL on chemo Recurrent right pleural effusion s/p RVATs PSVT and PAF s/p ILR REC: Paroxysmal afib with RVR -cont Digoxin 0.125mg daily and Atenolol 25mg daily -Decision on full AC vs antiplatelets to be discussed with family -Would resume ASA 81mg daily for now if ok from surgery standpoint.
--- NOTE | 2016-08-20 12:50 | PN ---
Progress Note (short form) - Note Progress Note: seen and examined. no major complaints. feeling and breathing improved. no f/ c, sob, garcia, cough, sputum production, chest pain. afeb. rrr. min decreased breath sound in right base. dsg: c/d/i. +bs, soft, nt, nd. +edema. no c/c. a&o x3. CBC, BMP 08/20/16 05:15 08/20/16 05:15 Vital Signs (72 hours) 08/17/16 08/17/16 08/17/16 14:00 16:00 18:00 Temperature 98.0 F 98.2 F 98.0 F Pulse Rate 78 78 88 Respiratory 16 16 16 Rate Blood Pressure 112/47 109/41 125/49 O2 Sat by Pulse Oximetry (%) 08/17/16 08/17/16 08/17/16 19:59 20:00 22:00 Temperature 98.7 F Pulse Rate 89 82 Respiratory 24 17 Rate Blood Pressure 129/45 123/50 O2 Sat by Pulse 99 Oximetry (%) 08/18/16 08/18/16 08/18/16 00:00 02:00 04:00 Temperature 98.9 F Pulse Rate 86 85 78 Respiratory 20 20 12 Rate Blood Pressure 117/48 126/54 124/57 O2 Sat by Pulse Oximetry (%) 08/18/16 08/18/16 08/18/16 06:00 08:00 09:00 Temperature 98.4 F Pulse Rate 80 83 Respiratory 11 L 15 Rate Blood Pressure 128/54 128/58 O2 Sat by Pulse 100 Oximetry (%) 08/18/16 08/18/16 08/18/16 09:27 10:00 12:00 Temperature 98.4 F Pulse Rate 80 82 69 Respiratory 18 19 Rate Blood Pressure 127/54 129/50 O2 Sat by Pulse 100 Oximetry (%) 08/18/16 08/18/16 08/18/16 14:09 16:00 18:00 Temperature 98 F 98.5 F Pulse Rate 94 H 63 80 Respiratory 19 20 18 Rate Blood Pressure 119/44 117/48 134/55 O2 Sat by Pulse Oximetry (%) 08/18/16 08/18/16 08/18/16 20:00 20:18 20:19 Temperature Pulse Rate 74 Respiratory 13 Rate Blood Pressure 130/54 O2 Sat by Pulse 100 100 Oximetry (%) 08/18/16 08/19/16 08/19/16 22:00 00:00 02:00 Temperature 98.4 F 97.8 F Pulse Rate 70 73 75 Respiratory 17 17 18 Rate Blood Pressure 141/56 115/54 107/45 O2 Sat by Pulse Oximetry (%) 08/19/16 08/19/16 08/19/16 04:00 06:00 08:00 Temperature 98 F 98.2 F Pulse Rate 85 80 92 H Respiratory 18 18 18 Rate Blood Pressure 127/57 142/59 142/58 O2 Sat by Pulse Oximetry (%) 08/19/16 08/19/16 08/19/16 08:42 10:15 10:20 Temperature 98.2 F Pulse Rate 68 68 Respiratory 18 18 Rate Blood Pressure 124/44 O2 Sat by Pulse Oximetry (%) 08/19/16 08/19/16 08/19/16 11:05 12:00 14:00 Temperature Pulse Rate 79 71 Respiratory 18 18 Rate Blood Pressure 128/58 121/52 O2 Sat by Pulse 100 Oximetry (%) 08/19/16 08/19/16 08/19/16 20:25 20:29 22:29 Temperature 98.4 F Pulse Rate 83 85 Respiratory 18 16 Rate Blood Pressure 131/78 133/53 O2 Sat by Pulse 100 Oximetry (%) 08/20/16 08/20/16 08/20/16 00:00 02:00 04:00 Temperature 98.3 F Pulse Rate 83 83 98 H Respiratory 16 22 24 Rate Blood Pressure 128/44 135/68 146/89 O2 Sat by Pulse Oximetry (%) 08/20/16 08/20/16 08/20/16 05:57 08:00 09:00 Temperature 98.6 F Pulse Rate 91 H 93 H Respiratory 20 19 19 Rate Blood Pressure 140/72 135/73 O2 Sat by Pulse 95 Oximetry (%) 08/20/16 08/20/16 09:28 10:00 Temperature 98 F Pulse Rate 107 H 107 H Respiratory 20 Rate Blood Pressure 130/67 O2 Sat by Pulse Oximetry (%) a/p 89 yo, f, h/o cll and recurrent right pleural effusion with empyema, s/p rt vats, complete decortication, pneumolysis, and pleural biopsy. clinically improved and stable cxr. pt can maintain O2 sat 96-99% off oxygen supp at bedside. no acute surgical issues. 1. cont supp care and wean oxygen as vilma 2. po abx as outpt 3. asa per card 4. dc planning per primary team 5. f/u with Thoracic Surgery ([phone]) in 2 week Problem List - Problems (1) Pleural effusion Code(s): J90 - PLEURAL EFFUSION, NOT ELSEWHERE CLASSIFIED
--- NOTE | 2016-08-20 13:44 | PN ---
Progress Note (short form) - Note Progress Note: PULMONARY Denies shortness of breath or chest pain. No fevers or chills. Last Vital Signs Temp Pulse Resp BP Pulse Ox 98 F 107 H 20 130/67 95 08/20/16 10:00 08/20/16 10:00 08/20/16 10:00 08/20/16 10:00 08/20/16 09:00 Gen: mildly tachypneic at rest Heart: RRR Lung: decreased breath sounds right base Abd: soft, nontender Ext: no edema CBC, BMP 08/20/16 05:15 08/20/16 05:15 Active Medications Acetaminophen (Tylenol -) 650 mg PO Q6H PRN PRN Reason: FEVER OR PAIN Last Admin: 08/20/16 10:05 Dose: 650 mg Atenolol (Tenormin -) 25 mg PO DAILY [facility] Last Admin: 08/20/16 09:36 Dose: 25 mg Digoxin (Lanoxin -) 0.125 mg PO DAILY [facility] Last Admin: 08/20/16 09:28 Dose: 0.125 mg Docusate Sodium (Colace -) 100 mg PO BID [facility] Last Admin: 08/20/16 09:27 Dose: 100 mg Magnesium Oxide (Mag-Ox -) 400 mg PO DAILY [facility] Last Admin: 08/20/16 09:29 Dose: 400 mg Morphine Sulfate (Morphine Injection -) 2 mg IVPUSH Q2H PRN PRN Reason: PAIN Pantoprazole Sodium (Protonix -) 20 mg PO DAILY [facility] Last Admin: 08/20/16 09:30 Dose: 20 mg Polyethylene Glycol (Miralax (For Daily Use) -) 17 gm PO BID [facility] Last Admin: 08/20/16 09:29 Dose: Not Given Senna (Senna -) 1 tab PO HS [facility] Last Admin: 08/19/16 21:08 Dose: 1 tab A/P Empyema s/p VATS/decortication/pneumolysis Severe Sepsis resolved Lactic Acidosis resolved Atrial Fibrillation CLL - s/p antibiotics - pain control - incentive spirometry - O2 as needed - DVT prophylaxis - d/c planning
--- NOTE | 2016-08-20 15:41 | PN ---
Physical Exam: SUBJECTIVE: Patient seen and examined on tele. She ambulated with PT. She would like to go home. Denies sob, CP. OBJECTIVE: Vital Signs Period Temp Pulse Resp BP Sys/Ross Pulse Ox Last 24 Hr 98 F-98.6 F 83-107 16-24 128-146/44-89 95-100 PE Neuro: alert, awake, cn 2-12intact Pulm: R lung diminished with crackles, l clear, CT dressing intact CV: s1 s2 rrr no mrg Abd: s nt nd +bs Ext: warm, pedal edema Laboratory Results - last 24 hr 08/16/16 08/20/16 08/20/16 08:10 05:15 05:15 WBC 6.2 RBC 3.16 L Hgb 9.0 L Hct 26.7 L MCV 84.4 MCHC 33.8 RDW 14.9 Plt Count 338 MPV 8.0 Neutrophils % 51.9 Lymphocytes % 37.0 Monocytes % 9.3 Eosinophils % 1.2 Basophils % 0.6 Sodium 141 Potassium 3.8 Chloride 100 Carbon Dioxide 32 Anion Gap 9 BUN 15 Creatinine 0.4 L Creat Clearance w eGFR > 60 Random Glucose 86 Calcium 7.9 L Total Bilirubin 0.6 D AST 33 D ALT 36 D Alkaline Phosphatase 131 H Total Protein 4.2 L Albumin 1.9 L Blood Type O POSITIVE Antibody Screen Negative Crossmatch See Detail Active Medications Generic Name Dose Route Start Last Admin Trade Name Freq PRN Reason Stop Dose Admin Acetaminophen 650 mg 08/19/16 20:03 08/20/16 10:05 Tylenol - PO 650 mg Q6H PRN Administration FEVER OR PAIN Atenolol 25 mg 08/20/16 10:00 08/20/16 09:36 Tenormin - PO 25 mg DAILY [facility] Administration Digoxin 0.125 mg 08/20/16 10:00 08/20/16 09:28 Lanoxin - PO 0.125 mg DAILY [facility] Administration Docusate Sodium 100 mg 08/19/16 22:00 08/20/16 09:27 Colace - PO 100 mg BID STEPH[facility]IE Administration Magnesium Oxide 400 mg 08/20/16 10:00 08/20/16 09:29 Mag-Ox - PO 400 mg DAILY [facility] Administration Morphine Sulfate 2 mg 08/19/16 20:03 Morphine Injection - IVPUSH Q2H PRN PAIN Pantoprazole Sodium 20 mg 08/20/16 10:00 08/20/16 09:30 Protonix - PO 20 mg DAILY [facility] Administration Polyethylene Glycol 17 gm 08/19/16 22:00 08/20/16 09:29 Miralax (For Daily Use) - PO Not Given BID STEPHANIE Senna 1 tab 08/19/16 22:00 08/19/16 21:08 Senna - PO 1 tab HS STE[facility]IE Administration Assessment: 89 year old female with a history of CLL, right breast CA s/p chemo , GERD, arrhythmia, macular degeneration, pleural effusion (recent thoracentesis on 07/16/16) admitted with SOB, sepsis, and pleural effusion. Plan: 1. Acute blood loss anemia - 1UPRBC 08/17 - hgb stable 2. Pleural effusion - s/p VATS 08/12 - Exudative effusion resulted - Final cytology negative for malignancy - Pathology report results show abundant inflammation - Thoracic follow up in 2 weeks 3. Sepsis d/t E. Coli UTI +/- lung source - See above 4. pAF, RVR - In sinus - Continue Dig 0.125mg - Continue Atenolol 25mg daily - AC initiation per family - Will start ASA daily 5. CLL - s/p recent chemo 3 weeks ago - Appreciate oncology consult 6. GERD - Cont Protonix 7. PPx - OOB to chair - Incentive spirometer Dispo: - VNS upon discharge, possibly tomorrow depending on AC plan Visit type - Emergency Visit Emergency Visit: Yes ED Registration Date: 08/05/16 Care time: The patient presented to the Emergency Department on the above date and was hospitalized for further evaluation of their emergent condition. - New Patient This patient is new to me today: No - Critical Care Critical Care patient: No
[2016-08-20] MEDS: ASPIRIN COATED 81 MG TABLET.EC PO SCH (17:02)
[2016-08-20] MEDS: SENNOSIDES 8.6MG TABLET (FP) PO SCH (23:07)
[2016-08-21] MEDS: MAGNESIUM OXIDE 400 MG TABLET (FP) PO SCH (09:10)
[2016-08-21] MEDS: DOCUSATE SODIUM 100 MG CAPSULE (FP) PO SCH (09:11)
[2016-08-21] MEDS: PANTOPRAZOLE 20 MG TABLET (FP) PO SCH (09:11)
[2016-08-21] MEDS: ASPIRIN COATED 81 MG TABLET.EC PO SCH (09:11)
[2016-08-21] MEDS: DIGOXIN 0.125 MG TABLET (FP) PO SCH (09:12)
[2016-08-21] MEDS: POLYETHYLENE GLYCOL 3350 119 GM BTL PO SCH (09:12)
[2016-08-21] MEDS: ATENOLOL 25 MG TABLET (FP) PO SCH (09:13)
--- NOTE | 2016-08-21 09:55 | PN ---
Progress Note, Physician Chief Complaint: sitting in chair comfortable TELE: NSR - Current Medication List Current Medications: Active Medications Acetaminophen (Tylenol -) 650 mg PO Q6H PRN PRN Reason: FEVER OR PAIN Last Admin: 08/20/16 10:05 Dose: 650 mg Aspirin (Ecotrin -) 81 mg PO DAILY [facility] Last Admin: 08/21/16 09:11 Dose: 81 mg Atenolol (Tenormin -) 25 mg PO DAILY [facility] Last Admin: 08/21/16 09:13 Dose: 25 mg Digoxin (Lanoxin -) 0.125 mg PO DAILY [facility] Last Admin: 08/21/16 09:12 Dose: 0.125 mg Docusate Sodium (Colace -) 100 mg PO BID [facility] Last Admin: 08/21/16 09:11 Dose: 100 mg Magnesium Oxide (Mag-Ox -) 400 mg PO DAILY [facility] Last Admin: 08/21/16 09:10 Dose: 400 mg Morphine Sulfate (Morphine Injection -) 2 mg IVPUSH Q2H PRN PRN Reason: PAIN Pantoprazole Sodium (Protonix -) 20 mg PO DAILY [facility] Last Admin: 08/21/16 09:11 Dose: 20 mg Polyethylene Glycol (Miralax (For Daily Use) -) 17 gm PO BID [facility] Last Admin: 08/21/16 09:12 Dose: Not Given Senna (Senna -) 1 tab PO HS [facility] Last Admin: 08/20/16 23:07 Dose: Not Given - Objective Vital Signs: Vital Signs Temperature 97.9 F 08/21/16 06:00 Pulse Rate 90 08/21/16 09:12 Respiratory Rate 20 08/21/16 06:00 Blood Pressure 122/76 08/21/16 06:00 O2 Sat by Pulse Oximetry (%) 98 08/21/16 06:00 Constitutional: Yes: Calm Cardiovascular: Yes: Regular Rate and Rhythm Respiratory: Yes: Other (slight decreased breath sounds right base) Gastrointestinal: Yes: Soft Edema: No Neurological: Yes: Alert Labs: CBC, BMP 08/20/16 05:15 08/20/16 05:15 INR, PTT INR 1.32 (0.82-1.09) H 08/12/16 14:30 Laboratory Tests 08/20/16 08/20/16 05:15 05:15 WBC 6.2 Hgb 9.0 L Hct 26.7 L Plt Count 338 Sodium 141 Potassium 3.8 Creatinine 0.4 L - ....Imaging EKG: Image Reviewed Assessment/Plan Assessment/Plan CLL on chemo Recurrent right pleural effusion s/p RVATs PSVT and PAF s/p ILR REC: Paroxysmal afib with RVR -cont Digoxin 0.125mg daily and Atenolol 25mg daily -ASA resumed. Will reach out to family today to discuss full AC vs ASA going forward.
--- NOTE | 2016-08-21 12:03 | DS ---
Physical Exam: SUBJECTIVE: Patient seen and examined on tele. She is oob to chair, she walked > 100 ft w PT. She is feeling "so-so" and tired and would like to go home. OBJECTIVE: Vital Signs Period Temp Pulse Resp BP Sys/Ross Pulse Ox Last 24 Hr 97.9 F-98.8 F 82-98 18-22 113-146/50-76 98-99 PE Neuro: alert, awake, cn 2-12intact Pulm: R lung diminished, L clear, CT dressing intact CV: s1 s2 rrr no mrg Abd: s nt nd +bs Ext: warm, pedal edema HOSPITAL COURSE: Date of Admission:08/05/16 Date of Discharge: 08/21/16 Minutes to complete discharge: 35 Discharge Summary Reason For Visit: PLEURAL EFFUSION ON RIGHT; HYPOTENSION; CLL Current Active Problems Afib (Acute) Pleural effusion, right (Acute) Hospital Course: Initial Hospital Course: Briefly, this 89 old woman with PMHx of breast CA (s/p rt lumpectomy) and CLL ( last chemo about two weeks ago), a-fib and hx of rt pleural effusion, pt discharged on 07/17 s/p thoracentesis after rt pleural effusion. She presented to [place] [facility] with CC of night sweats, subjective fever and SOB. Chest xray showed worsening rt pleural effusion (since 07/16). Pt transferred to the ICU for further management. Subsequent Hospital Course/Progress Note/Discharge Summary by a/p: Assessment: 89 year old female with a history of CLL, right breast CA s/p chemo , GERD, arrhythmia, macular degeneration, pleural effusion (recent thoracentesis on 07/16/16) admitted with SOB, sepsis, and pleural effusion. Plan: 1. Pleural effusion - s/p VATS 08/12 - Exudative effusion resulted - Final cytology negative for malignancy - Pathology report results show abundant inflammation - Thoracic follow up in 2 weeks 2. Sepsis d/t E. Coli UTI +/- lung source - See above - emperic zosyn/levaquin/vanco ~5 days - s/p Levaquin 250mg 3 days 3. Acute blood loss anemia - 1UPRBC 08/17 - hgb stable 4. pAF, RVR - In sinus - Continue Dig 0.125mg - Continue Atenolol 25mg daily - ASA 81mg daily - I discussed decision of AC with Dr. Price; given pt recent chest manipulation and drop in hemoglobin, age, and frail physical status, decision to maintain pt on only ASA at this time is most prudent. Pt to follow up in office in 2 weeks, Dr. Price to re evaluate and discuss options with family at that time. 5. CLL - s/p recent chemo 3 weeks ago - Appreciate oncology consult 6. GERD - Cont Protonix Dispo: - Home with visiting nurse services and follow up with CTX and cardiology as above. (referrals enclosed) Condition: Stable - Instructions Diet, Activity, Other Instructions: Please return to the ED for any new, persistent, or worsening symptoms. Follow up with your PCP in 1 week. Follow up with Dr. Ryder (thoracic surgeon) in 2 weeks Follow up in [place] in 2 week for re evaluation of anti coagulation and heart rhythm monitoring Resume home meds as directed on home medication list Referrals: Nic Price MD [Staff Physician] - Orlando Ryder MD [Staff Physician] - Geovany Beltran MD [Primary Care Provider] - Disposition: VNS/HOME HEALTH CARE - Home Medications Comprehensive Discharge Medication List: Ambulatory Orders Aspirin [ASA -] 81 mg PO DAILY 12/28/11 Magnesium 400 mg PO DAILY 07/12/16 Atenolol [Tenormin -] 25 mg PO DAILY #30 tablet 08/21/16 Digoxin [Lanoxin -] 0.125 mg PO DAILY #30 tablet 08/21/16 This patient is new to me today: No Emergency Visit: Yes ED Registration Date: 08/05/16 Care time: The patient presented to the Emergency Department on the above date and was hospitalized for further evaluation of their emergent condition. Critical Care patient: No - Discharge Referral Referred to [facility] Med P.C[facility] No Physician Referral: Geovany Beltran MD ([facility])
--- NOTE | 2016-08-21 12:13 | PN ---
Progress Note, Physician History of Present Illness: PULMONARY ALERT,NAD,AMBULATING WITH ASSISTANCE,-CP,-SOB - Current Medication List Current Medications: Active Medications Acetaminophen (Tylenol -) 650 mg PO Q6H PRN PRN Reason: FEVER OR PAIN Last Admin: 08/20/16 10:05 Dose: 650 mg Aspirin (Ecotrin -) 81 mg PO DAILY [facility] Last Admin: 08/21/16 09:11 Dose: 81 mg Atenolol (Tenormin -) 25 mg PO DAILY [facility] Last Admin: 08/21/16 09:13 Dose: 25 mg Digoxin (Lanoxin -) 0.125 mg PO DAILY [facility] Last Admin: 08/21/16 09:12 Dose: 0.125 mg Docusate Sodium (Colace -) 100 mg PO BID [facility] Last Admin: 08/21/16 09:11 Dose: 100 mg Magnesium Oxide (Mag-Ox -) 400 mg PO DAILY [facility] Last Admin: 08/21/16 09:10 Dose: 400 mg Morphine Sulfate (Morphine Injection -) 2 mg IVPUSH Q2H PRN PRN Reason: PAIN Pantoprazole Sodium (Protonix -) 20 mg PO DAILY [facility] Last Admin: 08/21/16 09:11 Dose: 20 mg Polyethylene Glycol (Miralax (For Daily Use) -) 17 gm PO BID [facility] Last Admin: 08/21/16 09:12 Dose: Not Given Senna (Senna -) 1 tab PO HS [facility] Last Admin: 08/20/16 23:07 Dose: Not Given - Objective Vital Signs: Vital Signs Temperature 98 F 08/21/16 10:00 Pulse Rate 82 08/21/16 10:00 Respiratory Rate 18 08/21/16 10:00 Blood Pressure 113/64 08/21/16 10:00 O2 Sat by Pulse Oximetry (%) 98 08/21/16 09:00 Constitutional: Yes: Well Nourished, Calm Eyes: Yes: WNL HENT: Yes: WNL Neck: Yes: WNL Cardiovascular: Yes: Pulse Irregular, S1, S2 Respiratory: Yes: Diminished Gastrointestinal: Yes: Normal Bowel Sounds, Soft Extremities: Yes: WNL Edema: No Labs: CBC, BMP 08/20/16 05:15 08/20/16 05:15 INR, PTT INR 1.32 (0.82-1.09) H 08/12/16 14:30 Problem List - Problems (1) Pleural effusion, right Code(s): J90 - PLEURAL EFFUSION, NOT ELSEWHERE CLASSIFIED (2) Pleural effusion Code(s): J90 - PLEURAL EFFUSION, NOT ELSEWHERE CLASSIFIED (3) Arrhythmia Code(s): I49.9 - CARDIAC ARRHYTHMIA, UNSPECIFIED (4) CLL (chronic lymphocytic leukemia) Code(s): C91.10 - CHRONIC LYMPHOCYTIC LEUK OF B-CELL TYPE NOT ACHIEVE REMIS (5) GERD (gastroesophageal reflux disease) Code(s): K21.9 - GASTRO-ESOPHAGEAL REFLUX DISEASE WITHOUT ESOPHAGITIS (6) Afib Code(s): I48.91 - UNSPECIFIED ATRIAL FIBRILLATION Assessment/Plan A/P Empyema s/p VATS/decortication/pneumolysis Severe Sepsis resolved Lactic Acidosis resolved Atrial Fibrillation CLL - s/p antibiotics - pain control - incentive spirometry - O2 as needed - DVT prophylaxis - d/c planning DR MCGILL
[2016-08-21 16:53] VITALS: BP 140/68; PULSE 88; TEMP 98.5
== END 2016-08-21 05:20 | disposition home or self-care (01) | DRG 853 ==
LOC: FER 11:25 → JICU 17:25 → J4W 08-06 20:03 → JICU 08-12 10:52 → J4W 08-20 09:04
PROVIDERS: ADMIT Internal Medicine; ATTEND Nurse Practitioner Acute Care
PROC: 0BDN4ZZ Extraction of Right Pleura, Percutaneous Endoscopic Approach (ICD-10-PCS; 2016-08-12)
PROC: 0BBN4ZX Excision of Right Pleura, Percutaneous Endoscopic Approach, Diagnostic (ICD-10-PCS; 2016-08-12)
PROC: 0BJ08ZZ Inspection of Tracheobronchial Tree, Via Natural or Artificial Opening Endoscopic (ICD-10-PCS; 2016-08-12)
PROC: 0W9930Z Drainage of Right Pleural Cavity with Drainage Device, Percutaneous Approach (ICD-10-PCS; 2016-08-12)
PROC: 0BNK0ZZ Release Right Lung, Open Approach (ICD-10-PCS; principal; 2016-08-12 08:00)
PROC: 30233N1 Transfusion of Nonautologous Red Blood Cells into Peripheral Vein, Percutaneous Approach (ICD-10-PCS; 2016-08-17)
PROC: 0BPQX0Z Removal of Drainage Device from Pleura, External Approach (ICD-10-PCS; 2016-08-20)
DX: A41.51 Sepsis due to Escherichia coli [E. coli] (principal); J86.9 Pyothorax without fistula; J18.9 Pneumonia, unspecified organism; J90 Pleural effusion, not elsewhere classified; C91.10 Chronic lymphocytic leukemia of B-cell type not having achieved remission; N17.9 Acute kidney failure, unspecified; N39.0 Urinary tract infection, site not specified; I47.1 Supraventricular tachycardia; E87.2 Acidosis; D80.1 Nonfamilial hypogammaglobulinemia; D62 Acute posthemorrhagic anemia; R65.20 Severe sepsis without septic shock; E87.6 Hypokalemia; K59.00 Constipation, unspecified; K21.9 Gastro-esophageal reflux disease without esophagitis; H35.30 Unspecified macular degeneration; Z85.3 Personal history of malignant neoplasm of breast; B96.20 Unspecified Escherichia coli [E. coli] as the cause of diseases classified elsewhere; I48.0 Paroxysmal atrial fibrillation; Z88.0 Allergy status to penicillin
CPT/HCPCS: 36415; 36430; 71010-TC; 71250-TC; 80048; 80053; 80061; 80162; 81003; 81015; 82150; 82272; 82438; 82550; 82784; 82785; 82945; 83605; 83615; 83721; 83735; 83880; 84100; 84132; 84157; 84311; 84443; 84484; 85025; 85027; 85610; 85651; 85730; 86140; 86480; 86850; 86900; 86901; 86922; 87040; 87070; 87075; 87086; 87186; 87205; 87254; 87804; 87899; 88108; 88305-TC; 88331-TC; 93005; 93010; 93306-TC; 94010; 94640; 94760; 97116-GP; 97162-PG; 99284-25; G0480; J1644; P9038; P9058